=== PATIENT | male | born 1930 | race Caucasian/White ===

== ENCOUNTER 2017-12-20 18:14 | Emergency (ER) | payer OTHER ==
[~2017-12-20] VITALS: Ht 170.2 cm; Wt 57.9 kg
[2017-12-20 18:48] VITALS: TEMP 36.7; Ht 170.2 cm; Wt 57.9 kg
--- NOTE | 2017-12-20 19:27 | EMERGENCY ROOM VISIT NOTE ---
History Report prepared by Anuradha: Ken Olea Under the Supervision of: Dr. Everette Pozo M.D. First contact with patient: 19:12 Chief Complaint: THROAT PAIN/INJURY Stated Complaint: CANT SWALLOW History of Present Illness The patient is an 87 year old white male with no past medical history who presents to the ED with a cc of a worsening inability to swallow beginning the past few days. Pt is not able to drink milk or coffee without vomiting it back up. He notes he used to drink a lot of water with his meals to make everything go down, but now he cannot do that either. Negative pain with swallowing, recent weight loss, history of cancer, alcohol use, tobacco use, HTN, HLD, and DM. Source of History: patient Onset: past few days Position: throat Quality: other (inability to swallow) Timing: worsening Modifying Factors (Worsening): drinking Associated Symptoms: + vomiting Note: Denies: pain with swallowing, recent weight loss Review of Systems See HPI for pertinent positives and negatives. A total of ten systems were reviewed and were otherwise negative. Past Medical & Surgical Medical Problems: (1) No Known Active Medical Problems Family History Patient reports no known family medical history. Social History Smoking Status: Never Smoker Smokeless Tobacco Use: No Alcohol Use: none Marital Status: Housing Status: lives with significant other Occupation Status: retired Current/Historical Medications Scheduled Coenzyme Q10 (Ubidecarenone) (Co Q10), 1 CAP PO DAILY Allergies Coded Allergies: No Known Allergies (Unverified , 12/20/17) Physical Exam Vital Signs Date Time Temp Pulse Resp B/P (MAP) Pulse Ox O2 Delivery O2 Flow Rate FiO2 12/20/17 23:28 78 18 142/82 96 12/20/17 21:52 84 20 165/85 96 Room Air 12/20/17 20:37 75 12/20/17 20:27 72 20 170/86 95 Room Air 12/20/17 19:45 77 18 168/85 96 Room Air 12/20/17 18:48 36.7 81 20 180/91 94 Room Air Physical Exam GENERAL: Awake, alert, well-appearing, NAD HENT: Normocephalic, atraumatic. Posterior pharynx is clear. No tonsillar or uvular deviation. EYES: Normal conjunctiva. Sclera non-icteric. NECK: Supple. No nuchal rigidity. FROM. No stridor. RESPIRATORY: CTAB, no rhonchi, wheezing, crackles CARDIAC: RRR, no MRG ABDOMEN: Soft, NTND, BS+ MSK: No chest wall TTP, no LE edema NEURO: GCS 15, CN 2-12 intact, moves all 4s on command SKIN: No rash or jaundice noted. Medical Decision & Procedures ER Provider Diagnostic Interpretation: Radiology results as stated below per my review and radiologist interpretation: CT SCAN OF THE NECK WITH IV CONTRAST CLINICAL HISTORY: Dysphagia. COMPARISON STUDY: No priors. TECHNIQUE: Following the IV administration of 94 cc of Optiray 320, CT scan of the soft tissues of the neck was performed from the skull base to the upper chest. Images are reviewed in the axial, sagittal, and coronal planes. IV contrast was administered without complication. A dose lowering technique was utilized adhering to the principles of ALARA. CT DOSE: 328.69 mGy.cm FINDINGS: Pharynx: The nasopharynx, oropharynx, and laryngeal pharynx are normal in appearance. The pharyngeal airway is widely patent. There is no evidence of mass lesion. The vocal cords are symmetric. The parapharyngeal fat is well maintained. The prevertebral/retropharyngeal soft tissues are within normal limits. Lymphadenopathy: No cervical lymphadenopathy is seen Thyroid: Normal in size and attenuation. Bilateral low-attenuation nodules measure up to 12 mm. Salivary glands: The parotid and submandibular glands are within normal limits. Brain parenchyma: The visualized brain parenchyma at the skull base is normal in appearance noting age-related involutional change. Vascular structures: There is atherosclerotic calcification of the thoracic aorta. The carotid arteries and jugular veins are patent noting atherosclerotic calcification of the carotid bulbs. Skeletal structures: The skeletal structures are osteopenic. Imaged portions of the calvarium at the skull base are within normal limits. The cervical spine appears intact noting multilevel spondylosis. Numerous dental caries are identified within the remaining mandibular teeth. Orbits: The bony orbits are intact. Orbital contents are normal as visualized noting a right ocular lens implant. Sinuses and mastoids: Mild mucosal thickening is seen in the maxillary antra. A tiny air-fluid level is noted on the left. Mild mucosal thickening is also seen in the ethmoid sinuses. The mastoid air cells are well pneumatized. Lung apices: Advanced emphysema is noted. Minimal patchy airspace opacities are present in the right upper lobe. Esophagus: The visualized esophagus is significantly distended and filled with fluid to the level of the thoracic inlet. The esophagus measures up to 5 cm in diameter. Mild diffuse esophageal wall thickening is noted. IMPRESSION: 1. The visualized esophagus is significantly dilated and fluid-filled to level of the thoracic inlet. Note that this may place the patient at risk for aspiration. 2. Circumferential esophageal wall thickening is suggested. Correlate clinically for evidence of esophagitis. If further assessment is desired then endoscopy would be appropriate. 3. Advanced emphysema. 4. There are mild patchy airspace opacities present in the right upper lobe. Correlate clinically for evidence of an infectious/inflammatory pneumonitis. 5. No cervical lymphadenopathy is seen. 6. Numerous dental caries are identified in the remaining mandibular teeth. Follow-up with dentistry is recommended. 7. Additional findings as above. Electronically signed by: Brent Jasso M.D. 12/20/2017 9:38 PM Dictated Date/Time: 12/20/2017 9:31 PM SINGLE VIEW CHEST CLINICAL HISTORY: Generalized abdominal pain. FINDINGS: An AP, portable, upright chest radiograph is obtained. No prior studies are available for comparison at the time of dictation. The examination is degraded by portable technique and patient rotation. The heart is top normal for projection. There is atherosclerotic calcification of the thoracic aorta. The pulmonary vasculature is noncongested. Emphysematous changes suspected. Nonspecific interstitial thickening is noted. No airspace consolidation is seen typical for pneumonia and there is no large pleural effusion. No pneumothorax is seen. The skeletal structures are osteopenic. Degenerative changes noted in the thoracic spine. IMPRESSION: There is no acute cardiopulmonary abnormality. Electronically signed by: Brent Jasso M.D. 12/20/2017 8:06 PM Dictated Date/Time: 12/20/2017 8:05 PM Laboratory Results 12/20/17 19:48 Red Blood Count 4.50, Mean Corpuscular Volume 90.0, Mean Corpuscular Hemoglobin 30.7, Mean Corpuscular Hemoglobin Concent 34.1, Mean Platelet Volume 8.9, Neutrophils (%) (Auto) 70.5, Lymphocytes (%) (Auto) 17.2, Monocytes (%) (Auto) 8.7, Eosinophils (%) (Auto) 3.1, Basophils (%) (Auto) 0.2, Neutrophils # (Auto) 7.37, Lymphocytes # (Auto) 1.80, Monocytes # (Auto) 0.91, Eosinophils # (Auto) 0.32, Basophils # (Auto) 0.02 12/20/17 19:48 Test 12/20/17 19:48 White Blood Count 10.45 K/uL (4.8-10.8) Red Blood Count 4.50 M/uL (4.7-6.1) Hemoglobin 13.8 g/dL (14.0-18.0) Hematocrit 40.5 % (42-52) Mean Corpuscular Volume 90.0 fL (80-100) Mean Corpuscular Hemoglobin 30.7 pg (25-34) Mean Corpuscular Hemoglobin Concent 34.1 g/dl (32-36) Platelet Count 267 K/uL (130-400) Mean Platelet Volume 8.9 fL (7.4-10.4) Neutrophils (%) (Auto) 70.5 % Lymphocytes (%) (Auto) 17.2 % Monocytes (%) (Auto) 8.7 % Eosinophils (%) (Auto) 3.1 % Basophils (%) (Auto) 0.2 % Neutrophils # (Auto) 7.37 K/uL (1.4-6.5) Lymphocytes # (Auto) 1.80 K/uL (1.2-3.4) Monocytes # (Auto) 0.91 K/uL (0.11-0.59) Eosinophils # (Auto) 0.32 K/uL (0-0.5) Basophils # (Auto) 0.02 K/uL (0-0.2) RDW Standard Deviation 44.4 fL (36.4-46.3) RDW Coefficient of Variation 13.4 % (11.5-14.5) Immature Granulocyte % (Auto) 0.3 % Immature Granulocyte # (Auto) 0.03 K/uL (0.00-0.02) Anion Gap 6.0 mmol/L (3-11) Est Creatinine Clear Calc Drug Dose 50.1 ml/min Estimated GFR () 90.8 Estimated GFR (Non- 78.3 BUN/Creatinine Ratio 13.4 (10-20) Calcium Level 9.6 mg/dl (8.5-10.1) Laboratory results reviewed by [facility] ED Course 1919: The patient was evaluated in room B08. A complete history and physical exam was performed. 194: I discussed the patient's case with radiology. A barium swallowing test is not an option because we do not have a radiologist in the hospital that can administer it. 2212: I discussed the patient's case with LALITO Kincaid. They are aware of the patient's case and said that he would be able to follow up as an outpatient if needed. 2218: Case management spoke with the patient. He would be evaluated by the [facility] Hospitalist service, but he would not like to receive further care. 2241: I reevaluated the patient. Discussed results and discharge instructions. He would not like to be evaluated for further management or care. He verbalized understanding and agreement. The patient is ready for discharge. Medical Decision The patient is an 87 year old white male with no past medical history who presents to the ED with a cc of a worsening inability to swallow beginning the past few days. Differential diagnoses include: Stricture, esophageal web, esophagitis, obstruction, mass, dysmotility Patient was seen and evaluated the bedside. Patient had been complaining of some worsening dysphagia that has been ongoing for a prolonged time however was acutely worse the last several days. Patient has had some difficulty with even swallowing liquids. Patient denies any trauma. Patient exam is no obvious abnormality in the posterior pharynx and the patient is non-stridulous. Patient did have blood work completed along with a CT soft tissue neck. Of note the patient did have a enlarged esophagus and measured across at approximately 5 cm. I discussed the distention with the patient stated they may benefit from a endoscopy in order to further evaluate the etiology of the patient's distended esophagus. I did discuss the patient with the on-call hand sign writer who stated that he may benefit from being treated in house however not necessarily. The patient did pass his dysphagia screening. Discuss the possibility of staying in the hospital with the patient however the patient refused. I did discuss the patient with the case reviewer will help arrange an outpatient follow-up appointment. Patient was told to continue a soft diet and take small portions of time. Patient was also told to sleep propped up on a pillow. Patient was told return if he had any worsening symptoms. Patient was deemed suitable for outpatient follow-up and treatment at this time. Patient was given strict follow-up, discharge, and return precautions. All questions were answered. Patient was deemed suitable for outpatient follow-up at this time. Patient agreed with the plan of care and was safely discharged home. Medication Reconcilliation Current Medication List: was personally reviewed by me Blood Pressure Screening Patient's blood pressure: Elevated blood pressure Blood pressure disposition: Referred to PCP Consults Time Called: 2210 Consulting Physician: LALITO Kincaid Returned Call: 2211 I discussed the patient's case with LALITO Kincaid. They are aware of the patient's case and said that he would be able to follow up as an outpatient if needed. Impression Primary Impression: Dysphagia Additional Impression: Esophageal abnormality Scribe Attestation The scribe's documentation has been prepared under my direction and personally reviewed by me in its entirety. I confirm that the note above accurately reflects all work, treatment, procedures, and medical decision making performed by me. Departure Information Dispostion Home / Self-Care Referrals No Doctor, Assigned (PCP) Forms HOME CARE DOCUMENTATION FORM, IMPORTANT VISIT INFORMATION, WORK / SCHOOL INSTRUCTIONS Patient Instructions Dysphagia, Dysphagia Diet, My Qranio Additional Instructions Please return to the emergency department if you have worsening or recurrent symptoms not amenable to at-home treatment. Please call for a follow-up appointment with her primary care physician. Please take your medications as prescribed. If you have other concerns and/or complaints please feel free to also call your primary care physician's office or return the ED for further evaluation, management, and treatment. When he sleep please make sure you prop herself up. Please continue a soft diet. Please keep her follow-up appointment with the hand sign writer. The case reviewer here and will call you tomorrow to discuss your appointment. Take your medications as prescribed. You have been examined and treated today on an emergency basis only. This is not a substitute for, or an effort to provide, complete comprehensive medical care. It is impossible to recognize and treat all injuries or illnesses in a single emergency department visit. It is therefore important that you follow up closely with [facility], your PCP, and/or your specialist(s). Call as soon as possible for an appointment. Thank you for your time and consideration. I look forward to speaking with you again soon. Please don't hesitate to call us if you have any questions. Problem Qualifiers Primary Impression: Dysphagia Dysphagia type: esophageal phase Qualified Codes: R13.10 - Dysphagia, unspecified
[2017-12-20] MEDS ORDERED: OPTIRAY 320 IV PRN (19:45)
[2017-12-20 20:05] LABS: BASO % 0.2 %; BASO ABS # 0.02 K/uL (0-0.2); EOS % 3.1 %; EOS ABS # 0.32 K/uL (0-0.5); HEMATOCRIT 40.5 % (42-52); HEMOGLOBIN 13.8 g/dL (14.0-18.0); IG# 0.03 K/uL (0.00-0.02); LYMPH % 17.2 %; MEAN CORPUSCULAR HEMOGLOBIN 30.7 pg (25-34); MEAN CORPUSCULAR HGB CONC 34.1 g/dl (32-36); MEAN PLATELET VOLUME 8.9 fL (7.4-10.4); MONO % 8.7 %; MONO ABS # 0.91 K/uL (0.11-0.59); NEUT % 70.5 %; NEUT ABS # 7.37 K/uL (1.4-6.5); PLATELET COUNT 267 K/uL (130-400); RED CELL DISTRIBUTION WIDTH CV 13.4 % (11.5-14.5); RED CELL DISTRIBUTION WIDTH SD 44.4 fL (36.4-46.3); WHITE BLOOD COUNT 10.45 K/uL (4.8-10.8)
--- NOTE | 2017-12-20 20:08 | DIAGNOSTIC IMAGING REPORT ---
SINGLE VIEW CHEST CLINICAL HISTORY: Generalized abdominal pain. FINDINGS: An AP, portable, upright chest radiograph is obtained. No prior studies are available for comparison at the time of dictation. The examination is degraded by portable technique and patient rotation. The heart is top normal for projection. There is atherosclerotic calcification of the thoracic aorta. The pulmonary vasculature is noncongested. Emphysematous changes suspected. Nonspecific interstitial thickening is noted. No airspace consolidation is seen typical for pneumonia and there is no large pleural effusion. No pneumothorax is seen. The skeletal structures are osteopenic. Degenerative changes noted in the thoracic spine. IMPRESSION: There is no acute cardiopulmonary abnormality. Electronically signed by: Brent Jasso M.D. 12/20/2017 8:06 PM Dictated Date/Time: 12/20/2017 8:05 PM
[2017-12-20 20:25] LABS: CALCIUM 9.6 mg/dl (8.5-10.1); CREATININE 0.85 mg/dl (0.60-1.40); POTASSIUM 4.1 mmol/L (3.5-5.1)
[2017-12-20] MEDS ORDERED: COEN90TA PO (20:31)
--- NOTE | 2017-12-20 21:39 | DIAGNOSTIC IMAGING REPORT ---
CT SCAN OF THE NECK WITH IV CONTRAST CLINICAL HISTORY: Dysphagia. COMPARISON STUDY: No priors. TECHNIQUE: Following the IV administration of 94 cc of Optiray 320, CT scan of the soft tissues of the neck was performed from the skull base to the upper chest. Images are reviewed in the axial, sagittal, and coronal planes. IV contrast was administered without complication. A dose lowering technique was utilized adhering to the principles of ALARA. CT DOSE: 328.69 mGy.cm FINDINGS: Pharynx: The nasopharynx, oropharynx, and laryngeal pharynx are normal in appearance. The pharyngeal airway is widely patent. There is no evidence of mass lesion. The vocal cords are symmetric. The parapharyngeal fat is well maintained. The prevertebral/retropharyngeal soft tissues are within normal limits. Lymphadenopathy: No cervical lymphadenopathy is seen Thyroid: Normal in size and attenuation. Bilateral low-attenuation nodules measure up to 12 mm. Salivary glands: The parotid and submandibular glands are within normal limits. Brain parenchyma: The visualized brain parenchyma at the skull base is normal in appearance noting age-related involutional change. Vascular structures: There is atherosclerotic calcification of the thoracic aorta. The carotid arteries and jugular veins are patent noting atherosclerotic calcification of the carotid bulbs. Skeletal structures: The skeletal structures are osteopenic. Imaged portions of the calvarium at the skull base are within normal limits. The cervical spine appears intact noting multilevel spondylosis. Numerous dental caries are identified within the remaining mandibular teeth. Orbits: The bony orbits are intact. Orbital contents are normal as visualized noting a right ocular lens implant. Sinuses and mastoids: Mild mucosal thickening is seen in the maxillary antra. A tiny air-fluid level is noted on the left. Mild mucosal thickening is also seen in the ethmoid sinuses. The mastoid air cells are well pneumatized. Lung apices: Advanced emphysema is noted. Minimal patchy airspace opacities are present in the right upper lobe. Esophagus: The visualized esophagus is significantly distended and filled with fluid to the level of the thoracic inlet. The esophagus measures up to 5 cm in diameter. Mild diffuse esophageal wall thickening is noted. IMPRESSION: 1. The visualized esophagus is significantly dilated and fluid-filled to level of the thoracic inlet. Note that this may place the patient at risk for aspiration. 2. Circumferential esophageal wall thickening is suggested. Correlate clinically for evidence of esophagitis. If further assessment is desired then endoscopy would be appropriate. 3. Advanced emphysema. 4. There are mild patchy airspace opacities present in the right upper lobe. Correlate clinically for evidence of an infectious/inflammatory pneumonitis. 5. No cervical lymphadenopathy is seen. 6. Numerous dental caries are identified in the remaining mandibular teeth. Follow-up with dentistry is recommended. 7. Additional findings as above. Electronically signed by: Brent Jasso M.D. 12/20/2017 9:38 PM Dictated Date/Time: 12/20/2017 9:31 PM
[2017-12-20 23:28] VITALS: BP 142/82; PULSE 78; O2SAT 96
== END 2017-12-20 23:29 | disposition home or self-care (01) ==
LOC: C.EDB 18:17
DX: R13.10 Dysphagia, unspecified (principal); K22.9 Disease of esophagus, unspecified

== ENCOUNTER → 2017-12-23 | Day surgery (SDC) | payer OTHER ==
[~2017-12-23] VITALS: Ht 170.2 cm; Wt 58.2 kg
[~2017-12-23] MED LIST: COEN90TA PO; LIDOCAINE HCL 2% 2 ML VIAL (20MG/ML) ONE; PROPOFOL IV EMULSION 10 MG/ML 20 ML VIAL IV ONE; SODIUM CHLORIDE 0.9% 500ML 500 ML IV ONE
[2017-12-23 10:34] VITALS: Ht 170.2 cm; Wt 58.2 kg
--- NOTE | 2017-12-23 11:10 | Endo History and Physical ---
History & Physical Date of Service: Dec 23, 2017. Chief Complaint: Dysphagia Referring Physician: None History of Present Illness dysphagia Past Surgical History Hx Post-Op Nausea and Vomiting: No Family History None Social History Smoking Status: Never Smoker Hx Substance Use: No Hx Alcohol Use: No Allergies Coded Allergies: No Known Allergies (Verified , 12/23/17) Current Medications Reported Home Medications Medications Dose Route/Sig Max Daily Dose Days Date Category Co Q10 (Coenzyme Q10) Unknown Strength Tab 1 Cap PO DAILY 12/20/17 Reported Vital Signs Weight (Kilograms): 58.18 Height (Feet): 5 Height (Inches): 7 Date Time Temp Pulse Resp B/P (MAP) Pulse Ox O2 Delivery O2 Flow Rate FiO2 12/23/17 10:49 36.4 76 22 177/86 (116) 96 Room Air Physical Exam General Appearance: WD/WN, no apparent distress Assessment and Plan EGD today
--- NOTE | 2017-12-23 11:55 | GI REPORT ---
Procedure Date: 12/23/2017 10:54 AM Procedure: Upper GI endoscopy Indications: Dysphagia Medicines: Propofol per Anesthesia Complications: No immediate complications. Estimated blood loss: Minimal. Estimated Blood Loss: Estimated blood loss was minimal. Procedure: Pre-Anesthesia Assessment: - Prior to the procedure, a History and Physical was performed, and patient medications, allergies and sensitivities were reviewed. The patient's tolerance of previous anesthesia was reviewed. - The risks and benefits of the procedure and the sedation options and risks were discussed with the patient. All questions were answered and informed consent was obtained. - Patient identification and proposed procedure were verified prior to the procedure by the physician and the nurse. The procedure was verified in the pre-procedure area in the procedure room. - Mental Status Examination: alert and oriented. Airway Examination: normal oropharyngeal airway and neck mobility. Respiratory Examination: clear to auscultation. CV Examination: normal. Abdominal Examination: bowel sounds present, abdomen soft and non-tender, no masses or organomegaly noted. - ASA Grade Assessment: II - A patient with mild systemic disease. After obtaining informed consent, the endoscope was passed under direct vision. Throughout the procedure, the patient's blood pressure, pulse, and oxygen saturations were monitored continuously. The scope was introduced through the mouth, and advanced to the second part of duodenum. The upper GI endoscopy was accomplished without difficulty. The patient tolerated the procedure well. Findings: The lumen of the esophagus was severely dilated. Diffuse mucosal changes characterized by congestion, erythema, friability (with contact bleeding), inflammation and white specks were found in the middle third of the esophagus and in the lower third of the esophagus. Cells for cytology were obtained by brushing. Verification of patient identification for the specimen was done by the physician and nurse using the patient's name and date. Estimated blood loss was minimal. Mucosal changes characterized by smoothness were found at the gastroesophageal junction. Biopsies were taken with a cold forceps for histology. Verification of patient identification for the specimen was done by the physician and nurse using the patient's name and date. Estimated blood loss was minimal. Fluid was found in the entire esophagus. A small hiatal hernia was present. The examined duodenum was normal. Impression: - The esophagus is significantly dilated. There was a moderate amount of fluid which was suctioned/removed. - The entire esophagus is congested, erythematous, friable (with contact bleeding), inflamed, with adherent white plaque vs food debris. Cells for cytology obtained. - Mucosa at the GE junction (which was difficult to locate) shows luminal narrowing. Dilated with passage of the scope. Further dilation with bougie dilator or balloon not done today given the degree of inflammation and friability of the remainder of the esophagus. Biopsied. - Small hiatal hernia. - Normal examined duodenum. Recommendation: - Use a proton pump inhibitor PO BID. - Await pathology results. - Full liquid diet. - Repeat upper endoscopy in 1-2 week to check healing and for retreatment. - Return to referring physician as previously scheduled. - Discharge patient to home. Shagufta Mata D.O. Shagufta Mata, 12/23/2017 11:55:11 AM This report has been signed electronically. Note Initiated On: 12/23/2017 10:54 AM I attest to the content of the Intraoperative Record and orders documented therein, exceptions below
[2017-12-23 12:25] VITALS: BP 138/75; PULSE 70; O2SAT 97
--- NOTE | 2017-12-23 12:28 | Discharge Instructions ---
Endoscopy Patient Instructions Date / Procedure(s) Performed Dec 23, 2017. EGD Allergy Information Coded Allergies: No Known Allergies (Verified , 12/23/17) Discharge Date / Findings Dec 23, 2017. 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 - Do not drink alcohol the day of the procedure. - Do not drive a car or operate machinery until the day after the procedure. - Do not make any important decisions or sign important papers in 24 hours after the procedure. Following Day: - Return to full activity which may include returning to work/school. Diet Full liquid diet Treatment For Common After Affects For mild abdominal pain, bloating, or excessive gas: - Rest - Eat lightly - Lie on right side Follow-Up Information Follow-up with a repeat upper endoscopy in 1 week Anesthesia Information What You Should Know You have had a procedure that required some medicine to reduce anxiety and discomfort. This treatment is called moderate sedation. After receiving the treatment, you may be sleepy, but you will be able to breathe on your own. The effects of the treatment may last for several hours. Follow these instructions along with Activity/Diet recommendations noted above: * Do NOT do anything where dizziness or clumsiness would be dangerous. * Rest quietly at home today, then you can be up and about tomorrow. * Have a responsible person stay with you the rest of today. * You may have had an I.V. today. If so, you may take the dressing off later today. Recommendations Call your doctor if: * Trouble breathing * Continuous vomiting for more than 24 hours * Temperature above 101 degrees * Severe abdominal pain or bloating * Pain not relieved by pain medicine ordered * There is increased drainage or redness from any incision * A large amount of rectal bleeding greater than 2-3 tablespoons. (If you had a polyp/s removed or have hemorrhoids, a small amount of blood - from the rectum is to be expected.) * You have any unanswered questions or concerns. IN THE EVENT OF A SERIOUS EMERGENCY, GO TO THE NEAREST EMERGENCY ROOM Your discharge instructions were prepared by provider Shagufta Mata. Patient Instructions Signature Page Alfonso Wilson Patient (or Guardian) Signature/Date: I have read and understand the instructions given to me by my caregivers. Caregiver/RN/Doctor Signature/Date: The above-named patient and/or guardian has received patient instructions on this date. + Original Patient Signature Page (only) stays with chart. Please make copy for patient.
--- NOTE | 2017-12-23 13:12 | Anesthesiology Progress Note ---
Anesthesia Post Op Note Date & Time Dec 23, 2017 at 13:12 Vital Signs Pain Intensity: 0 Vital Signs Past 12 Hours Date Time Temp Pulse Resp B/P (MAP) Pulse Ox O2 Delivery O2 Flow Rate FiO2 12/23/17 12:25 70 20 138/75 (96) 97 Room Air 12/23/17 12:12 70 20 156/77 (103) 97 Room Air 12/23/17 11:55 77 16 160/83 (108) 98 Room Air 12/23/17 10:49 36.4 76 22 177/86 (116) 96 Room Air Notes Mental Status: alert / awake / arousable, participated in evaluation Pt Amnestic to Procedure: Yes Nausea / Vomiting: adequately controlled Pain: adequately controlled Airway Patency, RR, SpO2: stable & adequate BP & HR: stable & adequate Hydration State: stable & adequate Anesthetic Complications: no major complications apparent
== END | disposition home or self-care (01) ==
LOC: C.GI 10:05
PROVIDERS: ATTEND Internal Medicine
DX: R13.10 Dysphagia, unspecified (principal); K44.9 Diaphragmatic hernia without obstruction or gangrene; K20.9 Esophagitis, unspecified

== ENCOUNTER → 2018-01-03 | Day surgery (SDC) | payer OTHER ==
[~2018-01-03] VITALS: Ht 170.2 cm; Wt 58.6 kg
[~2018-01-03] MED LIST changes: -LIDOCAINE HCL 2% 2 ML VIAL (20MG/ML) ONE; -PROPOFOL IV EMULSION 10 MG/ML 20 ML VIAL IV ONE
[2018-01-03 10:49] VITALS: Ht 170.2 cm; Wt 58.6 kg
[2018-01-03 10:57] VITALS: BP 180/85; PULSE 74; TEMP 36.6; O2SAT 97
--- NOTE | 2018-01-03 12:30 | Progress Note ---
Progress Note Date of Service Jan 03, 2018. Progress Note Mr. Wilson presented today for f/u EGD for dysphagia and recent Eugenia esophagitis. He states he is feeling fine and does not want to undergo any further testing, states he is eating what he wants without difficulty. Refused consent Patient was agreeable to outpt clinic f/u which I will arrange Discussed with son at bedside.
== END | disposition home or self-care (01) ==
LOC: C.GI 10:34
PROVIDERS: ATTEND Internal Medicine
DX: R13.10 Dysphagia, unspecified (principal); Z53.29 Procedure and treatment not carried out because of patient's decision for other reasons

== ENCOUNTER 2019-12-27 09:44 | Inpatient (IN) ==
[2019-12-27] MEDS ORDERED: SODIUM CHLORIDE 0.9% 500 ML IV SCH (10:00)
[2019-12-27] MEDS ORDERED: ONDANSETRON INJ 2 MG/ML 2 ML VIAL IV STA (10:17)
[2019-12-27] MEDS ORDERED: MoRPHine SULFATE 2 MG/ML CARP IV STA (10:17)
[2019-12-27 10:24] LABS: Basophils # (auto) 0.01 K/uL (0-0.2); Basophils % (auto) 0.1 %; Hematocrit (blood only) 45.9 % (42-52); Hemoglobin 15.2 g/dL (14.0-18.0); Immature Granulocytes # (auto) 0.04 K/uL (0.00-0.02); Immature Granulocytes % (auto) 0.3 %; Lymphocytes % (auto) 5.7 %; Mean Corpuscular Hemoglobin 31.4 pg (25-34); Mean Corpuscular Hgb Conc 33.1 g/dL (32-36); Mean Corpuscular Volume 94.8 fL (80-100); Mean Platelet Volume 11.3 fL (7.4-10.4); Monocytes # (auto) 0.77 K/uL (0.11-0.59); Monocytes % (auto) 4.9 %; Neutrophils # (auto) 14.01 K/uL (1.4-6.5); Platelet Count 221 K/uL (130-400); RDW Coefficient of Variation 14.6 % (11.5-14.5); RDW Standard Deviation 49.9 fL (36.4-46.3); Red Blood Count 4.84 M/uL (4.7-6.1); White Blood Count 15.73 K/uL (4.8-10.8)
[2019-12-27 10:27] LABS: Appearance Urine Cloudy (Clear); Bacteria Urine Automated Negative (Negative); Bilirubin Urine Negative (Negative); Blood Urine Trace (Negative); Color Urine Dark Yellow; Glucose Urine UA Negative (Negative); Ketones Urine 2+ (Negative); Leukocyte Esterase Urine 2+ (Negative); Nitrite Urine Negative (Negative); Protein Urine 1+ (Negative); RBC Urine Automated 0-4 /hpf (0-4); Specific Gravity Urine 1.025 (1.000-1.030); Urobilinogen Urine Negative (Negative); WBC Urine Automated >30 /hpf (0-5); pH Urine 5.5 (4.5-7.5)
--- NOTE | 2019-12-27 10:30 | XRay Report ---
XR chest 1V portable CLINICAL HISTORY: weakness COMPARISON STUDY: Chest radiograph December 20, 2017. FINDINGS: Lung volumes are normal. There is no pneumothorax or pleural effusion. There is no evidence for pulmonary edema. Cardiac size is normal. Abnormal upper mediastinal widening is noted. A 1.5 cm density within the right upper lung is present. IMPRESSION: 1. Abnormal upper mediastinal widening. This may be due to esophageal dilatation. 2. Possible 1.5 cm right upper lobe nodular opacity. A nonemergent chest CT is recommended for evalua tion of these findings. ACT 112: Negative or not required by law. Electronically signed by: Jim Villatoro M.D. 12/27/2019 10:28 AM
[2019-12-27 10:32] LABS: Albumin Level 3.4 gm/dl (3.4-5.0); BUN Creatinine Ratio 28.1 (10-20); Calcium 10.2 mg/dl (8.5-10.1); Creatinine Clr Calc Pharmacy 29.3 ml/min; Est GFR (Non-African American) 61.2; Magnesium 2.2 mg/dl (1.8-2.4); Potassium 3.8 mmol/L (3.5-5.1)
--- NOTE | 2019-12-27 10:34 | CT Scan Report ---
HEAD CT NONCONTRAST CT DOSE: 905.75 mGy.cm HISTORY: fall TECHNIQUE: Multiaxial CT images of the head were performed without the use of intravenous contrast. A utomated exposure control was utilized for this study. A dose lowering technique was utilized adheri ng to the principles of ALARA. Comparison: None. Findings: Trace fluid levels within the maxillary sinuses. The mastoid air cells are clear. The christopher rium and skull base are intact. There is no mass, hematoma, midline shift, acute infarct. White matte r hypodensity is nonspecific but suggestive of microvascular ischemic change. The ventricles and sulc i demonstrate mild age-related involutional changes. Impression: No acute intracranial abnormality. Atrophy and microvascular ischemic changes. Trace fluid levels wit hin the maxillary sinuses. ACT 112: Negative or not required by law. Electronically signed by: Jian Wong M.D. 12/27/2019 10:33 AM
--- NOTE | 2019-12-27 10:43 | CT Scan Report ---
CT OF THE ABDOMEN AND PELVIS WITHOUT CONTRAST CLINICAL HISTORY: Left hip pain. Fall. Weight loss. COMPARISON STUDY: No previous studies for comparison. TECHNIQUE: Axial images of the abdomen and pelvis were obtained without IV contrast. Images were revi ewed in the axial, sagittal, and coronal planes. Automated exposure control was utilized for the neha dy. A dose lowering technique was utilized adhering to the principles of ALARA. FINDINGS: Imaged portions of the lower chest demonstrate trace bilateral pleural effusions. There is moderate emphysema. Visualized portions of the esophagus are markedly distended and contain ingested contents. A small hiatal hernia is present. No pneumatosis, free air or portal venous gas is present. Evaluation of the abdomen and pelvis is suboptimal on this unenhanced exam. A water attenuation left renal lesion favors a cyst. Unenhanced images of the liver, spleen, adrenal glands and pancreas are unremarkable. Prostate is markedly enlarged. Bladder wall is thickened and irregular with trabeculati ons. This is chronic. Bladder is moderately distended. Note is made of a comminuted displaced subcapi manuel left femoral neck fracture. Multiple bone fragments are present. This fracture is acute to subacu te. Thoracolumbar spine compression deformities are present. There are no suspicious osseous lesions. IMPRESSION: 1. Impacted displaced subcapital left femoral neck fracture. 2. Markedly distended esophagus, partially imaged on this exam. Probable hiatal hernia. The appearanc e raises the possibility of achalasia. A GE junction tumor with resultant esophageal dilatation could appear similar. Nonemergent GI consultation is suggested. 3. Trace bilateral pleural effusions. 4. Moderate emphysema. ACT 112: Negative or not required by law. Electronically signed by: Jim Villatoro M.D. 12/27/2019 10:42 AM
[2019-12-27 10:45] LABS: Albumin Globulin Ratio 0.7 (0.9-2); Bilirubin,Total 0.7 mg/dl (0.2-1); Creatine Kinase MB 3.2 ng/ml (0.5-3.6); Thyroid Stimulating Hormone 1.02 uIu/ml (0.300-4.500); Total Protein 8.4 gm/dl (6.4-8.2); Troponin I 0.122 ng/ml (0-0.045)
--- NOTE | 2019-12-27 12:11 | Gastrointestinal Consultation ---
Date of Consultation December 27, 2019 Assessment & Plan (1) Achalasia: Mr. Wilson has a tortorous esophagus, currently with a dilated esophagus. Botux injections into the GE junction have been slightly helpful for this in the past, though the length of effectiveness is decreasing. Favor a conservative approach, providing time for esophagus contents to pass through with time (typically clears in 1-2 days). Would keep NPO, provide IV fluids. This will allow time for cardiac testing for elevated troponin as well. Would be very hesitant to sedate for an elective procedure while troponin is elevated. Present on Admission?: Yes Supervising Physician Co-Signing Physician Notes I have personally seen and examined the patient with CLAYTON Montalvo. Her note reflects my exam and findings. I agree with her impression and plan. An EGD would put this very frail patient at risk because of anesthesia needed. He has evidence of severe esophageal dysmotility which endoscopy will not fix. The CT was c/w this dysmotility. The patient has had 4 previous endoscopies (last one not even a year ago) which showed exactly the same pathology. At this point from a GI perspective, hydrate and stabilize and asses for possible cardiac issue. Keep NPO for now. Basilio Newton M.D. History of Present Illness Reason for Consultation: Acalasia Requesting Physician: Emily Guerra NP/Dr. Allan Attending Physician: Emily Guerra NP/Dr. Allan History of Present Illness Mr. Alfonso Wilson is an 89 yr old male pt of Dr. Hoffmann with a hx of HTN and acalasia presented to the ED for a fall with hip fracture. GI is consulted for achalasia. The pt has previously undergone EGD with Botox injections into the GE junction, most recently in May [address] Roman. He was also recently seen in the GI clinic by Dr. Jatin Abreu and elective repeat EGD was arranged for next week. The pt denies any issues but the son accompanying him says that last fall, his dysphagia symptoms returned. They were intermittent at that time and have progressed such that, in the past few weeks, he has been able to swallow only very small amts of liquids and solids. During attempts to swallow, the solids and liquids regurgitating almost immediately, sometimes with coughing/gagging/choking. On arrival, non contrast CT chest CT and abd/pelvis with a dilated esophagus.WBC is elevated at 15. Troponin is also elevated at .122. Allergies Allergy/AdvReac Type Severity Reaction Status Date / Time No Known Allergies Allergy Verified 12/27/19 10:34 Home Medications Home Medications Medication Instructions Recorded Confirmed Type No Known Home Medications 12/27/19 12/27/19 History Patient History Medical History Achalasia BPH (benign prostatic hyperplasia) Surgical History History of esophagogastroduodenoscopy (EGD) History of tonsillectomy History of tooth extraction all upper and most of lower Hx of left cataract extraction Social History Preferred Language: Georgian Communication Ability: Effective Anesthesia Assistant Required: No Beliefs That Will Affect Care: None Current Living Situation: Alone Other Information That Helps Us Care for You: No Feels Safe at Home: Yes Safety Concerns: Feels Safe At This Time Smoking Status: Never smoker Second Hand Exposure: Yes ( smoked) ; Hx Alcohol Use: No Hx Substance Use: No Review of Systems Review of Systems: ROS: Gen: Weakness, 10 lbs weight loss in 2 weeks. No fevers/chills/sweats Eyes: No eye redness, or pain, no recent vision changes Resp: + cough with swallowing sometimes, otherwise no SOB, no cough Cardio: No palpitations/irregular beats, no chest pain GI: Denies any abdominal pain, no nausea/vomiting : Denies pain on urination. Skin: No jaundice, itching or new rashes Ext: left hip pain, no edema Physical Exam Constitutional: WD/WN, vitals as above + cachectic Eyes: PERRL, conjunctivae normal, anicteric sclerae ENMT: external ear and nose normal, oropharynx normal Neck: trachea midline, no thyromegaly Respiratory: normal respiratory effort, lungs clear to auscultation Cardiovascular: RRR, no murmur, no edema Gastrointestinal (Abdomen): normal bowel sounds, soft, nontender, no hepatosplenomegaly Skin: no rashes, warm and dry + turgor decreased Neurologic: PERRL, EOMI, accommodation nl, no face palsy, no dysarthria Psychiatric: A+Ox3, euthymic affect Lymphatic: one 3 cm soft let groin node Results & Data Vital Signs (Past 12 Hours) Vital Signs Temp Pulse Resp BP Pulse Ox 12/27/19 10:05 36.9 C 91 H 22 139/77 97 Laboratory Results WBC 15, Hb 15, Hct 45,platelets 221. NA 142, K 3.8, BUN 30, Cr 1.07 Troponin elevated today at .[address] abd/pelvis (non-contrast) 12/27/19: 1. Impacted displaced subcapital left femoral neck fracture. 2. Markedly distended esophagus, partially imaged on this exam. Probable hiatal hernia. The appearance raises the possibility of achalasia. A GE junction tumor with resultant esophageal dilatation could appear similar. Nonemergent GI consultation is suggested. 3. Trace bilateral pleural effusions. 4. Moderate emphysema. CXR: 1. Abnormal upper mediastinal widening. This may be due to esophageal dilatation. 2. Possible 1.5 cm right upper lobe nodular opacity. A nonemergent chest CT is recommended for evaluation of these findings.
--- NOTE | 2019-12-27 12:35 | History & Physical Report ---
Date of Service December 27, 2019 Assessment & Plan (1) Hip fracture, left: -Admit to [facility] with telemetry -Patient presenting after he suffered a mechanical fall last evening -In the ED, found to have displaced subcapital left femoral neck fracture -Due to elevated troponin, new RBBB, and achalasia, patient will need further preoperative evaluation -Orthopedics consult, case discussed with Dr. Mcdonald (2) Elevated troponin: (3) RBBB: -Mild troponin elevation 0.122, no reports of chest pain, likely secondary to dehydration/stress from fall -Found to have new RBBB on EKG -Continue cycle cardiac enzymes, check resting echo -Cardiology consult for preoperative evaluation, Dr. Del Toro notified (4) Achalasia: -History of achalasia, most recent dilation and Botox injections 01/2019 -GI consult, case discussed with CLAYTON Montalvo (5) Leukocytosis: -WBC 15K, likely stress response due to fall/fracture -No obvious signs of infection at this time -Follow CBC (6) DVT prophylaxis: -SCDs due to likely upcoming invasive procedures History of Present Illness Chief Complaint: left hip pain Primary Care Provider: Basilio Hoffmann 89 year old male who presents to the ED for evaluation of left hip pain. Patient has history of achalasia. Had dilation and Botox injection 01/2019. Over the past few months, patient has had worsening difficulty swallowing with acute worsening of symptoms over the past one week. Patient has had a 20 pound weight loss since last summer. Due to patient's very poor p.o. intake, he has had worsening generalized weakness. Last evening, patient slipped when trying to get up from his bed. His son found him on the floor. Patient was complaining of left hip pain however denied hospital evaluation at that time. This morning, left hip pain was persistent and patient then agreed to come to the ED. Patient reports he did strike his head with the fall however denies any loss of consciousness. No associated chest pain or shortness of breath. Has some lightheadedness with standing however denies syncopal event. No abdominal pain, nausea, vomiting, diarrhea. Denies any other recent illnesses, fevers, chills. No urinary symptoms. In the ED, patient is found to have left hip fracture. Labs show mildly elevated troponin 0.122, EKG shows new RBBB. CT ABD/pelvis is showing signs of esophageal distention, likely secondary to achalasia. Patient was given IVF, IV Zofran, IV morphine. Allergies Allergy/AdvReac Type Severity Reaction Status Date / Time No Known Allergies Allergy Verified 12/27/19 10:34 Home Medications Home Medications Medication Instructions Recorded Confirmed Type No Known Home Medications 12/27/19 12/27/19 History Past Med/Surg History Medical History Achalasia BPH (benign prostatic hyperplasia) Elevated troponin Surgical History History of esophagogastroduodenoscopy (EGD) History of tonsillectomy History of tooth extraction all upper and most of lower Hx of left cataract extraction Social History Preferred Language: Mozambican Communication Ability: Effective Financial Reporting Accountant Required: No Beliefs That Will Affect Care: None Current Living Situation: Alone Other Information That Helps Us Care for You: No Feels Safe at Home: Yes Safety Concerns: Feels Safe At This Time Smoking Status: Never smoker Second Hand Exposure: Yes ( smoked) ; Hx Alcohol Use: No Hx Substance Use: No Review of Systems Review of Systems: ROS per HPI, all other systems reviewed and negative Physical Exam Constitutional: + cachectic; no acute distress Vitals as above Eyes: PERRL, conjunctivae normal, anicteric sclerae ENMT: Ears: no external ear abnormality Nose: no external nose abnormality Mouth: + dry oral mucous membranes Respiratory: normal respiratory effort, lungs clear to auscultation Cardiovascular: Rate/Rhythm: regular rate and regular rhythm Vessels: normal peripheral pulses Extremities: no edema Gastrointestinal (Abdomen): normal bowel sounds, soft, nontender, no hepatosplenomegaly Musculoskeletal: Extremities: + leg length discrepancy (Left, shortened) and + leg externally rotated (Left); no cyanosis and no clubbing Skin: no rashes, warm and dry Neurologic: PERRL, EOMI, accommodation nl, no face palsy, no dysarthria Psychiatric: Orientation: alert and oriented x 3 Results & Data Vital Signs (Past 12 Hours) Vital Signs Temp Pulse Pulse Resp BP BP Pulse Ox 12/27/19 11:40 80 18 113/65 95 12/27/19 10:05 36.9 C 91 H 22 139/77 97 Laboratory Results Short CBC 12/27/19 Range/Units 09:58 WBC 15.73 H (4.8-10.8) K/uL Hgb 15.2 (14.0-18.0) g/dL Hct 45.9 (42-52) % Plt Count 221 (130-400) K/uL BMP 12/27/19 09:58 Sodium 142 Potassium 3.8 Chloride 106 Carbon Dioxide 29 BUN 30 H Creatinine 1.07 Glucose 120 H Calcium 10.2 H Cardiac Enzymes 12/27/19 Range/Units 09:58 Total Creatine Kinase 482 H (39-308) U/L CK-MB (CK-2) 3.2 (0.5-3.6) ng/ml Troponin I 0.122 H* (0-0.045) ng/ml Liver Function 12/27/19 Range/Units 09:58 Total Bilirubin 0.7 (0.2-1) mg/dl AST 32 (15-37) U/L ALT 26 (12-78) U/L Alkaline Phosphatase 91 (45-117) U/L Albumin 3.4 (3.4-5.0) gm/dl Urine 12/27/19 Range/Units 10:16 Urine Color Dark Yellow Urine Appearance Cloudy A (Clear) Urine pH 5.5 (4.5-7.5) Ur Specific Jackson 1.025 (1.000-1.030) Urine Protein 1+ H (Negative) Urine Glucose (UA) Negative (Negative) Diagnostic Findings CT ABD/PELVIS IMPRESSION: 1. Impacted displaced subcapital left femoral neck fracture. 2. Markedly distended esophagus, partially imaged on this exam. Probable hiatal hernia. The appearance raises the possibility of achalasia. A GE junction tumor with resultant esophageal dilatation could appear similar. Nonemergent GI consultation is suggested. 3. Trace bilateral pleural effusions. 4. Moderate emphysema. CXR IMPRESSION: 1. Abnormal upper mediastinal widening. This may be due to esophageal dilatation. 2. Possible 1.5 cm right upper lobe nodular opacity. A nonemergent chest CT is recommended for evaluation of these findings. CT Head Impression: No acute intracranial abnormality. Atrophy and microvascular ischemic changes. Trace fluid levels within the maxillary sinuses. Code Status & VTE Plan Code Status Patient is a DNR as per my discussion with him. VTE Prophylaxis Plan VTE Prophylaxis will be ordered: Yes Supervising Physician Co-Signing Physician Notes Attending addendum The patient was seen and examined in medical telemetry unit He is a status post fall with fracture of the left hip He is cachectic and complains of left hip pain but denies any other significant symptoms Denies any chest pain and/or palpitation on minimal exertion No abdominal pain, nausea and/or vomiting On examination Lying in bed without any acute symptoms Poor nutrition with cachectic appearance Hemodynamically stable Chest-clear Heart-S1-S2, regular Abdomen-benign Extremities-negative for any edema 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 Generally very weak and lethargic Admission labs, EKG, imaging studies reviewed Has achalasia with buildup of fluid in the esophagus, status post fall with frac ture of the left hip Gastroenterology and cardiology service consulted Ortho on board for possible surgery Agree with assessment and plan as outlined above by Emily durán
[2019-12-27] MEDS ORDERED: IOVERSOL 100ml IV PRN (12:42)
[2019-12-27] MEDS ORDERED: ACETAMINOPHEN 325 MG TAB PO PRN (13:18)
[2019-12-27] MEDS ORDERED: MAGNESIUM HYDROXIDE SUSP 30 ML UDC PO PRN (13:18)
[2019-12-27] MEDS ORDERED: NALOXONE HCL 0.4 MG/1 ML VIAL/CARP IV PRN (13:18)
[2019-12-27] MEDS ORDERED: MoRPHine SULFATE 2 MG/ML CARP IV PRN (13:18)
[2019-12-27] MEDS ORDERED: bisacodyL 10 MG SUPP PR PRN (13:18)
[2019-12-27] MEDS: D5W AND NSS 1,000 ML IV SCH (13:30)
--- NOTE | 2019-12-27 13:59 | CT Scan Report ---
CHEST CT WITH CONTRAST CT DOSE: 204.22 mGy.cm HISTORY: achalasia, f/u RUL opacity TECHNIQUE: Multiaxial CT images of the chest were performed following the intravenous administration of contrast. A dose lowering technique was utilized adhering to the principles of ALARA. COMPARISON: Abdomen and pelvis CT and chest x-ray 12/27/2019. FINDINGS: Severely distended esophagus which is filled with fluid/debris. The proximal esophagus cynthia ures up to 8.7 cm in diameter. This results in significant mass effect along the proximal trachea wit h severe narrowing best seen on image 65 of 326. The right side of the trachea measures 6 mm at this level and the left side of the trachea measures 1 mm in diameter. This also results in mass effect al dany the bilateral mainstem bronchi resulting in moderate focal narrowing on the right and mild narrow ing on the left. A few subcentimeter thyroid nodules. No mediastinal or hilar lymphadenopathy. There is tight stenosis at the gastroesophageal junction. Small bilateral pleural effusions. No pericardial effusion. The heart is normal in size. There is mild mass effect along the left atrium from the dist ended esophagus. Normal caliber thoracic aorta with no evidence for dissection. Small nonocclusive fi lling defects seen within the proximal right lower lobe segmental pulmonary arteries consistent with pulmonary emboli. This is technically age indeterminate but likely chronic. No suspicious lytic or bl astic osseous lesions. Moderate emphysema. Multiple compression deformities within the L1 vertebral b odies. These are likely old. Mild biapical pleural-parenchymal scarring. A few bibasilar linear densi ties suggesting subsegmental atelectasis. Faint patchy groundglass airspace opacity within the right upper lobe. This favors a developing pneumonia. IMPRESSION: 1. Severely distended and debris/fluid filled esophagus with tight stenosis at the gastroesophageal j unction as described above. This favors achalasia. A mass at the gastroesophageal junction is is cons idered less likely but not entirely excluded. Consider follow-up endoscopy for further evaluation. 2. The severely distended esophagus results in significant mass effect within the proximal trachea wi th severe tracheal narrowing as described above. The severe tracheal narrowing may prohibit this rafael ent from surgery/general anesthesia. 3. Faint patchy groundglass airspace opacity within the right upper lobe. This favors a developing pn eumonia. 4. Emphysema. 5. Small bilateral pleural effusions. 6. Additional findings as described above. 7. These findings were called/faxed to the referring physician following dictation. ACT 112: Negative or not required by law. Electronically signed by: Jian Wong M.D. 12/27/2019 1:58 PM
[2019-12-27] MEDS ORDERED: PIPERACILL/TAZOBAC CONSULT ACTIVE PRN (14:14)
--- NOTE | 2019-12-27 14:24 | Electrocardiogram Report ---
Test Reason : Blood Pressure : / mmHG Vent. Rate : 084 BPM Atrial Rate : 084 BPM P-R Int : 202 ms QRS Dur : 118 ms QT Int : 380 ms P-R-T Axes : 080 -73 077 degrees QTc Int : 449 ms Normal sinus rhythm Left axis deviation Right bundle branch block Abnormal ECG When compared with ECG of 02-MAY-2018 12:36, Right bundle branch block is now Present Criteria for Septal infarct are no longer Present Confirmed by Blas Brantley ([id number]) on 12/27/2019 2:24:39 PM Referred By: Confirmed By:Blsa Brantley
--- NOTE | 2019-12-27 14:24 | Anesthesiology Consultation ---
Date of Service December 27, 2019 Assessment & Plan (1) Encounter for pre-operative examination: Chart Review Chart Review: Pending: Refer to Additional Notes / Consult section (patient with elevated troponin and new RBBB on ECG - Cardiology to see patient today, echo ordered ) History Height/Weight Height: 5 ft 7 in Weight: 42.3 kg Allergies Allergy/AdvReac Type Severity Reaction Status Date / Time No Known Allergies Allergy Verified 12/27/19 10:34 Medications Home Medications Medication Instructions Recorded Confirmed Last Taken No Known Home Medications 12/27/19 12/27/19 Unknown Active Medications Generic Name Dose Route Start Last Admin Trade Name Freq PRN Reason Stop Dose Admin Dextrose/Sodium Chloride 1,000 mls @ 100 mls/hr 12/27/19 13:18 12/27/19 13:30 D5w And Nss IV 01/26/20 13:17 100 mls/hr .Q10H CANDIDA Administration Past Medical History Medical History (Updated 12/27/19 @ 14:26 by Eugenio Montelongo MD) Achalasia BPH (benign prostatic hyperplasia) Elevated troponin Past Surgical History Surgical History History of esophagogastroduodenoscopy (EGD) History of tonsillectomy History of tooth extraction all upper and most of lower Hx of left cataract extraction Social History Smoking Status: Never smoker Hx Alcohol Use: No Hx Substance Use: No substance use type: does not use Physical Exam Vital Signs Last Vital Signs Temp 36.7 C 12/27/19 13:01 Pulse 87 12/27/19 13:01 Resp 18 12/27/19 13:01 BP 150/74 H 12/27/19 13:01 Pulse Ox 92 12/27/19 13:01 Testing Laboratory Results 12/27/19 09:58 12/27/19 09:58 Urine Color Dark Yellow 12/27/19 10:16 Urine Appearance Cloudy (Clear) A 12/27/19 10:16 Urine pH 5.5 (4.5-7.5) 12/27/19 10:16 Ur Specific [place] 1.025 (1.000-1.030) 12/27/19 10:16 Urine Protein 1+ (Negative) H 12/27/19 10:16 Urine Glucose (UA) Negative (Negative) 12/27/19 10:16 Urine Ketones 2+ (Negative) H 12/27/19 10:16 Urine Nitrite Negative (Negative) 12/27/19 10:16 Ur Leukocyte Esterase 2+ (Negative) H 12/27/19 10:16 Urine WBC (Auto) >30 /hpf (0-5) H 12/27/19 10:16 Urine RBC (Auto) 0-4 /hpf (0-4) 12/27/19 10:16 U Hyaline Cast (Auto) 1-5 /lpf (0-5) 12/27/19 10:16 U Epithel Cells (Auto) 5-10 /lpf (0-5) H 12/27/19 10:16 Urine Bacteria (Auto) Negative (Negative) 12/27/19 10:16 Electrocardiogram Date: 12/27/19 Findings: + NSR @ (84) and + RBBB (new) Chest X-Ray Date: 12/27/19 Findings: + NAD
--- NOTE | 2019-12-27 14:33 | Cardiology Consultation ---
Date of Consultation December 27, 2019 Assessment & Plan (1) Hip fracture, left: (2) Encounter for pre-operative examination: (3) Elevated troponin: (4) RBBB: (5) Achalasia: We do not have an accurate history on this patient. An echocardiogram has been completed which I will review. From the history that I do have the geriatric cardiovascular risk assessment is about 4%. It is likely to be a little bit higher due to his age and dementia. He will require hip surgery for quality of life. He is currently optimally medically managed and he should proceed to surgery. History of Present Illness Attending Physician: Arlene Allan MD History of Present Illness This is an elderly 89-year-old male patient who was admitted after mechanical fall and a left hip fracture. He has a history of achalasia and is followed by the GI service. 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 He is not a good historian due to dementia and the information is taken from the medical record. Allergies Allergy/AdvReac Type Severity Reaction Status Date / Time No Known Allergies Allergy Verified 12/27/19 10:34 Home Medications Home Medications Medication Instructions Recorded Confirmed Type No Known Home Medications 12/27/19 12/27/19 History Patient History Medical History Achalasia BPH (benign prostatic hyperplasia) Elevated troponin Surgical History History of esophagogastroduodenoscopy (EGD) History of tonsillectomy History of tooth extraction all upper and most of lower Hx of left cataract extraction Social History Preferred Language: [place] Communication Ability: Effective Eligibility Counselor Required: No Beliefs That Will Affect Care: None Current Living Situation: Alone Other Information That Helps Us Care for You: No Feels Safe at Home: Yes Safety Concerns: Feels Safe At This Time Smoking Status: Never smoker Second Hand Exposure: Yes ( smoked) ; Hx Alcohol Use: No Hx Substance Use: No Review of Systems Review of Systems: All systems reviewed & are unremarkable except as noted in HPI & below Nothing additional to add. Physical Exam Physical Exam: General: Disoriented to person place or time Head: normocephalic, no masses, lesions, tenderness or abnormalities Eyes: conjunctiva are pink and non-injected, sclera clear Neck: supple, no adenopathy, no bruits, normal jugular venous pulse, no hepatojugular reflux Chest: normal shape and normal respiratory effort Lungs: clear to auscultation and percussion Cardiac Exam: - regular rate & rhythm, no murmurs gallops or rubs - normal S1, normal S2 Pulses: 2(+) throughout Abdomen: abdomen soft, non-tender, no abnormal masses and no hepatosplenomegaly Musculoskeletal: no gait disturbance, no joint inflammation, no deforming arthritis Extremities: no edema and no cyanosis Neuro: grossly normal exam Results & Data Vital Signs (Past 12 Hours) Vital Signs Temp Pulse Pulse Resp BP BP Pulse Ox 12/27/19 13:01 36.7 C 87 18 150/74 H 92 12/27/19 11:40 80 18 113/65 95 12/27/19 10:05 36.9 C 91 H 22 139/77 97 Laboratory Results Laboratory Results - last 24 hr 12/27/19 12/27/19 12/27/19 09:58 09:58 09:58 WBC 15.73 H RBC 4.84 Hgb 15.2 Hct 45.9 MCV 94.8 MCH 31.4 MCHC 33.1 RDW Std Deviation 49.9 H RDW Coeff of Jacob 14.6 H Plt Count 221 MPV 11.3 H Immature Gran % (Auto) 0.3 Neut % (Auto) 89.0 Lymph % (Auto) 5.7 [place] % (Auto) 4.9 Eos % (Auto) 0.0 Baso % (Auto) 0.1 Immature Gran # (Auto) 0.04 H Neut # (Auto) 14.01 H Lymph # (Auto) 0.90 L [place] # (Auto) 0.77 H Eos # (Auto) 0.00 Baso # (Auto) 0.01 Sodium 142 Potassium 3.8 Chloride 106 Carbon Dioxide 29 Anion Gap 7.0 BUN 30 H Creatinine 1.07 Est Cr Clr Drug Dosing 29.3 Est GFR ( Amer) 71.0 Est GFR (Non-Af Amer) 61.2 BUN/Creatinine Ratio 28.1 H Glucose 120 H Lactate 2.0 Calcium 10.2 H Magnesium 2.2 Total Bilirubin 0.7 AST 32 ALT 26 Alkaline Phosphatase 91 Total Creatine Kinase 482 H CK-MB (CK-2) 3.2 CK/CKMB % Calc 0.7 Troponin I 0.122 H* Total Protein 8.4 H Albumin 3.4 Globulin 5.0 H Albumin/Globulin Ratio 0.7 L TSH 1.020 Urine Color Urine Appearance Urine pH Ur Specific [place] Urine Protein Urine Glucose (UA) Urine Ketones Urine Blood Urine Nitrite Urine Bilirubin Urine Urobilinogen Ur Leukocyte Esterase Urine WBC (Auto) Urine RBC (Auto) U Hyaline Cast (Auto) U Epithel Cells (Auto) Urine Bacteria (Auto) Urine Yeast Blood Type Antibody Screen 12/27/19 12/27/19 10:16 13:39 WBC RBC Hgb Hct MCV MCH MCHC RDW Std Deviation RDW Coeff of Jacob Plt Count MPV Immature Gran % (Auto) Neut % (Auto) Lymph % (Auto) [place] % (Auto) Eos % (Auto) Baso % (Auto) Immature Gran # (Auto) Neut # (Auto) Lymph # (Auto) [place] # (Auto) Eos # (Auto) Baso # (Auto) Sodium Potassium Chloride Carbon Dioxide Anion Gap BUN Creatinine Est Cr Clr Drug Dosing Est GFR ( Amer) Est GFR (Non-Af Amer) BUN/Creatinine Ratio Glucose Lactate Calcium Magnesium Total Bilirubin AST ALT Alkaline Phosphatase Total Creatine Kinase CK-MB (CK-2) CK/CKMB % Calc Troponin I Total Protein Albumin Globulin Albumin/Globulin Ratio TSH Urine Color Dark Yellow Urine Appearance Cloudy A Urine pH 5.5 Ur Specific [place] 1.025 Urine Protein 1+ H Urine Glucose (UA) Negative Urine Ketones 2+ H Urine Blood Trace H Urine Nitrite Negative Urine Bilirubin Negative Urine Urobilinogen Negative Ur Leukocyte Esterase 2+ H Urine WBC (Auto) >30 H Urine RBC (Auto) 0-4 U Hyaline Cast (Auto) 1-5 U Epithel Cells (Auto) 5-10 H Urine Bacteria (Auto) Negative Urine Yeast Not Reportable Blood Type Pending Antibody Screen Pending Medications Administered Current Inpatient Medications Acetaminophen (Tylenol) 650 mg PO Q4H PRN PRN Reason: pain/fever Stop: 01/26/20 13:17 Bisacodyl (Dulcolax) 10 mg TX DAILY PRN PRN Reason: Constipation Stop: 01/26/20 13:17 Dextrose/Sodium Chloride (D5w And Nss) 1,000 mls @ 100 mls/hr IV .Q10H CANDIDA Stop: 01/26/20 13:17 Last Admin: 12/27/19 13:30 Dose: 100 mls/hr Documented by: Cefazolin Sodium (Ancef 2000mg) 2,000 mg in 15 mls @ 3.75 mls/min IV PREOP CANDIDA; Protocol Stop: 12/29/19 05:59 Magnesium Hydroxide (Milk Of Magnesia) 30 ml PO DAILY PRN PRN Reason: Constipation Stop: 01/26/20 13:17 Miscellaneous Information (Consult) 1 ea N/A UD PRN PRN Reason: Consult Stop: 01/26/20 14:13 Morphine Sulfate (Morphine Sulfate) 2 mg IV Q4H PRN PRN Reason: MODERATE Pain (Scale 4,5,6) Stop: 01/10/20 13:17 Naloxone HCl (Narcan) 0.1 mg IV UD PRN PRN Reason: Opiate Overdose Stop: 01/26/20 13:17 Senna/Docusate Sodium (Senokot S) 2 tab PO HS ACNDIDA Stop: 01/26/20 20:59
--- NOTE | 2019-12-27 14:46 | XRay Report ---
SINGLE VIEW PELVIS; 2 VIEWS LEFT HIP CLINICAL HISTORY: Left hip fracture. FINDINGS: An AP supine view of the pelvis with AP and crosstable lateral portable views of the left h ip are correlated with pelvic CT performed the same day 12/27/2019. The skeletal structures are osteope demetri. Again seen is an impacted and distracted subcapital fracture of the left femur with numerous sma ll bony fragments. Overlying soft tissue edema is noted. No additional fracture is seen identified in volving the hips or bony pelvis. Moderate degenerative joint space narrowing is seen in both hips. Sima mbosacral spondylosis is partially visualized. Excreted IV contrast is present within the urinary katerina dder. This outlines numerous bladder diverticula and a markedly enlarged prostate gland. Advanced ath erosclerotic calcification is seen the femoral arteries. IMPRESSION: There is an impacted and distracted subcapital fracture of the left femur as above. Electronically signed by: Brent Jasso M.D. 12/27/2019 2:44 PM
--- NOTE | 2019-12-27 14:59 | Orthopedic Consultation ---
Date of Consultation December 27, 2019 Assessment & Plan (1) Hip fracture, left: Patient has a displaced left femoral neck fracture. Discussed with patient that surgical intervention would be necessary to fix his fracture. He would be a candidate for a left hip bipolar hemiarthroplasty. Patient was found to have RBBB as well as elevated troponin levels in the ED. Will require appropriate preoperative evaluations prior to proceeding with anything from a surgical standpoint. Will review case with [facility] physicians for treatment of his left hip fracture. Thank you for this consult, will follow. History of Present Illness Reason for Consultation: Left hip fracture Attending Physician: Arlene Allan MD History of Present Illness Patient is an 89 year old male with recent poor PO intake with 20lb weight loss. He has had some weakness due to this. He subsequently suffered a fall yesterday evening with acute onset of left hip pain. He was brought to [facility] ED for evaluation. X-rays of the hip demonstrate a displaced femoral neck fracture. He has findings of achalasia, RBBB, as well as elevated troponin levels. GI and cardiology consults have been placed. Discussed with patient that this type of fracture will likely require surgical intervention. Patient denies chest pain, sob, fever, chills, n/v/d. C/o left hip pain. 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 Required: No Beliefs That Will Affect Care: None Current Living Situation: Alone Other Information That Helps Us Care for You: No Feels Safe at Home: Yes Safety Concerns: Feels Safe At This Time Smoking Status: Never smoker Second Hand Exposure: Yes ( smoked) ; Hx Alcohol Use: No Hx Substance Use: No Review of Systems Review of Systems: All systems reviewed & are unremarkable except as noted in HPI & below Physical Exam Constitutional: WD/WN, vitals as above + thin; no acute distress Eyes: PERRL, conjunctivae normal, anicteric sclerae ENMT: external ear and nose normal, oropharynx normal Respiratory: normal respiratory effort; no respiratory distress Cardiovascular: Rate/Rhythm: regular rate and regular rhythm Extremities: no edema Musculoskeletal: Patient seen resting in bed comfortably, no acute distress. Left leg is midly shortened and externally rotated. Mild pain with gentle log rolling. Distally n/v status and sensation intact. Mildly tender in region of left hip. No tenderness about the knee or distal thigh. Skin: no rashes, warm and dry Neurologic: normal touch/pain/proprioception Psychiatric: A+Ox3, euthymic affect Results & Data ([facility]) Vital Signs (Past 12 Hours) Vital Signs Temp Pulse Pulse Resp BP BP Pulse Ox 12/27/19 13:01 36.7 C 87 18 150/74 H 92 12/27/19 11:40 80 18 113/65 95 12/27/19 10:05 36.9 C 91 H 22 139/77 97 Laboratory Results Lab Results 12/27/19 12/27/19 12/27/19 Range/Units 09:58 09:58 09:58 WBC 15.73 H (4.8-10.8) K/uL RBC 4.84 (4.7-6.1) M/uL Hgb 15.2 (14.0-18.0) g/dL Hct 45.9 (42-52) % MCV 94.8 (80-100) fL MCH 31.4 (25-34) pg MCHC 33.1 (32-36) g/dL RDW Std Deviation 49.9 H (36.4-46.3) fL RDW Coeff of Jacob 14.6 H (11.5-14.5) % Plt Count 221 (130-400) K/uL MPV 11.3 H (7.4-10.4) fL Immature Gran % (Auto) 0.3 % Neut % (Auto) 89.0 % Lymph % (Auto) 5.7 % [place] % (Auto) 4.9 % Eos % (Auto) 0.0 % Baso % (Auto) 0.1 % Immature Gran # (Auto) 0.04 H (0.00-0.02) K/uL Neut # (Auto) 14.01 H (1.4-6.5) K/uL Lymph # (Auto) 0.90 L (1.2-3.4) K/uL [place] # (Auto) 0.77 H (0.11-0.59) K/uL Eos # (Auto) 0.00 (0-0.5) K/uL Baso # (Auto) 0.01 (0-0.2) K/uL Sodium 142 (136-145) mmol/L Potassium 3.8 (3.5-5.1) mmol/L Chloride 106 (98-107) mmol/L Carbon Dioxide 29 (21-32) mmol/L Anion Gap 7.0 (3-11) BUN 30 H (7-18) mg/dl Creatinine 1.07 (0.6-1.4) mg/dl Est Cr Clr Drug Dosing 29.3 ml/min Est GFR ( Amer) 71.0 Est GFR (Non-Af Amer) 61.2 BUN/Creatinine Ratio 28.1 H (10-20) Glucose 120 H (70-99) mg/dl Lactate 2.0 (0.4-2.0) mmol/L Calcium 10.2 H (8.5-10.1) mg/dl Magnesium 2.2 (1.8-2.4) mg/dl Total Bilirubin 0.7 (0.2-1) mg/dl AST 32 (15-37) U/L ALT 26 (12-78) U/L Alkaline Phosphatase 91 (45-117) U/L Total Creatine Kinase 482 H (39-308) U/L CK-MB (CK-2) 3.2 (0.5-3.6) ng/ml CK/CKMB % Calc 0.7 (0-3.0) Troponin I 0.122 H* (0-0.045) ng/ml Total Protein 8.4 H (6.4-8.2) gm/dl Albumin 3.4 (3.4-5.0) gm/dl Globulin 5.0 H (2.5-4.0) gm/dl Albumin/Globulin Ratio 0.7 L (0.9-2) TSH 1.020 (0.300-4.500) uIu/ml Urine Color Urine Appearance (Clear) Urine pH (4.5-7.5) Ur Specific [place] (1.000-1.030) Urine Protein (Negative) Urine Glucose (UA) (Negative) Urine Ketones (Negative) Urine Blood (Negative) Urine Nitrite (Negative) Urine Bilirubin (Negative) Urine Urobilinogen (Negative) Ur Leukocyte Esterase (Negative) Urine WBC (Auto) (0-5) /hpf Urine RBC (Auto) (0-4) /hpf U Hyaline Cast (Auto) (0-5) /lpf U Epithel Cells (Auto) (0-5) /lpf Urine Bacteria (Auto) (Negative) Urine Yeast Blood Type Antibody Screen 12/27/19 12/27/19 Range/Units 10:16 13:39 WBC (4.8-10.8) K/uL RBC (4.7-6.1) M/uL Hgb (14.0-18.0) g/dL Hct (42-52) % MCV (80-100) fL MCH (25-34) pg MCHC (32-36) g/dL RDW Std Deviation (36.4-46.3) fL RDW Coeff of Jacob (11.5-14.5) % Plt Count (130-400) K/uL MPV (7.4-10.4) fL Immature Gran % (Auto) % Neut % (Auto) % Lymph % (Auto) % [place] % (Auto) % Eos % (Auto) % Baso % (Auto) % Immature Gran # (Auto) (0.00-0.02) K/uL Neut # (Auto) (1.4-6.5) K/uL Lymph # (Auto) (1.2-3.4) K/uL [place] # (Auto) (0.11-0.59) K/uL Eos # (Auto) (0-0.5) K/uL Baso # (Auto) (0-0.2) K/uL Sodium (136-145) mmol/L Potassium (3.5-5.1) mmol/L Chloride (98-107) mmol/L Carbon Dioxide (21-32) mmol/L Anion Gap (3-11) BUN (7-18) mg/dl Creatinine (0.6-1.4) mg/dl Est Cr Clr Drug Dosing ml/min Est GFR ( Amer) Est GFR (Non-Af Amer) BUN/Creatinine Ratio (10-20) Glucose (70-99) mg/dl Lactate (0.4-2.0) mmol/L Calcium (8.5-10.1) mg/dl Magnesium (1.8-2.4) mg/dl Total Bilirubin (0.2-1) mg/dl AST (15-37) U/L ALT (12-78) U/L Alkaline Phosphatase (45-117) U/L Total Creatine Kinase (39-308) U/L CK-MB (CK-2) (0.5-3.6) ng/ml CK/CKMB % Calc (0-3.0) Troponin I (0-0.045) ng/ml Total Protein (6.4-8.2) gm/dl Albumin (3.4-5.0) gm/dl Globulin (2.5-4.0) gm/dl Albumin/Globulin Ratio (0.9-2) TSH (0.300-4.500) uIu/ml Urine Color Dark Yellow Urine Appearance Cloudy A (Clear) Urine pH 5.5 (4.5-7.5) Ur Specific [place] 1.025 (1.000-1.030) Urine Protein 1+ H (Negative) Urine Glucose (UA) Negative (Negative) Urine Ketones 2+ H (Negative) Urine Blood Trace H (Negative) Urine Nitrite Negative (Negative) Urine Bilirubin Negative (Negative) Urine Urobilinogen Negative (Negative) Ur Leukocyte Esterase 2+ H (Negative) Urine WBC (Auto) >30 H (0-5) /hpf Urine RBC (Auto) 0-4 (0-4) /hpf U Hyaline Cast (Auto) 1-5 (0-5) /lpf U Epithel Cells (Auto) 5-10 H (0-5) /lpf Urine Bacteria (Auto) Negative (Negative) Urine Yeast Not Reportable Blood Type O Positive Antibody Screen NEGATIVE Diagnostic Findings SINGLE VIEW PELVIS; 2 VIEWS LEFT HIP CLINICAL HISTORY: Left hip fracture. FINDINGS: An AP supine view of the pelvis with AP and crosstable lateral portable views of the left hip are correlated with pelvic CT performed the same day 12/27/2019. The skeletal structures are osteopenic. Again seen is an impacted and distracted subcapital fracture of the left femur with numerous small bony fragments. Overlying soft tissue edema is noted. No additional fracture is seen identified involving the hips or bony pelvis. Moderate degenerative joint space narrowing is seen in both hips. Lumbosacral spondylosis is partially visualized. Excreted IV contrast is present within the urinary bladder. This outlines numerous bladder diverticula and a markedly enlarged prostate gland. Advanced atherosclerotic calcification is seen the femoral arteries. IMPRESSION: There is an impacted and distracted subcapital fracture of the left femur as above.
[2019-12-27] MEDS ORDERED: PIPERACILLIN/TAZOBACTAM 3.375 GM in DEXTROSE 5% 100 ML IV ONE (15:00)
[2019-12-27 15:27] LABS: INR 1.1 (0.9-1.1)
--- NOTE | 2019-12-27 15:51 | XRay Report ---
XR femur LT 2V routine HISTORY: 89 years-old Male hip fracture acute left-sided hip fracture COMPARISON: Pelvis and left hip radiographs of same day TECHNIQUE: 2 views of the left femur FINDINGS: There is an acute impacted and slightly distracted subcapital fracture of the left femur redemonstrat ed with approximately 1.5 cm superior displacement with slight apex superior lateral angulation. Soft tissue swelling is noted about the hip. Arterial calcifications are noted. 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 No dislocation. The mid and distal femur appear intact. IMPRESSION: Acute impacted, mildly distracted and angulated subcapital fracture of the left femur red emonstrated. ACT 112: Negative or not required by law. The above report was generated using voice recognition software. It may contain grammatical, syntax o r spelling errors. Electronically signed by: Christophe Hicks M.D. 12/27/2019 3:50 PM
[2019-12-27] MEDS: DOCUSATE SODIUM/SENNA 50/8.6MG TAB PO SCH (21:17)
[2019-12-27] MEDS: PIPERACILLIN/TAZOBACTAM 3.375 GM in DEXTROSE 5% 100 ML IV SCH (22:12)
[2019-12-28] MEDS: D5W AND NSS 1,000 ML IV SCH ×2 (00:58→10:45)
[2019-12-28] MEDS ORDERED: CEFAZOLIN 2000MG 2,000 MG/15 ML SYR IV SCH (06:00)
[2019-12-28] MEDS: PIPERACILLIN/TAZOBACTAM 3.375 GM in DEXTROSE 5% 100 ML IV SCH ×3 (06:03→21:30)
[2019-12-28 06:46] LABS: Hemoglobin 12.4 g/dL (14.0-18.0); Mean Corpuscular Hemoglobin 30.6 pg (25-34); Mean Corpuscular Hgb Conc 31.8 g/dL (32-36); Mean Corpuscular Volume 96.3 fL (80-100); Mean Platelet Volume 10.8 fL (7.4-10.4); Platelet Count 191 K/uL (130-400); RDW Standard Deviation 52.8 fL (36.4-46.3); Red Blood Count 4.05 M/uL (4.7-6.1); White Blood Count 11.36 K/uL (4.8-10.8)
[2019-12-28 07:22] LABS: BUN Creatinine Ratio 23.1 (10-20); Creatinine Clr Calc Pharmacy 32.4 ml/min; Est GFR (African American) 78.9; Est GFR (Non-African American) 68.1; Potassium 3.9 mmol/L (3.5-5.1)
--- NOTE | 2019-12-28 10:27 | Gastroenterology Progress Note ---
Date of Service December 28, 2019 Assessment & Plan (1) Achalasia: Mr. Wilson has a torturous, dilated, food debris/liquid filled esophagus. Dr. Newton and I viewed the chest CT films with a radiologist. It appears chronically dilated, and in yesterday's imaging is debris/fluid filled but no specific food bolus. So, would not be able to do EGD to remove pieces of food through the mouth. Would need to do a very slow procedure trying to drain the debris through the GE junction. Favor a conservative approach, providing time for esophagus contents to pass through with time (typically clears in 1-2 days). Would re-image with CT on Tuesday afternoon/evening again consider EGD Tuesday if no progress. Would also sips/chips po but not a clear liquid diet (low volume liquid may be helpful in moving the debris into the stomach). Supervising Physician Co-Signing Physician Notes I have personally seen and examined the patient with CLAYTON Montalvo. Her note reflects my exam and findings. I agree with her impression and plan. I reviewed the patient's imaging with radiology. 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 This should clear on its own if given some time. There is no single piece of food that could be cleared easily. The patient would require prolonged intubation to try to "flush" the debris into the stomach putting the patient at risk for aspiration and cardiopulmonary morbidity. I suggest keeping npo except for sips of water and ice chips to facilitate clearance. Repeat imaging Tuesday to check esophagus. Basilio Newton M.D. Subjective Mr. Alfonso Wilson is an 89 yr old male who was admitted yesterday for a fall. He has had very little po intake over the past few weeks due to regurgitation of foods/liquids soon after swallowing. CT on arrival with dilated, fluid filled esophagus. Left hip fx. Surgical repair being planned. Review of Systems Review of Systems: ROS: Gen: Weakness, 10 lbs weight loss in 2 weeks. No fevers/chills/sweats Eyes: No eye redness, or pain, no recent vision changes Resp: + cough with swallowing sometimes, otherwise no SOB, no cough Cardio: No palpitations/irregular beats, no chest pain GI: Denies any abdominal pain, no nausea/vomiting : Denies pain on urination. Skin: No jaundice, itching or new rashes Ext: left hip pain, no edema Physical Exam Constitutional: WD/WN, vitals as above + cachectic Eyes: PERRL, conjunctivae normal, anicteric sclerae ENMT: external ear and nose normal, oropharynx normal Neck: trachea midline, no thyromegaly Respiratory: normal respiratory effort, lungs clear to auscultation Cardiovascular: RRR, no murmur, no edema Gastrointestinal (Abdomen): normal bowel sounds, soft, nontender, no hepatosplenomegaly Skin: no rashes, warm and dry + turgor decreased Neurologic: PERRL, EOMI, accommodation nl, no face palsy, no dysarthria Psychiatric: A+Ox3, euthymic affect Results & Data Vital Signs (Past 12 Hours) Vital Signs Temp Pulse Pulse Resp BP Pulse Ox 12/28/19 07:49 87 12/28/19 07:00 36.2 C L 83 18 123/66 92 12/28/19 04:14 36.6 C 75 20 117/70 92 12/28/19 00:14 79 12/27/19 23:15 36.6 C 82 20 108/66 91
[2019-12-28] MEDS ORDERED: TPN/PPN CONSULT PHARMACY PRN (11:04)
[2019-12-28] MEDS ORDERED: TPN/PPN CONSULT PHARMACY STA (11:10)
[2019-12-28] MEDS ORDERED: DEXTROSE 10% 1,000 ML IV PRN (11:10)
--- NOTE | 2019-12-28 14:42 | Emergency Department Note ---
Entered by Karli Gomez acting as a scribe for History of Present Illness General Chief complaint: Weakness Stated complaint: weakness/L hip pain Time Seen by Provider: 12/27/19 09:49 Source: patient and EMS Mode of arrival: EMS History of Present Illness Onset (ago): week(s) 1 Location: head (weakness) Pain Consistency: + constant and + other Quality: + other (weakness) Exacerbated By: + movement Associated symptoms: + loss of appetite, + weakness and + other (hip pain, fall); no chest pain, no fever/chills, no headaches, no nausea/vomiting and no shortness of breath The patient is an 89 year old male presenting to the Emergency Department via EMS complaining of persistent weakness starting 1 week ago. EMS reports that the patient has been complaining of weakness. They state that the patient fell while getting out of bed sometime this past week but that the exact time is not known. They explain that the patient has been complaining of hip pain and moving his leg worsens his hip pain. They note that the patient hasnt been eating or drinking but that it is unknown how much weight he has lost. They add that the patient lives by himself and that his son periodically checks in on him. The patient reports that he fell while getting out of bed but doesnt know when. He states that his hip hurts. He notes that he lost his appetite and doesnt each much anymore. He adds that he has not family doctor. The patient denies chest pain, shortness of breath, abdominal pain, headache, numbness, fevers, chills, nausea and vomiting. Home Medications Home Medications Medication Instructions Recorded Confirmed Type No Known Home Medications 12/27/19 12/27/19 History Allergies Allergy/AdvReac Type Severity Reaction Status Date / Time No Known Allergies Allergy Verified 12/27/19 10:34 Past Med/Surg History Medical History Achalasia BPH (benign prostatic hyperplasia) Elevated troponin Surgical History History of esophagogastroduodenoscopy (EGD) History of tonsillectomy History of tooth extraction all upper and most of lower Hx of left cataract extraction Social History Preferred Language: Grenadian Communication Ability: Unable Claim Clinician Required: No Beliefs That Will Affect Care: None Current Living Situation: Alone Feels Safe at Home: Yes Smoking Status: Never smoker Second Hand Exposure: Yes ( smoked) ; Hx Alcohol Use: No Hx Substance Use: No Review of Systems See HPI for pertinent positives & negatives. and A total of 10 systems reviewed and were otherwise negative Physical Exam Vital Signs Vital Signs - 24 hr 12/27/19 10:05 12/27/19 11:40 Temperature 98.4 F Temperature Source Oral Pulse Rate 91 H Pulse Rate [Apical] 80 Pulse Rhythm Regular Pulse Rhythm [Apical] Regular Pulse Strength Normal Pulse Strength [Apical] Normal Respiratory Rate 22 18 Respiratory Effort / Characteristics Non-Labored Spontaneous Non-Labored Spontaneous Respiratory Depth Normal Normal Respiratory Pattern Regular Regular Blood Pressure 139/77 Blood Pressure [Right Arm] 113/65 Blood Pressure Mean 97 Blood Pressure Mean [Right Arm] 81 Blood Pressure Position [Right Arm] Lying Pulse Oximetry 97 95 Oxygen Delivery Method Room Air Room Air Sepsis Recent Fever Within 48 Hours No Sepsis Action Taken by Nursing No Action Required General: Cachectic appearing older male in no acute distress. HEENT: Normal cephalic atraumatic. Pupils are equal round and reactive to light. Extraocular movements are intact. Oropharynx is mildly dry. Thrush. No swelling of the mouth lips or tongue. Neck: Supple with a midline trachea. No meningeal signs or stiffness, no JVD or bruits. No Stridor. Chest: Clear to auscultation bilaterally. No wheezes or rhonchi. No increased work of breathing. Heart: regular rate and rhythm. Abdomen: Soft nontender, nondistended without rebound guarding or rigidity. Extremities: Tender to palpation of left hip. Pain reproducible with movement. Left leg appears slightly shorter than right. No cyanosis clubbing or edema. No calf tenderness or asymmetry Spine/Back. Non tender to palpation. No CVA tenderness Skin: Good turgor without rashes. Neurologic exam: Cranial nerves two through 12 are intact. Motor and sensation are intact and symmetrical throughout. Course Course 0950: The patient was evaluated in room B2, and a complete history and physical examination were performed. 1043: The patients son who is at bedside reports that the patient has Achalasia and gets his esophagus stretched every year or so. He thinks that the patients symptoms may be related to this. 1113: I discussed the patients case with Emily Guerra PA-C. Dr. Sanjana Duncan hospitalist will evaluate the patient for further management. Administered Medications Dextrose/Sodium Chloride (D5w And Nss) 1,000 mls @ 100 mls/hr IV .Q10H CANDIDA Stop: 12/28/19 15:59 Last Admin: 12/28/19 10:45 Dose: 100 mls/hr Documented by: [id number] Infusion: 12/28/19 10:45 Dose: 100 mls/hr Documented by: [id number] Admin: 12/28/19 00:58 Dose: 100 mls/hr Documented by: [id number] Infusion: 12/27/19 23:30 Dose: 100 mls/hr Documented by: [id number] Admin: 12/27/19 13:30 Dose: 100 mls/hr Documented by: [id number] Piperacillin Sod/Tazobactam (Sod 3.375 gm/ Dextrose) 115 mls @ 28.75 mls/hr IV Q8H CANDIDA; Protocol Stop: 01/03/20 21:59 Last Admin: 12/28/19 14:38 Dose: 28.8 mls/hr Documented by: [id number] Infusion: 12/28/19 10:03 Dose: 0 mls/hr Documented by: [id number] Admin: 12/28/19 06:03 Dose: 28.8 mls/hr Documented by: [id number] Infusion: 12/28/19 02:15 Dose: 0 mls/hr Documented by: [id number] Admin: 12/27/19 22:12 Dose: 28.8 mls/hr Documented by: [id number] Senna/Docusate Sodium (Senokot S) 2 tab PO HS CANDIDA Stop: 01/26/20 20:59 Last Admin: 12/27/19 21:17 Dose: Not Given Documented by: [id number] Discontinued Medications Sodium Chloride (Nss) 500 mls @ 999 mls/hr IV .Q31M CANDIDA Stop: 12/27/19 10:30 Last Infusion: 12/27/19 10:49 Dose: 0 mls/hr Documented by: [id number] Admin: 12/27/19 10:10 Dose: 999 mls/hr Documented by: [id number] Piperacillin Sod/Tazobactam (Sod 3.375 gm/ Dextrose) 115 mls @ 230 mls/hr IV 1500 ONE Stop: 12/27/19 15:29 Last Infusion: 12/27/19 17:15 Dose: 0 mls/hr Documented by: [id number] Admin: 12/27/19 16:27 Dose: 230 mls/hr Documented by: [id number] Ioversol (Optiray 320 100ml) 94 ml IV ONCE PRN PRN Reason: Interaction Checking Stop: 12/31/19 12:41 Last Admin: 12/27/19 12:43 Dose: 94 ml Documented by: [id number] Morphine Sulfate (Morphine Sulfate) 2 mg IV NOW STA Stop: 12/27/19 10:18 Last Admin: 12/27/19 10:27 Dose: 2 mg Documented by: [id number] Ondansetron HCl (Zofran) 4 mg IV NOW STA Stop: 12/27/19 10:18 Last Admin: 12/27/19 10:27 Dose: 4 mg Documented by: [id number] Medical Decision Making Differential Diagnosis Differential diagnoses include dehydration, trauma, rhabdomyolysis, infection, cardiac disease, neurologic reprocess and electrolyte or metabolic abnormalities amongst others. Medical Records Attestation: I reviewed the patient's medical records. Home Medications Current Medication List: was personally reviewed by me Laboratory Data Attestation: I reviewed the patient's lab results. Result diagrams: 12/28/19 06:24 12/28/19 06:24 Lab Results 12/27/19 12/27/19 12/27/19 Range/Units 09:58 09:58 09:58 WBC 15.73 H (4.8-10.8) K/uL RBC 4.84 (4.7-6.1) M/uL Hgb 15.2 (14.0-18.0) g/dL Hct 45.9 (42-52) % MCV 94.8 (80-100) fL MCH 31.4 (25-34) pg MCHC 33.1 (32-36) g/dL RDW Std Deviation 49.9 H (36.4-46.3) fL RDW Coeff of Jacob 14.6 H (11.5-14.5) % Plt Count 221 (130-400) K/uL MPV 11.3 H (7.4-10.4) fL Immature Gran % (Auto) 0.3 % Neut % (Auto) 89.0 % Lymph % (Auto) 5.7 % Perkins % (Auto) 4.9 % Eos % (Auto) 0.0 % Baso % (Auto) 0.1 % Immature Gran # (Auto) 0.04 H (0.00-0.02) K/uL Neut # (Auto) 14.01 H (1.4-6.5) K/uL Lymph # (Auto) 0.90 L (1.2-3.4) K/uL Perkins # (Auto) 0.77 H (0.11-0.59) K/uL Eos # (Auto) 0.00 (0-0.5) K/uL Baso # (Auto) 0.01 (0-0.2) K/uL PT (9.0-12.0) Seconds INR (0.9-1.1) Sodium 142 (136-145) mmol/L Potassium 3.8 (3.5-5.1) mmol/L Chloride 106 (98-107) mmol/L Carbon Dioxide 29 (21-32) mmol/L Anion Gap 7.0 (3-11) BUN 30 H (7-18) mg/dl Creatinine 1.07 (0.6-1.4) mg/dl Est Cr Clr Drug Dosing 29.3 ml/min Est GFR ( Amer) 71.0 Est GFR (Non-Af Amer) 61.2 BUN/Creatinine Ratio 28.1 H (10-20) Glucose 120 H (70-99) mg/dl Lactate 2.0 (0.4-2.0) mmol/L Calcium 10.2 H (8.5-10.1) mg/dl Magnesium 2.2 (1.8-2.4) mg/dl Total Bilirubin 0.7 (0.2-1) mg/dl AST 32 (15-37) U/L ALT 26 (12-78) U/L Alkaline Phosphatase 91 (45-117) U/L Total Creatine Kinase 482 H (39-308) U/L CK-MB (CK-2) 3.2 (0.5-3.6) ng/ml CK/CKMB % Calc 0.7 (0-3.0) Troponin I 0.122 H* (0-0.045) ng/ml Total Protein 8.4 H (6.4-8.2) gm/dl Albumin 3.4 (3.4-5.0) gm/dl Globulin 5.0 H (2.5-4.0) gm/dl Albumin/Globulin Ratio 0.7 L (0.9-2) TSH 1.020 (0.300-4.500) uIu/ml Urine Color Urine Appearance (Clear) Urine pH (4.5-7.5) Ur Specific [place] (1.000-1.030) Urine Protein (Negative) Urine Glucose (UA) (Negative) Urine Ketones (Negative) Urine Blood (Negative) Urine Nitrite (Negative) Urine Bilirubin (Negative) Urine Urobilinogen (Negative) Ur Leukocyte Esterase (Negative) Urine WBC (Auto) (0-5) /hpf Urine RBC (Auto) (0-4) /hpf U Hyaline Cast (Auto) (0-5) /lpf U Epithel Cells (Auto) (0-5) /lpf Urine Bacteria (Auto) (Negative) Urine Yeast 12/27/19 12/27/19 Range/Units 09:58 10:16 WBC (4.8-10.8) K/uL RBC (4.7-6.1) M/uL Hgb (14.0-18.0) g/dL Hct (42-52) % MCV (80-100) fL MCH (25-34) pg MCHC (32-36) g/dL RDW Std Deviation (36.4-46.3) fL RDW Coeff of Jacob (11.5-14.5) % Plt Count (130-400) K/uL MPV (7.4-10.4) fL Immature Gran % (Auto) % Neut % (Auto) % Lymph % (Auto) % Perkins % (Auto) % Eos % (Auto) % Baso % (Auto) % Immature Gran # (Auto) (0.00-0.02) K/uL Neut # (Auto) (1.4-6.5) K/uL Lymph # (Auto) (1.2-3.4) K/uL Perkins # (Auto) (0.11-0.59) K/uL Eos # (Auto) (0-0.5) K/uL Baso # (Auto) (0-0.2) K/uL PT 11.0 (9.0-12.0) Seconds INR 1.1 (0.9-1.1) Sodium (136-145) mmol/L Potassium (3.5-5.1) mmol/L Chloride (98-107) mmol/L Carbon Dioxide (21-32) mmol/L Anion Gap (3-11) BUN (7-18) mg/dl Creatinine (0.6-1.4) mg/dl Est Cr Clr Drug Dosing ml/min Est GFR ( Amer) Est GFR (Non-Af Amer) BUN/Creatinine Ratio (10-20) Glucose (70-99) mg/dl Lactate (0.4-2.0) mmol/L Calcium (8.5-10.1) mg/dl Magnesium (1.8-2.4) mg/dl Total Bilirubin (0.2-1) mg/dl AST (15-37) U/L ALT (12-78) U/L Alkaline Phosphatase (45-117) U/L Total Creatine Kinase (39-308) U/L CK-MB (CK-2) (0.5-3.6) ng/ml CK/CKMB % Calc (0-3.0) Troponin I (0-0.045) ng/ml Total Protein (6.4-8.2) gm/dl Albumin (3.4-5.0) gm/dl Globulin (2.5-4.0) gm/dl Albumin/Globulin Ratio (0.9-2) TSH (0.300-4.500) uIu/ml Urine Color Dark Yellow Urine Appearance Cloudy A (Clear) Urine pH 5.5 (4.5-7.5) Ur Specific [place] 1.025 (1.000-1.030) Urine Protein 1+ H (Negative) Urine Glucose (UA) Negative (Negative) Urine Ketones 2+ H (Negative) Urine Blood Trace H (Negative) Urine Nitrite Negative (Negative) Urine Bilirubin Negative (Negative) Urine Urobilinogen Negative (Negative) Ur Leukocyte Esterase 2+ H (Negative) Urine WBC (Auto) >30 H (0-5) /hpf Urine RBC (Auto) 0-4 (0-4) /hpf U Hyaline Cast (Auto) 1-5 (0-5) /lpf U Epithel Cells (Auto) 5-10 H (0-5) /lpf Urine Bacteria (Auto) Negative (Negative) Urine Yeast Not Reportable Imaging Data Radiologist's Impression: Radiology results as stated below per my review and the radiologist's interpretation: HEAD CT NONCONTRAST CT DOSE: 905.75 mGy.cm HISTORY: fall TECHNIQUE: Multiaxial CT images of the head were performed without the use of intravenous contrast. Automated exposure control was utilized for this study. A dose lowering technique was utilized adhering to the principles of ALARA. Comparison: None. Findings: Trace fluid levels within the maxillary sinuses. The mastoid air cells are clear. The calvarium and skull base are intact. There is no mass, hematoma, midline shift, acute infarct. White matter hypodensity is nonspecific but suggestive of microvascular ischemic change. The ventricles and sulci d emonstrate mild age-related involutional changes. Impression: No acute intracranial abnormality. Atrophy and microvascular ischemic changes. Trace fluid levels within the maxillary sinuses. ACT 112: Negative or not required by law. Electronically signed by: Jian Wong M.D. 12/27/2019 10:[address] OF THE ABDOMEN AND PELVIS WITHOUT CONTRAST CLINICAL HISTORY: Left hip pain. Fall. Weight loss. COMPARISON STUDY: No previous studies for comparison. TECHNIQUE: Axial images of the abdomen and pelvis were obtained without IV contrast. Images were reviewed in the axial, sagittal, and coronal planes. Automated exposure control was utilized for the study. A dose lowering technique was utilized adhering to the principles of ALARA. FINDINGS: Imaged portions of the lower chest demonstrate trace bilateral pleural effusions. There is moderate emphysema. Visualized portions of the esophagus are markedly distended and contain ingested contents. A small hiatal hernia is present. No pneumatosis, free air or portal venous gas is present. Evaluation of the abdomen and pelvis is suboptimal on this unenhanced exam. A water attenuation left renal lesion favors a cyst. Unenhanced images of the liver, spleen, adrenal glands and pancreas are unremarkable. Prostate is markedly enlarged. Bladder wall is thickened and irregular with trabeculations. This is chronic. Bladder is moderately distended. Note is made of a comminuted displaced subcapital left femoral neck fracture. Multiple bone fragments are present. This fracture is acute to subacute. Thoracolumbar spine compression deformities are present. There are no suspicious osseous lesions. IMPRESSION: 1. Impacted displaced subcapital left femoral neck fracture. 2. Markedly distended esophagus, partially imaged on this exam. Probable hiatal hernia. The appearance raises the possibility of achalasia. A GE junction tumor with resultant esophageal dilatation could appear similar. Nonemergent GI consultation is suggested. 3. Trace bilateral pleural effusions. 4. Moderate emphysema. ACT 112: Negative or not required by law. Electronically signed by: Jim Villatoro M.D. 12/27/2019 10:42 AM XR chest 1V portable CLINICAL HISTORY: weakness COMPARISON STUDY: Chest radiograph December 20, 2017. FINDINGS: Lung volumes are normal. There is no pneumothorax or pleural effusion. There is no evidence for pulmonary edema. Cardiac size is normal. Abnormal upper mediastinal widening is noted. A 1.5 cm density within the right upper lung is present. IMPRESSION: 1. Abnormal upper mediastinal widening. This may be due to esophageal dilatation. 2. Possible 1.5 cm right upper lobe nodular opacity. A nonemergent chest CT is recommended for evaluation of these findings. ACT 112: Negative or not required by law. Electronically signed by: Jim Villatoro M.D. 12/27/2019 10:28 AM ECG Data Attestation: I personally reviewed and interpreted this ECG as follows: Indication: + weakness Rate (beats per minute): 84 Rhythm: + normal sinus ECG Intervals/blocks: + Right Bundle branch block ECG [place]: + Left axis deviation ECG ST segments: no ST depression and no ST elevation Comparison ECG Date: from (05/02/18) Change: the following changes noted (RBBB is now present.) Blood Pressure Blood Pressure Findings: Elevated blood pressure Blood Pressure Disposition: further management by hospitalist [facility] Narrative This patient comes in as described above he was brought in after being found weak and falling. He does have history of achalasia and typically gets his esophagus stretched about once every year he has not had it done recently and he has been unable to eat recently according to the son. He fell is unclear when his son thinks it was last night he has left hip pain. He does live alone independently. The patient does answer most questions appropriately but does have some confusion with details. He denies any chest pain or shortness of breath. IV access was established and he was hydrated with IV normal saline. I did do a CAT scan of his head and pelvis. He has no acute intracranial process. He does have a fracture of the left hip. On his chest x-ray did suggest dilation of the esophagus. Clinically I think that is likely as well. He is not actively vomiting. His troponin is mildly elevated which I think was likely more from falling rather than a cardiac event his EKG does not show any ischemic changes. I do think he needs to be admitted for treatment of hip fracture, his achalasia. Rehydration and monitoring of his cardiac status as well. [facility] Impression & Plan Hip fracture, left, Dehydration, Weakness, Elevated troponin, Hip pain, Achalasia Discharge Plan Visit Data *Final* Discharge Date/Time: 12/27/19 12:11 Chief Complaint: Weakness Stated Complaint: weakness/L hip pain ED Provider: Herrera Marino Discharge Problem: Hip fracture, left, Dehydration, Weakness, Elevated troponin, Hip pain, Achalasia Patient Disposition: Admitted As Inpatient Discharge Instructions Interventions: ED Discharge Assessment Last Done: 12/27/19 12:11 The scribe's documentation has been prepared under my direction and personally reviewed by me in its entirety. I confirm that the note above accurately reflects all work, treatment, procedures, and medical decision making performed by me.
[2019-12-28] MEDS ORDERED: POTASSIUM PHOS 3 MMOL/1 ML INFUSION IV STA (14:50)
--- NOTE | 2019-12-28 14:50 | Hospitalist Progress Note ---
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 Has been put on intravenous Zosyn White cell count was initially high and decreasing We will continue current antibiotic (3) Achalasia: -History of achalasia, most recent dilation and Botox injections 01/2019 -GI consult, case discussed with CLAYTON Montalvo -Discussed with the GI in detail -Esophageal fullness is likely to be relieved with time -We will get CT of the chest without contrast on Tuesday -May need to have GI and the Ortho team together working during hip surgery (4) Leukocytosis: -Likely secondary to aspiration pneumonia -WBC 15K, likely stress response due to fall/fracture -No obvious signs of infection at this time -White cell count went up and is completed by recent fracture -We will monitor (5) Elevated troponin: (6) RBBB: -Mild troponin elevation 0.122, no reports of chest pain, likely secondary to dehydration/stress from fall -Found to have new RBBB on EKG -Continue cycle cardiac enzymes, check resting echo -Cardiology consult for preoperative evaluation, Dr. Del Toro notified (7) Severe protein-calorie malnutrition: Has not been eating or drinking much due to severe achalasia Nutrition consult Will start on PPN for now (8) DVT prophylaxis: -SCDs due to likely upcoming invasive procedures Subjective 12/28/2019 The patient was seen and examined in medical telemetry unit He remains stable without any significant complaints Left hip pain with movement Denies any chest pain, shortness of breath, any abdominal pain, nausea or vomiting Review of Systems Review of Systems: All systems reviewed & are unremarkable except as noted in HPI & below Physical Exam Physical Exam: Lying in bed comfortably Constitutional: + cachectic; no acute distress Eyes: PERRL, conjunctivae normal, anicteric sclerae ENMT: external ear and nose normal, oropharynx normal Ears: no external ear abnormality Nose: no external nose abnormality Mouth: + dry oral mucous membranes Respiratory: normal respiratory effort, lungs clear to auscultation Cardiovascular: Rate/Rhythm: regular rate and regular rhythm Vessels: normal peripheral pulses Extremities: no edema Gastrointestinal (Abdomen): normal bowel sounds, soft, nontender, no hepatosplenomegaly Musculoskeletal: Extremities: + leg length discrepancy (Left, shortened) and + leg externally rotated (Left); no cyanosis and no clubbing Skin: no rashes, warm and dry Neurologic: PERRL, EOMI, accommodation nl, no face palsy, no dysarthria Psychiatric: Orientation: alert and oriented x 3 Lymphatic: no cervical or axillary lymphadenopathy Results & Data ([facility]) Vital Signs (Past 12 Hours) Vital Signs Temp Pulse Pulse Resp BP BP Pulse Ox 12/28/19 12:00 36.8 C 75 18 137/77 91 12/28/19 07:49 87 12/28/19 07:00 36.2 C L 83 18 123/66 92 12/28/19 04:14 36.6 C 75 20 117/70 92 Laboratory Results Short CBC 12/28/19 Range/Units 06:24 WBC 11.36 H (4.8-10.8) K/uL Hgb 12.4 L (14.0-18.0) g/dL Hct 39.0 L (42-52) % Plt Count 191 (130-400) K/uL BMP 12/28/19 06:24 Sodium 147 H Potassium 3.9 Chloride 115 H Carbon Dioxide 28 BUN 23 H Creatinine 0.98 Glucose 290 H Calcium 9.0 Cardiac Enzymes 12/27/19 12/27/19 12/28/19 Range/Units 15:54 21:47 06:24 Total Creatine Kinase 229 (39-308) U/L Troponin I 0.090 H* 0.079 H* (0-0.045) ng/ml Medications Administered Current Inpatient Medications Acetaminophen (Tylenol) 650 mg PO Q4H PRN PRN Reason: pain/fever Stop: 01/26/20 13:17 Bisacodyl (Dulcolax) 10 mg OK DAILY PRN PRN Reason: Constipation Stop: 01/26/20 13:17 Heparin Sodium (Porcine) (Heparin Sodium (Porcine)) 5,000 units SQ Q12 CANDIDA Stop: 01/27/20 20:59 Dextrose/Sodium Chloride (D5w And Nss) 1,000 mls @ 100 mls/hr IV .Q10H CANDIDA Stop: 12/28/19 15:59 Last Admin: 12/28/19 10:45 Dose: 100 mls/hr Documented by: Cefazolin Sodium (Ancef 2000mg) 2,000 mg in 15 mls @ 3.75 mls/min IV PREOP [facility]; Protocol Stop: 12/29/19 05:59 Piperacillin Sod/Tazobactam (Sod 3.375 gm/ Dextrose) 115 mls @ 28.75 mls/hr IV Q8H CANDIDA; Protocol Stop: 01/03/20 21:59 Last Admin: 12/28/19 14:38 Dose: 28.8 mls/hr Documented by: Dextrose (D10w) 1,000 mls @ 0 mls/hr IV .Q0M PRN PRN Reason: protocol (see label comments) Stop: 01/27/20 16:00 Nutrition (Parenteral) 1,350 (ml/ TPN BAG) 1,350 mls @ 56.3 mls/hr IV .[id number] CANDIDA; Protocol Stop: 12/29/19 15:59 Magnesium Hydroxide (Milk Of Magnesia) 30 ml PO DAILY PRN PRN Reason: Constipation Stop: 01/26/20 13:17 Miscellaneous Information (Consult) 1 ea N/A UD PRN PRN Reason: Consult Stop: 01/26/20 14:13 Miscellaneous Information (Pharmacy Tpn/Ppn Consult Active) 1 ea N/A UD PRN PRN Reason: Consult Stop: 01/27/20 11:03 Morphine Sulfate (Morphine Sulfate) 2 mg IV Q4H PRN PRN Reason: MODERATE Pain (Scale 4,5,6) Stop: 01/10/20 13:17 Naloxone HCl (Narcan) 0.1 mg IV UD PRN PRN Reason: Opiate Overdose Stop: 01/26/20 13:17 Senna/Docusate Sodium (Senokot S) 2 tab PO HS [facility] Stop: 01/26/20 20:59 Last Admin: 12/27/19 21:17 Dose: Not Given Documented by:
--- NOTE | 2019-12-28 14:50 | Pharmacy Report ---
Pharmacy PN Initial Consult - Date of Service December 28, 2019 - Scope Pharmacy has been consulted to manage parenteral nutrition orders and order appropriate labs. As part of the Nutrition Support Team guidelines, pharmacy will work in conjunction with dietary when determining the patients caloric needs. - Subjective The patient is a 89 year old M admitted on 12/27/19 11:56 for LEFT HIP FRACTURE. Patient is to receive parenteral nutrition for severe malnutrition and anticipated prolonged NPO status Pertinent PMH: Achalasia, left hip fracture - Objective Height: 5 ft 7 in Weight: 44.8 kg Intake & Output (Last 24Hrs): Intake & Output 12/26/19 12/27/19 12/28/19 12/29/19 06:59 06:59 06:59 06:59 Intake Total 1730 / 1730 1093.333 / 1093.333 Output Total 200 / 200 Balance 1730 / 1730 893.333 / 893.333 Weight 44.8 kg 44.8 kg Laboratory Data (Last 24 Hrs):: 12/28/19 12/28/19 06:24 06:24 Sodium 147 H Potassium 3.9 Chloride 115 H Carbon Dioxide 28 BUN 23 H Creatinine 0.98 Glucose 290 H Calcium 9.0 Phosphorus 2.0 L Nutrition Assessment:: Please refer to the Notes section of the EMR for the most recent web marketing coordinator note. 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 Will give in PPN as well. * Will start dextrose at half the goal rate based on patient risk for refeeding - Plan For day 1 of PN administration, the following will be ordered: Macronutrients Amino acids 50 grams/day Dextrose 60 grams/day Lipids 30 grams/day Micronutrients Sodium acetate 20 mEq Potassium phosphate 30 mMol Magnesium sulfate 8.12 mEq Multivitamins 10 mL Trace Elements 10 mL Additional additives: thiamine 100 mg Total volume 1350 mL (30 mL/kg) to be infused over 24 hrs will provide 704 kcal/day Final osmolarity 666 mOsm/L (maximum for PPN is 900 mOsm/L) Labs to be ordered per PN order protocol Pharmacy will follow and adjust parenteral nutrition orders on a daily basis. Thank you.
[2019-12-28] MEDS ORDERED: POTASSIUM PHOSPHATE 21 MMOL in SODIUM CHLORIDE 0.9% 500 ML IV ONE (15:30)
[2019-12-28] MEDS: TPN IV SCH (15:59)
[2019-12-28] MEDS: PERIPHERAL PN IV SCH (15:59)
--- NOTE | 2019-12-28 16:09 | Communication Note ---
Date of Service: December 28, 2019 Date of Service: December 28, 2019 Was asked to evaluate the patient with increasing shortness of breath and decreasing saturation Happened to be all of a sudden Did not try to eat anything Noted to have very anxious with severe shortness of breath Widespread wheezing Has been getting oxygen 2 L/min Will have nebulized bronchodilator Chest x-ray to rule out any significant aspiration and/or CHF We will give a small dose of Ativan for anxiety
[2019-12-28] MEDS: INSULIN ASPART 100 UNITS/ML 3 ML PEN SC SCH ×2 (17:31→20:45)
[2019-12-28] MEDS: HEPARIN SOD 5,000 UNIT/0.5 ML VIAL SQ SCH (20:45)
[2019-12-28] MEDS: DOCUSATE SODIUM/SENNA 50/8.6MG TAB PO SCH (20:49)
[2019-12-29] MEDS: PIPERACILLIN/TAZOBACTAM 3.375 GM in DEXTROSE 5% 100 ML IV SCH ×3 (05:50→21:14)
[2019-12-29 07:31] LABS: Basophils # (auto) 0.01 K/uL (0-0.2); Basophils % (auto) 0.1 %; Hematocrit (blood only) 39.2 % (42-52); Hemoglobin 12.7 g/dL (14.0-18.0); Immature Granulocytes # (auto) 0.03 K/uL (0.00-0.02); Immature Granulocytes % (auto) 0.2 %; Lymphocytes # (auto) 0.79 K/uL (1.2-3.4); Lymphocytes % (auto) 6.5 %; Mean Corpuscular Hemoglobin 31.5 pg (25-34); Mean Corpuscular Hgb Conc 32.4 g/dL (32-36); Mean Corpuscular Volume 97.3 fL (80-100); Mean Platelet Volume 11.1 fL (7.4-10.4); Monocytes # (auto) 0.86 K/uL (0.11-0.59); Monocytes % (auto) 7.1 %; Neutrophils # (auto) 10.48 K/uL (1.4-6.5); Neutrophils % (auto) 86.1 %; Platelet Count 182 K/uL (130-400); RDW Coefficient of Variation 14.9 % (11.5-14.5); RDW Standard Deviation 53.1 fL (36.4-46.3); Red Blood Count 4.03 M/uL (4.7-6.1); White Blood Count 12.17 K/uL (4.8-10.8)
[2019-12-29 07:58] LABS: BUN Creatinine Ratio 27.2 (10-20); Calcium 9.4 mg/dl (8.5-10.1); Creatinine Clr Calc Pharmacy 36.6 ml/min; Est GFR (African American) 87.9; Est GFR (Non-African American) 75.8
[2019-12-29] MEDS: HEPARIN SOD 5,000 UNIT/0.5 ML VIAL SQ SCH ×2 (08:35→21:14)
[2019-12-29] MEDS: INSULIN ASPART 100 UNITS/ML 3 ML PEN SC SCH ×4 (08:36→21:13)
--- NOTE | 2019-12-29 10:26 | Pharmacy Report ---
PHA: Parenteral Nutrition Con - Date of Service December 29, 2019 - Scope Pharmacy was consulted on 12/28/19 to manage parenteral nutrition orders for this patient. - Subjective The patient is currently on day #2 of peripheral parenteral nutrition for severe malnutrition and anticipated prolonged NPO status. - Objective Height: 5 ft 7 in Weight: 46 kg Diet: NPO Vascular Access:: PERIPHERAL LINE Intake & Output (24hrs):: Intake & Output 12/27/19 12/28/19 12/29/19 12/30/19 06:59 06:59 06:59 06:59 Intake Total 1730 / 1730 2018.559 / 2018.559 115 / 115 Output Total 400 / 400 Balance 1730 / 1730 1618.559 / 1618.559 115 / 115 Weight 44.8 kg 46 kg Laboratory Data (Last 24 Hr):: 12/28/19 12/29/19 06:24 07:01 Sodium 145 Potassium 4.0 Chloride 112 H Carbon Dioxide 28 BUN 24 H Creatinine 0.89 Glucose 145 H Calcium 9.4 Phosphorus 2.0 L 3.0 D Magnesium 2.0 Triglycerides 141 Nutrition Assessment:: Please refer to the Notes section of the EMR for the most recent lunch wagon operator note. - Assessment Mr. Wilson is a 89 year old M admitted on 12/27/19 for left hip fracture * PPN for severe achalasia and malnutrition with anticipated prolonged NPO status * Patient likely to undergo left hemiarthroplasty early next week * Dextrose will be advanced to 90 grams today with plans to advance to goal of 125 grams on 12/30 - Plan For day # 2 of PN administration, the following will be ordered: Macronutrients Amino acids 50 grams/day Dextrose 90 grams/day Lipids 30 grams/day Micronutrients Sodium acetate 20 mEq Potassium phosphate 30 mMol Potassium acetate 20 mEq Magnesium sulfate 8.12 mEq Multivitamins 10 mL Trace Elements 1 mL Thiamine 100 mg Total volume 1350 mL to be infused over 24 hrs will provide 806 kcal/day Final osmolarity 808.47 mOsm/L (maximum for PPN is 900 mOsm/L) Labs, as indicated, will be ordered per protocol Pharmacy will continue to follow and adjust parenteral nutrition orders on a daily basis. Thank you for allowing us to participate in the care of this patient.
--- NOTE | 2019-12-29 11:15 | Hospitalist Progress Note ---
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 Mcdonald -Likely surgery on Tuesday -Remains stable (2) Aspiration pneumonia: Likely secondary to achalasia of the esophagus Has been put on intravenous Zosyn White cell count was initially high and decreasing We will continue current antibiotic No acute symptoms from aspiration and/or pneumonia (3) Achalasia: -History of achalasia, most recent dilation and Botox injections 01/2019 -GI consult, case discussed with CLAYTON Montalvo -Discussed with the GI in detail -Esophageal fullness is likely to be relieved with time -We will get CT of the chest without contrast on Tuesday -May need to have GI and the Ortho team together working during hip surgery -CT will be ordered for chest tomorrow afternoon (4) Leukocytosis: -Likely secondary to aspiration pneumonia -WBC 15K, likely stress response due to fall/fracture -No obvious signs of infection at this time -White cell count went up and is completed by recent fracture -We will monitor-improving (5) Elevated troponin: (6) RBBB: -Mild troponin elevation 0.122, no reports of chest pain, likely secondary to dehydration/stress from fall -Found to have new RBBB on EKG -Continue cycle cardiac enzymes, check resting echo -Cardiology consult for preoperative evaluation, Dr. Del Toro notified -Appreciate cardiology input and recommendation (7) Severe protein-calorie malnutrition: Has not been eating or drinking much due to severe achalasia Nutrition consult Will start on PPN for now (8) DVT prophylaxis: -SCDs due to likely upcoming invasive procedures -Subcu heparin has been started Subjective 12/28/2019 The patient was seen and examined in medical telemetry unit He remains stable without any significant complaints Left hip pain with movement Denies any chest pain, shortness of breath, any abdominal pain, nausea or vomiting 12/29/2019 The patient was seen and examined in medical telemetry unit He has been feeling a lot better today though remains generally weak and lethargic He has been getting PPN without any problem Planes of pain at the fracture site Review of Systems Review of Systems: ROS per HPI, all other systems reviewed and negative Physical Exam Physical Exam: Lying in bed comfortably Constitutional: + cachectic; no acute distress Eyes: PERRL, conjunctivae normal, anicteric sclerae ENMT: external ear and nose normal, oropharynx normal Ears: no external ear abnormality Nose: no external nose abnormality Mouth: + dry oral mucous membranes Respiratory: no respiratory distress Auscultation: lungs clear to auscultation bilaterally Cardiovascular: Rate/Rhythm: regular rate and regular rhythm Vessels: normal peripheral pulses Extremities: no edema Gastrointestinal (Abdomen): normal bowel sounds, soft, nontender, no hepatosp lenomegaly Musculoskeletal: Extremities: + leg length discrepancy (Left, shortened) and + leg externally rotated (Left); no cyanosis and no clubbing Skin: no rashes, warm and dry Neurologic: PERRL, EOMI, accommodation nl, no face palsy, no dysarthria Psychiatric: Orientation: alert and oriented x 3 Lymphatic: no cervical or axillary lymphadenopathy Results & Data ([facility]) Vital Signs (Past 12 Hours) Vital Signs Temp Pulse Resp BP Pulse Ox Pulse Ox 12/29/19 08:00 36.5 C 77 18 117/72 92 12/29/19 04:00 90 12/29/19 03:21 37.3 C 93 H 20 100/62 100 12/29/19 00:00 90 Laboratory Results Short CBC 12/29/19 Range/Units 07:01 WBC 12.17 H (4.8-10.8) K/uL Hgb 12.7 L (14.0-18.0) g/dL Hct 39.2 L (42-52) % Plt Count 182 (130-400) K/uL BMP 12/29/19 07:01 Sodium 145 Potassium 4.0 Chloride 112 H Carbon Dioxide 28 BUN 24 H Creatinine 0.89 Glucose 145 H Calcium 9.4 Medications Administered Current Inpatient Medications Acetaminophen (Tylenol) 650 mg PO Q4H PRN PRN Reason: pain/fever Stop: 01/26/20 13:17 Bisacodyl (Dulcolax) 10 mg NE DAILY PRN PRN Reason: Constipation Stop: 01/26/20 13:17 Heparin Sodium (Porcine) (Heparin Sodium (Porcine)) 5,000 units SQ Q12 CANDIDA Stop: 01/27/20 20:59 Last Admin: 12/29/19 08:35 Dose: 5,000 units Documented by: Piperacillin Sod/Tazobactam (Sod 3.375 gm/ Dextrose) 115 mls @ 28.75 mls/hr IV Q8H CANDIDA; Protocol Stop: 01/03/20 21:59 Last Infusion: 12/29/19 09:50 Dose: Infused Documented by: Dextrose (D10w) 1,000 mls @ 0 mls/hr IV .Q0M PRN PRN Reason: protocol (see label comments) Stop: 01/27/20 16:00 Nutrition (Parenteral) 1,350 (ml/ TPN BAG) 1,350 mls @ 56.3 mls/hr IV .[id number] CANDIDA; Protocol Stop: 12/29/19 15:59 Last Admin: 12/28/19 15:59 Dose: 56.3 mls/hr Documented by: Nutrition (Parenteral) 1,350 (ml/ TPN BAG) 1,350 mls @ 56.25 mls/hr IV .Q24H CANDIDA; Protocol Stop: 12/30/19 15:59 Insulin Aspart (Novolog Flexpen) 0 units SC ACHS [facility] Stop: 01/27/20 16:29 Last Admin: 12/29/19 08:36 Dose: Not Given Documented by: Magnesium Hydroxide (Milk Of Magnesia) 30 ml PO DAILY PRN PRN Reason: Constipation Stop: 01/26/20 13:17 Miscellaneous Information (Consult) 1 ea N/A UD PRN PRN Reason: Consult Stop: 01/26/20 14:13 Miscellaneous Information (Pharmacy Tpn/Ppn Consult Active) 1 ea N/A UD PRN PRN Reason: Consult Stop: 01/27/20 11:03 Morphine Sulfate (Morphine Sulfate) 2 mg IV Q4H PRN PRN Reason: MODERATE Pain (Scale 4,5,6) Stop: 01/10/20 13:17 Last Admin: 12/28/19 21:58 Dose: 2 mg Documented by: Naloxone HCl (Narcan) 0.1 mg IV UD PRN PRN Reason: Opiate Overdose Stop: 01/26/20 13:17 Senna/Docusate Sodium (Senokot S) 2 tab PO HS CANDIDA Stop: 01/26/20 20:59 Last Admin: 12/28/19 20:49 Dose: Not Given Documented by:
--- NOTE | 2019-12-29 12:15 | Orthopedic Progress Note ---
Date of Service December 29, 2019 Assessment & Plan (1) Hip fracture, left: Patient currently not cleared due to multiple medical issues. We will proceed with left hip hemiarthroplasty for displaced femoral neck fracture once medically stabilized/optimized. Continue nonweightbearing left lower extremity, bedrest, [place], defer anticoagulation to medical team, will need to hold prior to surgery, pain control. Subjective Patient seen resting in bed, comfortable, denies pain, no acute issues overnight. Review of Systems Review of Systems: All systems reviewed & are unremarkable except as noted in HPI & below Constitutional: as per Subjective / HPI Physical Exam Physical Exam: LLE NVSI +EHL/FHL/TA/GS SILT grossly, +2 DP pulse, compartments soft NT, short and externally rotated Constitutional: WD/WN, vitals as above Results & Data ([facility]) Vital Signs (Past 12 Hours) Vital Signs Temp Pulse Resp BP Pulse Ox Pulse Ox 12/29/19 08:00 36.5 C 77 18 117/72 92 12/29/19 04:00 90 12/29/19 03:21 37.3 C 93 H 20 100/62 100 Laboratory Results 12/29/19 12/29/19 12/29/19 Range/Units 07:14 07:01 07:01 WBC 12.17 H (4.8-10.8) K/uL RBC 4.03 L (4.7-6.1) M/uL Hgb 12.7 L (14.0-18.0) g/dL Hct 39.2 L (42-52) % MCV 97.3 (80-100) fL MCH 31.5 (25-34) pg MCHC 32.4 (32-36) g/dL RDW Std Deviation 53.1 H (36.4-46.3) fL RDW Coeff of Jacob 14.9 H (11.5-14.5) % Plt Count 182 (130-400) K/uL MPV 11.1 H (7.4-10.4) fL Immature Gran % (Auto) 0.2 % Neut % (Auto) 86.1 % Lymph % (Auto) 6.5 % [place] % (Auto) 7.1 % Eos % (Auto) 0.0 % Baso % (Auto) 0.1 % Immature Gran # (Auto) 0.03 H (0.00-0.02) K/uL Neut # (Auto) 10.48 H (1.4-6.5) K/uL Lymph # (Auto) 0.79 L (1.2-3.4) K/uL [place] # (Auto) 0.86 H (0.11-0.59) K/uL Eos # (Auto) 0.00 (0-0.5) K/uL Baso # (Auto) 0.01 (0-0.2) K/uL Sodium 145 (136-145) mmol/L Potassium 4.0 (3.5-5.1) mmol/L Chloride 112 H (98-107) mmol/L Carbon Dioxide 28 (21-32) mmol/L Anion Gap 5.0 (3-11) BUN 24 H (7-18) mg/dl Creatinine 0.89 (0.6-1.4) mg/dl Est Cr Clr Drug Dosing 36.6 ml/min Est GFR ( Amer) 87.9 Est GFR (Non-Af Amer) 75.8 BUN/Creatinine Ratio 27.2 H (10-20) Glucose 145 H (70-99) mg/dl POC Glucose 138 H (70-99) mg/dl Calcium 9.4 (8.5-10.1) mg/dl Phosphorus 3.0 D (2.5-4.9) mg/dl Magnesium 2.0 (1.8-2.4) mg/dl Triglycerides 141 (0-150) mg/dl 12/29/19 12/28/19 12/28/19 Range/Units 00:50 20:47 17:34 WBC (4.8-10.8) K/uL RBC (4.7-6.1) M/uL Hgb (14.0-18.0) g/dL Hct (42-52) % MCV (80-100) fL MCH (25-34) pg MCHC (32-36) g/dL RDW Std Deviation (36.4-46.3) fL RDW Coeff of Jacob (11.5-14.5) % Plt Count (130-400) K/uL MPV (7.4-10.4) fL Immature Gran % (Auto) % Neut % (Auto) % Lymph % (Auto) % [place] % (Auto) % Eos % (Auto) % Baso % (Auto) % Immature Gran # (Auto) (0.00-0.02) K/uL Neut # (Auto) (1.4-6.5) K/uL Lymph # (Auto) (1.2-3.4) K/uL [place] # (Auto) (0.11-0.59) K/uL Eos # (Auto) (0-0.5) K/uL Baso # (Auto) (0-0.2) K/uL Sodium (136-145) mmol/L Potassium (3.5-5.1) mmol/L Chloride (98-107) mmol/L Carbon Dioxide (21-32) mmol/L Anion Gap (3-11) BUN (7-18) mg/dl Creatinine (0.6-1.4) mg/dl Est Cr Clr Drug Dosing ml/min Est GFR ( Amer) Est GFR (Non-Af Amer) BUN/Creatinine Ratio (10-20) Glucose (70-99) mg/dl POC Glucose 137 H 99 230 H (70-99) mg/dl Calcium (8.5-10.1) mg/dl Phosphorus (2.5-4.9) mg/dl Magnesium (1.8-2.4) mg/dl Triglycerides (0-150) mg/dl
[2019-12-29] MEDS ORDERED: PERIPHERAL PN IV SCH (16:00)
[2019-12-29] MEDS ORDERED: TPN IV SCH (16:00)
[2019-12-29] MEDS: PERIPHERAL PN IV SCH (17:04)
[2019-12-29] MEDS: TPN IV SCH (17:04)
[2019-12-29] MEDS: DOCUSATE SODIUM/SENNA 50/8.6MG TAB PO SCH (21:05)
[2019-12-29] MEDS ORDERED: XOPENEX/ATROVENT 1.25mg/0.5MG NEB COMBO NEB PRN (21:26)
[2019-12-29] MEDS ORDERED: LEVALBUTEROL 1.25MG/0.5ML NEB INH PRN (21:30)
[2019-12-29] MEDS ORDERED: IPRATROPIUM BROMIDE NEB SOLN 0.02% 2.5 ML VIAL INH PRN (21:30)
[2019-12-30] MEDS: PIPERACILLIN/TAZOBACTAM 3.375 GM in DEXTROSE 5% 100 ML IV SCH ×3 (05:15→21:03)
[2019-12-30 07:02] LABS: BUN Creatinine Ratio 34.7 (10-20); Calcium 8.8 mg/dl (8.5-10.1); Creatinine Clr Calc Pharmacy 46.9 ml/min; Est GFR (African American) 97.6; Est GFR (Non-African American) 84.2; Magnesium 2.1 mg/dl (1.8-2.4); Potassium 4.1 mmol/L (3.5-5.1)
[2019-12-30 07:17] LABS: Phosphorus 2.3 mg/dl (2.5-4.9)
[2019-12-30] MEDS: INSULIN ASPART 100 UNITS/ML 3 ML PEN SC SCH ×4 (08:00→20:53)
[2019-12-30] MEDS: HEPARIN SOD 5,000 UNIT/0.5 ML VIAL SQ SCH ×2 (08:01→20:51)
--- NOTE | 2019-12-30 08:38 | Orthopedic Progress Note ---
Date of Service December 30, 2019 Assessment & Plan (1) Hip fracture, left: Patient currently not cleared due to multiple ongoing medical issues. We will proceed with left hip hemiarthroplasty for displaced femoral neck fracture once medically stabilized/optimized. Continue nonweightbearing left lower extremity, bedrest, More[place], defer anticoagulation to medical team, will need to hold prior to surgery, pain control. Subjective Patient seen resting in bed, comfortable, denies pain, no acute issues overnight. Patient in good spirits this morning. Review of Systems Review of Systems: All systems reviewed & are unremarkable except as noted in HPI & below Constitutional: as per Subjective / HPI Physical Exam Physical Exam: LLE NVSI +EHL/FHL/TA/GS SILT grossly, +2 DP pulse, compartments soft NT, short externally rotated Constitutional: WD/WN, vitals as above Results & Data ([facility]) Vital Signs (Past 12 Hours) Vital Signs Temp Pulse Pulse Pulse Resp BP BP 12/30/19 08:24 36.9 C 87 20 151/78 H 12/30/19 03:50 36.7 C 85 18 142/81 H 12/30/19 01:37 82 12/29/19 23:31 37.1 C 86 18 157/88 H Pulse Ox 12/30/19 08:24 99 12/30/19 03:50 100 12/30/19 01:37 12/29/19 23:31 100 Laboratory Results 12/30/19 12/30/19 12/30/19 Range/Units 07:55 06:10 06:00 Sodium 141 (136-145) mmol/L Potassium 4.1 (3.5-5.1) mmol/L Chloride 108 H (98-107) mmol/L Carbon Dioxide 32 (21-32) mmol/L Anion Gap 1.0 L (3-11) BUN 24 H (7-18) mg/dl Creatinine 0.69 (0.6-1.4) mg/dl Est Cr Clr Drug Dosing 46.9 ml/min Est GFR ( Amer) 97.6 Est GFR (Non-Af Amer) 84.2 BUN/Creatinine Ratio 34.7 H (10-20) Glucose 133 H (70-99) mg/dl POC Glucose 157 H 128 H (70-99) mg/dl Calcium 8.8 (8.5-10.1) mg/dl Phosphorus 2.3 L (2.5-4.9) mg/dl Magnesium 2.1 (1.8-2.4) mg/dl Triglycerides 139 (0-150) mg/dl 12/30/19 12/29/19 12/29/19 Range/Units 02:54 20:36 16:42 Sodium (136-145) mmol/L Potassium (3.5-5.1) mmol/L Chloride (98-107) mmol/L Carbon Dioxide (21-32) mmol/L Anion Gap (3-11) BUN (7-18) mg/dl Creatinine (0.6-1.4) mg/dl Est Cr Clr Drug Dosing ml/min Est GFR ( Amer) Est GFR (Non-Af Amer) BUN/Creatinine Ratio (09-09) Glucose (70-99) mg/dl POC Glucose 134 H 148 H 172 H (70-99) mg/dl Calcium (8.5-10.1) mg/dl Phosphorus (2.5-4.9) mg/dl Magnesium (1.8-2.4) mg/dl Triglycerides (0-150) mg/dl 12/29/19 Range/Units 12:23 Sodium (136-145) mmol/L Potassium (3.5-5.1) mmol/L Chloride (98-107) mmol/L Carbon Dioxide (21-32) mmol/L Anion Gap (3-11) BUN (7-18) mg/dl Creatinine (0.6-1.4) mg/dl Est Cr Clr Drug Dosing ml/min Est GFR ( Amer) Est GFR (Non-Af Amer) BUN/Creatinine Ratio (09-09) Glucose (70-99) mg/dl POC Glucose 138 H (70-99) mg/dl Calcium (8.5-10.1) mg/dl Phosphorus (2.5-4.9) mg/dl Magnesium (1.8-2.4) mg/dl Triglycerides (0-150) mg/dl
--- NOTE | 2019-12-30 10:55 | Hospitalist Progress Note ---
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 Mcdonald -Remains stable medically for probable surgery tomorrow - 12/31/2019 (2) Aspiration pneumonia: Likely secondary to achalasia of the esophagus Has been put on intravenous Zosyn White cell count was initially high and decreasing We will continue current antibiotic No acute symptoms from aspiration and/or pneumonia (3) Achalasia: -History of achalasia, most recent dilation and Botox injections 01/2019 -GI consult, case discussed with CLAYTON Montalvo -Discussed with the GI in detail -Esophageal fullness is likely to be relieved with time -We will get CT of the chest without contrast on Tuesday -May need to have GI and the Ortho team together working during hip surgery -CT will be ordered for chest tomorrow afternoon -GI evaluation tomorrow before surgery (4) Leukocytosis: -Likely secondary to aspiration pneumonia -WBC 15K, likely stress response due to fall/fracture -No obvious signs of infection at this time -White cell count went up and is completed by recent fracture -We will monitor-improving (5) Elevated troponin: (6) RBBB: -Mild troponin elevation 0.122, no reports of chest pain, likely secondary to dehydration/stress from fall -Found to have new RBBB on EKG -Continue cycle cardiac enzymes, check resting echo -Cardiology consult for preoperative evaluation, Dr. Del Toro notified -Appreciate cardiology input and recommendation (7) Severe protein-calorie malnutrition: Has not been eating or drinking much due to severe achalasia Nutrition consult Will start on PPN for now Tolerating PPN well Monitor electrolytes (8) DVT prophylaxis: -SCDs due to likely upcoming invasive procedures -Subcu heparin has been started Subjective 12/28/2019 The patient was seen and examined in medical telemetry unit He remains stable without any significant complaints Left hip pain with movement Denies any chest pain, shortness of breath, any abdominal pain, nausea or vomiting 12/29/2019 The patient was seen and examined in medical telemetry unit He has been feeling a lot better today though remains generally weak and lethargic He has been getting PPN without any problem Planes of pain at the fracture site 12/30/2019 Patient was seen and examined in medical telemetry unit He remains stable but has had a short run of VT this morning without any symptoms He remains weak and lethargic but denies any significant symptoms Review of Systems Review of Systems: ROS per HPI, all other systems reviewed and negative Neurologic: + generalized weakness Physical Exam Physical Exam: Lying in bed comfortably Constitutional: + ill appearing and + cachectic; no acute distress Eyes: PERRL, conjunctivae normal, anicteric sclerae ENMT: external ear and nose normal, oropharynx normal Ears: no external ear abnormality Nose: no external nose abnormality Mouth: + dry oral mucous membranes Respiratory: normal respiratory effort; no respiratory distress Auscultation: lungs clear to auscultation bilaterally and + diminished lung sounds; no crackles and no rales Cardiovascular: Rate/Rhythm: regular rate and regular rhythm Vessels: normal peripheral pulses Extremities: no edema Gastrointestinal (Abdomen): Inspection/Auscultation: normal bowel sounds Percussion/Palpation: abdomen soft; abdomen nontender Musculoskeletal: Extremities: + leg length discrepancy (Left, shortened) and + leg externally rotated (Left); no cyanosis and no clubbing Skin: no rashes, warm and dry Neurologic: PERRL, EOMI, accommodation nl, no face palsy, no dysarthria moves all extremities; no focal motor deficits Remains generally weak and lethargic Psychiatric: Orientation: alert and oriented x 3 Lymphatic: no cervical or axillary lymphadenopathy Results & Data ([facility]) Vital Signs (Past 12 Hours) Vital Signs Temp Pulse Pulse Pulse Resp BP BP 12/30/19 09:00 94 H 12/30/19 08:24 36.9 C 87 20 151/78 H 12/30/19 03:50 36.7 C 85 18 142/81 H 12/30/19 01:37 82 12/29/19 23:31 37.1 C 86 18 157/88 H Pulse Ox 12/30/19 09:00 12/30/19 08:24 99 12/30/19 03:50 100 12/30/19 01:37 12/29/19 23:31 100 Laboratory Results BMP 12/30/19 06:10 Sodium 141 Potassium 4.1 Chloride 108 H Carbon Dioxide 32 BUN 24 H Creatinine 0.69 Glucose 133 H Calcium 8.8 Medications Administered Current Inpatient Medications Acetaminophen (Tylenol) 650 mg PO Q4H PRN PRN Reason: pain/fever Stop: 01/26/20 13:17 Bisacodyl (Dulcolax) 10 mg AR DAILY PRN PRN Reason: Constipation Stop: 01/26/20 13:17 Heparin Sodium (Porcine) (Heparin Sodium (Porcine)) 5,000 units SQ Q12 CANDIDA Stop: 01/27/20 20:59 Last Admin: 12/30/19 08:01 Dose: 5,000 units Documented by: Piperacillin Sod/Tazobactam (Sod 3.375 gm/ Dextrose) 115 mls @ 28.75 mls/hr IV Q8H CANDIDA; Protocol Stop: 01/03/20 21:59 Last Infusion: 12/30/19 08:35 Dose: Infused Documented by: Dextrose (D10w) 1,000 mls @ 0 mls/hr IV .Q0M PRN PRN Reason: protocol (see label comments) Stop: 01/27/20 16:00 Nutrition (Parenteral) 1,350 (ml/ TPN BAG) 1,350 mls @ 56.25 mls/hr IV .Q24H CANDIDA; Protocol Stop: 12/30/19 15:59 Last Admin: 12/29/19 15:36 Dose: 56.3 mls/hr Documented by: Nutrition (Parenteral) 1,350 (ml/ TPN BAG) 1,350 mls @ 56.25 mls/hr IV .Q24H CANDIDA; Protocol Stop: 12/31/19 15:59 Insulin Aspart (Novolog Flexpen) 0 units SC ACHS CANDIDA Stop: 01/27/20 16:29 Last Admin: 12/30/19 08:00 Dose: Not Given Documented by: Ipratropium [place] (Atrovent 0.02% 0.5mg/2.5ml) 0.5 mg INH Q4H PRN PRN Reason: Shortness Of Breath Or Wheezing Stop: 01/28/20 21:29 Levalbuterol HCl (Xopenex 1.25mg/0.5ml Neb) 1.25 mg INH Q4H PRN PRN Reason: Shortness Of Breath Or Wheezing Stop: 01/28/20 21:29 Magnesium Hydroxide (Milk Of Magnesia) 30 ml PO DAILY PRN PRN Reason: Constipation Stop: 01/26/20 13:17 Miscellaneous Information (Consult) 1 ea N/A UD PRN PRN Reason: Consult Stop: 01/26/20 14:13 Miscellaneous Information (Pharmacy Tpn/Ppn Consult Active) 1 ea N/A UD PRN PRN Reason: Consult Stop: 01/27/20 11:03 Morphine Sulfate (Morphine Sulfate) 2 mg IV Q4H PRN PRN Reason: MODERATE Pain (Scale 4,5,6) Stop: 01/10/20 13:17 Last Admin: 12/28/19 21:58 Dose: 2 mg Documented by: Naloxone HCl (Narcan) 0.1 mg IV UD PRN PRN Reason: Opiate Overdose Stop: 01/26/20 13:17 Senna/Docusate Sodium (Senokot S) 2 tab PO HS CANDIDA Stop: 01/26/20 20:59 Last Admin: 12/29/19 21:05 Dose: Not Given Documented by:
[2019-12-30] MEDS ORDERED: TPN IV SCH (16:00)
[2019-12-30] MEDS ORDERED: PERIPHERAL PN IV SCH (16:00)
--- NOTE | 2019-12-30 19:09 | CT Scan Report ---
CT OF THE CHEST WITHOUT IV CONTRAST CLINICAL HISTORY: evaluate Esophageal Achalasia/Tracheal abnormality COMPARISON STUDY: Chest CT December 27, 2019. CT DOSE: 224.18 mGy.cm TECHNIQUE: Axial images of the chest were obtained without IV contrast. Images were reviewed in the axial, sagittal, and coronal planes. IV contrast was not administered for this examination. Automat ed exposure control was utilized for the study. A dose lowering technique was utilized adhering to t he principles of ALARA. FINDINGS: The size of the heart is normal. There is extensive coronary artery calcification. There i s no pericardial effusion. Marked dilatation of the esophagus is similar to exam of December 27, 2019. The esophagus is fluid-filled. The amount of ingested contents has mildly diminished. Apparent marke d mass effect upon the trachea is again noted. Severe tracheal narrowing at the level the thoracic in let has mildly increased when compared to prior CT. Moderate bilateral pleural effusions have increas ed. Extensive left lower lobe airspace opacity with volume loss suggests segmental atelectasis. There is moderate emphysema. There is no pneumothorax. Several old compression fractures are noted. Visual ized portions of the upper abdomen are unremarkable on this unenhanced examination. There is no thora cic lymphadenopathy. IMPRESSION: 1. No significant change in marked dilatation of the esophagus since CT of December 27, 2019. Amount o f ingested contents within the esophagus mildly diminished but esophagus remains fluid-filled. The ap pearance favors achalasia. 2. Distended esophagus again results in significant mass effect upon the trachea at the level of the thoracic inlet with marked tracheal narrowing which appears increased when compared to prior exam. Th is could be correlated with respiratory symptoms. 3. Increase in small bilateral pleural effusions. Significant left lower lobe volume loss suggestive of subsegmental atelectasis. 4. Moderate emphysema. ACT 112: Negative or not required by law. Electronically signed by: Jim Villatoro M.D. 12/30/2019 7:08 PM
[2019-12-30] MEDS: DOCUSATE SODIUM/SENNA 50/8.6MG TAB PO SCH (20:53)
[2019-12-31 05:38] LABS: Basophils # (auto) 0.01 K/uL (0-0.2); Basophils % (auto) 0.1 %; Hematocrit (blood only) 38.7 % (42-52); Hemoglobin 12.1 g/dL (14.0-18.0); Immature Granulocytes # (auto) 0.03 K/uL (0.00-0.02); Immature Granulocytes % (auto) 0.2 %; Lymphocytes # (auto) 0.66 K/uL (1.2-3.4); Lymphocytes % (auto) 5.3 %; Mean Corpuscular Hemoglobin 30.7 pg (25-34); Mean Corpuscular Hgb Conc 31.3 g/dL (32-36); Mean Corpuscular Volume 98.2 fL (80-100); Mean Platelet Volume 10.8 fL (7.4-10.4); Monocytes # (auto) 0.42 K/uL (0.11-0.59); Monocytes % (auto) 3.4 %; Neutrophils # (auto) 11.38 K/uL (1.4-6.5); Platelet Count 197 K/uL (130-400); RDW Coefficient of Variation 14.2 % (11.5-14.5); RDW Standard Deviation 51.2 fL (36.4-46.3); Red Blood Count 3.94 M/uL (4.7-6.1)
[2019-12-31] MEDS: PIPERACILLIN/TAZOBACTAM 3.375 GM in DEXTROSE 5% 100 ML IV SCH ×2 (05:44→18:39)
[2019-12-31] MEDS ORDERED: ROPIVACAINE 0.5% HCL/PF 150 MG, BUPIVACAINE 0.5% MPF 30 ML, EPINEPHrine 0.15 MG, Ketoro... INFIL SCH (06:00)
[2019-12-31 06:15] LABS: BUN Creatinine Ratio 25.8 (10-20); Calcium 9.1 mg/dl (8.5-10.1); Creatinine Clr Calc Pharmacy 26.3 ml/min; Est GFR (Non-African American) 51.7; Magnesium 2.4 mg/dl (1.8-2.4); Potassium 4.3 mmol/L (3.5-5.1)
[2019-12-31 06:23] LABS: Phosphorus 5.4 mg/dl (2.5-4.9)
--- NOTE | 2019-12-31 08:37 | Gastroenterology Progress Note ---
Date of Service December 31, 2019 Assessment & Plan (1) Achalasia: 89 year old male admitted w/ hip fracture, aspiration pneumonia, malnutrition w/ history of achalasia CT w/ persistnet fluid/debris filled dilated esophagus w/ mass effect on trachea. He was given ice chips/sips over the weekend w/ persistent abnormal imaging findings. GI asked to perform pre- operative EGD in the event any material/liquid is able to be passed - Strict NPO - Will discuss with attending - Tentative plan for pre-operative EGD prior to ortho case - I will attempt to contact his POA Thank you for allowing us to participate in the care of this patient. Please call with any acute changes, questions or concerns. Please see addendum below with additional recommendation from my supervising physician. Admission and Anticipated Discharge Date Admission Date: December 27, 2019 Supervising Physician Co-Signing Physician Notes I have seen and examined the patient and discussed the management with CLAYTON Castro. 89 yo male with known achalasia, admitted 12/27/19 with a hip fracture, requiring surgical repair. he has been npo, imaging showing known dilated esophagus. he is in no acute distress, thin male in nad, heent - perrla, abd - soft nt nd +bs labs imaging reviewed egd for potential suction of fluid, if longstanding food has been present - likely complete removal will not be accomplished but will attempt to remove what can be removed. Subjective Pt was seen and evaluated, chart reviewed Resting in bed, awake and oriented to self cannot provide accurate history denies any pain or difficult swallowing at this moment no nausea/vomiting has had intermittent SOB. Review of Systems Constitutional: + fatigue, + weakness and + weight loss; no fever and no chills Respiratory: + cough and + dyspnea; no pain with cough Cardiovascular: no chest pain, no radiating jaw, neck or arm pain and no dyspnea on exertion Gastrointestinal: no abdominal pain, no belching, no nausea, no vomiting, no coffee ground emesis, no diarrhea/loose stools and no blood in stools Physical Exam Constitutional: + ill appearing (acute on chronic) and + thin; no acute distress Eyes: PERRL Neck: trachea midline Respiratory: normal respiratory effort Cardiovascular: Rate/Rhythm: regular rate and regular rhythm Gastrointestinal (Abdomen): Percussion/Palpation: abdomen soft; abdomen nontender, no guarding and abdomen not rigid Skin: + turgor decreased Results & Data ([facility]) Vital Signs (Past 12 Hours) Vital Signs Temp Pulse Pulse Resp BP Pulse Ox Pulse Ox 12/31/19 07:55 82/55 L 12/31/19 07:22 36.9 C 67 18 77/51 L 95 12/31/19 04:24 36.3 C L 104 H 22 120/76 93 12/31/19 04:00 98 12/31/19 01:29 111 H 12/31/19 00:12 90 12/31/19 00:00 36.6 C 102 H 18 122/82 79 L 90 Laboratory Results 12/31/19 12/31/19 12/31/19 Range/Units 06:55 05:22 05:22 WBC 12.50 H (4.8-10.8) K/uL RBC 3.94 L (4.7-6.1) M/uL Hgb 12.1 L (14.0-18.0) g/dL Hct 38.7 L (42-52) % MCV 98.2 (80-100) fL MCH 30.7 (25-34) pg MCHC 31.3 L (32-36) g/dL RDW Std Deviation 51.2 H (36.4-46.3) fL RDW Coeff of Jacob 14.2 (11.5-14.5) % Plt Count 197 (130-400) K/uL MPV 10.8 H (7.4-10.4) fL Immature Gran % (Auto) 0.2 % Neut % (Auto) 91.0 % Lymph % (Auto) 5.3 % Waller % (Auto) 3.4 % Eos % (Auto) 0.0 % Baso % (Auto) 0.1 % Immature Gran # (Auto) 0.03 H (0.00-0.02) K/uL Neut # (Auto) 11.38 H (1.4-6.5) K/uL Lymph # (Auto) 0.66 L (1.2-3.4) K/uL Waller # (Auto) 0.42 (0.11-0.59) K/uL Eos # (Auto) 0.00 (0-0.5) K/uL Baso # (Auto) 0.01 (0-0.2) K/uL Sodium 141 (136-145) mmol/L Potassium 4.3 (3.5-5.1) mmol/L Chloride 104 (98-107) mmol/L Carbon Dioxide 30 (21-32) mmol/L Anion Gap 7.0 (3-11) BUN 32 H (7-18) mg/dl Creatinine 1.23 D (0.6-1.4) mg/dl Est Cr Clr Drug Dosing 26.3 ml/min Est GFR ( Amer) 60.0 Est GFR (Non-Af Amer) 51.7 BUN/Creatinine Ratio 25.8 H (10-20) Glucose 159 H (70-99) mg/dl POC Glucose 156 H (70-99) mg/dl Calcium 9.1 (8.5-10.1) mg/dl Phosphorus 5.4 H D (2.5-4.9) mg/dl Magnesium 2.4 (1.8-2.4) mg/dl 12/31/19 12/30/19 12/30/19 Range/Units 01:26 20:34 16:37 WBC (4.8-10.8) K/uL RBC (4.7-6.1) M/uL Hgb (14.0-18.0) g/dL Hct (42-52) % MCV (80-100) fL MCH (25-34) pg MCHC (32-36) g/dL RDW Std Deviation (36.4-46.3) fL RDW Coeff of Jacob (11.5-14.5) % Plt Count (130-400) K/uL MPV (7.4-10.4) fL Immature Gran % (Auto) % Neut % (Auto) % Lymph % (Auto) % Waller % (Auto) % Eos % (Auto) % Baso % (Auto) % Immature Gran # (Auto) (0.00-0.02) K/uL Neut # (Auto) (1.4-6.5) K/uL Lymph # (Auto) (1.2-3.4) K/uL Waller # (Auto) (0.11-0.59) K/uL Eos # (Auto) (0-0.5) K/uL Baso # (Auto) (0-0.2) K/uL Sodium (136-145) mmol/L Potassium (3.5-5.1) mmol/L Chloride (98-107) mmol/L Carbon Dioxide (21-32) mmol/L Anion Gap (3-11) BUN (7-18) mg/dl Creatinine (0.6-1.4) mg/dl Est Cr Clr Drug Dosing ml/min Est GFR ( Amer) Est GFR (Non-Af Amer) BUN/Creatinine Ratio (10-20) Glucose (70-99) mg/dl POC Glucose 194 H 120 H 145 H (70-99) mg/dl Calcium (8.5-10.1) mg/dl Phosphorus (2.5-4.9) mg/dl Magnesium (1.8-2.4) mg/dl 12/30/19 Range/Units 12:03 WBC (4.8-10.8) K/uL RBC (4.7-6.1) M/uL Hgb (14.0-18.0) g/dL Hct (42-52) % MCV (80-100) fL MCH (25-34) pg MCHC (32-36) g/dL RDW Std Deviation (36.4-46.3) fL RDW Coeff of Jacob (11.5-14.5) % Plt Count (130-400) K/uL MPV (7.4-10.4) fL Immature Gran % (Auto) % Neut % (Auto) % Lymph % (Auto) % Waller % (Auto) % Eos % (Auto) % Baso % (Auto) % Immature Gran # (Auto) (0.00-0.02) K/uL Neut # (Auto) (1.4-6.5) K/uL Lymph # (Auto) (1.2-3.4) K/uL Waller # (Auto) (0.11-0.59) K/uL Eos # (Auto) (0-0.5) K/uL Baso # (Auto) (0-0.2) K/uL Sodium (136-145) mmol/L Potassium (3.5-5.1) mmol/L Chloride (98-107) mmol/L Carbon Dioxide (21-32) mmol/L Anion Gap (3-11) BUN (7-18) mg/dl Creatinine (0.6-1.4) mg/dl Est Cr Clr Drug Dosing ml/min Est GFR ( Amer) Est GFR (Non-Af Amer) BUN/Creatinine Ratio (10-20) Glucose (70-99) mg/dl POC Glucose 125 H (70-99) mg/dl Calcium (8.5-10.1) mg/dl Phosphorus (2.5-4.9) mg/dl Magnesium (1.8-2.4) mg/dl
[2019-12-31] MEDS ORDERED: ATROPINE SULFATE 0.1 MG/ML 10ML SYR IV PRN ×2 (09:49→09:56)
[2019-12-31] MEDS ORDERED: ONDANSETRON INJ 2 MG/ML 2 ML VIAL IV PRN ×2 (09:49→09:56)
[2019-12-31] MEDS ORDERED: fentaNYL citrate 100 MCG/2 ML VIAL IV PRN ×2 (09:49→09:56)
[2019-12-31] MEDS ORDERED: ePHEDrine sulfate 50 MG/ML AMP IV PRN (09:49)
[2019-12-31] MEDS: INSULIN ASPART 100 UNITS/ML 3 ML PEN SC SCH ×4 (10:13→21:50)
--- NOTE | 2019-12-31 11:23 | History & Physical Bridge Note ---
Date of Service December 31, 2019 History & Physical Bridge Note I have examined the patient, reviewed the History & Physical and in the interval since the performance of the History & Physical I have noted the following changes of clinical significance: no changes noted Supervising Physician Co-Signing Physician Notes EGD for abnormal ct findings.
[2019-12-31] MEDS ORDERED: SUCCINYLCHOLINE CHLORIDE 20 MG/ML 10 ML VIAL ONE (11:27)
[2019-12-31] MEDS ORDERED: ONDANSETRON INJ 2 MG/ML 2 ML VIAL ONE (11:27)
[2019-12-31] MEDS ORDERED: PROPOFOL IV EMULSION 10 MG/ML 20 ML VIAL IV ONE (11:27)
[2019-12-31] MEDS ORDERED: ROCURONIUM BROMIDE 10 MG/ML 5 ML VIAL ONE (11:27)
[2019-12-31] MEDS ORDERED: fentaNYL citrate 100 MCG/2 ML VIAL ONE (11:27)
[2019-12-31] MEDS ORDERED: LIDOCAINE HCL 2% 2 ML VIAL/AMP(20MG/ML) INFIL ONE (11:27)
[2019-12-31] MEDS ORDERED: ROPIVACAINE 0.5% 5 MG/ML 30 ML VIAL ONE (11:54)
[2019-12-31] MEDS ORDERED: SODIUM CHLORIDE 0.9% INJ 10 ML VIAL ONE (11:54)
[2019-12-31] MEDS ORDERED: BACITRACIN INJ 50,000 UNIT VIAL ONE (12:01)
--- NOTE | 2019-12-31 12:04 | History & Physical Bridge Note ---
Date of Service December 31, 2019 History & Physical Bridge Note I have examined the patient, reviewed the History & Physical and in the interval since the performance of the History & Physical I have noted the following changes of clinical significance: no changes noted
[2019-12-31] MEDS ORDERED: ALBUMIN HUMAN 5% 12.5 GM/250 ML VIAL IV ONE (12:06)
--- NOTE | 2019-12-31 12:08 | Orthopedic Progress Note ---
Date of Service December 31, 2019 Assessment & Plan (1) Hip fracture, left: The patient is a 89-year-old male with displaced left femoral neck fracture sustained after a fall from standing height. The patient was medically stabilized on 12/31/2011. Surgery had to be delayed secondary to medical optimization and further evaluation and treatment of the patient's dilated esophagus. CT scan does demonstrate mass-effect on trachea with tracheal narrowing. It was felt that the patient would benefit from EGD prior to proceeding with left hip hemiarthroplasty. The plan is for GI to take the patient to the operating room perform EGD, if patient is stable we will proceed with left hip hemiarthroplasty. I indicated the patient for left hip hemiarthroplasty. The patient and son was informed of the risks and benefits of surgery, which include but not limited to infection, bleeding, blood clots, damage to nerves, vessels, bone and soft tissue, dislocation, leg length discrepancy, need for additional surgery and . The patient and son collectively chose to move forward with surgical intervention and informed consent was obtained. Admission and Anticipated Discharge Date Admission Date: December 27, 2019 Subjective The patient was seen in preoperative holding accompanied by his son. Comfortable, pain well controlled, no acute issues. Review of Systems Review of Systems: All systems reviewed & are unremarkable except as noted in HPI & below Constitutional: as per Subjective / HPI Physical Exam Physical Exam: LLE NVSI +EHL/FHL/TA/GS SILT grossly, +2 DP pulse, compartments soft NT, left lower extremity shortened and externally rotated. Constitutional: WD/WN, vitals as above Results & Data ([facility]) Vital Signs (Past 12 Hours) Vital Signs Temp Pulse Pulse Resp BP Pulse Ox Pulse Ox 12/31/19 11:31 37 C 83 18 96/61 L 91 12/31/19 11:23 36.9 C 87 20 86/57 L 96 12/31/19 08:00 96 H 98 12/31/19 07:55 82/55 L 12/31/19 07:22 36.9 C 67 18 77/51 L 95 12/31/19 04:24 36.3 C L 104 H 22 120/76 93 12/31/19 04:00 12/31/19 01:29 111 H 12/31/19 00:12 Pulse Ox 12/31/19 11:31 12/31/19 11:23 12/31/19 08:00 12/31/19 07:55 12/31/19 07:22 12/31/19 04:24 12/31/19 04:00 98 12/31/19 01:29 12/31/19 00:12 90
--- NOTE | 2019-12-31 12:38 | Hospitalist Progress Note ---
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 with telemetry -Patient presenting after he suffered a mechanical fall last evening -In the ED, found to have displaced subcapital left femoral neck fracture -Due to elevated troponin, new RBBB, and achalasia, patient will need further preoperative evaluation -Orthopedics consult, case discussed with Dr. Mcdonald -Remains stable medically for probable surgery tomorrow - 12/31/2019 -Patient will be going for surgery this afternoon (2) Aspiration pneumonia: Likely secondary to achalasia of the esophagus Has been put on intravenous Zosyn White cell count was initially high and decreasing We will continue current antibiotic No acute symptoms from aspiration and/or pneumonia Repeat CT of the chest did show slightly increasing accumulation of fluid/food in the esophagus (3) Achalasia: -History of achalasia, most recent dilation and Botox injections 01/2019 -GI consult, case discussed with CLAYTON Montalvo -Discussed with the GI in detail -Esophageal fullness is likely to be relieved with time -We will get CT of the chest without contrast on Tuesday -May need to have GI and the Ortho team together working during hip surgery -CT will be ordered for chest tomorrow afternoon -GI evaluation tomorrow before surgery -Appreciate GI input (4) Leukocytosis: -Likely secondary to aspiration pneumonia -WBC 15K, likely stress response due to fall/fracture -No obvious signs of infection at this time -White cell count went up and is completed by recent fracture -We will monitor-improving (5) Elevated troponin: (6) RBBB: -Mild troponin elevation 0.122, no reports of chest pain, likely secondary to dehydration/stress from fall -Found to have new RBBB on EKG -Continue cycle cardiac enzymes, check resting echo -Cardiology consult for preoperative evaluation, Dr. Del Toro notified -Appreciate cardiology input and recommendation (7) Severe protein-calorie malnutrition: Has not been eating or drinking much due to severe achalasia Nutrition consult Will start on PPN for now Tolerating PPN well Monitor electrolytes (8) DVT prophylaxis: -SCDs due to likely upcoming invasive procedures -Subcu heparin has been started Admission and Anticipated Discharge Date Admission Date: December 27, 2019 Anticipated date of discharge: 01/04/20 Subjective 12/28/2019 The patient was seen and examined in medical telemetry unit He remains stable without any significant complaints Left hip pain with movement Denies any chest pain, shortness of breath, any abdominal pain, nausea or vomiting 12/29/2019 The patient was seen and examined in medical telemetry unit He has been feeling a lot better today though remains generally weak and lethargic He has been getting PPN without any problem Planes of pain at the fracture site 12/30/2019 Patient was seen and examined in medical telemetry unit He remains stable but has had a short run of VT this morning without any symptoms He remains weak and lethargic but denies any significant symptoms 12/31/2019 The patient was seen and examined in presence of the son He remains weak and lethargic but does not have any acute distress He will be going for possible surgery of the right hip this morning Review of Systems Review of Systems: ROS per HPI, all other systems reviewed and negative Neurologic: + generalized weakness Physical Exam Physical Exam: Lying in bed comfortably Constitutional: + ill appearing and + cachectic; no acute distress Eyes: PERRL, conjunctivae normal, anicteric sclerae ENMT: external ear and nose normal, oropharynx normal Ears: no external ear abnormality Nose: no external nose abnormality Mouth: + dry oral mucous membranes Respiratory: normal respiratory effort; no respiratory distress Auscultation: lungs clear to auscultation bilaterally and + diminished lung sounds; no crackles and no rales Cardiovascular: Rate/Rhythm: regular rate and regular rhythm Vessels: normal peripheral pulses Extremities: no edema Gastrointestinal (Abdomen): Inspection/Auscultation: abdomen normal to inspection and normal bowel sounds Percussion/Palpation: abdomen soft; abdomen nontender Musculoskeletal: Extremities: + leg length discrepancy (Left, shortened) and + leg externally rotated (Left); no cyanosis and no clubbing No acute arthritis in any joints Skin: no rashes, warm and dry Neurologic: PERRL, EOMI, accommodation nl, no face palsy, no dysarthria moves all extremities; no focal motor deficits Alert, awake and oriented x3 Psychiatric: Orientation: alert and oriented x 3 Lymphatic: no cervical or axillary lymphadenopathy Results & Data ([facility]) Vital Signs (Past 12 Hours) Vital Signs Temp Pulse Pulse Resp BP Pulse Ox Pulse Ox 12/31/19 11:31 37 C 83 18 96/61 L 91 12/31/19 11:23 36.9 C 87 20 86/57 L 96 12/31/19 08:00 96 H 98 12/31/19 07:55 82/55 L 12/31/19 07:22 36.9 C 67 18 77/51 L 95 12/31/19 04:24 36.3 C L 104 H 22 120/76 93 12/31/19 04:00 12/31/19 01:29 111 H Pulse Ox 12/31/19 11:31 12/31/19 11:23 12/31/19 08:00 12/31/19 07:55 12/31/19 07:22 12/31/19 04:24 12/31/19 04:00 98 12/31/19 01:29 Laboratory Results Short CBC 12/31/19 Range/Units 05:22 WBC 12.50 H (4.8-10.8) K/uL Hgb 12.1 L (14.0-18.0) g/dL Hct 38.7 L (42-52) % Plt Count 197 (130-400) K/uL BMP 12/31/19 05:22 Sodium 141 Potassium 4.3 Chloride 104 Carbon Dioxide 30 BUN 32 H Creatinine 1.23 D Glucose 159 H Calcium 9.[address] of the chest: IMPRESSION: 1. No significant change in marked dilatation of the esophagus since CT of December 27, 2019. Amount of ingested contents within the esophagus mildly diminished but esophagus remains fluid-filled. The appearance favors achalasia. 2. Distended esophagus again results in significant mass effect upon the trachea at the level of the thoracic inlet with marked tracheal narrowing which appears increased when compared to prior exam. This could be correlated with respiratory symptoms. 3. Increase in small bilateral pleural effusions. Significant left lower lobe volume loss suggestive of subsegmental atelectasis. 4. Moderate emphysema. Medications Administered Current Inpatient Medications Acetaminophen (Tylenol) 650 mg PO Q4H PRN PRN Reason: pain/fever Stop: 01/26/20 13:17 Atropine Sulfate (Atropine Sulfate) 0.5 mg IV Q1M PRN PRN Reason: PACU Use-HR<40 &/or Bradycardi Stop: 12/31/19 14:56 Bisacodyl (Dulcolax) 10 mg MI DAILY PRN PRN Reason: Constipation Stop: 01/26/20 13:17 Ephedrine Sulfate (Ephedrine Sulfate) 5 mg IV Q5M PRN PRN Reason: PACU Use Only-SBP<90 mmHg Stop: 12/31/19 14:56 Fentanyl Citrate (Fentanyl Citrate) 25 mcg IV Q5M PRN PRN Reason: PACU Use Only-Pain Stop: 12/31/19 14:56 Piperacillin Sod/Tazobactam (Sod 3.375 gm/ Dextrose) 115 mls @ 28.75 mls/hr IV Q8H CANDIDA; Protocol Stop: 01/03/20 21:59 Last Infusion: 12/31/19 10:11 Dose: Infused Documented by: Dextrose (D10w) 1,000 mls @ 0 mls/hr IV .Q0M PRN PRN Reason: protocol (see label comments) Stop: 01/27/20 16:00 Nutrition (Parenteral) 1,350 (ml/ TPN BAG) 1,350 mls @ 56.25 mls/hr IV .Q24H CANDIDA; Protocol Stop: 12/31/19 15:59 Last Admin: 12/30/19 15:50 Dose: 56.3 mls/hr Documented by: Nutrition (Parenteral) 1,350 (ml/ TPN BAG) 1,350 mls @ 56.25 mls/hr IV .Q24H CANDIDA; Protocol Stop: 01/01/20 15:59 Ropivacaine 150 mg/Bupivacaine HCl 30 ml/Epinephrine HCl 0.15 mg/Ketorolac Tromethamine 30 mg/Dexamethasone 4 mg/ Ketamine HCl 10 mg/ Clonidine HCl 100 mcg/ Sodium Chloride 93.35 mls @ 0 mls/hr INFIL PREOP CANDIDA; Protocol Stop: 12/31/19 14:00 Insulin Aspart (Novolog Flexpen) 0 units SC ACHS CANDIDA Stop: 01/27/20 16:29 Last Admin: 12/31/19 10:13 Dose: Not Given Documented by: Ipratropium Carmine (Atrovent 0.02% 0.5mg/2.5ml) 0.5 mg INH Q4H PRN PRN Reason: Shortness Of Breath Or Wheezing Stop: 01/28/20 21:29 Levalbuterol HCl (Xopenex 1.25mg/0.5ml Neb) 1.25 mg INH Q4H PRN PRN Reason: Shortness Of Breath Or Wheezing Stop: 01/28/20 21:29 Magnesium Hydroxide (Milk Of Magnesia) 30 ml PO DAILY PRN PRN Reason: Constipation Stop: 01/26/20 13:17 Miscellaneous Information (Consult) 1 ea N/A UD PRN PRN Reason: Consult Stop: 01/26/20 14:13 Miscellaneous Information (Pharmacy Tpn/Ppn Consult Active) 1 ea N/A UD PRN PRN Reason: Consult Stop: 01/27/20 11:03 Morphine Sulfate (Morphine Sulfate) 2 mg IV Q4H PRN PRN Reason: MODERATE Pain (Scale 4,5,6) Stop: 01/10/20 13:17 Last Admin: 12/28/19 21:58 Dose: 2 mg Documented by: Naloxone HCl (Narcan) 0.1 mg IV UD PRN PRN Reason: Opiate Overdose Stop: 01/26/20 13:17 Ondansetron HCl (Zofran) 4 mg IV ONCE PRN PRN Reason: PACU Use Only-Nausea/Vomiting Stop: 12/31/19 14:57 Senna/Docusate Sodium (Senokot S) 2 tab PO HS CANDIDA Stop: 01/26/20 20:59 Last Admin: 12/30/19 20:53 Dose: Not Given Documented by:
--- NOTE | 2019-12-31 13:01 | GI REPORT ---
Patient Name: Alfonso Wilson Procedure Date: 12/31/2019 12:13 PM Date of : 1930 Admit Type: Inpatient Age: 89 Gender: Male Attending MD: Kendra Garcia M.d. Procedure: Upper GI endoscopy Providers: Kendra Garcia M.d. Referring MD: Arlene Allan Indications: Abnormal CT of the GI tract Medicines: Propofol per Anesthesia, Lidocaine, Fentanyl, Reglan, Zofran Complications: No immediate complications. Estimated Blood Loss: Estimated blood loss was minimal. Procedure: Pre-Anesthesia Assessment: - Patient identification and proposed procedure were verified prior to the procedure by the physician, the nurse and the anesthesiologist. The procedure was verified in the pre-procedure area. After obtaining informed consent, the endoscope was passed under direct vision. Throughout the procedure, the patient's blood pressure, pulse, and oxygen saturations were monitored continuously. The Endoscope was introduced through the mouth, and advanced to the second part of duodenum. The upper GI endoscopy was technically difficult and complex due to presence of food. Successful completion of the procedure was aided by straightening and shortening the scope to obtain bowel loop reduction. The patient tolerated the procedure well. Findings: The examined esophagus appeared normal with liquid and food debris throughout - suctioning of 850 cc eventually lead to passage of the endoscopy into the stomach. The GE junction did not feel tight or resistant to passage of the scope and empiric dilation was done twice with passage of the scope. The examined stomach appeared normal. The duodenal bulb and second portion of the duodenum appeared normal. Impression: - Normal esophagus though dilated and filled with liquid and food debris throughout- successfully suctioned out. - Normal stomach. - Normal duodenal bulb and second portion of the duodenum. Recommendation: - Continue on to orthopedic surgery. - Would strongly encourage a liquid diet indefinitely, subsequent PPN as needed for now. Marissa Roe M.d. 12/31/2019 1:01:17 PM This report has been signed electronically. Note Initiated On: 12/31/2019 12:13 PM Number of Addenda: 0 I attest to the content of the Intraoperative Record and orders documented therein, exceptions below {[id number]}
--- NOTE | 2019-12-31 13:05 | Operative Report ---
PG Post Operative Report Pre & Post Diagnosis Operation Date: 12/28/19 07:00 <No data on this case meets the specified criteria> Operation Date: 12/31/19 10:10 Pre-Op Diagnosis: Achalasia; Left Hip Fracture Post-Op Diagnosis: Achalasia, Fluid and Semi-Solid Filled Esophagus with Successful Suction, Medium Hiatal Hernia; Left Hip Fracture I identified the patient and participated in the time-out.: Yes Procedure Operation Date: 12/28/19 07:00 <No data on this case meets the specified criteria> Operation Date: 12/31/19 10:10 Actual Procedures s Left Bipolar Hemiarthroplasty,(Left) - DO tequila Cadena Esophagogastroduodenoscopy(Not Applicable) - Kendra Garcia M.D. Surgeon Kendra Garcia [employer]st Sarah Beth Amaro Estimated Blood Loss 10 (10 ml for EGD) Findings Consistent with Post-Op Diagnosis Specimens None Description of Procedure EGD with suctioning out of 850 cc of liquid/semi solid debris I attest to the content of the Intraoperative Record and any orders documented therein. Any exceptions are noted below. Supervising Physician Co-Signing Physician Notes Kendra Garcia MD
--- NOTE | 2019-12-31 13:06 | Operative Report ---
Post Operative Report Pre & Post Diagnosis Operation Date: 12/28/19 07:00 <No data on this case meets the specified criteria> Operation Date: 12/31/19 10:10 Pre-Op Diagnosis: Achalasia; Left Hip Fracture Post-Op Diagnosis: Achalasia, Fluid and Semi-Solid Filled Esophagus with Successful Suction, Medium Hiatal Hernia; Left Hip Fracture I identified the patient and participated in the time-out.: Yes Procedure Operation Date: 12/28/19 07:00 <No data on this case meets the specified criteria> Operation Date: 12/31/19 10:10 Actual Procedures s Left Bipolar Hemiarthroplasty,(Left) - DO tequila Cadena Esophagogastroduodenoscopy(Not Applicable) - Kendra Garcia M.D. Surgeon Kendra Garcia Residential Subcontractor Sarah Beth Amaro Estimated Blood Loss 10 (10 ml for EGD) Findings Consistent with Post-Op Diagnosis Specimens None Description of Procedure Suctioning of fluid and semi solid debris from the esophagus I attest to the content of the Intraoperative Record and any orders documented therein. Any exceptions are noted below.
[2019-12-31] MEDS ORDERED: METOCLOPRAMIDE HCL INJ 5 MG/ML 2 ML VIAL ONE (14:03)
[2019-12-31] MEDS ORDERED: PHENYLEPHRINE HCL 10 MG/ML VIAL ONE (14:03)
[2019-12-31] MEDS ORDERED: CEFAZOLIN 250 MG/ML 1 GM VIAL ONE (14:03)
--- NOTE | 2019-12-31 14:05 | Pharmacy Report ---
PHA: Parenteral Nutrition Con - Date of Service December 31, 2019 - Scope Pharmacy was consulted on 12/28/19 to manage parenteral nutrition orders for this patient. 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 - Objective Height: 5 ft 7 in Weight: 46.6 kg Diet: NPO Intake & Output (24hrs):: Intake & Output 12/29/19 12/30/19 12/31/19 01/01/20 06:59 06:59 06:59 06:59 Intake Total 2018.559 / 2018.559 1688.48 / 1688.48 1695 / 1695 115 / 115 Output Total 400 / 400 945 / 945 550 / 550 Balance 1618.559 / 1618.559 743.48 / 743.48 1145 / 1145 115 / 115 Weight 46 kg 45.7 kg 46.6 kg 46.6 kg Laboratory Data (Last 24 Hr):: 12/31/19 12/31/19 05:22 09:42 Sodium 141 Potassium 4.3 Chloride 104 Carbon Dioxide 30 BUN 32 H Creatinine 1.23 D Glucose 159 H Calcium 9.1 Phosphorus 5.4 H D 4.7 Magnesium 2.4 Nutrition Assessment:: Please refer to the Notes section of the EMR for the most recent senior trainer note. - Assessment * Patient underwent EGD and left bipolar hemiarthroplasty today * Increase in SCr noted today (0.69 -> 1.23 mg/dL) - no significant increase in potassium, but will decrease amount in PPN as a precaution * Phosphorus also increased significantly from yesterday (5.4 mg/dL, 4.7 mg/dL on recheck) * Will decrease phosphorus content in PPN * Patient continues on Zosyn for possible aspiration pneumonia - Plan For day 4 of PN administration, the following will be ordered: Macronutrients Amino acids 50 grams/day Dextrose 115 grams/day Lipids 30 grams/day Micronutrients Sodium phosphate 9 MMol Sodium chloride 30 mEq Potassium phosphate 12 mMol Potassium chloride 10 mEq Potassium acetate 10 mEq Multivitamins 10 mL Trace Elements 1 mL Additional additives: thiamine 100 mg Total volume 1350 mL to be infused over 24 hrs will provide 891 kcal/day Final osmolarity 893 mOsm/L (maximum for PPN is 900 mOsm/L) Labs, as indicated, will be ordered per protocol Pharmacy will continue to follow and adjust parenteral nutrition orders on a daily basis. Thank you for allowing us to participate in the care of this patient.
--- NOTE | 2019-12-31 14:27 | Post Operative Brief Note ---
Immediate Post Op Note v1 Date of Surgery December 31, 2019 Pre & Post Diagnosis Operation Date: 12/28/19 07:00 <No data on this case meets the specified criteria> Operation Date: 12/31/19 10:10 Pre-Op Diagnosis: Achalasia; Left Hip Fracture Post-Op Diagnosis: Achalasia, Fluid and Semi-Solid Filled Esophagus with Successful Suction, Medium Hiatal Hernia; Left Hip Fracture I identified the patient and participated in the time-out.: Yes Procedure Operation Date: 12/28/19 07:00 <No data on this case meets the specified criteria> Operation Date: 12/31/19 10:10 Actual Procedures s Left Bipolar Hemiarthroplasty, Cemented(Left) - Talon Ramírez DO p Esophagogastroduodenoscopy(Not Applicable) - Kendra Garcia M.D. Surgeon Talon Ramírez DO Bundle Person Sarah Beth Amaro Estimated Blood Loss 10 (10 ml for EGD) Findings Consistent with Post-Op Diagnosis Fluids 1100 cc LR Specimens Femoral head Anesthesia Type General Regional Complications none Disposition Disposition: Recovery Room Overlapping Procedure I was present for: the critical portions of procedure. I was immediately available: during the entire case. Back up surgeon: was not required during procedure.
--- NOTE | 2019-12-31 14:31 | Operative Report ---
Post Operative Report Pre & Post Diagnosis Operation Date: 12/28/19 07:00 <No data on this case meets the specified criteria> Operation Date: 12/31/19 10:10 Pre-Op Diagnosis: Achalasia; Left Hip Fracture Post-Op Diagnosis: Achalasia, Fluid and Semi-Solid Filled Esophagus with Successful Suction, Medium Hiatal Hernia; Left Hip Fracture I identified the patient and participated in the time-out.: Yes Procedure Operation Date: 12/28/19 07:00 <No data on this case meets the specified criteria> Operation Date: 12/31/19 10:10 Actual Procedures s Left Bipolar Hemiarthroplasty, Cemented(Left) - Talon Ramírez DO p Esophagogastroduodenoscopy(Not Applicable) - Kendra Garcia M.D. Surgeon Talon Ramírez DO Magnetizer Hai walton Estimated Blood Loss 10 (10 ml for EGD) Findings Consistent with Post-Op Diagnosis Fluids 1100 cc LR Specimens Femoral head Anesthesia Type General Regional Complications none Disposition Disposition: Recovery Room Indications The patient is a 89-year-old male with displaced left femoral neck fracture sustained after a fall from standing height. The patient was medically stabilized on 12/31/2019. Due to severely dilated esophagus and achalasia the patient's surgery was delayed. CT scan of the chest demonstrated a severely dilated esophagus with mass-effect on the trachea and narrowing of the trachea therefore it was felt safest to proceed with hip replacement after EGD was performed which was performed today on 12/31/2019 we immediately followed with left hip hemiarthroplasty. I indicated the patient for left hip hemiarthroplasty. The patient and family was informed of the risks and benefits of surgery, which include but not limited to infection, bleeding, blood clots, damage to nerves, vessels, bone and soft tissue, dislocation, leg length discrepancy, need for additional surgery and . The patient and family collectively chose to move forward with surgical intervention and informed consent was obtained. Description of Procedure Following induction of adequate general with regional block anesthesia, the patient was transferred to the OR table and placed in the lateral decubitus position with right hip down. The left hip was prepped and draped in usual sterile manner. A posterolateral incision was made. Subcutaneous tissue was sharply dissected. Electro cautery was used for hemostasis. Fascia was incised throughout the length of the wound and the piriformis was identified. A #1 Vicryl suture was used to tagged the piriformis. The short external rotators were divided from the posterior aspect of the femur and a capsulotomy was performed. A second #1 Vicryl suture was used to tag the capsule. Next, I turned my attention to the femoral neck fracture. The fracture was relatively high on the calcar and decision was made to proceed with the oscillating saw and create the calcar osteotomy. This bone fragment was removed. Following this, tenaculum and cob elevater was utilized to remove the femoral head. The head was measured on the back table and the 48 mm femoral head was chosen as the size to be used. Next, attention was turned to the acetabulum which was found to have no significant arthritis. All bony debris was removed. A sponge was placed in the acetabulum. Attention was then turned to the proximal femur where box osteotome was used to gain access to the femoral canal. A canal finder and power lateralizing reamer were utilized to further open. Sequential raspings were taken up to a size 11, which was sunk completely and trial reduction was carried out and a +7 mm femoral head was chosen the size to be used with the 48 bipolar cup. Following a trial reduction, the hip was found to be stable to 45 degrees of internal rotation and 90 degrees of flexion with equal leg lengths. The calcar reamer was utilized to smooth the calcar and the instruments and trial components were removed. The hip was thoroughly irrigated with pulsatile irrigation. The canal was irrigated and dried, cement restrictor was placed and [place] cement was mixed. The size 11 low demand fracture stem was placed with a 9 mm centralizer and this was held in position well. All excess cement was removed and cement hardened. Following insertion of final stem component another trial reduction was carried out and again a +7 neck size was chosen as the size to be used. The final head and neck was impacted into position and the hip was reduced and stablity assess and was found to be stable to 45 degrees of internal rotation and 90 degrees of flexion. The wound was again irrigated. Aicha-incisional soft tissue was injected with the [place] Orthomix which includes a combination of Ropivicaine 0.5% 150mg, Bupivicaine 0.5%/Epinephrine 1:200,000 30ml, Toradol 30mg, Dexamethasone 4mg, Ketamine 10mg, Clonidine 100mcg and NSS 30ml solution. The capsulebwas repaired using #5 fiberwire sutures through drill holes. Following this, the short external rotators were reapproximated to the posterior aspect of the femur also through drill holes and these were tied. Once again the wound was copiously irrigated with sterile saline solution with bacitracin. Fascia was closed using #1 Vicryl [id number] sutures, subcutaneous tissue was closed using 2-0 vicryl, and skin was closed with paco. Sterile dressings which included Silverlon were applied and abduction pillow placed between the legs. The patient tolerated the procedure well and was taken to recovery room in stab le condition. Due to the complex nature of the procedure, the entire surgery was performed with the operational assistance of Hai walton PA-C. The financial administrative assistant, under direct supervision, was involved in the actual performance of all aspects of the surgical procedure including patient positioning, hemostasis, tissue retraction, instrument management and wound closure. I attest to the content of the Intraoperative Record and any orders documented therein. Any exceptions are noted below.
[2019-12-31] MEDS ORDERED: ePHEDrine sulfate 50 MG/ML AMP ONE (15:13)
[2019-12-31] MEDS: ePHEDrine sulfate 50 MG/ML AMP IV PRN ×4 (15:16→16:38)
--- NOTE | 2019-12-31 15:28 | Orthopedic Progress Note ---
Date of Service December 31, 2019 Assessment & Plan (1) Hip fracture, left: s/p Left hip hemiarthropalsty -Ancef x24 -DVT prophylaxis: SCDs, teds, Lovenox daily -Weight-bear as tolerates left lower extremity -PT/OT when medically stable -Diet: Defer to GI for any dietary restrictions status post EGD -Postoperative x-ray demonstrates a well aligned well fixed orthopedic prosthesis without evidence of fracture or dislocation. -A.m. labs Admission and Anticipated Discharge Date Admission Date: December 27, 2019 Anticipated date of discharge: 01/04/20 Subjective Post Operative Progress Note Patient seen in PACU, comfortable, denies complaints, pain well controlled, no acute issues. Review of Systems Review of Systems: All systems reviewed & are unremarkable except as noted in HPI & below Constitutional: as per Subjective / HPI Physical Exam Physical Exam: LLE NVSI +EHL/FHL/TA/GS SILT grossly, +2 DP pulse, compartments soft NT, dressing cdi. Constitutional: WD/WN, vitals as above Results & Data ([place]) Vital Signs (Past 12 Hours) Vital Signs Temp Pulse Pulse Resp BP Pulse Ox Pulse Ox 12/31/19 11:31 37 C 83 18 96/61 L 91 12/31/19 11:23 36.9 C 87 20 86/57 L 96 12/31/19 08:00 96 H 98 12/31/19 07:55 82/55 L 12/31/19 07:22 36.9 C 67 18 77/51 L 95 12/31/19 04:24 36.3 C L 104 H 22 120/76 93 12/31/19 04:00 Pulse Ox 12/31/19 11:31 12/31/19 11:23 12/31/19 08:00 12/31/19 07:55 12/31/19 07:22 12/31/19 04:24 12/31/19 04:00 98
--- NOTE | 2019-12-31 15:50 | Anesthesiology Progress Note ---
Date of Service December 31, 2019 Anesthesia Post Procedure Vital Signs Vital Signs: Temp Pulse Pulse Pulse Resp BP BP 12/31/19 14:55 36.2 C L 73 14 12/31/19 11:31 37 C 83 18 96/61 L 12/31/19 11:23 36.9 C 87 20 86/57 L 12/31/19 08:00 96 H 12/31/19 07:55 82/55 L 12/31/19 07:22 36.9 C 67 18 77/51 L 12/31/19 04:24 36.3 C L 104 H 22 120/76 12/31/19 04:00 12/31/19 01:29 111 H 12/31/19 00:12 12/31/19 00:00 36.6 C 102 H 18 122/82 12/30/19 20:00 12/30/19 19:33 37.1 C 22 L 88 136/82 104/64 12/30/19 16:18 90 Pulse Ox Pulse Ox Pulse Ox 12/31/19 14:55 12/31/19 11:31 91 12/31/19 11:23 96 12/31/19 08:00 98 12/31/19 07:55 12/31/19 07:22 95 12/31/19 04:24 93 12/31/19 04:00 98 12/31/19 01:29 12/31/19 00:12 90 12/31/19 00:00 79 L 90 12/30/19 20:00 100 12/30/19 19:33 97 12/30/19 16:18 Pain Intensity Left Hip: Pain Intensity: 3 Transfer of Care Handoff Completed per policy Notes Mental Status: alert / awake / arousable and participated in evaluation Patient Amnestic to Procedure: Yes Nausea / Vomiting: adequately controlled Pain: adequately controlled Airway Patency, RR, SpO2: stable & adequate BP & HR: stable & adequate Hydration State: stable & adequate Anesthetic Complications: no major complications apparent and Pt Satisfied with anesthetic care
[2019-12-31] MEDS ORDERED: PERIPHERAL PN IV SCH (16:00)
[2019-12-31] MEDS ORDERED: TPN IV SCH (16:00)
--- NOTE | 2019-12-31 16:01 | XRay Report ---
XR hip LT min 2V CLINICAL HISTORY: Post-Operative implant position COMPARISON: Left femur radiographs December 27, 2019. FINDINGS: Alignment of the total left hip arthroplasty is anatomic. There is no periprosthetic fract ure or unexpected radiopaque foreign body. There are skin paco. IMPRESSION: Expected findings following total left hip arthroplasty. ACT 112: Negative or not required by law. Electronically signed by: Jim Villatoro M.D. 12/31/2019 3:59 PM
[2019-12-31] MEDS ORDERED: SODIUM CHLORIDE 0.9% 1000ML 1,000 ML IV SCH (18:15)
[2019-12-31] MEDS ORDERED: NALOXONE HCL 0.4 MG/1 ML VIAL/CARP IV PRN (18:27)
[2019-12-31] MEDS: SODIUM CHLORIDE 0.9% 1000ML 1,000 ML IV SCH (18:42)
[2019-12-31] MEDS: HEPARIN SOD 5,000 UNIT/0.5 ML VIAL SQ SCH (19:05)
[2019-12-31] MEDS: DOCUSATE SODIUM/SENNA 50/8.6MG TAB PO SCH (20:18)
[2019-12-31] MEDS ORDERED: Nursing to Pharmacy Communication ONE (20:55)
[2019-12-31] MEDS: CEFAZOLIN 1000MG 1,000 MG/7.5 ML SYR IV SCH (22:31)
[2020-01-01] MEDS: PIPERACILLIN/TAZOBACTAM 3.375 GM in DEXTROSE 5% 100 ML IV SCH ×3 (01:57→17:33)
[2020-01-01] MEDS: CEFAZOLIN 1000MG 1,000 MG/7.5 ML SYR IV SCH (05:56)
[2020-01-01] MEDS: SODIUM CHLORIDE 0.9% 1000ML 1,000 ML IV SCH (06:03)
[2020-01-01 06:22] LABS: Albumin Level 1.7 gm/dl (3.4-5.0); BUN Creatinine Ratio 27.8 (10-20); Creatinine Clr Calc Pharmacy 23.2 ml/min; Est GFR (Non-African American) 34.5; Magnesium 1.9 mg/dl (1.8-2.4); Potassium 4.5 mmol/L (3.5-5.1)
[2020-01-01 06:24] LABS: Albumin Globulin Ratio 0.5 (0.9-2); Bilirubin,Total 0.3 mg/dl (0.2-1); Globulin 3.3 gm/dl (2.5-4.0); Phosphorus 4.3 mg/dl (2.5-4.9)
[2020-01-01 06:33] LABS: Hematocrit (blood only) 31.3 % (42-52); Hemoglobin 10.1 g/dL (14.0-18.0); Immature Granulocytes # (auto) 0.02 K/uL (0.00-0.02); Immature Granulocytes % (auto) 0.2 %; Lymphocytes % (auto) 6.5 %; Mean Corpuscular Hemoglobin 30.5 pg (25-34); Mean Corpuscular Hgb Conc 32.3 g/dL (32-36); Mean Corpuscular Volume 94.6 fL (80-100); Mean Platelet Volume 11.4 fL (7.4-10.4); Monocytes # (auto) 0.27 K/uL (0.11-0.59); Monocytes % (auto) 2.9 %; Neutrophils # (auto) 8.32 K/uL (1.4-6.5); Neutrophils % (auto) 90.4 %; Platelet Count 175 K/uL (130-400); RDW Coefficient of Variation 14.3 % (11.5-14.5); RDW Standard Deviation 49.6 fL (36.4-46.3); Red Blood Count 3.31 M/uL (4.7-6.1); White Blood Count 9.21 K/uL (4.8-10.8)
--- NOTE | 2020-01-01 07:34 | Anesthesiology Progress Note ---
Date of Service January 01, 2020 Anesthesia Post Procedure Vital Signs Vital Signs: Temp Pulse Pulse Pulse Pulse Resp BP 01/01/20 06:52 36.3 C L 77 18 94/57 L 01/01/20 03:17 36.5 C 81 18 101/62 01/01/20 00:00 12/31/19 23:51 76 12/31/19 23:02 36.3 C L 75 16 85/43 L 12/31/19 22:34 36.7 C 77 16 88/44 L 12/31/19 21:15 36.3 C L 75 16 94/50 L 12/31/19 20:15 36.3 C L 74 16 99/59 L 12/31/19 19:40 36.4 C L 72 16 87/41 L 12/31/19 19:15 36.3 C L 72 18 93/47 L 12/31/19 18:53 72 12/31/19 17:55 76 16 12/31/19 17:45 73 16 12/31/19 17:35 36.3 C L 74 20 12/31/19 17:25 71 17 12/31/19 17:15 71 14 12/31/19 17:05 70 16 12/31/19 16:55 70 16 12/31/19 16:45 70 14 12/31/19 16:35 71 12 12/31/19 16:25 70 16 12/31/19 16:15 71 13 12/31/19 16:05 72 18 12/31/19 15:55 71 18 12/31/19 15:45 73 12 12/31/19 15:35 70 14 12/31/19 15:25 75 18 12/31/19 15:15 71 17 12/31/19 15:05 70 15 83/46 L 12/31/19 14:55 36.2 C L 73 14 86/51 L 12/31/19 11:31 37 C 83 18 96/61 L 12/31/19 11:23 36.9 C 87 20 86/57 L 12/31/19 08:00 96 H 12/31/19 07:55 82/55 L BP Pulse Ox Pulse Ox 01/01/20 06:52 97 01/01/20 03:17 95 01/01/20 00:00 96 12/31/19 23:51 12/31/19 23:02 94 12/31/19 22:34 96 12/31/19 21:15 96 12/31/19 20:15 97 12/31/19 19:40 100 12/31/19 19:15 100 12/31/19 18:53 12/31/19 17:55 90/47 L 98 12/31/19 17:45 92/54 L 99 12/31/19 17:35 92/54 L 99 12/31/19 17:25 94/53 L 99 12/31/19 17:15 97/55 L 96 12/31/19 17:05 95/56 L 98 12/31/19 16:55 91/54 L 99 12/31/19 16:45 98/56 L 99 12/31/19 16:35 83/49 L 97 12/31/19 16:25 81/46 L 98 12/31/19 16:15 88/53 L 98 12/31/19 16:05 85/47 L 98 12/31/19 15:55 88/49 L 98 12/31/19 15:45 96/54 L 95 12/31/19 15:35 77/48 L 95 12/31/19 15:25 93/55 L 95 12/31/19 15:15 74/48 L 96 12/31/19 15:05 100 12/31/19 14:55 97 12/31/19 11:31 91 12/31/19 11:23 96 12/31/19 08:00 98 12/31/19 07:55 Pain Intensity Left Hip: Pain Intensity: 3 Notes Mental Status: alert / awake / arousable and participated in evaluation Nausea / Vomiting: adequately controlled Pain: adequately controlled Airway Patency, RR, SpO2: stable & adequate BP & HR: stable & adequate Hydration State: stable & adequate Anesthetic Complications: Pt Satisfied with anesthetic care
--- NOTE | 2020-01-01 09:44 | Orthopedic Progress Note ---
Date of Service January 01, 2020 Assessment & Plan (1) Hip fracture, left: s/p Left hip hemiarthropalsty POD#1 -Ancef x24 -DVT prophylaxis: SCDs, teds, Lovenox daily -Weight-bear as tolerates left lower extremity -PT/OT when medically stable -Diet: Defer to GI for any dietary restrictions status post EGD -Postoperative x-ray demonstrates a well aligned well fixed orthopedic prosthesis without evidence of fracture or dislocation. -A.m. labs: hgb 10.1 Admission and Anticipated Discharge Date Admission Date: December 27, 2019 Anticipated date of discharge: 01/04/20 Subjective Post Operative Progress Note Patient seen sitting up in bed eating breakfast, comfortable, denies complaints, pain well controlled, no acute issues. Denies F/C/N/V/SOB/CP Review of Systems Review of Systems: All systems reviewed & are unremarkable except as noted in HPI & below Constitutional: as per Subjective / HPI Physical Exam Physical Exam: LLE NVSI +EHL/FHL/TA/GS SILT grossly, +2 DP pulse, compartments soft NT, dressing cdi. Constitutional: WD/WN, vitals as above Results & Data ([facility]) Vital Signs (Past 12 Hours) Vital Signs Temp Pulse Pulse Resp BP Pulse Ox Pulse Ox 01/01/20 06:52 36.3 C L 77 18 94/57 L 97 01/01/20 03:17 36.5 C 81 18 101/62 95 01/01/20 00:00 96 12/31/19 23:51 76 12/31/19 23:02 36.3 C L 75 16 85/43 L 94 12/31/19 22:34 36.7 C 77 16 88/44 L 96 Laboratory Results 01/01/20 01/01/20 01/01/20 Range/Units 05:54 05:10 05:10 WBC 9.21 (4.8-10.8) K/uL RBC 3.31 L (4.7-6.1) M/uL Hgb 10.1 L (14.0-18.0) g/dL Hct 31.3 L (42-52) % MCV 94.6 (80-100) fL MCH 30.5 (25-34) pg MCHC 32.3 (32-36) g/dL RDW Std Deviation 49.6 H (36.4-46.3) fL RDW Coeff of Jacob 14.3 (11.5-14.5) % Plt Count 175 (130-400) K/uL MPV 11.4 H (7.4-10.4) fL Immature Gran % (Auto) 0.2 % Neut % (Auto) 90.4 % Lymph % (Auto) 6.5 % Kidder % (Auto) 2.9 % Eos % (Auto) 0.0 % Baso % (Auto) 0.0 % Immature Gran # (Auto) 0.02 (0.00-0.02) K/uL Neut # (Auto) 8.32 H (1.4-6.5) K/uL Lymph # (Auto) 0.60 L (1.2-3.4) K/uL Kidder # (Auto) 0.27 (0.11-0.59) K/uL Eos # (Auto) 0.00 (0-0.5) K/uL Baso # (Auto) 0.00 (0-0.2) K/uL Sodium 139 (136-145) mmol/L Potassium 4.5 (3.5-5.1) mmol/L Chloride 105 (98-107) mmol/L Carbon Dioxide 28 (21-32) mmol/L Anion Gap 6.0 (3-11) BUN 48 H (7-18) mg/dl Creatinine 1.72 H D (0.6-1.4) mg/dl Est Cr Clr Drug Dosing 23.2 ml/min Est GFR ( Amer) 40.0 Est GFR (Non-Af Amer) 34.5 BUN/Creatinine Ratio 27.8 H (10-20) Glucose 182 H (70-99) mg/dl POC Glucose 191 H (70-99) mg/dl Calcium 8.0 L (8.5-10.1) mg/dl Phosphorus 4.3 (2.5-4.9) mg/dl Magnesium 1.9 (1.8-2.4) mg/dl Total Bilirubin 0.3 (0.2-1) mg/dl AST 128 H (15-37) U/L ALT 134 H (12-78) U/L Alkaline Phosphatase 103 (45-117) U/L Total Protein 5.0 L (6.4-8.2) gm/dl Albumin 1.7 L (3.4-5.0) gm/dl Globulin 3.3 (2.5-4.0) gm/dl Albumin/Globulin Ratio 0.5 L (0.9-2) 12/31/19 12/31/19 12/31/19 Range/Units 23:57 21:37 18:25 WBC (4.8-10.8) K/uL RBC (4.7-6.1) M/uL Hgb (14.0-18.0) g/dL Hct (42-52) % MCV (80-100) fL MCH (25-34) pg MCHC (32-36) g/dL RDW Std Deviation (36.4-46.3) fL RDW Coeff of Jacob (11.5-14.5) % Plt Count (130-400) K/uL MPV (7.4-10.4) fL Immature Gran % (Auto) % Neut % (Auto) % Lymph % (Auto) % Kidder % (Auto) % Eos % (Auto) % Baso % (Auto) % Immature Gran # (Auto) (0.00-0.02) K/uL Neut # (Auto) (1.4-6.5) K/uL Lymph # (Auto) (1.2-3.4) K/uL Kidder # (Auto) (0.11-0.59) K/uL Eos # (Auto) (0-0.5) K/uL Baso # (Auto) (0-0.2) K/uL Sodium (136-145) mmol/L Potassium (3.5-5.1) mmol/L Chloride (98-107) mmol/L Carbon Dioxide (21-32) mmol/L Anion Gap (3-11) BUN (7-18) mg/dl Creatinine (0.6-1.4) mg/dl Est Cr Clr Drug Dosing ml/min Est GFR ( Amer) Est GFR (Non-Af Amer) BUN/Creatinine Ratio (10-20) Glucose (70-99) mg/dl POC Glucose 172 H 143 H 102 H (70-99) mg/dl Calcium (8.5-10.1) mg/dl Phosphorus (2.5-4.9) mg/dl Magnesium (1.8-2.4) mg/dl Total Bilirubin (0.2-1) mg/dl AST (15-37) U/L ALT (12-78) U/L Alkaline Phosphatase (45-117) U/L Total Protein (6.4-8.2) gm/dl Albumin (3.4-5.0) gm/dl Globulin (2.5-4.0) gm/dl Albumin/Globulin Ratio (0.9-2) 12/31/19 Range/Units 09:42 WBC (4.8-10.8) K/uL RBC (4.7-6.1) M/uL Hgb (14.0-18.0) g/dL Hct (42-52) % MCV (80-100) fL MCH (25-34) pg MCHC (32-36) g/dL RDW Std Deviation (36.4-46.3) fL RDW Coeff of Jacob (11.5-14.5) % Plt Count (130-400) K/uL MPV (7.4-10.4) fL Immature Gran % (Auto) % Neut % (Auto) % Lymph % (Auto) % Kidder % (Auto) % Eos % (Auto) % Baso % (Auto) % Immature Gran # (Auto) (0.00-0.02) K/uL Neut # (Auto) (1.4-6.5) K/uL Lymph # (Auto) (1.2-3.4) K/uL Kidder # (Auto) (0.11-0.59) K/uL Eos # (Auto) (0-0.5) K/uL Baso # (Auto) (0-0.2) K/uL Sodium (136-145) mmol/L Potassium (3.5-5.1) mmol/L Chloride (98-107) mmol/L Carbon Dioxide (21-32) mmol/L Anion Gap (3-11) BUN (7-18) mg/dl Creatinine (0.6-1.4) mg/dl Est Cr Clr Drug Dosing ml/min Est GFR ( Amer) Est GFR (Non-Af Amer) BUN/Creatinine Ratio (10-20) Glucose (70-99) mg/dl POC Glucose (70-99) mg/dl Calcium (8.5-10.1) mg/dl Phosphorus 4.7 (2.5-4.9) mg/dl Magnesium (1.8-2.4) mg/dl Total Bilirubin (0.2-1) mg/dl AST (15-37) U/L ALT (12-78) U/L Alkaline Phosphatase (45-117) U/L Total Protein (6.4-8.2) gm/dl Albumin (3.4-5.0) gm/dl Globulin (2.5-4.0) gm/dl Albumin/Globulin Ratio (0.9-2)
[2020-01-01] MEDS: INSULIN ASPART 100 UNITS/ML 3 ML PEN SC SCH ×4 (09:50→20:41)
[2020-01-01] MEDS: ENOXAPARIN INJ 30 MG/0.3 ML SYR SQ SCH (09:51)
--- NOTE | 2020-01-01 12:05 | Hospitalist Progress Note ---
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 Has been put on intravenous Zosyn White cell count was initially high and decreasing We will continue current antibiotic No acute symptoms from aspiration and/or pneumonia Repeat CT of the chest did show slightly increasing accumulation of fluid/food in the esophagus Clears started orally with aspiration precaution (3) Achalasia: -History of achalasia, most recent dilation and Botox injections 01/2019 -GI consult, case discussed with CLAYTON Montalvo -Discussed with the GI in detail -Esophageal fullness is likely to be relieved with time -We will get CT of the chest without contrast on Tuesday -May need to have GI and the Ortho team together working during hip surgery -CT will be ordered for chest tomorrow afternoon -GI evaluation tomorrow before surgery -Appreciate GI input -Status post EGD with drainage of fluid and food particles and dilatation of the lower end of the esophagus -We will need to have liquid diet throughout his whole life -Advised to keep appointment with outpatient spent grain dryer to continue procedures as needed for achalasia (4) Leukocytosis: -Likely secondary to aspiration pneumonia -WBC 15K, likely stress response due to fall/fracture -No obvious signs of infection at this time -White cell count went up and is completed by recent fracture -We will monitor-improving (5) Elevated troponin: (6) RBBB: -Mild troponin elevation 0.122, no reports of chest pain, likely secondary to dehydration/stress from fall -Found to have new RBBB on EKG -Continue cycle cardiac enzymes, check resting echo -Cardiology consult for preoperative evaluation, Dr. Del Toro notified -Appreciate cardiology input and recommendation (7) Severe protein-calorie malnutrition: Has not been eating or drinking much due to severe achalasia Nutrition consult Will start on PPN for now Tolerating PPN well Monitor electrolytes (8) DVT prophylaxis: -SCDs due to likely upcoming invasive procedures -Has been started on Lovenox MARTINE Noted to have high in creatinine and BUN Likely secondary to intravascular dehydration Received intravenous fluid Was advised to drink fluid cautiously Monitor PRP Admission and Anticipated Discharge Date Admission Date: December 27, 2019 Anticipated date of discharge: 01/04/20 Subjective 12/28/2019 The patient was seen and examined in medical telemetry unit He remains stable without any significant complaints Left hip pain with movement Denies any chest pain, shortness of breath, any abdominal pain, nausea or vomiting 12/29/2019 The patient was seen and examined in medical telemetry unit He has been feeling a lot better today though remains generally weak and lethargic He has been getting PPN without any problem Planes of pain at the fracture site 12/30/2019 Patient was seen and examined in medical telemetry unit He remains stable but has had a short run of VT this morning without any s ymptoms He remains weak and lethargic but denies any significant symptoms 12/31/2019 The patient was seen and examined in presence of the son He remains weak and lethargic but does not have any acute distress He will be going for possible surgery of the right hip this morning 12/31/2019 The patient was seen and examined in medical telemetry unit He is status post left hip hemiarthroplasty on 12/31/19, POD #1 Complains of pain in the left hip but otherwise remains asymptomatic Review of Systems Review of Systems: ROS per HPI, all other systems reviewed and negative Neurologic: + generalized weakness Physical Exam Physical Exam: Lying in bed comfortably Constitutional: + cachectic; no acute distress Eyes: PERRL, conjunctivae normal, anicteric sclerae ENMT: external ear and nose normal, oropharynx normal Ears: no external ear abnormality Nose: no external nose abnormality Mouth: + dry oral mucous membranes Respiratory: normal respiratory effort; no respiratory distress Auscultation: lungs clear to auscultation bilaterally and + diminished lung sounds Cardiovascular: Rate/Rhythm: regular rate and regular rhythm Vessels: normal peripheral pulses Extremities: no edema Gastrointestinal (Abdomen): Inspection/Auscultation: abdomen normal to inspection and normal bowel sounds Percussion/Palpation: abdomen soft; abdomen nontender Musculoskeletal: Extremities: + leg length discrepancy (Left, shortened) and + leg externally rotated (Left); no cyanosis and no clubbing Skin: no rashes, warm and dry Neurologic: PERRL, EOMI, accommodation nl, no face palsy, no dysarthria moves all extremities; no focal motor deficits Psychiatric: Orientation: alert and oriented x 3 Lymphatic: no cervical or axillary lymphadenopathy Results & Data ([facility]) Vital Signs (Past 12 Hours) Vital Signs Temp Pulse Pulse Resp BP Pulse Ox Pulse Ox 01/01/20 08:00 72 01/01/20 06:52 36.3 C L 77 18 94/57 L 97 01/01/20 03:17 36.5 C 81 18 101/62 95 01/01/20 00:00 96 Laboratory Results Short CBC 01/01/20 Range/Units 05:10 WBC 9.21 (4.8-10.8) K/uL Hgb 10.1 L (14.0-18.0) g/dL Hct 31.3 L (42-52) % Plt Count 175 (130-400) K/uL BMP 01/01/20 05:10 Sodium 139 Potassium 4.5 Chloride 105 Carbon Dioxide 28 BUN 48 H Creatinine 1.72 H D Glucose 182 H Calcium 8.0 L Liver Function 01/01/20 Range/Units 05:10 Total Bilirubin 0.3 (0.2-1) mg/dl AST 128 H (15-37) U/L ALT 134 H (12-78) U/L Alkaline Phosphatase 103 (45-117) U/L Albumin 1.7 L (3.4-5.0) gm/dl Medications Administered Current Inpatient Medications Acetaminophen (Tylenol) 650 mg PO Q4H PRN PRN Reason: pain/fever Stop: 01/26/20 13:17 Bisacodyl (Dulcolax) [address] DAILY PRN PRN Reason: Constipation Stop: 01/26/20 13:17 Enoxaparin Sodium (Lovenox) 30 mg SQ Q24H [facility] Stop: 01/31/20 08:59 Last Admin: 01/01/20 09:51 Dose: 30 mg Documented by: Piperacillin Sod/Tazobactam (Sod 3.375 gm/ Dextrose) 115 mls @ 28.75 mls/hr IV Q8H C[facility]IDA; Protocol Stop: 01/03/20 21:59 Last Admin: 01/01/20 09:51 Dose: 28.8 mls/hr Documented by: Dextrose (D10w) 1,000 mls @ 0 mls/hr IV .Q0M PRN PRN Reason: protocol (see label comments) Stop: 01/27/20 16:00 Nutrition (Parenteral) 1,350 (ml/ TPN BAG) 1,350 mls @ 56.25 mls/hr IV .Q24H [facility]; Protocol Stop: 01/01/20 15:59 Last Admin: 12/31/19 18:38 Dose: 56.3 mls/hr Documented by: Nutrition (Parenteral) 1,350 (ml/ TPN BAG) 1,350 mls @ 56.25 mls/hr IV .Q24H [facility]; Protocol Stop: 01/02/20 15:59 Insulin Aspart (Novolog Flexpen) 0 units SC ACHS ON LICENSE OF [facility] Stop: 01/27/20 16:29 Last Admin: 01/01/20 09:50 Dose: 1 units Documented by: Ipratropium [place] (Atrovent 0.02% 0.5mg/2.5ml) 0.5 mg INH Q4H PRN PRN Reason: Shortness Of Breath Or Wheezing Stop: 01/28/20 21:29 Levalbuterol HCl (Xopenex 1.25mg/0.5ml Neb) 1.25 mg INH Q4H PRN PRN Reason: Shortness Of Breath Or Wheezing Stop: 01/28/20 21:29 Magnesium Hydroxide (Milk Of Magnesia) 30 ml PO DAILY PRN PRN Reason: Constipation Stop: 01/26/20 13:17 Miscellaneous Information (Consult) 1 ea N/A UD PRN PRN Reason: Consult Stop: 01/26/20 14:13 Miscellaneous Information (Pharmacy Tpn/Ppn Consult Active) 1 ea N/A UD PRN PRN Reason: Consult Stop: 01/27/20 11:03 Morphine Sulfate (Morphine Sulfate) 2 mg IV Q4H PRN PRN Reason: MODERATE Pain (Scale 4,5,6) Stop: 01/10/20 13:17 Last Admin: 12/28/19 21:58 Dose: 2 mg Documented by: Naloxone HCl (Narcan) 0.1 mg IV UD PRN PRN Reason: Opioid Overdose Stop: 01/30/20 18:26 Senna/Docusate Sodium (Senokot S) 2 tab PO HS ON LICENSE OF [facility] Stop: 01/26/20 20:59 Last Admin: 12/31/19 20:18 Dose: Not Given Documented by:
[2020-01-01] MEDS ORDERED: TPN IV SCH (16:00)
[2020-01-01] MEDS ORDERED: PERIPHERAL PN IV SCH (16:00)
[2020-01-01] MEDS: DOCUSATE SODIUM/SENNA 50/8.6MG TAB PO SCH (20:44)
[2020-01-02] MEDS: PIPERACILLIN/TAZOBACTAM 3.375 GM in DEXTROSE 5% 100 ML IV SCH (01:41)
[2020-01-02 08:25] LABS: BUN Creatinine Ratio 24.8 (10-20); Calcium 8.3 mg/dl (8.5-10.1); Creatinine Clr Calc Pharmacy 19.8 ml/min; Est GFR (African American) 32.7; Est GFR (Non-African American) 28.2; Potassium 4.2 mmol/L (3.5-5.1)
[2020-01-02 08:26] LABS: Phosphorus 2.8 mg/dl (2.5-4.9)
[2020-01-02] MEDS: INSULIN ASPART 100 UNITS/ML 3 ML PEN SC SCH ×4 (09:13→20:30)
[2020-01-02] MEDS: ENOXAPARIN INJ 30 MG/0.3 ML SYR SQ SCH (09:15)
--- NOTE | 2020-01-02 11:49 | Orthopedic Progress Note ---
Date of Service January 02, 2020 Assessment & Plan (1) Hip fracture, left: POD 2 s/p Left Bipolar Hemiarthroplasty Continue PT/OT protocols. WBAT. Hip precautions. DVT prophylaxis with Lovenox, SCD's Pain management as written. DC planning - May need rehab vs SNF prior to returning home. Admission and Anticipated Discharge Date Admission Date: December 27, 2019 Anticipated date of discharge: 01/04/20 Subjective POD 2 s/p Left Bipolar Hemiarthroplasty. Pt sitting up in chair sleeping. Easily awoken. Answering questions appropriately. Denies hip pain. No other complaints at this time. Physical Exam Physical Exam: Silverlon dressing with drainage in the dressing window. Thigh soft, NT. Calves soft,NT. NV intact. Leg lengths appear equal. Results & Data ([facility]) Vital Signs (Past 12 Hours) Vital Signs Temp Pulse Pulse Resp BP Pulse Ox 01/02/20 11:09 36.5 C 85 18 107/70 92 01/02/20 08:00 82 01/02/20 07:24 36.5 C 78 18 119/63 100 01/02/20 04:25 36.6 C 81 19 102/55 L 99 01/02/20 01:33 82
[2020-01-02] MEDS: cefTRIAXone SODIUM 1,000 MG in DEXTROSE 5% 50 ML IV SCH (12:51)
[2020-01-02] MEDS ORDERED: PIPERACILLIN/TAZOBACTAM 3.375 GM in DEXTROSE 5% 100 ML IV SCH (13:00)
--- NOTE | 2020-01-02 17:04 | Hospitalist Progress Note ---
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 for serratia) White cell count was initially high and decreasing We will continue antibiotic No acute symptoms from aspiration and/or pneumonia Repeat CT of the chest did show slightly increasing accumulation of fluid/food in the esophagus Clears started orally with aspiration precaution (3) Achalasia: -History of achalasia, most recent dilation and Botox injections 01/2019 -GI consult, case discussed with CLAYTON Montalvo -Discussed with the GI in detail -Esophageal fullness is likely to be relieved with time -obtained CT of the chest without contrast - GI and the Ortho team together working during hip surgery -Status post EGD with drainage of fluid and food particles and dilatation of the lower end of the esophagus -We will need to have liquid diet throughout his whole life -Advised to keep appointment with outpatient director of user experience to continue procedures as needed for achalasia (4) Leukocytosis: -Likely secondary to aspiration pneumonia -WBC 15K, likely stress response due to fall/fracture -No obvious signs of infection at this time -White cell count went up and is completed by recent fracture -We will monitor-improving (5) Elevated troponin: (6) RBBB: -Mild troponin elevation 0.122, no reports of chest pain, likely secondary to dehydration/stress from fall -Found to have new RBBB on EKG -Continue cycle cardiac enzymes, check resting echo -Cardiology consult for preoperative evaluation, Dr. Del Toro notified -Appreciate cardiology input and recommendation (7) Severe protein-calorie malnutrition: Has not been eating or drinking much due to severe achalasia Nutrition consult Will start on PPN for now Tolerating PPN well Monitor electrolytes MARTINE Cr 2.0 - likely pre-renal, secondary to above - will start gentle hydration - will monitor renal function, avoid nephrotoxic agenst (8) DVT prophylaxis: -SCDs, Lovenox Admission and Anticipated Discharge Date Admission Date: December 27, 2019 Anticipated date of discharge: 01/04/20 Subjective Pt is sitting up in bed, in NAD. Denies any fever, chills, chest pain, shortness of breath, abd.pain, nausea, vomiting. He is status post left hip hemiarthroplasty on 12/31/19, POD #2 Review of Systems Review of Systems: All systems reviewed & are unremarkable except as noted in HPI & below ROS per HPI, all other systems reviewed and negative Constitutional: no fever and no chills Respiratory: no cough and no dyspnea Cardiovascular: no chest pain and no palpitations Gastrointestinal: no abdominal pain, no nausea and no vomiting Neurologic: + generalized weakness Physical Exam Physical Exam: Constitutional: elderly male,+ cachectic, sitting up in bed in no acute distress Eyes: PERRL, EOMI, conjunctivae normal, anicteric sclerae ENMT: external ear and nose normal, oropharynx normal Ears: no external ear abnormality Nose: no external nose abnormality Mouth: + dry oral mucous membranes Respiratory: normal respiratory effort; no respiratory distress Auscultation: lungs clear to auscultation bilaterally and + diminished lung sounds Cardiovascular: Rate/Rhythm: regular rate and regular rhythm Vessels: normal peripheral pulses Extremities: no edema Gastrointestinal (Abdomen): abdomen normal to inspection and normal bowel sounds Percussion/Palpation: abdomen soft; abdomen nontender Musculoskeletal: Extremities:warm, well perfused, no sensory loss noted, diff. to move LLE d/t recent hip fx repair, no cyanosis and no clubbing Skin: no rashes, warm and dry Neurologic: PERRL, EOMI, accommodation nl, no face palsy, no dysarthria moves all extremities; no focal motor deficits Psychiatric: Orientation: alert and oriented x 3 Results & Data ([facility]) Vital Signs (Past 12 Hours) Vital Signs Temp Pulse Pulse Resp BP Pulse Ox 01/02/20 16:06 74 01/02/20 14:59 36.3 C L 74 16 137/75 96 01/02/20 11:09 36.5 C 85 18 107/70 92 01/02/20 08:00 82 01/02/20 07:24 36.5 C 78 18 119/63 100 Laboratory Results 01/02/20 01/02/20 01/02/20 Range/Units 16:58 11:31 07:44 Sodium (136-145) mmol/L Potassium (3.5-5.1) mmol/L Chloride (98-107) mmol/L Carbon Dioxide (21-32) mmol/L Anion Gap (3-11) BUN (7-18) mg/dl Creatinine (0.6-1.4) mg/dl Est Cr Clr Drug Dosing ml/min Est GFR ( Amer) Est GFR (Non-Af Amer) BUN/Creatinine Ratio (10-20) Glucose (70-99) mg/dl POC Glucose 94 126 H 94 (70-99) mg/dl Calcium (8.5-10.1) mg/dl Phosphorus (2.5-4.9) mg/dl Magnesium (1.8-2.4) mg/dl Triglycerides (0-150) mg/dl 01/02/20 01/02/20 01/02/20 Range/Units 07:34 06:23 00:08 Sodium 141 (136-145) mmol/L Potassium 4.2 (3.5-5.1) mmol/L Chloride 106 (98-107) mmol/L Carbon Dioxide 28 (21-32) mmol/L Anion Gap 7.0 (3-11) BUN 50 H (7-18) mg/dl Creatinine 2.03 H D (0.6-1.4) mg/dl Est Cr Clr Drug Dosing 19.8 ml/min Est GFR ( Amer) 32.7 Est GFR (Non-Af Amer) 28.2 BUN/Creatinine Ratio 24.8 H (10-20) Glucose 92 (70-99) mg/dl POC Glucose 100 H 94 (70-99) mg/dl Calcium 8.3 L (8.5-10.1) mg/dl Phosphorus 2.8 D (2.5-4.9) mg/dl Magnesium 2.0 (1.8-2.4) mg/dl Triglycerides 224 H (0-150) mg/dl 01/01/20 01/01/20 Range/Units 20:23 17:14 Sodium (136-145) mmol/L Potassium (3.5-5.1) mmol/L Chloride (98-107) mmol/L Carbon Dioxide (21-32) mmol/L Anion Gap (3-11) BUN (7-18) mg/dl Creatinine (0.6-1.4) mg/dl Est Cr Clr Drug Dosing ml/min Est GFR ( Amer) Est GFR (Non-Af Amer) BUN/Creatinine Ratio (10-20) Glucose (70-99) mg/dl POC Glucose 173 H 129 H (70-99) mg/dl Calcium (8.5-10.1) mg/dl Phosphorus (2.5-4.9) mg/dl Magnesium (1.8-2.4) mg/dl Triglycerides (0-150) mg/dl Medications Administered Current Inpatient Medications Acetaminophen (Tylenol) 650 mg PO Q4H PRN PRN Reason: pain/fever Stop: 01/26/20 13:17 Bisacodyl (Dulcolax) 10 mg [place] DAILY PRN PRN Reason: Constipation Stop: 01/26/20 13:17 Enoxaparin Sodium (Lovenox) 30 mg SQ Q24H [facility] Stop: 01/31/20 08:59 Last Admin: 01/02/20 09:15 Dose: Not Given Documented by: Dextrose (D10w) 1,000 mls @ 0 mls/hr IV .Q0M PRN PRN Reason: protocol (see label comments) Stop: 01/27/20 16:00 Ceftriaxone Sodium 1,000 mg/ (Dextrose) 50 mls @ 100 mls/hr IV Q24H [facility]; Protocol Stop: 01/05/20 12:59 Last Infusion: 01/02/20 13:30 Dose: Infused Documented by: Insulin Aspart (Novolog Flexpen) 0 units SC [facility] Stop: 01/27/20 16:29 Last Admin: 01/02/20 12:54 Dose: Not Given Documented by: Ipratropium [place] (Atrovent 0.02% 0.5mg/2.5ml) 0.5 mg INH Q4H PRN PRN Reason: Shortness Of Breath Or Wheezing Stop: 01/28/20 21:29 Levalbuterol HCl (Xopenex 1.25mg/0.5ml Neb) 1.25 mg INH Q4H PRN PRN Reason: Shortness Of Breath Or Wheezing Stop: 01/28/20 21:29 Magnesium Hydroxide (Milk Of Magnesia) 30 ml PO DAILY PRN PRN Reason: Constipation Stop: 01/26/20 13:17 Last Admin: 01/01/20 16:02 Dose: 30 ml Documented by: Morphine Sulfate (Morphine Sulfate) 2 mg IV Q4H PRN PRN Reason: MODERATE Pain (Scale 4,5,6) Stop: 01/10/20 13:17 Last Admin: 12/28/19 21:58 Dose: 2 mg Documented by: Naloxone HCl (Narcan) 0.1 mg IV UD PRN PRN Reason: Opioid Overdose Stop: 01/30/20 18:26 Senna/Docusate Sodium (Senokot S) 2 tab PO HS [facility] Stop: 01/26/20 20:59 Last Admin: 01/01/20 20:44 Dose: 2 tab Documented by:
[2020-01-02] MEDS: SODIUM CHLORIDE 0.9% 1000ML 1,000 ML IV SCH (17:58)
--- NOTE | 2020-01-02 18:39 | Orthopedic Progress Note ---
Date of Service January 02, 2020 Assessment & Plan (1) Hip fracture, left: POD 2 s/p Left Bipolar Hemiarthroplasty Continue PT/OT protocols. WBAT. Hip precautions. DVT prophylaxis with Lovenox, SCD's Pain management as written. Hgb pending DC planning - May need rehab vs SNF prior to returning home. Admission and Anticipated Discharge Date Admission Date: December 27, 2019 Anticipated date of discharge: 01/04/20 Subjective Post Operative Progress Note Patient seen sitting up in bed, comfortable, denies complaints, pain well controlled, no acute issues. Denies F/C/N/V/SOB/CP Review of Systems Review of Systems: All systems reviewed & are unremarkable except as noted in HPI & below Constitutional: as per Subjective / HPI Physical Exam Physical Exam: LLE NVSI +EHL/FHL/TA/GS SILT grossly, +2 DP pulse, compartments soft NT, dressing cdi. Constitutional: WD/WN, vitals as above Results & Data ([facility]) Vital Signs (Past 12 Hours) Vital Signs Temp Pulse Pulse Resp BP Pulse Ox 01/02/20 16:06 74 01/02/20 14:59 36.3 C L 74 16 137/75 96 01/02/20 11:09 36.5 C 85 18 107/70 92 01/02/20 08:00 82 01/02/20 07:24 36.5 C 78 18 119/63 100 Laboratory Results 01/02/20 01/02/20 01/02/20 Range/Units 16:58 11:31 07:44 Sodium (136-145) mmol/L Potassium (3.5-5.1) mmol/L Chloride (98-107) mmol/L Carbon Dioxide (21-32) mmol/L Anion Gap (3-11) BUN (7-18) mg/dl Creatinine (0.6-1.4) mg/dl Est Cr Clr Drug Dosing ml/min Est GFR ( Amer) Est GFR (Non-Af Amer) BUN/Creatinine Ratio (10-20) Glucose (70-99) mg/dl POC Glucose 94 126 H 94 (70-99) mg/dl Calcium (8.5-10.1) mg/dl Phosphorus (2.5-4.9) mg/dl Magnesium (1.8-2.4) mg/dl Triglycerides (0-150) mg/dl 01/02/20 01/02/20 01/02/20 Range/Units 07:34 06:23 00:08 Sodium 141 (136-145) mmol/L Potassium 4.2 (3.5-5.1) mmol/L Chloride 106 (98-107) mmol/L Carbon Dioxide 28 (21-32) mmol/L Anion Gap 7.0 (3-11) BUN 50 H (7-18) mg/dl Creatinine 2.03 H D (0.6-1.4) mg/dl Est Cr Clr Drug Dosing 19.8 ml/min Est GFR ( Amer) 32.7 Est GFR (Non-Af Amer) 28.2 BUN/Creatinine Ratio 24.8 H (10-20) Glucose 92 (70-99) mg/dl POC Glucose 100 H 94 (70-99) mg/dl Calcium 8.3 L (8.5-10.1) mg/dl Phosphorus 2.8 D (2.5-4.9) mg/dl Magnesium 2.0 (1.8-2.4) mg/dl Triglycerides 224 H (0-150) mg/dl 01/01/20 Range/Units 20:23 Sodium (136-145) mmol/L Potassium (3.5-5.1) mmol/L Chloride (98-107) mmol/L Carbon Dioxide (21-32) mmol/L Anion Gap (3-11) BUN (7-18) mg/dl Creatinine (0.6-1.4) mg/dl Est Cr Clr Drug Dosing ml/min Est GFR ( Amer) Est GFR (Non-Af Amer) BUN/Creatinine Ratio (-20) Glucose (70-99) mg/dl POC Glucose 173 H (70-99) mg/dl Calcium (8.5-10.1) mg/dl Phosphorus (2.5-4.9) mg/dl Magnesium (1.8-2.4) mg/dl Triglycerides (0-150) mg/dl
[2020-01-02 19:33] LABS: Basophils # (auto) 0.01 K/uL (0-0.2); Basophils % (auto) 0.1 %; Eosinophils # (auto) 0.03 K/uL (0-0.5); Eosinophils % (auto) 0.3 %; Hematocrit (blood only) 37.7 % (42-52); Hemoglobin 12.4 g/dL (14.0-18.0); Immature Granulocytes # (auto) 0.05 K/uL (0.00-0.02); Immature Granulocytes % (auto) 0.5 %; Lymphocytes # (auto) 0.78 K/uL (1.2-3.4); Lymphocytes % (auto) 7.1 %; Mean Corpuscular Hemoglobin 31.2 pg (25-34); Mean Corpuscular Hgb Conc 32.9 g/dL (32-36); Mean Corpuscular Volume 94.7 fL (80-100); Mean Platelet Volume 11.3 fL (7.4-10.4); Monocytes # (auto) 0.78 K/uL (0.11-0.59); Monocytes % (auto) 7.1 %; Neutrophils # (auto) 9.32 K/uL (1.4-6.5); Neutrophils % (auto) 84.9 %; Platelet Count 236 K/uL (130-400); RDW Coefficient of Variation 14.3 % (11.5-14.5); RDW Standard Deviation 49.5 fL (36.4-46.3); Red Blood Count 3.98 M/uL (4.7-6.1); White Blood Count 10.97 K/uL (4.8-10.8)
[2020-01-02] MEDS: DOCUSATE SODIUM/SENNA 50/8.6MG TAB PO SCH (20:11)
[2020-01-03 03:50] LABS: Basophils # (auto) 0.01 K/uL (0-0.2); Basophils % (auto) 0.1 %; Eosinophils # (auto) 0.09 K/uL (0-0.5); Eosinophils % (auto) 1.3 %; Hematocrit (blood only) 32.4 % (42-52); Hemoglobin 10.5 g/dL (14.0-18.0); Immature Granulocytes # (auto) 0.01 K/uL (0.00-0.02); Immature Granulocytes % (auto) 0.1 %; Lymphocytes # (auto) 0.71 K/uL (1.2-3.4); Lymphocytes % (auto) 10.3 %; Mean Corpuscular Hemoglobin 30.6 pg (25-34); Mean Corpuscular Hgb Conc 32.4 g/dL (32-36); Mean Corpuscular Volume 94.5 fL (80-100); Mean Platelet Volume 10.6 fL (7.4-10.4); Monocytes # (auto) 0.63 K/uL (0.11-0.59); Monocytes % (auto) 9.1 %; Neutrophils # (auto) 5.44 K/uL (1.4-6.5); Neutrophils % (auto) 79.1 %; Platelet Count 210 K/uL (130-400); RDW Coefficient of Variation 14.3 % (11.5-14.5); RDW Standard Deviation 49.6 fL (36.4-46.3); Red Blood Count 3.43 M/uL (4.7-6.1); White Blood Count 6.89 K/uL (4.8-10.8)
[2020-01-03 04:17] LABS: BUN Creatinine Ratio 21.8 (10-20); Calcium 8.3 mg/dl (8.5-10.1); Est GFR (African American) 31.2; Est GFR (Non-African American) 26.9; Magnesium 1.8 mg/dl (1.8-2.4); Phosphorus 2.5 mg/dl (2.5-4.9); Potassium 4.1 mmol/L (3.5-5.1)
--- NOTE | 2020-01-03 04:45 | Communication Note ---
Date of Service: January 03, 2020 Made aware by RN of 3 beat run NSVT. Will relay to AM provider.Patient asymptomatic as per RN. AP NSVT Check electrolytes Initiate low-dose beta-alex to suppress ectopy if electrolytes within normal limits.
[2020-01-03] MEDS ORDERED: MAGNESIUM SULFATE / D5W 1 GM/100 ML BAG IV ONE (05:00)
[2020-01-03] MEDS: METOPROLOL TARTRATE 25 MG TAB PO SCH ×2 (05:40→20:23)
[2020-01-03] MEDS: SODIUM CHLORIDE 0.9% 1000ML 1,000 ML IV SCH ×2 (05:41→15:46)
[2020-01-03] MEDS: ENOXAPARIN INJ 30 MG/0.3 ML SYR SQ SCH (07:55)
[2020-01-03] MEDS: INSULIN ASPART 100 UNITS/ML 3 ML PEN SC SCH ×4 (08:02→20:48)
--- NOTE | 2020-01-03 08:23 | Orthopedic Progress Note ---
Date of Service January 03, 2020 Assessment & Plan (1) Hip fracture, left: s/p Left hip Hemiarthroplasty POD#3 Continue PT/OT protocols. WBAT. Hip precautions. DVT prophylaxis with Lovenox, SCD's Pain management as written. Hgb 10.5 DC planning - May need rehab vs SNF prior to returning home. Orthopedics will sign off, instructions placed in discharge summary. Please call with questions. Admission and Anticipated Discharge Date Admission Date: December 27, 2019 Anticipated date of discharge: 01/04/20 Subjective Post Operative Progress Note Patient seen sitting up in bed, comfortable, denies complaints, pain well controlled, no acute issues. Denies F/C/N/V/SOB/CP Review of Systems Review of Systems: All systems reviewed & are unremarkable except as noted in HPI & below Constitutional: as per Subjective / HPI Physical Exam Physical Exam: LLE NVSI +EHL/FHL/TA/GS SILT grossly, +2 DP pulse, compartments soft NT, dressing cdi Constitutional: WD/WN, vitals as above Results & Data ([facility]) Vital Signs (Past 12 Hours) Vital Signs Temp Pulse Pulse Resp BP BP Pulse Ox 01/03/20 07:28 36.8 C 71 18 159/73 H 100 01/03/20 05:36 74 142/75 H 01/03/20 03:04 36.4 C L 96 H 19 134/62 96 01/03/20 01:41 81 01/02/20 23:28 36.5 C 79 18 118/54 L 100 Laboratory Results 01/03/20 01/03/20 01/03/20 Range/Units 08:02 03:40 03:40 WBC 6.89 (4.8-10.8) K/uL RBC 3.43 L (4.7-6.1) M/uL Hgb 10.5 L (14.0-18.0) g/dL Hct 32.4 L (42-52) % MCV 94.5 (80-100) fL MCH 30.6 (25-34) pg MCHC 32.4 (32-36) g/dL RDW Std Deviation 49.6 H (36.4-46.3) fL RDW Coeff of Jacob 14.3 (11.5-14.5) % Plt Count 210 (130-400) K/uL MPV 10.6 H (7.4-10.4) fL Immature Gran % (Auto) 0.1 % Neut % (Auto) 79.1 % Lymph % (Auto) 10.3 % [place] % (Auto) 9.1 % Eos % (Auto) 1.3 % Baso % (Auto) 0.1 % Immature Gran # (Auto) 0.01 (0.00-0.02) K/uL Neut # (Auto) 5.44 (1.4-6.5) K/uL Lymph # (Auto) 0.71 L (1.2-3.4) K/uL [place] # (Auto) 0.63 H (0.11-0.59) K/uL Eos # (Auto) 0.09 (0-0.5) K/uL Baso # (Auto) 0.01 (0-0.2) K/uL Sodium 142 (136-145) mmol/L Potassium 4.1 (3.5-5.1) mmol/L Chloride 108 H (98-107) mmol/L Carbon Dioxide 30 (21-32) mmol/L Anion Gap 4.0 (3-11) BUN 46 H (7-18) mg/dl Creatinine 2.11 H (0.6-1.4) mg/dl Est Cr Clr Drug Dosing 19.0 ml/min Est GFR ( Amer) 31.2 Est GFR (Non-Af Amer) 26.9 BUN/Creatinine Ratio 21.8 H (10-20) Glucose 88 (70-99) mg/dl POC Glucose 103 H (70-99) mg/dl Calcium 8.3 L (8.5-10.1) mg/dl Phosphorus 2.5 (2.5-4.9) mg/dl Magnesium 1.8 (1.8-2.4) mg/dl Triglycerides (0-150) mg/dl 01/02/20 01/02/20 01/02/20 Range/Units 20:28 19:18 16:58 WBC 10.97 H (4.8-10.8) K/uL RBC 3.98 L (4.7-6.1) M/uL Hgb 12.4 L (14.0-18.0) g/dL Hct 37.7 L (42-52) % MCV 94.7 (80-100) fL MCH 31.2 (25-34) pg MCHC 32.9 (32-36) g/dL RDW Std Deviation 49.5 H (36.4-46.3) fL RDW Coeff of Jacob 14.3 (11.5-14.5) % Plt Count 236 (130-400) K/uL MPV 11.3 H (7.4-10.4) fL Immature Gran % (Auto) 0.5 % Neut % (Auto) 84.9 % Lymph % (Auto) 7.1 % [place] % (Auto) 7.1 % Eos % (Auto) 0.3 % Baso % (Auto) 0.1 % Immature Gran # (Auto) 0.05 H (0.00-0.02) K/uL Neut # (Auto) 9.32 H (1.4-6.5) K/uL Lymph # (Auto) 0.78 L (1.2-3.4) K/uL [place] # (Auto) 0.78 H (0.11-0.59) K/uL Eos # (Auto) 0.03 (0-0.5) K/uL Baso # (Auto) 0.01 (0-0.2) K/uL Sodium (136-145) mmol/L Potassium (3.5-5.1) mmol/L Chloride (98-107) mmol/L Carbon Dioxide (21-32) mmol/L Anion Gap (3-11) BUN (7-18) mg/dl Creatinine (0.6-1.4) mg/dl Est Cr Clr Drug Dosing ml/min Est GFR ( Amer) Est GFR (Non-Af Amer) BUN/Creatinine Ratio (10-20) Glucose (70-99) mg/dl POC Glucose 201 H 94 (70-99) mg/dl Calcium (8.5-10.1) mg/dl Phosphorus (2.5-4.9) mg/dl Magnesium (1.8-2.4) mg/dl Triglycerides (0-150) mg/dl 01/02/20 01/02/20 Range/Units 11:31 07:34 WBC (4.8-10.8) K/uL RBC (4.7-6.1) M/uL Hgb (14.0-18.0) g/dL Hct (42-52) % MCV (80-100) fL MCH (25-34) pg MCHC (32-36) g/dL RDW Std Deviation (36.4-46.3) fL RDW Coeff of Jacob (11.5-14.5) % Plt Count (130-400) K/uL MPV (7.4-10.4) fL Immature Gran % (Auto) % Neut % (Auto) % Lymph % (Auto) % [place] % (Auto) % Eos % (Auto) % Baso % (Auto) % Immature Gran # (Auto) (0.00-0.02) K/uL Neut # (Auto) (1.4-6.5) K/uL Lymph # (Auto) (1.2-3.4) K/uL [place] # (Auto) (0.11-0.59) K/uL Eos # (Auto) (0-0.5) K/uL Baso # (Auto) (0-0.2) K/uL Sodium 141 (136-145) mmol/L Potassium 4.2 (3.5-5.1) mmol/L Chloride 106 (98-107) mmol/L Carbon Dioxide 28 (21-32) mmol/L Anion Gap 7.0 (3-11) BUN 50 H (7-18) mg/dl Creatinine 2.03 H D (0.6-1.4) mg/dl Est Cr Clr Drug Dosing 19.8 ml/min Est GFR ( Amer) 32.7 Est GFR (Non-Af Amer) 28.2 BUN/Creatinine Ratio 24.8 H (10-20) Glucose 92 (70-99) mg/dl POC Glucose 126 H (70-99) mg/dl Calcium 8.3 L (8.5-10.1) mg/dl Phosphorus 2.8 D (2.5-4.9) mg/dl Magnesium 2.0 (1.8-2.4) mg/dl Triglycerides 224 H (0-150) mg/dl
[2020-01-03 09:36] LABS: Appearance Urine Clear (Clear); Bacteria Urine Automated Negative (Negative); Bilirubin Urine Negative (Negative); Blood Urine 2+ (Negative); Cast Urine Automated 0 /lpf (0-5); Color Urine Yellow; Glucose Urine UA Negative (Negative); Ketones Urine Negative (Negative); Leukocyte Esterase Urine Trace (Negative); Nitrite Urine Negative (Negative); Specific Gravity Urine 1.009 (1.000-1.030); Urobilinogen Urine Negative (Negative); pH Urine 7.5 (4.5-7.5)
[2020-01-03 09:48] LABS: Protein Urine Negative (Negative); Sulfosalicylic Acid Urine Negative (Negative)
--- NOTE | 2020-01-03 10:21 | Nephrology Consultation ---
Date of Consultation January 03, 2020 Assessment & Plan (1) MARTINE (acute kidney injury): Patient with acute kidney injury likely due to ischemic ATN in setting of postoperative hypotension. Patient had systolic blood pressures in the 80s yesterday before the sharp rise in creatinine. He also has aspiration pneumonia or risk factors for ATN. Creatinine appears to have leveled off at 2.1 today. Patient is nonoliguric making 1.7 L in 24 hours. Electrolytes are stable and no indication for dialysis. Creatinine will likely start to downtrend tomorrow -Agree with continuing IV fluids. -Monitor renal function with daily BMP -Avoid hypotension and nephrotoxins (2) Hip fracture, left: Patient is status post left hip hemiarthroplasty. Continue management per orthopedic surgery. (3) Aspiration pneumonia: Patient is on ceftriaxone per primary team. He was on Zosyn previously. Renally dose antibiotics for current GFR. History of Present Illness Reason for Consultation: Acute kidney injury Requesting Physician: Dimitrios Latif MD Attending Physician: Dimitrios Latif MD History of Present Illness This is a 9-year-old male who is being seen for acute kidney injury. Past med ical history of Achalazia, chronic poor p.o. intake and weight loss was admitted on 12/27/2019 with mechanical fall and left hip fracture. He was planned for hemiarthroplasty but this could not be done initially due to esophageal dilatation and food stuck in the esophagus. He subsequently underwent EGD to drain the liquids and food particles. He later had left hip hemiarthroplasty and today's postoperative day 3. His admission creatinine was 1. Creatinine increased to 1.7 on 01/01/2020 and today up to 2.1. Patient was hypotensive on 12/31/2019 with systolic blood pressure in the 80s a day before the sharp rise in creatinine. He is now getting IV fluids. He made 1.7 L of urine in the past 24 hours. He feels better today denies any shortness of breath or urinary symptoms. He complains of pain in the left knee. No vomiting or diarrhea. No NSAID use. Recent echo showed EF of 55%. His blood pressure is now in the 150s over 70. Allergies Allergy/AdvReac Type Severity Reaction Status Date / Time No Known Allergies Allergy Verified 12/27/19 10:34 Home Medications Home Medications Medication Instructions Recorded Confirmed Type No Known Home Medications 12/27/19 12/27/19 History Patient History Medical History Achalasia BPH (benign prostatic hyperplasia) Elevated troponin Surgical History History of esophagogastroduodenoscopy (EGD) History of tonsillectomy History of tooth extraction all upper and most of lower Hx of left cataract extraction Social History Preferred Language: Jamaican Communication Ability: Unable Market Basket Maker Required: No Beliefs That Will Affect Care: None Current Living Situation: Alone Feels Safe at Home: Yes Smoking Status: Never smoker Second Hand Exposure: Yes ( smoked) ; Hx Alcohol Use: No Hx Substance Use: No Review of Systems Review of Systems: All systems reviewed & are unremarkable except as noted in HPI & below Physical Exam Physical Exam: General exam: Appears comfortable, no acute distress HEENT: Pupils are equal and reactive to light Neck: No JVD, neck is supple trachea is midline Respiratory system: Clear breath sounds bilaterally. Gastrointestinal: Abdomen is soft, non distended, non tender, bowel sounds are present CVS: Regular rate and rhythm. No murmurs, rubs or gallops Musculoskeletal: No joint or muscle tenderness Extremities: Surgical scar on the left lateral hip Neuro: Oriented, no tremors, no focal neurological deficits Skin: No rashes Results & Data Vital Signs (Past 12 Hours) Vital Signs Temp Pulse Pulse Resp BP BP Pulse Ox 01/03/20 10:00 68 01/03/20 07:28 36.8 C 71 18 159/73 H 100 01/03/20 05:36 74 142/75 H 01/03/20 03:04 36.4 C L 96 H 19 134/62 96 01/03/20 01:41 81 01/02/20 23:28 36.5 C 79 18 118/54 L 100 Laboratory Results 01/03/20 03:40 01/02/20 01/03/20 01/03/20 19:18 03:40 03:40 WBC 10.97 H 6.89 RBC 3.98 L 3.43 L MCV 94.7 94.5 MCH 31.2 30.6 MCHC 32.9 32.4 RDW Std Deviation 49.5 H 49.6 H RDW Coeff of Jacob 14.3 14.3 Plt Count 236 210 MPV 11.3 H 10.6 H Phosphorus 2.5
[2020-01-03] MEDS: cefTRIAXone SODIUM 1,000 MG in DEXTROSE 5% 50 ML IV SCH (12:43)
[2020-01-03] MEDS: DOCUSATE SODIUM/SENNA 50/8.6MG TAB PO SCH (20:49)
--- NOTE | 2020-01-03 23:29 | Hospitalist Progress Note ---
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 for serratia) White cell count was initially high and decreasing We will continue antibiotic No acute symptoms from aspiration and/or pneumonia Repeat CT of the chest did show slightly increasing accumulation of fluid/food in the esophagus Clears started orally with aspiration precaution (3) Achalasia: -History of achalasia, most recent dilation and Botox injections 01/2019 -GI consulted, case discussed with CLAYTON Montalvo -Esophageal fullness is likely to be relieved with time -obtained CT of the chest without contrast - GI and the Ortho team together working during hip surgery -Now Status post EGD with drainage of fluid and food particles and dilatation of the lower end of the esophagus (12/31) -We will need to be on liquid diet indefinitely -Advised to keep appointment with outpatient undercover agent to continue procedures as needed for achalasia (poss. Botox) (4) Leukocytosis: -Likely secondary to aspiration pneumonia -WBC 15K, likely stress response due to fall/fracture -No obvious signs of infection at this time -White cell count went up in the setting of recent fracture -We will monitor-improving (5) Elevated troponin: (6) RBBB: -Mild troponin elevation 0.122, no reports of chest pain, likely secondary to dehydration/stress from fall -Found to have new RBBB on EKG -Continue cycle cardiac enzymes, check resting echo -Cardiology consult for preoperative evaluation, Dr. Del Toro notified -Appreciate cardiology input and recommendation (7) Severe protein-calorie malnutrition: Has not been eating or drinking much due to severe achalasia Nutrition consult Was on PPN, tolerated well MARTINE Cr 2.1 - been worsening for past 3 days - nephrology consulted, likely isch. ATN d/t postoperative hypotension - also poss. partially pre-renal, secondary to above - cont. gentle hydration - will monitor renal function, avoid nephrotoxic agents (8) DVT prophylaxis: -SCDMichael robertsonx Admission and Anticipated Discharge Date Admission Date: December 27, 2019 Anticipated date of discharge: 01/04/20 Subjective Pt is lying in bed, in NAD, resting. Has no complaints right now. Says he feels well just tired. Review of Systems Review of Systems: All systems reviewed & are unremarkable except as noted in HPI & below ROS per HPI, all other systems reviewed and negative Constitutional: no fever and no chills Respiratory: no cough and no dyspnea Cardiovascular: no chest pain and no palpitations Gastrointestinal: no abdominal pain, no nausea and no vomiting Neurologic: + generalized weakness Physical Exam Physical Exam: Constitutional: elderly male,+ cachectic, lying in bed in no acute distress Eyes: PERRL, EOMI, conjunctivae normal, anicteric sclerae ENMT: external ear and nose normal, oropharynx normal Ears: no external ear abnormality Nose: no external nose abnormality Mouth: + dry oral mucous membranes Respiratory: normal respiratory effort; no respiratory distress Auscultation: lungs clear to auscultation bilaterally and + diminished lung sounds Cardiovascular: Rate/Rhythm: regular rate and regular rhythm Vessels: normal peripheral pulses Extremities: no edema Gastrointestinal (Abdomen): abdomen normal to inspection and normal bowel sounds Percussion/Palpation: abdomen soft; abdomen nontender Musculoskeletal: Extremities:warm, well perfused, no sensory loss noted, diff. to move LLE d/t recent hip fx repair Skin: no rashes, warm and dry Neurologic: PERRL, EOMI, accommodation nl, no face palsy, no dysarthria moves all extremities; no focal motor deficits Psychiatric: Orientation: alert and oriented x 3 Results & Data ([facility]) Vital Signs (Past 12 Hours) Vital Signs Temp Pulse Pulse Pulse Resp BP BP 01/03/20 22:32 37.0 C 78 20 138/68 01/03/20 20:00 67 01/03/20 19:38 36.5 C 67 20 139/78 01/03/20 16:00 36.4 C L 72 75 18 140/77 01/03/20 11:44 36.7 C 71 18 105/63 Pulse Ox Pulse Ox 01/03/20 22:32 93 01/03/20 20:00 01/03/20 19:38 93 01/03/20 16:00 100 100 01/03/20 11:44 90 Laboratory Results reviewed Medications Administered reviewed
[2020-01-04] MEDS: SODIUM CHLORIDE 0.9% 1000ML 1,000 ML IV SCH ×2 (04:40→10:19)
[2020-01-04 07:41] LABS: Hemoglobin 10.2 g/dL (14.0-18.0); Mean Corpuscular Hemoglobin 30.5 pg (25-34); Mean Corpuscular Hgb Conc 32.9 g/dL (32-36); Mean Corpuscular Volume 92.8 fL (80-100); Mean Platelet Volume 10.3 fL (7.4-10.4); Platelet Count 264 K/uL (130-400); RDW Coefficient of Variation 14.3 % (11.5-14.5); Red Blood Count 3.34 M/uL (4.7-6.1); White Blood Count 7.57 K/uL (4.8-10.8)
[2020-01-04 08:12] LABS: Calcium 8.4 mg/dl (8.5-10.1); Est GFR (African American) 40.3; Est GFR (Non-African American) 34.7; Potassium 3.6 mmol/L (3.5-5.1)
[2020-01-04] MEDS: POTASSIUM CHLORIDE / WTR 10 MEQ/100 ML PLCT IV SCH ×3 (09:54→12:03)
[2020-01-04] MEDS: ENOXAPARIN INJ 30 MG/0.3 ML SYR SQ SCH (09:55)
[2020-01-04] MEDS: METOPROLOL TARTRATE 25 MG TAB PO SCH (09:57)
--- NOTE | 2020-01-04 09:57 | Nephrology Progress Note ---
Date of Service January 04, 2020 Assessment & Plan (1) MARTINE (acute kidney injury): Patient with acute kidney injury likely due to ischemic ATN in setting of postoperative hypotension. Patient had systolic blood pressures in the 80s yesterday before the sharp rise in creatinine. He also has aspiration pneumonia or risk factors for ATN. Creatinine peaked at 2.1 but downtrending to 1.7 tod ay. Patient is nonoliguric making 1.5 L in 24 hours. Electrolytes are stable and no indication for dialysis. -Agree with continuing IV fluids. -Monitor renal function with daily BMP -Avoid hypotension and nephrotoxins (2) Hip fracture, left: Patient is status post left hip hemiarthroplasty. Continue management per orthopedic surgery. (3) Aspiration pneumonia: Patient is on ceftriaxone per primary team. He was on Zosyn previously. Renally dose antibiotics for current GFR. Admission and Anticipated Discharge Date Admission Date: December 27, 2019 Anticipated date of discharge: 01/04/20 Subjective Patient feels better today. He is making more urine, 1.5 L in the past 24 hours. Creatinine is downtrending to 1.7 today. No shortness of breath. No vomiting or diarrhea. Review of Systems Review of Systems: All systems reviewed & are unremarkable except as noted in HPI & below Physical Exam Physical Exam: General exam: Appears comfortable, no acute distress HEENT: Pupils are equal and reactive to light Neck: No JVD, neck is supple trachea is midline Respiratory system: Clear breath sounds bilaterally. Gastrointestinal: Abdomen is soft, non distended, non tender, bowel sounds are present CVS: Regular rate and rhythm. No murmurs, rubs or gallops Musculoskeletal: No joint or muscle tenderness Extremities: Non tender, no edema, peripheral pulses are present. Surgical scar on the left hip Neuro: Oriented, no tremors, no focal neurological deficits Skin: No rashes Results & Data ([facility]) Vital Signs (Past 12 Hours) Vital Signs Temp Pulse Pulse Resp BP BP Pulse Ox 01/04/20 07:18 36.9 C 69 20 146/64 H 96 01/04/20 07:15 36.4 C L 69 20 146/64 H 96 01/04/20 03:43 36.5 C 71 20 138/68 92 01/03/20 23:59 66 01/03/20 22:32 37.0 C 78 20 138/68 93 Laboratory Results 01/04/20 07:17 01/04/20 07:17 WBC 7.57 RBC 3.34 L MCV 92.8 MCH 30.5 MCHC 32.9 RDW Std Deviation 48.0 H RDW Coeff of Jacob 14.3 Plt Count 264 MPV 10.3
[2020-01-04] MEDS: INSULIN ASPART 100 UNITS/ML 3 ML PEN SC SCH ×2 (10:29→12:23)
--- NOTE | 2020-01-04 11:09 | Discharge Summary ---
Date of Service January 04, 2020 Admission HPI Per Admitting Provider 89 year old male who presents to the ED for evaluation of left hip pain. Patient has history of achalasia. Had dilation and Botox injection 01/2019. Over the past few months, patient has had worsening difficulty swallowing with acute worsening of symptoms over the past one week. Patient has had a 20 pound weight loss since last summer. Due to patient's very poor p.o. intake, he has had worsening generalized weakness. Last evening, patient slipped when trying to get up from his bed. His son found him on the floor. Patient was complaining of left hip pain however denied hospital evaluation at that time. This morning, left hip pain was persistent and patient then agreed to come to the ED. Patient reports he did strike his head with the fall however denies any loss of consciousness. No associated chest pain or shortness of breath. Has some lightheadedness with standing however denies syncopal event. No abdominal pain, nausea, vomiting, diarrhea. Denies any other recent illnesses, fevers, chills. No urinary symptoms. In the ED, patient is found to have left hip fracture. Labs show mildly elevated troponin 0.122, EKG shows new RBBB. CT ABD/pelvis is showing signs of esophageal distention, likely secondary to achalasia. Patient was given IVF, IV Zofran, IV morphine. Admission Exam Per Admitting Provider Constitutional: + cachectic; no acute distress Vitals as above Eyes: PERRL, conjunctivae normal, anicteric sclerae ENMT: Ears: no external ear abnormality Nose: no external nose abnormality Mouth: + dry oral mucous membranes Respiratory: normal respiratory effort, lungs clear to auscultation Cardiovascular: Rate/Rhythm: regular rate and regular rhythm Vessels: normal peripheral pulses Extremities: no edema Gastrointestinal (Abdomen): normal bowel sounds, soft, nontender, no hepatosplenomegaly Musculoskeletal: Extremities: + leg length discrepancy (Left, shortened) and + leg externally rotated (Left); no cyanosis and no clubbing Skin: no rashes, warm and dry Neurologic: PERRL, EOMI, accommodation nl, no face palsy, no dysarthria Psychiatric: Orientation: alert and oriented x 3 Principal Diagnosis Left hip fracture s/p L hip hemiarthroplasty on 12/31/2019 Achalasia Malnutrition MARTINE Aspiration pneumonia Discharge Exam Constitutional: elderly male,+ cachectic, lying in bed in no acute distress Eyes: PERRL, EOMI, conjunctivae normal, anicteric sclerae ENMT: external ear and nose normal, oropharynx normal Ears: no external ear abnormality Nose: no external nose abnormality Respiratory: normal respiratory effort; no respiratory distress Auscultation: lungs clear to auscultation bilaterally and + diminished lung sounds Cardiovascular: Rate/Rhythm: regular rate and regular rhythm Vessels: normal peripheral pulses Extremities: no edema Gastrointestinal (Abdomen): abdomen normal to inspection and normal bowel sounds Percussion/Palpation: abdomen soft; abdomen nontender Musculoskeletal: Extremities:warm, well perfused, no sensory loss noted, diff. to move LLE d/t recent hip fx repair, moves toes w/o difficulty Skin: no rashes, warm and dry Neurologic: PERRL, EOMI, accommodation nl, no face palsy, no dysarthria moves all extremities; no focal motor deficits Psychiatric: Orientation: alert and oriented x 3 Discharge Data Allergies Allergy/AdvReac Type Severity Reaction Status Date / Time No Known Allergies Allergy Verified 12/27/19 10:34 Consultations 12/27/19 11:15 ED Decision to Admit Stat 12/27/19 13:18 Consult Anesthesiology Routine Consult Cardiology Routine Consult Case Management - Discharge Planning Routine Consult Case Management - Discharge Planning Routine Consult Orthopedic Surgery Routine 12/31/19 18:27 Consult Case Management - Discharge Planning Routine 01/03/20 07:22 Consult Nephrology Routine Procedures Performed Operation Date: 12/28/19 07:00 <No data on this case meets the specified criteria> Operation Date: 12/31/19 10:10 Actual Procedures p Left Bipolar Hemiarthroplasty, Cemented(Left) - DO ailyn Cadena Esophagogastroduodenoscopy(Not Applicable) - Kendra Garcia M.D. Ordered Studies 12/27/19 09:57 CT abd pelvis wo con Stat IMPRESSION: 1. Impacted displaced subcapital left femoral neck fracture. 2. Markedly distended esophagus, partially imaged on this exam. Probable hiatal hernia. The appearance raises the possibility of achalasia. A GE junction tumor with resultant esophageal dilatation could appear similar. Nonemergent GI consultation is suggested. 3. Trace bilateral pleural effusions. 4. Moderate emphysema. CT head/brain wo con Stat 12/27/19 12:18 CT chest w con Routine Impression: No acute intracranial abnormality. Atrophy and microvascular ischemic changes. Trace fluid levels within the maxillary sinuses. 12/30/19 18:00 CT chest wo con Routine IMPRESSION: 1. No significant change in marked dilatation of the esophagus since CT of December 27, 2019. Amount of ingested contents within the esophagus mildly diminished but esophagus remains fluid-filled. The appearance favors achalasia. 2. Distended esophagus again results in significant mass effect upon the trachea at the level of the thoracic inlet with marked tracheal narrowing which appears increased when compared to prior exam. This could be correlated with respiratory symptoms. 3. Increase in small bilateral pleural effusions. Significant left lower lobe volume loss suggestive of subsegmental atelectasis. 4. Moderate emphysema. 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 Mcdonald -Now status post left hip hemiarthroplasty on 12/31/2019 -Clinically much better and getting physical therapy -Anticipated slow improvement, plan to discharge to [facility] today (2) Aspiration pneumonia: Likely secondary to achalasia of the esophagus Has been put on intravenous Zosyn, then switched to ceftriaxone (sputum cltx posit. for serratia), finished Abx course White cell count was initially high and now normalized, 15.7k-->7k No acute symptoms from aspiration and/or pneumonia Repeat CT of the chest did show slightly increasing accumulation of fluid/food in the esophagus Clears started orally with aspiration precaution (3) Achalasia: -History of achalasia, most recent dilation and Botox injections 01/2019 -GI consulted, case discussed with CLAYTON Montalvo -Esophageal fullness is likely to be relieved with time -obtained CT of the chest without contrast -GI and the Ortho team together working during hip surgery -Now Status post EGD with drainage of fluid and food particles and dilatation of the lower end of the esophagus (2/10) -We will need to be on liquid diet indefinitely -Advised to keep appointment with outpatient cane feeder to continue procedures as needed for achalasia (poss. Botox) (4) Leukocytosis: -WBC 15K, likely stress response due to fall/fracture -in setting of likely aspiration pneumonia - currently no s/s of infection - pt finished Abx course - WBC normalized to 7K (5) Elevated troponin: (6) RBBB: -Mild troponin elevation 0.122, no reports of chest pain, likely secondary to dehydration/stress from fall -Found to have new RBBB on EKG -Continue cycle cardiac enzymes, check resting echo -Cardiology consult for preoperative evaluation, Dr. Del Toro notified -Appreciate cardiology input and recommendation 3 beats of VT 2 nights ago, nonsustained, noted on telemetry, pt asymptomatic otherwise remains in sinus rhythm w/ occasional PVCs -electrolytes wnl - goal K>4 and goal Mg >2 - started pt on low dose beta alex (metoprolol 12.5 mg BID) (7) Severe protein-calorie malnutrition: Has not been eating or drinking much due to severe achalasia Nutrition consult Was on PPN, tolerated well - now on clear liquid diet, tolerates well MARTINE Cr 2.1 - been worsening for ~3 days - nephrology consulted, likely isch. ATN d/t postoperative hypotension - also poss. partially pre-renal, secondary to above - cont. gentle hydration - will monitor renal function, avoid nephrotoxic agents - now downtrending to 1.7 - recommend to monitor renal function, have BMP repeated on Tuesday on 01/07 (8) DVT prophylaxis: -SCDs, Lovenox Total Time Total Time Spent Total Time Spent (In Minutes): 45 Total Time Includes: Examination of the Patient, Discharge Planning, Medication Reconciliation and Communication With Other Providers Discharge Plan Discharge Items Patient Disposition: Transfer Inpatient Rehab Fac Reason For Visit: LEFT HIP FRACTURE Discharge Diagnosis: Left hip fracture s/p L hip hemiarthroplasty on 12/31/2019 Achalasia Malnutrition MARTINE Aspiration pneumonia Activity: As commented below Non-emergency contact: Primary Care Provider, Surgeon and Gear Cutting Machine Set Up Operator Call non-emergency contact if: you have any medication questions Follow-up/Referrals: Basilio Hoffmann [Primary Care Provider] - Diet: Full liquid and Clear liquid Diet Comment: ONLY LIQUID DIET (pt was on clear liquid diet while inpt) Addtl Attending Provider Instructions: You were treated for aspiration pneumonia, while in the hospital. You finished antibiotic course while here. For your left hip fracture, you will need to follow-up with orthopedic surgeon, see detailed instructions below. Per gastroenterology recommendations, you can only be on a liquid diet. (Patient was on clear liquids while in the hospital, and tolerates well. Can possibly try full liquid diet and closely monitor, would not advance further without speaking to gastroenterology). Please follow-up with gastroenterology as outpatient for further management. You were also treated here for acute kidney injury (MARTINE), make sure to have good oral intake, and have blood work repeated, BMP, on January 07. Results need to be faxed to your current healthcare provider, to monitor your kidney function. You will also need CBC, to monitor your anemia. Addtl Lion Hunter Provider Instructions: ACTIVITY RECOMMENDATIONS: SELF CARE INSTRUCTIONS AFTER HIP HEMIARTHROPLASTY Until the incision and soft tissues around your hip have healed, there is a possibility that the hip prosthesis could dislocate. A. Observe the following precautions to prevent dislocation: 1. Don't bend your hip greater than 90 degrees. 2. Avoid crossing your legs or ankles while standing or lying. 3. Sit with your feet placed 6 inches apart. 4. When sitting, keep your knees below your hips. Sit on a firm surface, avoid deep, soft chairs and couches. Use an elevated toilet seat in the bathroom. 5. Don't bend over at the waist. Use a long handled shoehorn and a sock aid to help you put on your shoes and socks. A repair specialist can help you cigar packer and picker objects that are too high or too low to reach. 6. Keep car riding to a minimum for at least one month after surgery. B. Your balance may be shaky for a while. Use crutches or a walker until directed by your doctor. C. Use hand rails when walking on stairs. D. Wear low heeled shoes with non-slip soles. E. Be sure that your floors are free of things that could trip you - throw rugs, electrical cords, small objects. Avoid wet and waxed floors, especially with crutches and canes. F. Try to walk several times a day with rest periods between. G. Continue with all the exercises taught to you in the hospital. Again, make walking a part of your daily routine. SPECIAL CARE INSTRUCTIONS: VERY IMPORTANT TO READ AND REVIEW A. You may still be at risk for phlebitis and blood clots. 1. Wear surgical stockings (ELLA hose) for 2 weeks after surgery to improve circulation and reduce swelling. 2. Take ENOXAPARIN daily for 4 weeks or as directed by your doctor. This is your blood thinner. B. You must take antibiotics before having dental work, bladder, bowel and other surgery. Your doctor will provide you with a permanent card to carry describing precautions. C. Call [facility] if you have a fever, redness or swelling around the incision, cloudy drainage from incision, or sudden increase in pain in your hip, not relieved by your regular pain medication. D. Please call the office at if you have any concerns or questions about your operation or recovery. * YOU MAY SHOWER, NO TUB BATHS UNTIL CLEARED BY YOUR DOCTOR. * WEAR ELLA HOSE 20 HOURS PER DAY FOR 2 WEEKS. * YOU SHOULD USE A WALKER OR CRUTCHES FOR 2-4 WEEKS. THIS WILL HELP PREVENT STRAIN ON YOUR HIP MUSCLE AND ALLOW IT TO HEAL PROPERLY. YOU MAY WEAN TO A CANE TOLERATED. * MOST PATIENTS WILL HAVE HOME NURSING FOR THERAPY. IF YOU DECIDE TO DO OUTPATIENT PHYSICAL THERAPY, PLEASE SCHEDULE THIS 3 TIMES PER WEEK. * Silverlon- This is a large adhesive bandage that contains silver ions. This helps your incision heal by fighting off bacteria and protecting it from the outside environment. You are permitted to shower with this dressing. This will remain on your incision for 7 days and then should be removed. Some visible blood or drainage through the dressing window is normal. If there is significant drainage or leaking noted before the 7 days notify your doctor's office immediately. Once removed, keep incision clean and dry. If there is any drainage or redness noted, please call your surgeon. . FOLLOW UP VISIT: If appointment is not already scheduled: Please call [facility] to make a follow-up appointment for 2 weeks after your surgery at . Dr. Ramírez Pending Studies at Discharge: No Stand-Alone Forms: My [facility] Skilled Items Patient informed of condition?: Yes DNR: Yes Discharge Level of Care: Acute rehab Communicable Disease: No Discharge Prognosis: Stable Lines: None Urinary Catheter: Yes Medications and DC Order Prescriptions: New enoxaparin [Lovenox] 30 mg/0.3 mL Syringe 30 mg subcut Q24H 5 Days Qty: 1.5 RF: 0 metoprolol tartrate 25 mg Tablet 12.5 mg PO BID 5 Days Qty: 5 RF: 0 acetaminophen [Mapap (acetaminophen)] 325 mg Tablet 650 mg PO Q4H PRN (Reason: pain) 5 Days Qty: 14 RF: 0 sennosides-docusate sodium [Senokot-S] 8.6-50 mg Tablet 2 tab PO HS 5 Days Qty: 10 RF: 0 No Action No Known Home Medications RF: 0 Admission Data Admit Date/Time: 12/27/19 11:56 Attending Provider: Dimitrios Latif Admit Provider: Arlene Allan Primary Care Provider: Basilio Hoffmann Other Providers: Arlene Allan ; Justin Bender ; Masood Del Toro ; Bright Mcdonald ; Pooja Flores ; Jian Beckman Elissa R. ; Tatiaan Moreno ; Estefanía Martinez ; [facility]
[2020-01-04] MEDS: cefTRIAXone SODIUM 1,000 MG in DEXTROSE 5% 50 ML IV SCH (13:28)
== END 2020-01-04 15:10 | DRG 469 ==
LOC: ED 09:44 → SUATTDRO 11:56 → 2N 11:56

== ENCOUNTER 2020-01-16 11:39 | Inpatient (IN) ==
[2020-01-16] MEDS ORDERED: MoRPHine SULFATE 2 MG/ML CARP IV PRN (12:10)
[2020-01-16] MEDS ORDERED: MoRPHine SULFATE 2 MG/ML CARP IV STA (12:10)
[2020-01-16] MEDS ORDERED: ONDANSETRON INJ 2 MG/ML 2 ML VIAL IV STA (12:10)
[2020-01-16] MEDS ORDERED: SODIUM CHLORIDE 0.9% 1000ML 500 ML IV ONE (12:10)
--- NOTE | 2020-01-16 13:04 | XRay Report ---
XR hip LT 2V w pelvis CLINICAL HISTORY: Possible dislocation. COMPARISON: Left hip radiographs January 15, 2020. FINDINGS: There is superior posterior dislocation of the left hip arthroplasty is noted. Hardware is intact. No acute fracture is identified. There are skin paco. IMPRESSION: Superior dislocation of the left hip arthroplasty. ACT 112: Negative or not required by law. Electronically signed by: Jim Villatoro M.D. 01/16/2020 1:02 PM
--- NOTE | 2020-01-16 13:04 | XRay Report ---
XR chest 1V portable CLINICAL HISTORY: hip dislocation COMPARISON STUDY: December 27, 2019 FINDINGS: The heart is normal in size.[There is a right paratracheal soft tissue density which was pr evious CT felt to represent a dilated esophagus. There are bilateral pleural effusions with associate d basilar airspace opacities possibly representing compressive atelectasis. There is no failure. IMPRESSION: 1. Right paratracheal opacity, consistent with the patient's known dilated esophagus 2. Bilateral pleural effusions with associated basilar opacities. ACT 112: Negative or not required by law. Electronically signed by: Johnny Hernandez M.D. 01/16/2020 1:02 PM
[2020-01-16 13:41] LABS: Basophils # (auto) 0.01 K/uL (0-0.2); Basophils % (auto) 0.1 %; Hematocrit (blood only) 35.1 % (42-52); Hemoglobin 11.5 g/dL (14.0-18.0); Immature Granulocytes # (auto) 0.03 K/uL (0.00-0.02); Immature Granulocytes % (auto) 0.2 %; Lymphocytes # (auto) 0.77 K/uL (1.2-3.4); Lymphocytes % (auto) 5.1 %; Mean Corpuscular Hgb Conc 32.8 g/dL (32-36); Mean Corpuscular Volume 94.6 fL (80-100); Mean Platelet Volume 10.6 fL (7.4-10.4); Monocytes # (auto) 0.95 K/uL (0.11-0.59); Monocytes % (auto) 6.3 %; Neutrophils # (auto) 13.36 K/uL (1.4-6.5); Neutrophils % (auto) 88.3 %; Platelet Count 378 K/uL (130-400); RDW Coefficient of Variation 16.3 % (11.5-14.5); RDW Standard Deviation 56.3 fL (36.4-46.3); Red Blood Count 3.71 M/uL (4.7-6.1); White Blood Count 15.12 K/uL (4.8-10.8)
[2020-01-16 13:57] LABS: BUN Creatinine Ratio 29.1 (10-20); Calcium 9.1 mg/dl (8.5-10.1); Creatinine Clr Calc Pharmacy 31.2 ml/min; Est GFR (African American) 72.6; Est GFR (Non-African American) 62.6; Magnesium 1.6 mg/dl (1.8-2.4); Potassium 3.5 mmol/L (3.5-5.1)
[2020-01-16 13:58] LABS: INR 1.1 (0.9-1.1); Partial Thromboplastin Time 26.2 Seconds (21.0-31.0); Prothrombin Time 11.4 Seconds (9.0-12.0)
[2020-01-16 14:06] LABS: Troponin I 0.046 ng/ml (0-0.045)
[2020-01-16] MEDS ORDERED: MAGNESIUM SULFATE / D5W 1 GM/100 ML BAG IV ONE (14:09)
--- NOTE | 2020-01-16 14:48 | Orthopedic Consultation ---
Date of Consultation January 16, 2020 Assessment & Plan (1) Dislocation of left hip: I have discussed the case with Dr. Allan who will be admitting the patient today. There have been some EKG changes noted from his previous admission and they are going to have an echocardiogram done shortly. If patient is cleared per medicine service, we will plan for close reduction of the left hip this evening in the operating room. Dr. Ramírez is aware and planning for close reduction at 5 PM. Barring any complications and once the hip has been reduced, plans will be to consult orthotics for a hip abduction brace. Once the brace has been applied we will start him on physical therapy. Supervising Physician Co-Signing Physician Notes I have personally seen and examined the patient and agree with above assessment plan. Patient had recurrent left hip hemiarthroplasty dislocation today while being transferred in bed, unclear whether knee immobilizer to consider was still on however the patient arrived without any immobilizer in the emergency department I was told. Patient unable to follow hip precautions secondary to confused state. Due to EKG changes closed reduction cannot be performed in the emergency department and the patient was admitted for cardiac work-up. The patient was medically optimized on 01/16/2020. Left lower extremity physical exam is limited secondary to patient's confused state, actively wiggles toes and ankle, left lower extremity shortened and internally rotated, +2 dorsalis pedis pulse, compartment soft nontender. a/p -I have indicated patient for closed reduction of left hip hemiarthroplasty. I discussed the risks, benefits, complications and alternatives with the patient's POA son who is present at bedside for the entirety of the encounter which include however not limited to injury to surrounding nerves, bone, vessels, soft tissue, arthrofibrosis, chronic pain, recurrent instability and need for surgery, loss of limb and loss of life. Alternatives to the procedure include no reduction which would result in worsening symptoms and clinical picture and the patient would remain nonambulatory. The patient son agreed to close reduction of left hip hemiarthroplasty and informed consent was obtained at this time. History of Present Illness Reason for Consultation: Left hip hemiarthroplasty dislocation History of Present Illness Patient is an 89-year-old white male known to our practice who is status post left bipolar hemiarthroplasty done by Dr Ramírez on 12/31/2019. Patient's postoperative period with his hemiarthroplasty was essentially benign and he was transferred to [facility]. He had been brought into [facility] emergency room here yesterday on 01/15/2020 with a dislocated left bipolar hemiarthroplasty. I discussed the case with Dr. Lundberg who at that time reduced the hip successfully and transferred the patient back to [facility]. Patient returns with his second dislocation. Currently he is lying in bed and is pleasantly confused. He is unsure what has happened and what is going on with his hip. I discussed with him that he had dislocated his hip again and that we were going to put it in place this evening if he has been cleared by the medicine service. Patient answered "ok". He does not remember how he dislocated the hip. Allergies Allergy/AdvReac Type Severity Reaction Status Date / Time No Known Allergies Allergy Verified 01/16/20 13:21 Home Medications Home Medications Medication Instructions Recorded Confirmed Type acetaminophen [Tylenol Extra 500 mg PO QID 01/15/20 01/16/20 History Strength] acetaminophen [Tylenol] 650 mg PO Q6 PRN 01/15/20 01/16/20 History enoxaparin [Lovenox] 30 mg SUBCUT DAILY 01/15/20 01/16/20 History metoprolol tartrate 12.5 mg PO BID 01/15/20 01/16/20 History potassium chloride 20 meq PO BID 01/15/20 01/16/20 History menthol-zinc oxide [Calmoseptine] 1 applic TOPICAL TID 01/16/20 01/16/20 History sennosides-docusate sodium [Senna 1 tabcap PO HS 01/16/20 01/16/20 History Plus] Patient History Medical History Achalasia BPH (benign prostatic hyperplasia) Dislocation, hip (Acute) Elevated troponin Severe protein-calorie malnutrition Surgical History History of esophagogastroduodenoscopy (EGD) History of tonsillectomy History of tooth extraction all upper and most of lower Hx of left cataract extraction S/P hip replacement Family History Denies family history of Diabetes Heart disease Social History Preferred Language: Nigerian Communication Ability: Effective Program Developer Required: No Beliefs That Will Affect Care: None Current Living Situation: Longterm Feels Safe at Home: Yes Safety Concerns: Feels Safe At This Time Smoking Status: Never smoker Second Hand Exposure: Yes ( smoked) ; Hx Alcohol Use: No Hx Substance Use: No Review of Systems Review of Systems: Unobtainable due to cognitive status Pt not answering all questions appropriately for me at this time. Physical Exam Physical Exam: Patient is currently lying on his bed in the emergency room. He appears to be resting comfortably and does answer to his name. He is pleasantly confused and answers a few questions appropriately however some questions he does not and mumbles the answers. He does follow commands to an extent. Focusing exam on the left lower extremity, the extremity is internally rotated and shortened compared to the right. He has some mild pain on palpation of the left lateral hip. Healing hip incision noted. No attempts were made to take the hip through range of motion due to dislocation. His left knee is nontender on palpation. He does move his toes and ankle when asked to. Range of motion of his upper extremities appears to be unaffected as he is just his blankets around his shoulders and upper extremities. Distal pulses are equal bilaterally. He does not appear to have any gross motor or sensory loss seen at this time but he does not answer questions concerning his sensation during examination of the left lower extremity. Constitutional: WD/WN, vitals as above Results & Data ([facility]) Vital Signs (Past 12 Hours) Vital Signs Temp Pulse Resp BP Pulse Ox 01/16/20 14:32 86 18 124/59 L 95 01/16/20 14:30 87 23 93 01/16/20 14:00 81 27 H 91 01/16/20 13:30 89 21 100 01/16/20 12:30 87 22 100 01/16/20 11:48 36.9 C 90 15 124/64 100 01/16/20 11:45 77 20 124/64 100 Diagnostic Findings Patient: ALVARADO KING JRAdmit Date: 01/16/20 MR#: [id number]: [address] Acct ID:[id number]: [facility] Date: [address] Zip: [place] [address] Age: 89Location: ED Sex: M Room/Bed: Att Phy:Diagnosis: HIP PAIN Marci Phy: Kaci Blackwell MDService Date: 01/16/20 Fam Phy:Interpreting Phy: Jim Villatoro MD Admit Phy: Ordering Phy: Brent Kevin M.D. cc: ~ XR hip LT 2V w pelvis CLINICAL HISTORY: Possible dislocation. COMPARISON: Left hip radiographs January 15, 2020. FINDINGS: There is superior posterior dislocation of the left hip arthroplasty is noted. Hardware is intact. No acute fracture is identified. There are skin paco. IMPRESSION: Superior dislocation of the left hip arthroplasty. (1) Dislocation of left hip Encounter type: initial encounter Qualified Code(s): S73.005A - Unspecified dislocation of left hip, initial encounter
--- NOTE | 2020-01-16 15:06 | Electrocardiogram Report ---
Test Reason : Blood Pressure : / mmHG Vent. Rate : 068 BPM Atrial Rate : 068 BPM P-R Int : 166 ms QRS Dur : 120 ms QT Int : 432 ms P-R-T Axes : 083 -25 174 degrees QTc Int : 459 ms Sinus rhythm with Premature supraventricular complexes and with occasional Premature ventricular comp lexes Right bundle branch block T wave abnormality, consider lateral ischemia Abnormal ECG Confirmed by Bill Tinajero ([id number]) on 01/16/2020 3:05:39 PM Referred By: Anna Saunders Confirmed By:Venkat Tinajero
[2020-01-16] MEDS ORDERED: PIPERACILL/TAZOBAC CONSULT ACTIVE PRN (15:23)
--- NOTE | 2020-01-16 15:42 | Anesthesiology Consultation ---
Date of Service January 16, 2020 Assessment & Plan (1) Encounter for pre-operative examination: Chart Review Chart Review: Acceptable Risk for Surgery Consults Requested none ASA ASA4 Proposed Anesthesia Anesthesia Type: MAC Risk / Benefits Reviewed With: PT / POA / Parent / Guardian, Accepts Plan and Informed Consent Obtained History Surgery Operation Date: 01/16/20 12:15 Proposed Procedures p Left Hip Closed Reduction - Talon Ramírez, Height/Weight Height: 5 ft 9 in Weight: 46.3 kg Allergies Allergy/AdvReac Type Severity Reaction Status Date / Time No Known Allergies Allergy Verified 01/16/20 13:21 Medications Home Medications Medication Instructions Recorded Confirmed Last Taken acetaminophen [Tylenol Extra 500 mg PO QID 01/15/20 01/16/20 01/16/20 09:01 Strength] acetaminophen [Tylenol] 650 mg PO Q6 PRN 01/15/20 01/16/20 01/14/20 09:43 enoxaparin [Lovenox] 30 mg SUBCUT DAILY 01/15/20 01/16/20 01/16/20 metoprolol tartrate 12.5 mg PO BID 01/15/20 01/16/20 01/16/20 potassium chloride 20 meq PO BID 01/15/20 01/16/20 01/16/20 menthol-zinc oxide [Calmoseptine] 1 applic TOPICAL TID 01/16/20 01/16/2012/23 sennosides-docusate sodium [Senna 1 tabcap PO HS 01/16/20 01/16/20 01/15/20 Plus] Active Medications Generic Name Dose Route Start Last Admin Trade Name Freq PRN Reason Stop Dose Admin Potassium Chloride 20 meq 01/16/20 17:00 01/16/20 16:17 Patt Ciel Elix PO 02/15/20 16:59 Not Given BID17 CANDIDA Past Medical History Medical History Achalasia BPH (benign prostatic hyperplasia) Dislocation, hip (Acute) Elevated troponin Severe protein-calorie malnutrition Exercise / Class Metabolic Activity III < 4 Walking/Shop/Light housework Past Family History Family History Denies family history of Diabetes Heart disease Past Surgical History Surgical History History of esophagogastroduodenoscopy (EGD) History of tonsillectomy History of tooth extraction all upper and most of lower Hx of left cataract extraction S/P hip replacement Past Anesthesia History No Hx of Anesthesia Complications and No Family Hx of Anesthesia Complications History of PONV No Hx of PONV and No Hx of Motion Sickness Social History Smoking Status: Never smoker Hx Alcohol Use: No Hx Substance Use: No substance use type: does not use Physical Exam Vital Signs Last Vital Signs Temp 98.8 F 01/16/20 15:29 Pulse 96 H 01/16/20 16:08 Resp 16 01/16/20 15:29 BP 125/62 01/16/20 15:29 Pulse Ox 96 01/16/20 15:29 ENMT Mouth: + poor dentition Thyromental Distance: > or= 3.5 Finger Breadths Mallampati Class: II Neck normal visual inspection Respiratory normal respiratory effort Auscultation: + diminished lung sounds Cardiovascular Rate/Rhythm: regular rate and regular rhythm Testing Laboratory Results 01/16/20 13:30 01/16/20 13:30 PT 11.4 Seconds (9.0-12.0) 01/16/20 13:30 INR 1.1 (0.9-1.1) 01/16/20 13:30 APTT 26.2 Seconds (21.0-31.0) 01/16/20 13:30 Electrocardiogram Date: 01/16/20 Sinus rhythm with Premature supraventricular complexes and with occasional Premature ventricular complexes, rate 68 bpm Right bundle branch block T wave abnormality, consider lateral ischemia Abnormal ECG Confirmed by Bill Tinajero ([id number]) on 01/16/2020 3:05:39 PM Chest X-Ray Date: 01/16/20 IMPRESSION: 1. Right paratracheal opacity, consistent with the patient's known dilated esophagus 2. Bilateral pleural effusions with associated basilar opacities. Echocardiogram Date: 01/16/20 This was a limited study performed to assess LV function and wall motion The LV cavity is small Mild concentric LVH Septal motion is consistent with conduction abnormality EF 65-70% In comparison to prior study of 12/27/2019, no significant change :
--- NOTE | 2020-01-16 15:46 | History & Physical Report ---
Date of Service January 16, 2020 Assessment & Plan (1) Dislocation of left hip: -Admit to [facility] with telemetry -Patient presenting from [facility] for evaluation of left hip dislocation -Recent admission to [facility] 12/27 through 01/04 for left hip fracture, s/p left hip hemiarthroplasty on 12/31 -Seen in ED on 01/15 for left hip dislocation which was able to be reduced in the ED -Per orthopedics, patient will need to go to the OR for closed reduction -Likely will be considered high risk due to his very malnourished state and other problems as described below (2) Abnormal EKG: (3) Elevated troponin: -EKG shows new deep T wave inversions laterally -No cardiopulmonary complaints per patient, however is poor historian -Mildly elevated troponin 0.046 -May have some component of heart failure with bilateral pleural effusions on CXR, check proBNP -Check limited echo to evaluate for new wall motion abnormality and EF (4) Bilateral pleural effusion: -Bilateral pleural effusions with bibasilar opacities noted on CXR -WBC 15 K; does not appear septic -Patient is high risk for aspiration given underlying achalasia -will cover empirically with IV Zosyn for now; check procalcitonin -work-up for CHF as above, may need diuresis (5) Achalasia: -Maintain liquid diet -S/p EGD on 12/31 with drainage of food and fluid and dilation (6) DVT prophylaxis: -SQ heparin History of Present Illness Chief Complaint: Left hip dislocation Primary Care Provider: Kaci Blackwell MD 89-year-old male who presents the ED for evaluation of left hip dislocation. Patient recently admitted to [facility] 12/27 through 01/04 for management of left hip fracture. Patient is status post left hip hemiarthroplasty on 12/31. Patient also with history of achalasia and underwent EGD with drainage of fluid and food particles and dilation on 12/31. It was recommended that a patient remain on a liquid diet indefinitely. Patient was discharged to [facility]. He was seen in the ED yesterday for a left hip dislocation. It was able to be reduced in the ED and patient was sent back to [facility]. This morning, after patient was rolled in bed, it was noted that his left leg was internally rotated and had obvious deformity to the left hip. He was sent back to the ED for further evaluation. History is limited from the patient. There have been no reports of chest pain or shortness of breath. No documented fevers. In the ED, patient is found to have a left hip dislocation once again. Labs show WBC 15 K, troponin mildly elevated 0.046, MG +1.6. EKG shows new deep T wave inversions inf eriorly. CXR shows bilateral pleural effusions. Patient was given IV morphine, IV Zofran, IVF, IV magnesium replacement. Allergies Allergy/AdvReac Type Severity Reaction Status Date / Time No Known Allergies Allergy Verified 01/16/20 13:21 Home Medications Home Medications Medication Instructions Recorded Confirmed Type acetaminophen [Tylenol Extra 500 mg PO QID 01/15/20 01/16/20 History Strength] acetaminophen [Tylenol] 650 mg PO Q6 PRN 01/15/20 01/16/20 History enoxaparin [Lovenox] 30 mg SUBCUT DAILY 01/15/20 01/16/20 History metoprolol tartrate 12.5 mg PO BID 01/15/20 01/16/20 History potassium chloride 20 meq PO BID 01/15/20 01/16/20 History menthol-zinc oxide [Calmoseptine] 1 applic TOPICAL TID 01/16/20 01/16/20 History sennosides-docusate sodium [Senna 1 tabcap PO HS 01/16/20 01/16/20 History Plus] Past Med/Surg History Medical History Achalasia BPH (benign prostatic hyperplasia) Dislocation, hip (Acute) Elevated troponin Severe protein-calorie malnutrition Surgical History History of esophagogastroduodenoscopy (EGD) History of tonsillectomy History of tooth extraction all upper and most of lower Hx of left cataract extraction S/P hip replacement Family History Denies family history of Diabetes Heart disease Social History Preferred Language: Turkmen Communication Ability: Effective 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 Beliefs That Will Affect Care: None Current Living Situation: Correction Feels Safe at Home: Yes Safety Concerns: Feels Safe At This Time Smoking Status: Never smoker Second Hand Exposure: Yes ( smoked) ; Hx Alcohol Use: No Hx Substance Use: No Review of Systems Review of Systems: Unobtainable due to cognitive status Physical Exam Constitutional: + cachectic and + frail appearing Vitals as above Eyes: PERRL, conjunctivae normal, anicteric sclerae ENMT: external ear and nose normal, oropharynx normal Respiratory: normal respiratory effort; no respiratory distress Auscultation: + diminished lung sounds Cardiovascular: Rate/Rhythm: regular rate and regular rhythm Vessels: normal peripheral pulses Extremities: no edema Gastrointestinal (Abdomen): normal bowel sounds, soft, nontender, no hepatosplenomegaly Musculoskeletal: Extremities: + leg internally rotated (Left); no cyanosis and no clubbing [place] intact to left hip, no significant surrounding erythema o r drainage noted Skin: no rashes, warm and dry Neurologic: PERRL, EOMI, accommodation nl, no face palsy, no dysarthria Psychiatric: Orientation: alert and oriented to person; + not oriented to place and + not oriented to time Insight: + limited insight Results & Data Vital Signs (Past 12 Hours) Vital Signs Temp Pulse Pulse Resp BP BP Pulse Ox 01/16/20 15:29 37.1 C 95 H 16 125/62 96 01/16/20 14:32 86 18 124/59 L 95 01/16/20 14:30 87 23 93 01/16/20 14:00 81 27 H 91 01/16/20 13:30 89 21 100 01/16/20 12:30 87 22 100 01/16/20 11:48 36.9 C 90 15 124/64 100 01/16/20 11:45 77 20 124/64 100 Laboratory Results Short CBC 01/16/20 Range/Units 13:30 WBC 15.12 H (4.8-10.8) K/uL Hgb 11.5 L (14.0-18.0) g/dL Hct 35.1 L (42-52) % Plt Count 378 (130-400) K/uL BMP 01/16/20 13:30 Sodium 146 H Potassium 3.5 Chloride 107 Carbon Dioxide 32 BUN 31 H Creatinine 1.05 Glucose 128 H Calcium 9.1 Cardiac Enzymes 01/16/20 Range/Units 13:30 Troponin I 0.046 H* (0-0.045) ng/ml Diagnostic Findings CXR IMPRESSION: 1. Right paratracheal opacity, consistent with the patient's known dilated esophagus 2. Bilateral pleural effusions with associated basilar opacities. LEFT HIP/PELVIS X-RAY IMPRESSION: Superior dislocation of the left hip arthroplasty. Code Status & VTE Plan Code Status Patient is a DNR as per patient's paperwork from [facility]. VTE Prophylaxis Plan VTE Prophylaxis will be ordered: Yes Supervising Physician Co-Signing Physician Notes Attending addendum The patient was seen and examined in the emergency room He is status post dislocation of hip prosthesis x2 and will need closed reduction in the OR He denies any significant symptoms Remains generally weak and lethargic and cachectic as before secondary to severe esophageal achalasia and inability to maintain nutrition On examination Lying in bed comfortably Cachectic looking and without any acute distress Hemodynamically stable Chest-decreased breath sounds at the bases with minimal crackles at the bases Heart-S1-S2, regular Abdomen-soft, benign, mildly tender in epigastric, bowel sounds present Extremities-negative for any edema INSPECTOR SUBASSEMBLIES-alert,awake and oriented x3- Initial labs and imaging studies noted Notable findings left hip dislocation, new EKG changes involving due to motion and chest x-ray evidence of CHF/effusion Limited echo did not show any significant LV dysfunction Carries a high risk for proposed surgery Agree with assessment plan as outlined above by Emily Allan (1) Dislocation of left hip Encounter type: initial encounter Qualified Code(s): S73.005A - Unspecified dislocation of left hip, initial encounter
[2020-01-16] MEDS ORDERED: PIPERACILLIN/TAZOBACTAM 3.375 GM in DEXTROSE 5% 100 ML IV ONE (16:00)
[2020-01-16] MEDS: POTASSIUM CHLORIDE 20 MEQ/15 ML UDC PO SCH (16:17)
[2020-01-16] MEDS ORDERED: FUROSEMIDE 20 MG in SYRINGE 0 ML IV ONE (17:00)
[2020-01-16] MEDS ORDERED: LIDOCAINE HCL 2% 2 ML VIAL/AMP(20MG/ML) INFIL ONE (18:03)
[2020-01-16] MEDS ORDERED: PROPOFOL IV EMULSION 10 MG/ML 20 ML VIAL IV ONE (18:03)
--- NOTE | 2020-01-16 18:03 | Emergency Department Note ---
Entered by Yaya Garcia acting as a scribe for Brent Kevin MD History of Present Illness General Chief complaint: Hip Pain Time Seen by Provider: 01/16/20 12:05 Source: patient Limitations: other (Mental state) History of Present Illness Onset (ago): hour(s) (earlier today) Location: left (hip) Severity: similar to prior episodes Pain Consistency: + constant Maximum Pain Intensity: 7 Quality: + constant Exacerbated By: + movement The patient is a 89 year old male who presents to the Emergency Room with complaints of constant left hip pain starting yesterday. The patient states he was in the ED yesterday for similar pain, and notes he had his hip reduced in the ED. HPI is limited secondary to mental state. Home Medications Home Medications Medication Instructions Recorded Confirmed Type acetaminophen [Tylenol Extra 500 mg PO QID 01/15/20 01/16/20 History Strength] acetaminophen [Tylenol] 650 mg PO Q6 PRN 01/15/20 01/16/20 History enoxaparin [Lovenox] 30 mg SUBCUT DAILY 01/15/20 01/16/20 History metoprolol tartrate 12.5 mg PO BID 01/15/20 01/16/20 History potassium chloride 20 meq PO BID 01/15/20 01/16/20 History menthol-zinc oxide [Calmoseptine] 1 applic TOPICAL TID 01/16/20 01/16/20 History sennosides-docusate sodium [Senna 1 tabcap PO HS 01/16/20 01/16/20 History Plus] Allergies Allergy/AdvReac Type Severity Reaction Status Date / Time No Known Allergies Allergy Verified 01/16/20 13:21 Past Med/Surg History Medical History Achalasia BPH (benign prostatic hyperplasia) Dislocation, hip (Acute) Elevated troponin Severe protein-calorie malnutrition Surgical History History of esophagogastroduodenoscopy (EGD) History of tonsillectomy History of tooth extraction all upper and most of lower Hx of left cataract extraction S/P hip replacement Family History Denies family history of Diabetes Heart disease Social History Preferred Language: Maori Communication Ability: Effective Nanotechnologist Required: No Beliefs That Will Affect Care: None Current [facility] Situation: [facility] Feels Safe at Home: Yes Safety Concerns: Feels Safe At This Time Smoking Status: Never smoker Second Hand Exposure: Yes ( smoked) ; Hx Alcohol Use: No Hx Substance Use: No Review of Systems Other (Unobtainable due to mental state) Physical Exam Vital Signs Vital Signs - 24 hr 01/16/20 11:45 01/16/20 11:48 01/16/20 12:30 Temperature 36.9 C Temperature Source Oral Pulse Rate 77 90 87 Pulse Rate from SpO2 Sensor 85 84 Pulse Strength Normal Respiratory Rate 20 15 22 Respiratory Effort / Characteristics Non-Labored Spontaneous Respiratory Depth Normal Respiratory Pattern Regular Blood Pressure 124/64 124/64 Blood Pressure Mean 80 84 Blood Pressure Position Lying Pulse Oximetry 100 100 100 Oxygen Delivery Method Room Air Sepsis Recent Fever Within 48 Hours No Sepsis New/Unexplained Change in Mental Status No Sepsis Action Taken by Nursing No Action Required 01/16/20 13:30 Temperature Temperature Source Pulse Rate 89 Pulse Rate from SpO2 Sensor 81 Pulse Strength Respiratory Rate 21 Respiratory Effort / Characteristics Respiratory Depth Respiratory Pattern Blood Pressure Blood Pressure Mean Blood Pressure Position Pulse Oximetry 100 Oxygen Delivery Method Sepsis Recent Fever Within 48 Hours Sepsis New/Unexplained Change in Mental Status Sepsis Action Taken by Nursing GENERAL: Patient is in no acute distress. HEENT: No acute trauma, normocephalic atraumatic, dry mucous membranes, no nasal congestion, no scleral icterus. NECK: No stridor, no adenopathy, no meningismus, trachea is midline. LUNGS: Clear to auscultation bilaterally, no wheeze, no rhonchi, breath sounds equal. HEART: Without murmurs gallops or rubs, regular rate and rhythm. ABDOMEN: Soft, nontender, bowel sounds positive, no hernias, no peritonitis. EXTREMITIES: Internally rotated, shortened, left leg consistent with hip dislocation. Pain to palpate the lateral left hip and to move the left hip. NEUROLOGIC: Awake and alert, no acute motor or sensory deficits, no focal weakness. SKIN: No rash, no jaundice, no diaphoresis. Course Course 1209: The patient was evaluated in room A3, and a complete history and physical examination were performed. 1233: Nursing reports the patient has been on a clear liquid diet since he was discharged yesterday. Nursing states the patient had a clear liquid drink and a potassium supplement at 0700 today. 1326: I spoke with Dr. aRmírez - Orthopedic Surgery. He states the patient will be taken to the OR. He states the patient should be bought into the medicine service because of his current state. 1327: I updated the patient on his condition. He agrees with the plan. 1333: I discussed the patient's case with Emily Guerra. [facility] the [facility] for further management Administered Medications Potassium Chloride (Patt Ciel Elix) 20 meq PO [id number] CANDIDA Stop: 02/15/20 16:59 Last Admin: 01/16/20 16:17 Dose: Not Given Documented by: [id number] Discontinued Medications Sodium Chloride (Nss 1000ml) 500 mls @ 999 mls/hr IV .Q31M ONE Stop: 01/16/20 12:40 Last Infusion: 01/16/20 14:10 Dose: 0 mls/hr Documented by: [id number] Admin: 01/16/20 13:33 Dose: 999 mls/hr Documented by: [id number] Magnesium Sulfate/Dextrose (Magnesium Sulfate / D5w) 1 gm in 100 mls @ 100 mls/hr IV ONE ONE Stop: 01/16/20 15:08 Last Infusion: 01/16/20 15:46 Dose: 0 mls/hr Documented by: [id number] Admin: 01/16/20 14:24 Dose: 100 mls/hr Documented by: [id number] Piperacillin Sod/Tazobactam (Sod 3.375 gm/ Dextrose) 115 mls @ 230 mls/hr IV NOW ONE; Protocol Stop: 01/16/20 16:29 Last Infusion: 01/16/20 16:53 Dose: 0 mls/hr Documented by: [id number] Admin: 01/16/20 16:14 Dose: 230 mls/hr Documented by: [id number] Furosemide 20 mg/ Syringe 2 mls @ 4 mls/min IV ONE ONE Stop: 01/16/20 17:01 Last Admin: 01/16/20 17:14 Dose: 4 mls/min Documented by: [id number] Morphine Sulfate (Morphine Sulfate) 2 mg IV NOW STA Stop: 01/16/20 12:11 Last Admin: 01/16/20 13:35 Dose: 2 mg Documented by: [id number] Ondansetron HCl (Zofran) 4 mg IV NOW STA Stop: 01/16/20 12:11 Last Admin: 01/16/20 13:35 Dose: 4 mg Documented by: [id number] Medical Decision Making Differential Diagnosis Differential Diagnosis includes but is not limited to hip dislocation, hip fracture, dehydration, anemia, hematoma, and electrolyte imbalance. Medical Records Attestation: I reviewed the patient's medical records. Patient had his left hip replaced on December 31, 16 days ago, by Dr. Ramírez. The patient was seen in the ED yesterday for hip pain and dislocation of left hip prosthesis. Hip was reduced in the ED and the patient was discharged. Home Medications Current Medication List: was personally reviewed by me Laboratory Data Attestation: I reviewed the patient's lab results. Result diagrams: 01/16/20 13:30 01/16/20 13:30 Lab Results 01/16/20 01/16/20 01/16/20 Range/Units 13:30 13:30 13:30 WBC 15.12 H (4.8-10.8) K/uL RBC 3.71 L (4.7-6.1) M/uL Hgb 11.5 L (14.0-18.0) g/dL Hct 35.1 L (42-52) % MCV 94.6 (80-100) fL MCH 31.0 (25-34) pg MCHC 32.8 (32-36) g/dL RDW Std Deviation 56.3 H (36.4-46.3) fL RDW Coeff of Jacob 16.3 H (11.5-14.5) % Plt Count 378 (130-400) K/uL MPV 10.6 H (7.4-10.4) fL Immature Gran % (Auto) 0.2 % Neut % (Auto) 88.3 % Lymph % (Auto) 5.1 % Moca % (Auto) 6.3 % Eos % (Auto) 0.0 % Baso % (Auto) 0.1 % Immature Gran # (Auto) 0.03 H (0.00-0.02) K/uL Neut # (Auto) 13.36 H (1.4-6.5) K/uL Lymph # (Auto) 0.77 L (1.2-3.4) K/uL Moca # (Auto) 0.95 H (0.11-0.59) K/uL Eos # (Auto) 0.00 (0-0.5) K/uL Baso # (Auto) 0.01 (0-0.2) K/uL PT 11.4 (9.0-12.0) Seconds INR 1.1 (0.9-1.1) APTT 26.2 (21.0-31.0) Seconds PTT Ratio 1.0 Sodium 146 H (136-145) mmol/L Potassium 3.5 (3.5-5.1) mmol/L Chloride 107 (98-107) mmol/L Carbon Dioxide 32 (21-32) mmol/L Anion Gap 7.0 (3-11) BUN 31 H (7-18) mg/dl Creatinine 1.05 (0.6-1.4) mg/dl Est Cr Clr Drug Dosing 31.2 ml/min Est GFR ( Amer) 72.6 Est GFR (Non-Af Amer) 62.6 BUN/Creatinine Ratio 29.1 H (10-20) Glucose 128 H (70-99) mg/dl Calcium 9.1 (8.5-10.1) mg/dl Magnesium 1.6 L (1.8-2.4) mg/dl Troponin I 0.046 H* (0-0.045) ng/ml NT-Pro-B Natriuret Pep (0-1800) pg/ml 01/16/20 Range/Units 13:30 WBC (4.8-10.8) K/uL RBC (4.7-6.1) M/uL Hgb (14.0-18.0) g/dL Hct (42-52) % MCV (80-100) fL MCH (25-34) pg MCHC (32-36) g/dL RDW Std Deviation (36.4-46.3) fL RDW Coeff of Jacob (11.5-14.5) % Plt Count (130-400) K/uL MPV (7.4-10.4) fL Immature Gran % (Auto) % Neut % (Auto) % Lymph % (Auto) % Moca % (Auto) % Eos % (Auto) % Baso % (Auto) % Immature Gran # (Auto) (0.00-0.02) K/uL Neut # (Auto) (1.4-6.5) K/uL Lymph # (Auto) (1.2-3.4) K/uL Moca # (Auto) (0.11-0.59) K/uL Eos # (Auto) (0-0.5) K/uL Baso # (Auto) (0-0.2) K/uL PT (9.0-12.0) Seconds INR (0.9-1.1) APTT (21.0-31.0) Seconds PTT Ratio Sodium (136-145) mmol/L Potassium (3.5-5.1) mmol/L Chloride (98-107) mmol/L Carbon Dioxide (21-32) mmol/L Anion Gap (3-11) BUN (7-18) mg/dl Creatinine (0.6-1.4) mg/dl Est Cr Clr Drug Dosing ml/min Est GFR ( Amer) Est GFR (Non-Af Amer) BUN/Creatinine Ratio (10-20) Glucose (70-99) mg/dl Calcium (8.5-10.1) mg/dl Magnesium (1.8-2.4) mg/dl Troponin I (0-0.045) ng/ml NT-Pro-B Natriuret Pep 3182 H (0-1800) pg/ml Imaging Data Radiologist's Impression: Radiology results as stated below per my review and the radiologist's interpretation: XR hip LT 2V w pelvis CLINICAL HISTORY: Possible dislocation. COMPARISON: Left hip radiographs January 15, 2020. FINDINGS: There is superior posterior dislocation of the left hip arthroplasty is noted. Hardware is intact. No acute fracture is identified. There are skin paco. IMPRESSION: Superior dislocation of the left hip arthroplasty. ACT 112: Negative or not required by law. Electronically signed by: Jim Villatoro M.D. 01/16/2020 1:02 PM XR chest 1V portable CLINICAL HISTORY: hip dislocation COMPARISON STUDY: December 27, 2019 FINDINGS: The heart is normal in size.[There is a right paratracheal soft tissue density which was previous CT felt to represent a dilated esophagus. There are bilateral pleural effusions with associated basilar airspace opacities possibly representing compressive atelectasis. There is no failure. IMPRESSION: 1. Right paratracheal opacity, consistent with the patient's known dilated esophagus 2. Bilateral pleural effusions with associated basilar opacities. ACT 112: Negative or not required by law. Electronically signed by: Johnny Hernandez M.D. 01/16/2020 1:02 PM ECG Data Attestation: I personally reviewed and interpreted this ECG as follows: Indication: + other (hip pain) Rate (beats per minute): 68 Rhythm: + sinus rhythm ECG Intervals/blocks: + Right Bundle branch block and + Normal QT-c (at 459) ECG ST segments: + T-wave inversions (anterior and lateral leads); no ST eleva tion ECG Findings: + PACs and + PVCs Comparison ECG Date: from (12/27/19) Change: the following changes noted (TWI are new) Blood Pressure Blood Pressure Findings: Elevated blood pressure Blood Pressure Disposition: further management by hospitalist [facility] Narrative There is a moderate leukocytosis, this could be consistent with infection or just the stress of his presentation. A mild anemia was noted. There was a normal platelet count. No coagulopathy. No kidney failure, magnesium was slightly low magnesium of 1.6. EKG shows a sinus rhythm, there were some new in verted T waves in the anterior and lateral leads. Cardiac enzyme testing x1 is slightly elevated, the patient has had a slight troponin elevation in the recent past. Chest film shows some potential atelectasis versus CHF/fluid overload. Pneumonia was thought possible but seemed less likely. Left pelvic and hip films show a superior left hip dislocation. No fracture seen. On exam, there was no left lower extremity neurovascular compromise. The patient has a dislocated left prosthetic hip. He has an abnormal chest x- ray, an abnormal EKG. This is his second presentation in 24 hours. I did speak with orthopedics. The patient will need to go to the operating room for this relocation. A medical hospitalization was felt warranted given the findings on chest x-ray and EKG. I spoke to the patient, I talked to case management. The on-call hospitalist was consulted. Of note, the patient was given IV magnesium, IV saline, IV Zofran and IV morphine during his ED stay, he is resting comfortably. Continuous Cardiac Monitoring: An order was placed for continuous cardiac monitoring. The monitor shows a rate of 68 with a sinus rhythm with PACs and PVCs. Impression & Plan Dislocation of left hip, Abnormal EKG, Abnormal chest x-ray, Elevated troponin, Hypomagnesemia Discharge Plan Visit Data *Final* Discharge Date/Time: 01/16/20 14:41 Chief Complaint: Hip Pain ED Provider: Brent Kevin Discharge Problem: Dislocation of left hip, Abnormal EKG, Abnormal chest x-ray, Elevated troponin, Hypomagnesemia Patient Disposition: Admitted As Inpatient Discharge Instructions Interventions: ED Discharge Assessment Last Done: 01/16/20 14:41 Discharge Problem: Dislocation of left hip Qualifiers: Encounter type: initial encounter Qualified Code(s): S73.005A - Unspecified dislocation of left hip, initial encounter The etelvinaibmatthias's documentation has been prepared under my direction and personally reviewed by me in its entirety. I confirm that the note above accurately reflects all work, treatment, procedures, and medical decision making performed by me.
[2020-01-16] MEDS ORDERED: ePHEDrine sulfate 50 MG/ML AMP IV PRN (18:29)
[2020-01-16] MEDS ORDERED: ATROPINE SULFATE 0.1 MG/ML 10ML SYR IV PRN (18:29)
[2020-01-16] MEDS ORDERED: fentaNYL citrate 100 MCG/2 ML VIAL IV PRN (18:29)
--- NOTE | 2020-01-16 18:37 | History & Physical Bridge Note ---
Date of Service January 16, 2020 History & Physical Bridge Note I have examined the patient, reviewed the History & Physical and in the interval since the performance of the History & Physical I have noted the following changes of clinical significance: no changes noted
--- NOTE | 2020-01-16 18:55 | Post Operative Brief Note ---
Immediate Post Op Note v1 Date of Surgery January 16, 2020 Pre & Post Diagnosis Operation Date: 01/16/20 12:15 Pre-Op Diagnosis: Left Hip Dislocation Post-Op Diagnosis: Left Hip Dislocation I identified the patient and participated in the time-out.: Yes Procedure Operation Date: 01/16/20 12:15 Actual Procedures p Left Hip Closed Reduction(Left) - Talon Ramírez DO Surgeon Talon Ramírez DO Legal Editor none Estimated Blood Loss 0 (.) Findings Consistent with Post-Op Diagnosis Fluids 600 cc LR total Specimens none Drains Flower Catheter (patient arrived to OR with patent, draining flower) Anesthesia Type MAC Complications none Disposition Disposition: Recovery Room Overlapping Procedure I was present for: the critical portions of procedure. I was immediately available: during the entire case. Back up surgeon: was not required during procedure.
--- NOTE | 2020-01-16 19:07 | Fluoroscopy Report ---
FL hip LT 1V CLINICAL HISTORY: CLOSED REDUCTION LT HIPdislocation COMPARISON STUDY: None FLUOROSCOPY TIME: 1 second NUMBER OF FLUOROSCOPIC IMAGES: 1 FINDINGS: Anatomic alignment of a left hip prosthetic. IMPRESSION: Anatomic alignment of a left hip prosthetic ACT 112: Negative or not required by law. The above report was generated using voice recognition software. It may contain grammatical, syntax or spelling errors. Electronically signed by: Ezra Perez M.D. 01/16/2020 7:05 PM
--- NOTE | 2020-01-16 19:27 | Operative Report ---
Post Operative Report Pre & Post Diagnosis Operation Date: 01/16/20 12:15 Pre-Op Diagnosis: Left Hip Dislocation Post-Op Diagnosis: Left Hip Dislocation I identified the patient and participated in the time-out.: Yes Procedure Operation Date: 01/16/20 12:15 Actual Procedures p Left Hip Closed Reduction(Left) - Talon Ramírez DO Surgeon Talon Ramírez DO Clothing Pattern Preparer none Estimated Blood Loss 0 (.) Findings Consistent with Post-Op Diagnosis Fluids 600 cc LR total Specimens None Anesthesia Type MAC Complications none Disposition Disposition: Recovery Room Indications Patient is an 89-year-old white male known to our practice who is status post left bipolar hemiarthroplasty done by Dr Ramírez on 12/31/2019. Patient's postoperative period with his hemiarthroplasty was essentially benign and he was transferred to [facility]. He had been brought into the emergency room here yesterday on 01/15/2020 with a dislocated left bipolar hemiarthroplasty. Closed reduction was performed in the emergency department successfully and the patient was transferred back to [facility]. Patient returns with his second dislocation. Patient had recurrent left hip hemiarthroplasty dislocation today while being transferred in bed, unclear whether knee immobilizer to consider was still on however the patient arrived without any immobilizer in the emergency department I was told. Patient unable to follow hip precautions secondary to confused state. Due to EKG changes closed reduction cannot be performed in the emergency department and the patient was admitted for cardiac work-up. The patient was medically optimized on 01/16/2020. I have indicated patient for closed reduction of left hip hemiarthroplasty. I discussed the risks, benefits, complications and alternatives with the patient's POA son who is present at bedside for the entirety of the encounter which include however not limited to injury to surrounding nerves, bone, vessels, soft tissue, arthrofibrosis, chronic pain, recurrent instability and need for surgery, loss of limb and loss of life. Alternatives to the procedure include no reduction which would result in worsening symptoms and clinical picture and the patient would remain nonambulatory. The patient son agreed to close reduction of left hip hemiarthroplasty and informed consent was obtained at this time. Description of Procedure The patient was brought to the operating room and transferred to the OR table. After the patient received adequate anesthesia leg lengths were assessed and the left lower extremity was found to be short and internally rotated. A timeout was performed, site charmaine identified and x-rays verified. The C arm fluoroscopy was positioned and initial x-rays of the left hip and femur demonstrated a posterior superior dislocation of the hip hemiarthroplasty prosthesis without fracture of the femur. A gentle reduction maneuver was performed with traction, flexion, adduction of the hip and a combination of internal and external rotation was applied to the right leg. A appreciable clunk was felt and leg lengths were assessed once more and found to be equal. C-arm fluoroscopy was brought in once more and images were taken confirming reduction of the total hip prosthesis. X-rays of the femur demonstrated no new fracture of the femur post-reduction. The patient tolerated the procedure well and was transferred to the PACU in stable condition. I attest to the content of the Intraoperative Record and any orders documented therein. Any exceptions are noted below.
--- NOTE | 2020-01-16 19:28 | Orthopedic Progress Note ---
Date of Service January 16, 2020 Assessment & Plan (1) Dislocation of left hip: Status post closed reduction left hip hemiarthroplasty -Weight-bear as tolerates left lower extremity -Strict posterior hip precautions, maintain knee immobilizer at all times, abduction pillow when in bed -Pain control -Postoperative x-ray well aligned well fixed prothesis without fracture, dislocation. -A.m. labs -We will place consultation to orthotics for abduction brace to be fitted prior to DC. Admission and Anticipated Discharge Date Admission Date: January 16, 2020 Subjective Post Operative Progress Note Patient seen in PACU, comfortable, denies complaints, pain well controlled, no acute issues. Review of Systems Review of Systems: All systems reviewed & are unremarkable except as noted in HPI & below Constitutional: as per Subjective / HPI Physical Exam Physical Exam: Limited physical exam secondary to somnolence, actively wiggles toes and ankle left lower extremity, +2 dorsalis pedis pulse, compartment soft nontender, abduction pillow in place, knee immobilizer in place. Constitutional: WD/WN, vitals as above Results & Data ([facility]) Vital Signs (Past 12 Hours) Vital Signs Temp Pulse Pulse Pulse Resp BP BP 01/16/20 19:15 100 H 15 131/81 01/16/20 19:05 96 H 20 148/81 H 01/16/20 18:58 36.5 C 98 H 20 144/79 H 01/16/20 17:28 37.1 C 91 H 18 121/61 01/16/20 16:08 96 H 01/16/20 15:29 37.1 C 95 H 16 125/62 01/16/20 14:32 86 18 124/59 L 01/16/20 14:30 87 23 01/16/20 14:00 81 27 H 01/16/20 13:30 89 21 01/16/20 12:30 87 22 01/16/20 11:48 36.9 C 90 15 124/64 01/16/20 11:45 77 20 124/64 Pulse Ox 01/16/20 19:15 96 01/16/20 19:05 100 01/16/20 18:58 96 01/16/20 17:28 96 01/16/20 16:08 01/16/20 15:29 96 01/16/20 14:32 95 01/16/20 14:30 93 01/16/20 14:00 91 01/16/20 13:30 100 01/16/20 12:30 100 01/16/20 11:48 100 01/16/20 11:45 100 (1) Dislocation of left hip Encounter type: initial encounter Qualified Code(s): S73.005A - Unspecified dislocation of left hip, initial encounter
--- NOTE | 2020-01-16 19:40 | XRay Report ---
XR hip 1V LT w pelvis CLINICAL HISTORY: post of COMPARISON: 01/16/2020 DISCUSSION: Anatomic alignment post closed reduction of the patient's total left hip arthroplasty. No evidence for fracture. No evidence for acetabular protrusion. Expected postoperative soft tissue chavez nge IMPRESSION: Anatomic alignment left hip post total left hip replacement. ACT 112: Negative or not required by law. The above report was generated using voice recognition software. It may contain grammatical, syntax or spelling errors. Electronically signed by: Ezra Perez M.D. 01/16/2020 7:39 PM
--- NOTE | 2020-01-16 19:43 | Anesthesiology Progress Note ---
Date of Service January 16, 2020 Anesthesia Post Procedure Vital Signs Vital Signs: Temp Pulse Pulse Pulse Resp BP BP 01/16/20 19:25 98.1 F 98 H 14 152/81 H 01/16/20 19:15 100 H 15 131/81 01/16/20 19:05 96 H 20 148/81 H 01/16/20 18:58 97.7 F 98 H 20 144/79 H 01/16/20 17:28 98.8 F 91 H 18 121/61 01/16/20 16:08 96 H 01/16/20 15:29 98.8 F 95 H 16 125/62 01/16/20 14:32 86 18 124/59 L 01/16/20 14:30 87 23 01/16/20 14:00 81 27 H 01/16/20 13:30 89 21 01/16/20 12:30 87 22 01/16/20 11:48 98.4 F 90 15 124/64 01/16/20 11:45 77 20 124/64 Pulse Ox 01/16/20 19:25 99 01/16/20 19:15 96 01/16/20 19:05 100 01/16/20 18:58 96 01/16/20 17:28 96 01/16/20 16:08 01/16/20 15:29 96 01/16/20 14:32 95 01/16/20 14:30 93 01/16/20 14:00 91 01/16/20 13:30 100 01/16/20 12:30 100 01/16/20 11:48 100 01/16/20 11:45 100 Pain Intensity Left Hip: Pain Intensity: 7 Transfer of Care Handoff Completed per policy Notes Mental Status: alert / awake / arousable and participated in evaluation Patient Amnestic to Procedure: Yes Nausea / Vomiting: adequately controlled Pain: adequately controlled Airway Patency, RR, SpO2: stable & adequate BP & HR: stable & adequate Hydration State: stable & adequate Anesthetic Complications: no major complications apparent and Pt Satisfied with anesthetic care
[2020-01-16] MEDS ORDERED: SODIUM CHLORIDE 0.9% 1000ML 1,000 ML IV SCH (19:53)
[2020-01-16] MEDS ORDERED: NALOXONE HCL 0.4 MG/1 ML VIAL/CARP IV PRN (19:53)
[2020-01-16] MEDS: PIPERACILLIN/TAZOBACTAM 3.375 GM in DEXTROSE 5% 100 ML IV SCH (20:08)
[2020-01-16] MEDS ORDERED: METOPROLOL TARTRATE 1 MG/ML VIAL IV STA (21:27)
[2020-01-16] MEDS ORDERED: SODIUM CHLOR 0.45% + 20MEQ KCL 20 MEQ/1,000 ML BAG IV ONE (21:28)
[2020-01-16] MEDS: DOCUSATE SODIUM/SENNA 50/8.6MG TAB PO SCH (21:29)
[2020-01-16] MEDS: METOPROLOL TARTRATE 25 MG TAB PO SCH (21:29)
[2020-01-16] MEDS: HEPARIN SOD 5,000 UNIT/0.5 ML VIAL SQ SCH (21:29)
[2020-01-17] MEDS: PIPERACILLIN/TAZOBACTAM 3.375 GM in DEXTROSE 5% 100 ML IV SCH ×3 (03:47→20:20)
[2020-01-17 07:04] LABS: Hematocrit (blood only) 35.1 % (42-52); Hemoglobin 11.1 g/dL (14.0-18.0); Mean Corpuscular Hemoglobin 30.9 pg (25-34); Mean Corpuscular Hgb Conc 31.6 g/dL (32-36); Mean Corpuscular Volume 97.8 fL (80-100); Mean Platelet Volume 10.5 fL (7.4-10.4); Nucleated RBC # (auto) 0.02 K/uL (0-0); Nucleated RBC % (auto) 0.1 %; Platelet Count 353 K/uL (130-400); RDW Coefficient of Variation 16.5 % (11.5-14.5); RDW Standard Deviation 58.6 fL (36.4-46.3); Red Blood Count 3.59 M/uL (4.7-6.1); White Blood Count 14.28 K/uL (4.8-10.8)
[2020-01-17 07:34] LABS: Basophils # (auto) 0.01 K/uL (0-0.2); Basophils % (auto) 0.1 %; Echinocytes 1+; Eosinophils # (auto) 0.04 K/uL (0-0.5); Eosinophils % (auto) 0.3 %; Immature Granulocytes # (auto) 0.03 K/uL (0.00-0.02); Immature Granulocytes % (auto) 0.2 %; Lymphocytes # (auto) 0.69 K/uL (1.2-3.4); Lymphocytes % (auto) 4.8 %; Monocytes # (auto) 0.76 K/uL (0.11-0.59); Monocytes % (auto) 5.3 %; Neutrophils # (auto) 12.75 K/uL (1.4-6.5); Neutrophils % (auto) 89.3 %; Toxic Granulation 1+
[2020-01-17 07:39] LABS: BUN Creatinine Ratio 26.1 (10-20); Calcium 8.6 mg/dl (8.5-10.1); Creatinine Clr Calc Pharmacy 31.6 ml/min; Est GFR (African American) 72.6; Est GFR (Non-African American) 62.6; Magnesium 1.6 mg/dl (1.8-2.4); Potassium 3.2 mmol/L (3.5-5.1)
--- NOTE | 2020-01-17 07:52 | Anesthesiology Progress Note ---
Date of Service January 17, 2020 Anesthesia Post Procedure Vital Signs Vital Signs: Temp Pulse Pulse Pulse Pulse Resp BP 01/17/20 07:34 100 H 01/17/20 07:08 36.5 C 97 H 20 01/17/20 03:08 36.5 C 97 H 18 01/17/20 01:16 36.8 C 92 H 18 01/17/20 00:36 88 01/16/20 23:00 36.6 C 90 18 01/16/20 22:00 36.5 C 85 18 01/16/20 21:43 96 H 150/84 H 01/16/20 21:00 36.5 C 94 H 18 01/16/20 20:30 36.4 C L 99 H 18 01/16/20 20:00 36.9 C 84 16 01/16/20 19:45 36.9 C 93 H 84 16 01/16/20 19:25 36.7 C 98 H 14 01/16/20 19:15 100 H 15 01/16/20 19:05 96 H 20 01/16/20 18:58 36.5 C 98 H 20 01/16/20 17:28 37.1 C 91 H 18 01/16/20 16:08 96 H 01/16/20 15:29 37.1 C 95 H 16 01/16/20 14:32 86 18 124/59 L 01/16/20 14:30 87 23 01/16/20 14:00 81 27 H 01/16/20 13:30 89 21 01/16/20 12:30 87 22 01/16/20 11:48 36.9 C 90 15 124/64 01/16/20 11:45 77 20 124/64 BP Pulse Ox 01/17/20 07:34 01/17/20 07:08 128/57 L 96 01/17/20 03:08 115/58 L 96 01/17/20 01:16 146/72 H 100 01/17/20 00:36 01/16/20 23:00 146/78 H 100 01/16/20 22:00 142/70 H 100 01/16/20 21:43 01/16/20 21:00 150/84 H 100 01/16/20 20:30 159/81 H 100 01/16/20 20:00 155/73 H 94 01/16/20 19:45 150/71 H 94 01/16/20 19:25 152/81 H 99 01/16/20 19:15 131/81 96 01/16/20 19:05 148/81 H 100 01/16/20 18:58 144/79 H 96 01/16/20 17:28 121/61 96 01/16/20 16:08 01/16/20 15:29 125/62 96 01/16/20 14:32 95 01/16/20 14:30 93 01/16/20 14:00 91 01/16/20 13:30 100 01/16/20 12:30 100 01/16/20 11:48 100 01/16/20 11:45 100 Pain Intensity Left Hip: Pain Intensity: 7 Notes Mental Status: alert / awake / arousable and participated in evaluation Patient Amnestic to Procedure: Yes Nausea / Vomiting: adequately controlled Pain: adequately controlled Airway Patency, RR, SpO2: stable & adequate BP & HR: stable & adequate Hydration State: stable & adequate Anesthetic Complications: no major complications apparent and Pt Satisfied with anesthetic care
[2020-01-17] MEDS: METOPROLOL TARTRATE 25 MG TAB PO SCH ×2 (08:15→20:21)
[2020-01-17] MEDS: POTASSIUM CHLORIDE 20 MEQ/15 ML UDC PO SCH ×2 (08:15→17:00)
--- NOTE | 2020-01-17 08:30 | Orthopedic Progress Note ---
Date of Service January 17, 2020 Assessment & Plan (1) Dislocation of left hip: Status post closed reduction left hip hemiarthroplasty POD#1 -Weight-bear as tolerates left lower extremity -Strict posterior hip precautions, maintain knee immobilizer at all times, abduction pillow when in bed -Pain control -Postoperative x-ray well aligned well fixed prothesis without fracture, dislocation. -A.m. labs hgb 11.1 -We have placed consultation to orthotics for abduction brace to be fitted prior to DC. -DC paco -Patient will need to follow up in office with Dr. Ramírez 2 weeks after discharge, Admission and Anticipated Discharge Date Admission Date: January 16, 2020 Subjective Post Operative Progress Note Patient seen sitting up in bed, comfortable, denies complaints, pain well controlled, no acute issues. Denies F/C/N/V/SOB/CP Review of Systems Review of Systems: All systems reviewed & are unremarkable except as noted in HPI & below Constitutional: as per Subjective / HPI Physical Exam Physical Exam: LLE NVSI +EHL/FHL/TA/GS SILT grossly, +2 DP pulse, compartments soft NT, dressing cdi. Constitutional: WD/WN, vitals as above Results & Data ([facility]) Vital Signs (Past 12 Hours) Vital Signs Temp Pulse Pulse Pulse Resp BP BP 01/17/20 07:34 100 H 01/17/20 07:08 36.5 C 97 H 20 128/57 L 01/17/20 03:08 36.5 C 97 H 18 115/58 L 01/17/20 01:16 36.8 C 92 H 18 146/72 H 01/17/20 00:36 88 01/16/20 23:00 36.6 C 90 18 146/78 H 01/16/20 22:00 36.5 C 85 18 142/70 H 01/16/20 21:43 96 H 150/84 H 01/16/20 21:00 36.5 C 94 H 18 150/84 H 01/16/20 20:30 36.4 C L 99 H 18 159/81 H Pulse Ox 01/17/20 07:34 01/17/20 07:08 96 01/17/20 03:08 96 01/17/20 01:16 100 01/17/20 00:36 01/16/20 23:00 100 02/26/20 22:00 100 01/16/20 21:43 01/16/20 21:00 100 01/16/20 20:30 100 Laboratory Results 01/17/20 01/17/20 01/17/20 Range/Units 06:11 06:11 00:28 WBC 14.28 H (4.8-10.8) K/uL RBC 3.59 L (4.7-6.1) M/uL Hgb 11.1 L (14.0-18.0) g/dL Hct 35.1 L (42-52) % MCV 97.8 (80-100) fL MCH 30.9 (25-34) pg MCHC 31.6 L (32-36) g/dL RDW Std Deviation 58.6 H (36.4-46.3) fL RDW Coeff of Jacob 16.5 H (11.5-14.5) % Plt Count 353 (130-400) K/uL MPV 10.5 H (7.4-10.4) fL Immature Gran % (Auto) 0.2 % Neut % (Auto) 89.3 % Lymph % (Auto) 4.8 % [place] % (Auto) 5.3 % Eos % (Auto) 0.3 % Baso % (Auto) 0.1 % Immature Gran # (Auto) 0.03 H (0.00-0.02) K/uL Neut # (Auto) 12.75 H (1.4-6.5) K/uL Lymph # (Auto) 0.69 L (1.2-3.4) K/uL [place] # (Auto) 0.76 H (0.11-0.59) K/uL Eos # (Auto) 0.04 (0-0.5) K/uL Baso # (Auto) 0.01 (0-0.2) K/uL Absolute Nucleated RBC 0.02 H (0-0) K/uL Nucleated RBC % (auto) 0.1 % Toxic Granulation 1+ Echinocytes 1+ PT (9.0-12.0) Seconds INR (0.9-1.1) APTT (21.0-31.0) Seconds PTT Ratio Sodium 148 H (136-145) mmol/L Potassium 3.2 L (3.5-5.1) mmol/L Chloride 109 H (98-107) mmol/L Carbon Dioxide 33 H (21-32) mmol/L Anion Gap 6.0 (3-11) BUN 27 H (7-18) mg/dl Creatinine 1.05 (0.6-1.4) mg/dl Est Cr Clr Drug Dosing 31.6 ml/min Est GFR ( Amer) 72.6 Est GFR (Non-Af Amer) 62.6 BUN/Creatinine Ratio 26.1 H (10-20) Glucose 117 H (70-99) mg/dl Calcium 8.6 (8.5-10.1) mg/dl Magnesium 1.6 L (1.8-2.4) mg/dl Troponin I 0.078 H* (0-0.045) ng/ml NT-Pro-B Natriuret Pep (0-1800) pg/ml Procalcitonin (0-0.5) ng/ml 01/16/20 01/16/20 01/16/20 Range/Units 21:13 15:42 13:30 WBC (4.8-10.8) K/uL RBC (4.7-6.1) M/uL Hgb (14.0-18.0) g/dL Hct (42-52) % MCV (80-100) fL MCH (25-34) pg MCHC (32-36) g/dL RDW Std Deviation (36.4-46.3) fL RDW Coeff of Jacob (11.5-14.5) % Plt Count (130-400) K/uL MPV (7.4-10.4) fL Immature Gran % (Auto) % Neut % (Auto) % Lymph % (Auto) % [place] % (Auto) % Eos % (Auto) % Baso % (Auto) % Immature Gran # (Auto) (0.00-0.02) K/uL Neut # (Auto) (1.4-6.5) K/uL Lymph # (Auto) (1.2-3.4) K/uL [place] # (Auto) (0.11-0.59) K/uL Eos # (Auto) (0-0.5) K/uL Baso # (Auto) (0-0.2) K/uL Absolute Nucleated RBC (0-0) K/uL Nucleated RBC % (auto) % Toxic Granulation Echinocytes PT (9.0-12.0) Seconds INR (0.9-1.1) APTT (21.0-31.0) Seconds PTT Ratio Sodium (136-145) mmol/L Potassium (3.5-5.1) mmol/L Chloride (98-107) mmol/L Carbon Dioxide (21-32) mmol/L Anion Gap (3-11) BUN (7-18) mg/dl Creatinine (0.6-1.4) mg/dl Est Cr Clr Drug Dosing ml/min Est GFR ( Amer) Est GFR (Non-Af Amer) BUN/Creatinine Ratio (10-20) Glucose (70-99) mg/dl Calcium (8.5-10.1) mg/dl Magnesium (1.8-2.4) mg/dl Troponin I 0.069 H* (0-0.045) ng/ml NT-Pro-B Natriuret Pep 3182 H (0-1800) pg/ml Procalcitonin 0.49 (0-0.5) ng/ml 01/16/20 01/16/20 01/16/20 Range/Units 13:30 13:30 13:30 WBC 15.12 H (4.8-10.8) K/uL RBC 3.71 L (4.7-6.1) M/uL Hgb 11.5 L (14.0-18.0) g/dL Hct 35.1 L (42-52) % MCV 94.6 (80-100) fL MCH 31.0 (25-34) pg MCHC 32.8 (32-36) g/dL RDW Std Deviation 56.3 H (36.4-46.3) fL RDW Coeff of Jacob 16.3 H (11.5-14.5) % Plt Count 378 (130-400) K/uL MPV 10.6 H (7.4-10.4) fL Immature Gran % (Auto) 0.2 % Neut % (Auto) 88.3 % Lymph % (Auto) 5.1 % [place] % (Auto) 6.3 % Eos % (Auto) 0.0 % Baso % (Auto) 0.1 % Immature Gran # (Auto) 0.03 H (0.00-0.02) K/uL Neut # (Auto) 13.36 H (1.4-6.5) K/uL Lymph # (Auto) 0.77 L (1.2-3.4) K/uL [place] # (Auto) 0.95 H (0.11-0.59) K/uL Eos # (Auto) 0.00 (0-0.5) K/uL Baso # (Auto) 0.01 (0-0.2) K/uL Absolute Nucleated RBC (0-0) K/uL Nucleated RBC % (auto) % Toxic Granulation Echinocytes PT 11.4 (9.0-12.0) Seconds INR 1.1 (0.9-1.1) APTT 26.2 (21.0-31.0) Seconds PTT Ratio 1.0 Sodium 146 H (136-145) mmol/L Potassium 3.5 (3.5-5.1) mmol/L Chloride 107 (98-107) mmol/L Carbon Dioxide 32 (21-32) mmol/L Anion Gap 7.0 (3-11) BUN 31 H (7-18) mg/dl Creatinine 1.05 (0.6-1.4) mg/dl Est Cr Clr Drug Dosing 31.2 ml/min Est GFR ( Amer) 72.6 Est GFR (Non-Af Amer) 62.6 BUN/Creatinine Ratio 29.1 H (10-20) Glucose 128 H (70-99) mg/dl Calcium 9.1 (8.5-10.1) mg/dl Magnesium 1.6 L (1.8-2.4) mg/dl Troponin I 0.046 H* (0-0.045) ng/ml NT-Pro-B Natriuret Pep (0-1800) pg/ml Procalcitonin (0-0.5) ng/ml (1) Dislocation of left hip Encounter type: initial encounter Qualified Code(s): S73.005A - Unspecified dislocation of left hip, initial encounter
[2020-01-17] MEDS: ENOXAPARIN INJ 30 MG/0.3 ML SYR SQ SCH (11:32)
[2020-01-17] MEDS: HEPARIN SOD 5,000 UNIT/0.5 ML VIAL SQ SCH (11:32)
[2020-01-17] MEDS ORDERED: POTASSIUM CHLORIDE 20 MEQ/15 ML UDC PO ONE (14:30)
[2020-01-17] MEDS: POTASSIUM CHLORIDE / WTR 10 MEQ/100 ML PLCT IV SCH ×2 (15:26→16:52)
--- NOTE | 2020-01-17 15:49 | Hospitalist Progress Note ---
Date of Service January 17, 2020 Assessment & Plan (1) Dislocation of left hip: -Admit to [facility] with telemetry -Patient presenting from [facility] for evaluation of left hip dislocation -Recent admission to [facility] 12/27 through 01/04 for left hip fracture, s/p left hip hemiarthroplasty on 12/31 -Seen in ED on 01/15 for left hip dislocation which was able to be reduced in the ED -Orthopedics consulted, patient will need to go to the OR for closed reduction -Likely will be considered high risk due to his very malnourished state and other problems as described below -pt now s/p closed reduction of left hip hemiarthroplasty on 01/16 w/ Dr. Ramírez -pt tolerated procedure well -postoperative x-ray well aligned well fixed prothesis without fracture, dislocation. -Hip abduction brace ordered Recommendations by ortho: - -Weight-bear as tolerates left lower extremity -Strict posterior hip precautions, maintain knee immobilizer at all times, abduction pillow when in bed -Pain control -DC paco -Patient will need to follow up in office with Dr. Ramírez 2 weeks after discharge, (2) Abnormal EKG: (3) Elevated troponin: -EKG shows new deep T wave inversions laterally -No cardiopulmonary complaints per patient, however is poor historian -Mildly elevated troponin 0.046 -May have some component of heart failure with bilateral pleural effusions on CXR, check proBNP -Check limited echo to evaluate for new wall motion abnormality and EF Echo - LV cavity small, mild concentric LVH, septal motion is consistent with conduction abnormality, no regional wall motion abnormalities noted, EF 65 to 70%, in comparison to prior study earlier in December 2019, no significant change (4) Bilateral pleural effusion: -Bilateral pleural effusions with bibasilar opacities noted on CXR -WBC 15 K; does not appear septic -Patient is high risk for aspiration given underlying achalasia -will cover empirically with IV Zosyn for now; check procalcitonin -work-up for CHF as above, may need diuresis (5) Achalasia: -Maintain liquid diet -S/p EGD on 12/31 with drainage of food and fluid and dilation (6) DVT prophylaxis: -SQ heparin Admission and Anticipated Discharge Date Admission Date: January 16, 2020 Subjective Lying in bed, resting, in NAD. Answers questions appropriately. Denies any pain at this time. Also denies any shortness of breath, asking for some food, ok to get boost (also asking for bread), but he understands he can only have liquid diet. Review of Systems Review of Systems: All systems reviewed & are unremarkable except as noted in HPI & below Constitutional: no fever and no chills Respiratory: no cough and no dyspnea Cardiovascular: no chest pain and no dyspnea on exertion Gastrointestinal: no abdominal pain, no nausea and no vomiting Physical Exam Physical Exam: Constitutional: elderly, + cachectic and + frail appearing male lying in bed, in NAD Eyes: PERRL, EOMI, conjunctivae normal, anicteric sclerae ENMT: external ear and nose normal, oropharynx normal Respiratory: normal respiratory effort; no respiratory distress Auscultation: + diminished lung sounds Cardiovascular: Rate/Rhythm: regular rate and regular rhythm Vessels: normal peripheral pulses Extremities: no edema Gastrointestinal (Abdomen): normal bowel sounds, soft, nontender, nondistended Musculoskeletal: Extremities: + leg internally rotated (Left); no cyanosis and no clubbing [place] intact to left hip, no significant surrounding erythema or drainage noted Skin: no rashes, warm and dry Neurologic: PERRL, EOMI, accommodation nl, no face palsy, no dysarthria Psychiatric: Orientation: alert and oriented; answers most questions appropriately, Insight: + limited insight Results & Data ([facility]) Vital Signs (Past 12 Hours) Vital Signs Temp Pulse Pulse Resp BP Pulse Ox 01/17/20 15:01 36.6 C 82 18 107/62 100 01/17/20 11:22 36.8 C 97 H 18 122/69 100 01/17/20 07:34 100 H 01/17/20 07:08 36.5 C 97 H 20 128/57 L 96 Laboratory Results 01/17/20 01/17/20 01/17/20 Range/Units 06:11 06:11 00:28 WBC 14.28 H (4.8-10.8) K/uL RBC 3.59 L (4.7-6.1) M/uL Hgb 11.1 L (14.0-18.0) g/dL Hct 35.1 L (42-52) % MCV 97.8 (80-100) fL MCH 30.9 (25-34) pg MCHC 31.6 L (32-36) g/dL RDW Std Deviation 58.6 H (36.4-46.3) fL RDW Coeff of Jacob 16.5 H (11.5-14.5) % Plt Count 353 (130-400) K/uL MPV 10.5 H (7.4-10.4) fL Immature Gran % (Auto) 0.2 % Neut % (Auto) 89.3 % Lymph % (Auto) 4.8 % [place] % (Auto) 5.3 % Eos % (Auto) 0.3 % Baso % (Auto) 0.1 % Immature Gran # (Auto) 0.03 H (0.00-0.02) K/uL Neut # (Auto) 12.75 H (1.4-6.5) K/uL Lymph # (Auto) 0.69 L (1.2-3.4) K/uL [place] # (Auto) 0.76 H (0.11-0.59) K/uL Eos # (Auto) 0.04 (0-0.5) K/uL Baso # (Auto) 0.01 (0-0.2) K/uL Absolute Nucleated RBC 0.02 H (0-0) K/uL Nucleated RBC % (auto) 0.1 % Toxic Granulation 1+ Echinocytes 1+ Sodium 148 H (136-145) mmol/L Potassium 3.2 L (3.5-5.1) mmol/L Chloride 109 H (98-107) mmol/L Carbon Dioxide 33 H (21-32) mmol/L Anion Gap 6.0 (3-11) BUN 27 H (7-18) mg/dl Creatinine 1.05 (0.6-1.4) mg/dl Est Cr Clr Drug Dosing 31.6 ml/min Est GFR ( Amer) 72.6 Est GFR (Non-Af Amer) 62.6 BUN/Creatinine Ratio 26.1 H (10-20) Glucose 117 H (70-99) mg/dl Calcium 8.6 (8.5-10.1) mg/dl Magnesium 1.6 L (1.8-2.4) mg/dl Troponin I 0.078 H* (0-0.045) ng/ml Procalcitonin (0-0.5) ng/ml 01/16/20 01/16/20 Range/Units 21:13 15:42 WBC (4.8-10.8) K/uL RBC (4.7-6.1) M/uL Hgb (14.0-18.0) g/dL Hct (42-52) % MCV (80-100) fL MCH (25-34) pg MCHC (32-36) g/dL RDW Std Deviation (36.4-46.3) fL RDW Coeff of Jacob (11.5-14.5) % Plt Count (130-400) K/uL MPV (7.4-10.4) fL Immature Gran % (Auto) % Neut % (Auto) % Lymph % (Auto) % [place] % (Auto) % Eos % (Auto) % Baso % (Auto) % Immature Gran # (Auto) (0.00-0.02) K/uL Neut # (Auto) (1.4-6.5) K/uL Lymph # (Auto) (1.2-3.4) K/uL [place] # (Auto) (0.11-0.59) K/uL Eos # (Auto) (0-0.5) K/uL Baso # (Auto) (0-0.2) K/uL Absolute Nucleated RBC (0-0) K/uL Nucleated RBC % (auto) % Toxic Granulation Echinocytes Sodium (136-145) mmol/L Potassium (3.5-5.1) mmol/L Chloride (98-107) mmol/L Carbon Dioxide (21-32) mmol/L Anion Gap (3-11) BUN (7-18) mg/dl Creatinine (0.6-1.4) mg/dl Est Cr Clr Drug Dosing ml/min Est GFR ( Amer) Est GFR (Non-Af Amer) BUN/Creatinine Ratio (10-20) Glucose (70-99) mg/dl Calcium (8.5-10.1) mg/dl Magnesium (1.8-2.4) mg/dl Troponin I 0.069 H* (0-0.045) ng/ml Procalcitonin 0.49 (0-0.5) ng/ml Medications Administered Current Inpatient Medications Acetaminophen (Tylenol) 650 mg PO Q4H PRN PRN Reason: Pain or Fever Stop: 02/15/20 15:22 Enoxaparin Sodium (Lovenox) 30 mg SQ Q24H [facility] Stop: 02/16/20 08:59 Last Admin: 01/17/20 11:32 Dose: Not Given Documented by: Piperacillin Sod/Tazobactam (Sod 3.375 gm/ Dextrose) 115 mls @ 28.75 mls/hr IV Q8H [facility]; Protocol Stop: 01/23/20 19:59 Last Admin: 01/17/20 12:05 Dose: 29 mls/hr Documented by: Magnesium Sulfate/Dextrose (Magnesium Sulfate / D5w) 1 gm in 100 mls @ 100 mls/hr IV Q1H [facility] Stop: 01/17/20 16:29 Metoprolol Tartrate (Lopressor) 12.5 mg PO BID [facility] Stop: 02/15/20 20:59 Last Admin: 01/17/20 08:15 Dose: 12.5 mg Documented by: Miscellaneous Information (Consult) 1 ea N/A UD PRN PRN Reason: Consult Stop: 02/15/20 15:22 Naloxone HCl (Narcan) 0.1 mg IV UD PRN PRN Reason: Opioid Overdose Stop: 02/15/20 19:52 Potassium Chloride (Patt Ciel Elix) 20 meq PO BID17 [facility] Stop: 02/15/20 16:59 Last Admin: 01/17/20 08:15 Dose: 20 meq Documented by: Senna/Docusate Sodium (Senokot S) 1 tab PO HS [facility] Stop: 02/15/20 20:59 Last Admin: 01/16/20 21:29 Dose: Not Given Documented by: (1) Dislocation of left hip Encounter type: initial encounter Qualified Code(s): S73.005A - Unspecified dislocation of left hip, initial encounter
[2020-01-17] MEDS: MAGNESIUM SULFATE / D5W 1 GM/100 ML BAG IV SCH ×2 (16:52→18:14)
--- NOTE | 2020-01-17 19:01 | Electrocardiogram Report ---
Test Reason : Blood Pressure : / mmHG Vent. Rate : 097 BPM Atrial Rate : 097 BPM P-R Int : 164 ms QRS Dur : 122 ms QT Int : 390 ms P-R-T Axes : 075 028 055 degrees QTc Int : 495 ms Normal sinus rhythm Right bundle branch block T wave abnormality, consider lateral ischemia Abnormal ECG When compared with ECG of 16-JAN-2020 13:15, Premature ventricular complexes are no longer Present Premature supraventricular complexes are no longer Present Nonspecific T wave abnormality, improved in Inferior leads Confirmed by Bill Tinajero ([id number] on 01/17/2020 7:01:30 PM Referred By: Anna Saunders Confirmed By:Venkat Tinajero
[2020-01-17] MEDS: DOCUSATE SODIUM/SENNA 50/8.6MG TAB PO SCH (20:20)
[2020-01-18] MEDS: ACETAMINOPHEN 325 MG TAB PO PRN ×2 (02:49→20:56)
[2020-01-18] MEDS: PIPERACILLIN/TAZOBACTAM 3.375 GM in DEXTROSE 5% 100 ML IV SCH ×3 (03:47→20:02)
[2020-01-18 06:56] LABS: Basophils # (auto) 0.01 K/uL (0-0.2); Basophils % (auto) 0.1 %; Eosinophils # (auto) 0.12 K/uL (0-0.5); Eosinophils % (auto) 0.9 %; Hematocrit (blood only) 32.3 % (42-52); Hemoglobin 10.1 g/dL (14.0-18.0); Immature Granulocytes # (auto) 0.04 K/uL (0.00-0.02); Immature Granulocytes % (auto) 0.3 %; Lymphocytes # (auto) 0.82 K/uL (1.2-3.4); Lymphocytes % (auto) 5.9 %; Mean Corpuscular Hemoglobin 30.5 pg (25-34); Mean Corpuscular Hgb Conc 31.3 g/dL (32-36); Mean Corpuscular Volume 97.6 fL (80-100); Mean Platelet Volume 10.5 fL (7.4-10.4); Monocytes # (auto) 0.72 K/uL (0.11-0.59); Monocytes % (auto) 5.2 %; Neutrophils % (auto) 87.6 %; Nucleated RBC # (auto) 0.02 K/uL (0-0); Nucleated RBC % (auto) 0.1 %; Platelet Count 304 K/uL (130-400); RDW Coefficient of Variation 16.3 % (11.5-14.5); Red Blood Count 3.31 M/uL (4.7-6.1); White Blood Count 13.81 K/uL (4.8-10.8)
--- NOTE | 2020-01-18 07:34 | Hospitalist Progress Note ---
Date of Service January 18, 2020 Assessment & Plan (1) Dislocation of left hip: -Admit to [facility] with telemetry -Patient presenting from [facility] for evaluation of left hip dislocation -Recent admission to [facility] 12/27 through 01/04 for left hip fracture, s/p left hip hemiarthroplasty on 12/31 -Seen in ED on 01/15 for left hip dislocation which was able to be reduced in the ED -Orthopedics consulted, patient will need to go to the OR for closed reduction -Likely will be considered high risk due to his very malnourished state and other problems as described below -pt now s/p closed reduction of left hip hemiarthroplasty on 01/16 w/ Dr. Ramírez -pt tolerated procedure well -postoperative x-ray well aligned well fixed prothesis without fracture, dislocation. -Hip abduction brace ordered Recommendations by ortho: - -Weight-bear as tolerates left lower extremity -Strict posterior hip precautions, maintain knee immobilizer at all times, abduction pillow when in bed -Pain control -DC paco -Patient will need to follow up in office with Dr. Ramírez 2 weeks after discharge, (2) Abnormal EKG: (3) Elevated troponin: -EKG shows new deep T wave inversions laterally - likely d/t mild acute diastolic HF -No cardiopulmonary complaints per patient, however is poor historian -Mildly elevated troponin 0.046 -May have some component of heart failure with bilateral pleural effusions on CXR, check proBNP -pro BNP mildly elevated -Check limited echo to evaluate for new wall motion abnormality and EF Echo - LV cavity small, mild concentric LVH, septal motion is consistent with conduction abnormality, no regional wall motion abnormalities noted, EF 65 to 70%, in comparison to prior study earlier in December 2019, no significant change - diuresis very complicated, have to be very gentle, as pt's oral intake is already limited - needs improved nutritious status/ protein, his low albumin exacerbates his fluid status (4) Bilateral pleural effusion: -Bilateral pleural effusions with bibasilar opacities noted on CXR -WBC 15 K; does not appear septic -Patient is high risk for aspiration given underlying achalasia -will cover empirically with IV Zosyn for now; check procalcitonin - procalcitonin 0.49 - will cont. Abx -work-up for CHF as above, may need gentle diuresis - also need to be careful w/ diuretics given his electrolyte abnormalities Electrolyte abnormalities - secondary to poor nutrition ( 12/23 achalasia/liquid diet) - cont. to monitor K, Mg, and Phos and replace as needed (5) Achalasia: -Maintain liquid diet -S/p EGD on 12/31 with drainage of food and fluid and dilation (6) DVT prophylaxis: -SQ heparin (7) Severe protein-calorie malnutrition: Nutrition consulted, boost ordered - encourage oral intake of more nutritious fluids Admission and Anticipated Discharge Date Admission Date: January 16, 2020 Subjective Patient is sitting up in bed, in no acute distress, denies any fevers, chills, chest pain, shortness of breath, abdominal pain, nausea or vomiting. 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 I discussed with the patient that he needs to have better nutritious intake such as boost, patient currently drinks terra jessy and tea. Review of Systems Review of Systems: All systems reviewed & are unremarkable except as noted in HPI & below Constitutional: no fever and no chills Respiratory: no cough and no dyspnea Cardiovascular: no chest pain, no palpitations and no edema Gastrointestinal: no abdominal pain, no nausea and no vomiting Physical Exam Physical Exam: Constitutional: elderly, + cachectic and + frail appearing male lying in bed, in NAD Eyes: PERRL, EOMI, conjunctivae normal, anicteric sclerae ENMT: external ear and nose normal, oropharynx normal Respiratory: normal respiratory effort; no respiratory distress Auscultation: + diminished lung sounds Cardiovascular: Rate/Rhythm: regular rate and regular rhythm Vessels: normal p eripheral pulses Extremities: no edema Gastrointestinal (Abdomen): normal bowel sounds, soft, nontender, nondistended Musculoskeletal: Extremities: + leg internally rotated (Left), in abduction brace; no cyanosis and no clubbing, left hip - no significant surrounding erythema or drainage noted Skin: no rashes, warm and dry Neurologic: PERRL, EOMI, accommodation nl, no face palsy, no dysarthria Psychiatric: Orientation: alert and oriented; answers most questions appropriately, Insight: + limited insight Results & Data ([place]) Vital Signs (Past 12 Hours) Vital Signs Temp Pulse Pulse Pulse Resp BP BP 01/18/20 07:29 36.4 C L 76 18 117/67 01/18/20 07:16 79 01/18/20 03:34 36.4 C L 74 18 116/72 01/18/20 00:19 121/64 01/18/20 00:00 69 01/17/20 23:05 36.4 C L 76 18 100/52 L 01/17/20 20:06 36.9 C 92 H 18 112/62 Pulse Ox 01/18/20 07:29 91 01/18/20 07:16 01/18/20 03:34 100 01/18/20 00:19 01/18/20 00:00 01/17/20 23:05 95 01/17/20 20:06 91 Laboratory Results 01/18/20 01/18/20 01/18/20 Range/Units 06:41 06:41 06:41 WBC 13.81 H (4.8-10.8) K/uL RBC 3.31 L (4.7-6.1) M/uL Hgb 10.1 L (14.0-18.0) g/dL Hct 32.3 L (42-52) % MCV 97.6 (80-100) fL MCH 30.5 (25-34) pg MCHC 31.3 L (32-36) g/dL RDW Std Deviation 58.0 H (36.4-46.3) fL RDW Coeff of Jacob 16.3 H (11.5-14.5) % Plt Count 304 (130-400) K/uL MPV 10.5 H (7.4-10.4) fL Immature Gran % (Auto) 0.3 % Neut % (Auto) 87.6 % Lymph % (Auto) 5.9 % [place] % (Auto) 5.2 % Eos % (Auto) 0.9 % Baso % (Auto) 0.1 % Immature Gran # (Auto) 0.04 H (0.00-0.02) K/uL Neut # (Auto) 12.10 H (1.4-6.5) K/uL Lymph # (Auto) 0.82 L (1.2-3.4) K/uL [place] # (Auto) 0.72 H (0.11-0.59) K/uL Eos # (Auto) 0.12 (0-0.5) K/uL Baso # (Auto) 0.01 (0-0.2) K/uL Absolute Nucleated RBC 0.02 H (0-0) K/uL Nucleated RBC % (auto) 0.1 % Sodium 144 (136-145) mmol/L Potassium 3.7 D (3.5-5.1) mmol/L Chloride 108 H (98-107) mmol/L Carbon Dioxide 33 H (21-32) mmol/L Anion Gap 3.0 (3-11) BUN 24 H (7-18) mg/dl Creatinine 0.93 (0.6-1.4) mg/dl Est Cr Clr Drug Dosing 36.1 ml/min Est GFR ( Amer) 84.1 Est GFR (Non-Af Amer) 72.5 BUN/Creatinine Ratio 26.4 H (10-20) Glucose 127 H (70-99) mg/dl Calcium 8.7 (8.5-10.1) mg/dl Phosphorus 1.5 L* (2.5-4.9) mg/dl Magnesium 2.0 (1.8-2.4) mg/dl Medications Administered Current Inpatient Medications Acetaminophen (Tylenol) 650 mg PO Q4H PRN PRN Reason: Pain or Fever Stop: 02/15/20 15:22 Last Admin: 01/18/20 02:49 Dose: 650 mg Documented by: Enoxaparin Sodium (Lovenox) 30 mg SQ Q24H [facility] Stop: 02/16/20 08:59 Last Admin: 01/17/20 11:32 Dose: Not Given Documented by: Piperacillin Sod/Tazobactam (Sod 3.375 gm/ Dextrose) 115 mls @ 28.75 mls/hr IV Q8H [facility]; Protocol Stop: 01/23/20 19:59 Last Admin: 01/18/20 03:47 Dose: 28.8 mls/hr Documented by: Metoprolol Tartrate (Lopressor) 12.5 mg PO BID [facility] Stop: 02/15/20 20:59 Last Admin: 01/17/20 20:21 Dose: 12.5 mg Documented by: Miscellaneous Information (Consult) 1 ea N/A UD PRN PRN Reason: Consult Stop: 03/27/20 15:22 Naloxone HCl (Narcan) 0.1 mg IV UD PRN PRN Reason: Opioid Overdose Stop: 02/15/20 19:52 Potassium Chloride (Patt Ciel Elix) 20 meq PO BID17 [facility] Stop: 02/15/20 16:59 Last Admin: 01/17/20 17:00 Dose: 20 meq Documented by: Senna/Docusate Sodium (Senokot S) 1 tab PO HS [facility] Stop: 02/15/20 20:59 Last Admin: 01/17/20 20:20 Dose: 1 tab Documented by: (1) Dislocation of left hip Encounter type: initial encounter Qualified Code(s): S73.005A - Unspecified dislocation of left hip, initial encounter
[2020-01-18 07:37] LABS: BUN Creatinine Ratio 26.4 (10-20); Calcium 8.7 mg/dl (8.5-10.1); Creatinine Clr Calc Pharmacy 36.1 ml/min; Est GFR (African American) 84.1; Est GFR (Non-African American) 72.5; Potassium 3.7 mmol/L (3.5-5.1)
[2020-01-18] MEDS ORDERED: POTASSIUM CHLORIDE 20 MEQ/15 ML UDC PO STA (07:49)
[2020-01-18] MEDS: ENOXAPARIN INJ 30 MG/0.3 ML SYR SQ SCH (07:53)
[2020-01-18] MEDS: METOPROLOL TARTRATE 25 MG TAB PO SCH ×2 (07:53→20:01)
[2020-01-18] MEDS: POTASSIUM CHLORIDE 20 MEQ/15 ML UDC PO SCH ×2 (07:53→17:39)
[2020-01-18] MEDS ORDERED: POTASSIUM PHOS 3 MMOL/1 ML INFUSION IV STA (08:40)
[2020-01-18] MEDS ORDERED: POTASSIUM PHOSPHATE 15 MMOL in SODIUM CHLORIDE 0.9% 250 ML IV STA (08:50)
--- NOTE | 2020-01-18 10:43 | Orthopedic Progress Note ---
Date of Service January 18, 2020 Assessment & Plan (1) Dislocation of left hip: Status post closed reduction left hip hemiarthroplasty POD#2 -Weight-bear as tolerates left lower extremity -Strict posterior hip precautions, maintain knee immobilizer at all times, abduction pillow when in bed -Pain control -Orthotics has measured the patient for a brace. Due to measurements, it will need to be a custom brace and not off the shelf. Brace may not be available until Tuesday for fitting. Discussed with Dr Ramírez. Brace needs to be on be on before discharging back to SNF. -Patient will need to follow up in office with Dr. Ramírez 2 weeks after discharge, Admission and Anticipated Discharge Date Admission Date: January 16, 2020 Subjective POD 2 s/p CR left Bipolar Hemiarthroplasty disclocation Pt lying in bed sleeping. Easily awoken. Pleasantly confused. No complaints. States his left hip feels fine today. Confused about where he is currently staying but pleasant. Review of Systems Review of Systems: All systems reviewed & are unremarkable except as noted in HPI & below Constitutional: as per Subjective / HPI Physical Exam Physical Exam: Leg lengths appear equal. LLE with internal rotation. Pt able to move ankle/toes well. Mild external rotation does not bother him. KI in place as well as abductor pillow. Results & Data ([facility]) Vital Signs (Past 12 Hours) Vital Signs Temp Pulse Pulse Resp BP BP Pulse Ox 01/18/20 07:29 36.4 C L 76 18 117/67 91 01/18/20 07:16 79 01/18/20 03:34 36.4 C L 74 18 116/72 100 01/18/20 00:19 121/64 01/18/20 00:00 69 01/17/20 23:05 36.4 C L 76 18 100/52 L 95 (1) Dislocation of left hip Encounter type: initial encounter Qualified Code(s): S73.005A - Unspecified dislocation of left hip, initial encounter
[2020-01-18] MEDS: MULTI VIT W/MINERALS LIQUID 15 ML UDP PO SCH (13:24)
[2020-01-18] MEDS ORDERED: MAGNESIUM HYDROXIDE SUSP 30 ML UDC PO PRN (16:22)
[2020-01-18 17:33] LABS: BUN Creatinine Ratio 27.7 (10-20); Calcium 9.4 mg/dl (8.5-10.1); Creatinine Clr Calc Pharmacy 38.6 ml/min; Est GFR (African American) 88.7; Est GFR (Non-African American) 76.5; Phosphorus 1.8 mg/dl (2.5-4.9); Potassium 4.4 mmol/L (3.5-5.1)
[2020-01-18] MEDS: POLYETHYLENE (MIRALAX) 17 GM PACK PO SCH (17:38)
--- NOTE | 2020-01-18 18:36 | Electrocardiogram Report ---
Test Reason : Blood Pressure : / mmHG Vent. Rate : 076 BPM Atrial Rate : 076 BPM P-R Int : 170 ms QRS Dur : 128 ms QT Int : 444 ms P-R-T Axes : 080 006 080 degrees QTc Int : 499 ms Sinus rhythm with occasional Premature ventricular complexes Right bundle branch block T wave abnormality, consider lateral ischemia Abnormal ECG When compared with ECG of 17-JAN-2020 06:48, Premature ventricular complexes are now Present Confirmed by Bill Tinajero ([id number]) on 01/18/2020 6:35:45 PM Referred By: Anna Saunders Confirmed By:Venkat Tinajero
[2020-01-18] MEDS ORDERED: POT PHOSPHATE MONOBASIC W/ SOD TAB PO ONE (19:19)
[2020-01-18] MEDS: DOCUSATE SODIUM/SENNA 50/8.6MG TAB PO SCH (20:01)
[2020-01-19] MEDS: PIPERACILLIN/TAZOBACTAM 3.375 GM in DEXTROSE 5% 100 ML IV SCH ×3 (04:03→21:00)
--- NOTE | 2020-01-19 07:55 | Orthopedic Progress Note ---
Date of Service January 19, 2020 Assessment & Plan (1) Dislocation of left hip: Status post closed reduction left hip hemiarthroplasty POD#3 -Weight-bear as tolerates left lower extremity -Strict posterior hip precautions, maintain knee immobilizer at all times, abduction pillow when in bed -Pain control -Orthotics has measured the patient for a brace. Due to measurements, it will need to be a custom brace and not off the shelf. Brace may not be available until Tuesday for fitting. Discussed with Dr Ramírez. Brace needs to be on be on before discharging back to SNF. -Appears that brace was fitted and placed yesterday afternoon by orthotics. Patient states this feel comfortable. -Patient will need to follow up in office with Dr. Ramírez 2 weeks after discharge, . Ortho will sign off at this time Admission and Anticipated Discharge Date Admission Date: January 16, 2020 Subjective 3 POD 3 s/p CR left Bipolar Hemiarthroplasty dislocation Pt lying in bed resting. Easily awoken. No complaints. States his left hip feels fine today. Pleasantly confused. No complaints. It appears that the abduction brace was fitted and placed yesterday. States this feels comfortable at this time. Review of Systems Review of Systems: All systems reviewed & are unremarkable except as noted in HPI & below Physical Exam Physical Exam: Left hip abduction brace in place. Leg lengths appear equal. Dressing over incision is c/d/i. No calf tenderness. Distally n/v status and sensation intact. Results & Data ([facility]) Vital Signs (Past 12 Hours) Vital Signs Temp Pulse Pulse Resp BP Pulse Ox 01/19/20 03:29 36.8 C 78 20 145/72 H 94 01/19/20 00:15 70 01/18/20 23:00 36.8 C 72 20 120/66 90 (1) Dislocation of left hip Encounter type: initial encounter Qualified Code(s): S73.005A - Unspecified dislocation of left hip, initial encounter
[2020-01-19 08:03] LABS: Basophils # (auto) 0.01 K/uL (0-0.2); Basophils % (auto) 0.1 %; Eosinophils # (auto) 0.15 K/uL (0-0.5); Eosinophils % (auto) 1.3 %; Hematocrit (blood only) 32.7 % (42-52); Hemoglobin 10.1 g/dL (14.0-18.0); Immature Granulocytes # (auto) 0.06 K/uL (0.00-0.02); Immature Granulocytes % (auto) 0.5 %; Lymphocytes # (auto) 0.79 K/uL (1.2-3.4); Lymphocytes % (auto) 6.7 %; Mean Corpuscular Hemoglobin 30.3 pg (25-34); Mean Corpuscular Hgb Conc 30.9 g/dL (32-36); Mean Corpuscular Volume 98.2 fL (80-100); Mean Platelet Volume 10.3 fL (7.4-10.4); Monocytes # (auto) 0.73 K/uL (0.11-0.59); Monocytes % (auto) 6.2 %; Neutrophils # (auto) 10.01 K/uL (1.4-6.5); Neutrophils % (auto) 85.2 %; Platelet Count 323 K/uL (130-400); RDW Coefficient of Variation 16.2 % (11.5-14.5); RDW Standard Deviation 57.9 fL (36.4-46.3); Red Blood Count 3.33 M/uL (4.7-6.1); White Blood Count 11.75 K/uL (4.8-10.8)
--- NOTE | 2020-01-19 08:25 | Hospitalist Progress Note ---
Date of Service January 19, 2020 Assessment & Plan (1) Dislocation of left hip: -Admit to [facility] with telemetry -Patient presenting from [facility] for evaluation of left hip dislocation -Recent admission to [facility] 12/27 through 01/04 for left hip fracture, s/p left hip hemiarthroplasty on 12/31 -Seen in ED on 01/15 for left hip dislocation which was able to be reduced in the ED -Orthopedics consulted, patient will need to go to the OR for closed reduction -Likely will be considered high risk due to his very malnourished state and other problems as described below -pt now s/p closed reduction of left hip hemiarthroplasty on 01/16 w/ Dr. Ramírez -pt tolerated procedure well -postoperative x-ray well aligned well fixed prothesis without fracture, dislocation. -Hip abduction brace ordered Recommendations by ortho: - -Weight-bear as tolerates left lower extremity -Strict posterior hip precautions, maintain knee immobilizer at all times, abduction pillow when in bed -Pain control -DC paco -Patient will need to follow up in office with Dr. Ramírez 2 weeks after discharge, (2) Abnormal EKG: (3) Elevated troponin: -EKG shows new deep T wave inversions laterally - likely d/t mild acute diastolic HF -No cardiopulmonary complaints per patient, however is poor historian -Mildly elevated troponin 0.046 -May have some component of heart failure with bilateral pleural effusions on CXR, check proBNP -pro BNP mildly elevated -Check limited echo to evaluate for new wall motion abnormality and EF Echo - LV cavity small, mild concentric LVH, septal motion is consistent with conduction abnormality, no regional wall motion abnormalities noted, EF 65 to 70%, in comparison to prior study earlier in December 2019, no significant change - diuresis very complicated, have to be very gentle, as pt's oral intake is already limited - needs improved nutritious status/ protein, his low albumin exacerbates his fluid status (4) Bilateral pleural effusion: -Bilateral pleural effusions with bibasilar opacities noted on CXR -WBC 15 K; does not appear septic -Patient is high risk for aspiration given underlying achalasia -will cover empirically with IV Zosyn for now; check procalcitonin - procalcitonin 0.49 - will cont. Abx -work-up for CHF as above, may need gentle diuresis - also need to be careful w/ diuretics given his electrolyte abnormalities Electrolyte abnormalities - secondary to poor nutrition ( 12/23 achalasia/liquid diet) - cont. to monitor K, Mg, and Phos and replace as needed (5) Achalasia: -Maintain liquid diet -S/p EGD on 12/31 with drainage of food and fluid and dilation (6) DVT prophylaxis: -SQ heparin (7) Severe protein-calorie malnutrition: Nutrition consulted, boost ordered - encourage oral intake of more nutritious fluids Admission and Anticipated Discharge Date Admission Date: January 16, 2020 Subjective Patient is sitting up in bed, in no acute distress, denies any fevers, chills, chest pain, shortness of breath, abdominal pain, nausea or vomiting. Patient is on liquid diet due to achalasia, discussed that he has a severe electrolyte abnormalities, and poor nutrition, and acute dialysis nurse is consulted. I discussed with the patient that he needs to have better nutritious intake such as boost. Review of Systems Review of Systems: All systems reviewed & are unremarkable except as noted in HPI & below Constitutional: no fever and no chills Respiratory: no cough and no dyspnea Cardiovascular: no chest pain, no palpitations and no edema Gastrointestinal: no abdominal pain, no nausea and no vomiting Physical Exam Physical Exam: Constitutional: elderly, + cachectic and + frail appearing male lying in bed, in NAD Eyes: PERRL, EOMI, conjunctivae normal, anicteric sclerae ENMT: external ear and nose normal, oropharynx normal Respiratory: normal respiratory effort; no respiratory distress Auscultation: + diminished lung sounds,+ mild bibasilar crackles Cardiovascular: Rate/Rhythm: regular rate and regular rhythm Vessels: normal peripheral pulses Extremities: no edema Gastrointestinal (Abdomen): normal bowel sounds, soft, nontender, nondistended Musculoskeletal: Extremities: + leg internally rotated (Left), in abduction brace; no cyanosis and no clubbing, left hip - no significant surrounding erythema or drainage noted Skin: no rashes, warm and dry Neurologic: PERRL, EOMI, accommodation nl, no face palsy, no dysarthria Psychiatric: Orientation: alert and oriented; answers most questions appropriately, Insight: + limited insight Results & Data ([facility]) Vital Signs (Past 12 Hours) Vital Signs Temp Pulse Pulse Resp BP Pulse Ox 01/19/20 07:00 36.3 C L 74 16 149/65 H 01/19/20 03:29 36.8 C 78 20 145/72 H 94 01/19/20 00:15 70 01/18/20 23:00 36.8 C 72 20 120/66 90 Laboratory Results 01/19/20 01/19/20 01/18/20 Range/Units 07:43 07:43 16:46 WBC 11.75 H (4.8-10.8) K/uL RBC 3.33 L (4.7-6.1) M/uL Hgb 10.1 L (14.0-18.0) g/dL Hct 32.7 L (42-52) % MCV 98.2 (80-100) fL MCH 30.3 (25-34) pg MCHC 30.9 L (32-36) g/dL RDW Std Deviation 57.9 H (36.4-46.3) fL RDW Coeff of Jacob 16.2 H (11.5-14.5) % Plt Count 323 (130-400) K/uL MPV 10.3 (7.4-10.4) fL Immature Gran % (Auto) 0.5 % Neut % (Auto) 85.2 % Lymph % (Auto) 6.7 % [place] % (Auto) 6.2 % Eos % (Auto) 1.3 % Baso % (Auto) 0.1 % Immature Gran # (Auto) 0.06 H (0.00-0.02) K/uL Neut # (Auto) 10.01 H (1.4-6.5) K/uL Lymph # (Auto) 0.79 L (1.2-3.4) K/uL [place] # (Auto) 0.73 H (0.11-0.59) K/uL Eos # (Auto) 0.15 (0-0.5) K/uL Baso # (Auto) 0.01 (0-0.2) K/uL Sodium Pending 142 (136-145) mmol/L Potassium Pending 4.4 D (3.5-5.1) mmol/L Chloride Pending 105 (98-107) mmol/L Carbon Dioxide Pending 31 (21-32) mmol/L Anion Gap Pending 6.0 (3-11) BUN Pending 24 H (7-18) mg/dl Creatinine Pending 0.87 (0.6-1.4) mg/dl Est Cr Clr Drug Dosing Pending 38.6 ml/min Est GFR ( Amer) Pending 88.7 Est GFR (Non-Af Amer) Pending 76.5 BUN/Creatinine Ratio Pending 27.7 H (10-20) Glucose Pending 114 H (70-99) mg/dl Calcium Pending 9.4 (8.5-10.1) mg/dl Phosphorus Pending 1.8 L (2.5-4.9) mg/dl Magnesium Pending 01/18/20 Range/Units 06:41 WBC (4.8-10.8) K/uL RBC (4.7-6.1) M/uL Hgb (14.0-18.0) g/dL Hct (42-52) % MCV (80-100) fL MCH (25-34) pg MCHC (32-36) g/dL RDW Std Deviation (36.4-46.3) fL RDW Coeff of Jacob (11.5-14.5) % Plt Count (130-400) K/uL MPV (7.4-10.4) fL Immature Gran % (Auto) % Neut % (Auto) % Lymph % (Auto) % [place] % (Auto) % Eos % (Auto) % Baso % (Auto) % Immature Gran # (Auto) (0.00-0.02) K/uL Neut # (Auto) (1.4-6.5) K/uL Lymph # (Auto) (1.2-3.4) K/uL [place] # (Auto) (0.11-0.59) K/uL Eos # (Auto) (0-0.5) K/uL Baso # (Auto) (0-0.2) K/uL Sodium (136-145) mmol/L Potassium (3.5-5.1) mmol/L Chloride (98-107) mmol/L Carbon Dioxide (21-32) mmol/L Anion Gap (3-11) BUN (7-18) mg/dl Creatinine (0.6-1.4) mg/dl Est Cr Clr Drug Dosing ml/min Est GFR ( Amer) Est GFR (Non-Af Amer) BUN/Creatinine Ratio (10-20) Glucose (70-99) mg/dl Calcium (8.5-10.1) mg/dl Phosphorus 1.5 L* (2.5-4.9) mg/dl Magnesium Medications Administered Current Inpatient Medications Acetaminophen (Tylenol) 650 mg PO Q4H PRN PRN Reason: Pain or Fever Stop: 02/15/20 15:22 Last Admin: 01/18/20 20:56 Dose: 650 mg Documented by: Enoxaparin Sodium (Lovenox) 30 mg SQ Q24H [facility] Stop: 02/16/20 08:59 Last Admin: 01/18/20 07:53 Dose: 30 mg Documented by: Furosemide (Lasix) 20 mg PO QAM [facility] Stop: 02/18/20 08:59 Piperacillin Sod/Tazobactam (Sod 3.375 gm/ Dextrose) 115 mls @ 28.75 mls/hr IV Q8H [facility]; Protocol Stop: 01/23/20 19:59 Last Infusion: 01/19/20 08:11 Dose: Infused Documented by: Magnesium Hydroxide (Milk Of Magnesia) 30 ml PO DAILY PRN PRN Reason: Constipation Stop: 02/17/20 16:21 Last Admin: 01/18/20 20:07 Dose: 30 ml Documented by: Metoprolol Tartrate (Lopressor) 12.5 mg PO BID [facility] Stop: 02/15/20 20:59 Last Admin: 01/18/20 20:01 Dose: 12.5 mg Documented by: Miscellaneous Information (Consult) 1 ea N/A UD PRN PRN Reason: Consult Stop: 02/15/20 15:22 Multivitamins/Minerals (Cerovite Liquid) 15 ml PO QAM [facility] Stop: 02/17/20 12:14 Last Admin: 01/18/20 13:24 Dose: 15 ml Documented by: Naloxone HCl (Narcan) 0.1 mg IV UD PRN PRN Reason: Opioid Overdose Stop: 02/15/20 19:52 Polyethylene Glycol (Miralax Powder Packet) 17 gm PO DAILY [facility] Stop: 02/17/20 16:29 Last Admin: 01/18/20 17:38 Dose: 17 gm Documented by: Potassium Chloride (Patt Ciel Elix) 20 meq PO BID17 [facility] Stop: 02/15/20 16:59 Last Admin: 01/18/20 17:39 Dose: 20 meq Documented by: Senna/Docusate Sodium (Senokot S) 1 tab PO HS [facility] Stop: 02/15/20 20:59 Last Admin: 01/18/20 20:01 Dose: 1 tab Documented by: (1) Dislocation of left hip Encounter type: initial encounter Qualified Code(s): S73.005A - Unspecified dislocation of left hip, initial encounter
[2020-01-19 08:29] LABS: BUN Creatinine Ratio 25.3 (10-20); Calcium 9.1 mg/dl (8.5-10.1); Est GFR (African American) 91.8; Est GFR (Non-African American) 79.2; Magnesium 1.8 mg/dl (1.8-2.4); Phosphorus 1.9 mg/dl (2.5-4.9); Potassium 4.7 mmol/L (3.5-5.1)
[2020-01-19] MEDS: MULTI VIT W/MINERALS LIQUID 15 ML UDP PO SCH (09:18)
[2020-01-19] MEDS: POTASSIUM CHLORIDE 20 MEQ/15 ML UDC PO SCH ×2 (09:19→17:14)
[2020-01-19] MEDS: POLYETHYLENE (MIRALAX) 17 GM PACK PO SCH (09:20)
[2020-01-19] MEDS: FUROSEMIDE 20 MG TAB PO SCH (09:21)
[2020-01-19] MEDS: ENOXAPARIN INJ 30 MG/0.3 ML SYR SQ SCH (09:22)
[2020-01-19] MEDS: METOPROLOL TARTRATE 25 MG TAB PO SCH ×2 (09:22→21:02)
[2020-01-19] MEDS ORDERED: SODIUM PHOSPHATE 3 MMOL/1 ML INFUSION IV STA (11:04)
[2020-01-19] MEDS ORDERED: SODIUM PHOSPHATE 15 MMOL in SODIUM CHLORIDE 0.9% 250 ML IV ONE (11:30)
[2020-01-19] MEDS ORDERED: FUROSEMIDE 20 MG TAB PO ONE (18:33)
[2020-01-19] MEDS: ACETAMINOPHEN 325 MG TAB PO PRN (19:51)
[2020-01-19] MEDS: DOCUSATE SODIUM/SENNA 50/8.6MG TAB PO SCH (21:02)
[2020-01-19] MEDS: TRAMADOL HCL 50 MG TABLET PO PRN (22:08)
[2020-01-20] MEDS: PIPERACILLIN/TAZOBACTAM 3.375 GM in DEXTROSE 5% 100 ML IV SCH ×3 (03:08→20:26)
[2020-01-20 06:23] LABS: Basophils # (auto) 0.01 K/uL (0-0.2); Basophils % (auto) 0.1 %; Eosinophils # (auto) 0.17 K/uL (0-0.5); Eosinophils % (auto) 1.9 %; Hematocrit (blood only) 34.7 % (42-52); Hemoglobin 10.9 g/dL (14.0-18.0); Immature Granulocytes # (auto) 0.07 K/uL (0.00-0.02); Immature Granulocytes % (auto) 0.8 %; Lymphocytes # (auto) 0.95 K/uL (1.2-3.4); Lymphocytes % (auto) 10.7 %; Mean Corpuscular Hemoglobin 30.4 pg (25-34); Mean Corpuscular Hgb Conc 31.4 g/dL (32-36); Mean Corpuscular Volume 96.7 fL (80-100); Mean Platelet Volume 10.6 fL (7.4-10.4); Monocytes # (auto) 0.42 K/uL (0.11-0.59); Monocytes % (auto) 4.7 %; Neutrophils # (auto) 7.29 K/uL (1.4-6.5); Neutrophils % (auto) 81.8 %; Platelet Count 331 K/uL (130-400); RDW Coefficient of Variation 15.7 % (11.5-14.5); RDW Standard Deviation 55.2 fL (36.4-46.3); Red Blood Count 3.59 M/uL (4.7-6.1); White Blood Count 8.91 K/uL (4.8-10.8)
--- NOTE | 2020-01-20 07:22 | Hospitalist Progress Note ---
Date of Service January 20, 2020 Assessment & Plan (1) Dislocation of left hip: -Admitted to [facility] with telemetry -Patient presenting from [facility] for evaluation of left hip dislocation -Recent admission to [facility] 12/27 through 01/04 for left hip fracture, s/p left hip hemiarthroplasty on 12/31 -Seen in ED on 01/15 for left hip dislocation which was able to be reduced in the ED -Orthopedics consulted, patient will need to go to the OR for closed reduction -Likely will be considered high risk due to his very malnourished state and other problems as described below -pt now s/p closed reduction of left hip hemiarthroplasty on 01/16 w/ Dr. Ramírez -pt tolerated procedure well -postoperative x-ray well aligned well fixed prothesis without fracture, dislocation. -Hip abduction brace ordered, and received Recommendations by ortho: - -Weight-bear as tolerates left lower extremity -Strict posterior hip precautions, maintain knee immobilizer at all times, abduction pillow when in bed -Pain control -DC paco -Patient will need to follow up in office with Dr. Ramírez 2 weeks after discharge, This AM (01/19) -Notified by staff that pt unfortunately dislocated his left hip again. Orthopedics aware, and plan for surgery possibly tomorrow. Discussed that pt has been doing well, hemodynamically stable, electrolyte abnormalities mostly resolved, continues to use the same amount of suppl. O2, pt is mostly awake and cooperative on my examinations, and never complains of any shortness of breath, chest pains, fevers, abd. pain, nausea, or vomiting. He did however had pl. effusions on admission, and was started on zosyn for poss. aspiration pneumonitis. Will re-check CXR to see if further management/ optimization needed prior to surgery. Update: CXR shows worsening pl. effusions/ pulmonary congestion, will increase diuresis today and will closely monitor electrolytes, and BP. Repeat CXR tmrw AM, will dicsuss w/ ortho (2) Abnormal EKG: (3) Elevated troponin: -EKG shows new deep T wave inversions laterally - likely d/t mild acute diastolic HF -No cardiopulmonary complaints per patient, however is poor historian -Mildly elevated troponin 0.046 -May have some component of heart failure with bilateral pleural effusions on CXR, check proBNP -pro BNP mildly elevated -Check limited echo to evaluate for new wall motion abnormality and EF Echo - LV cavity small, mild concentric LVH, septal motion is consistent with conduction abnormality, no regional wall motion abnormalities noted, EF 65 to 70%, in comparison to prior study earlier in December 2019, no significant change - diuresis very complicated, have to be very gentle, as pt's oral intake is already limited - needs improved nutritious status/ protein, his low albumin exacerbates his fluid status (4) Bilateral pleural effusion: -Bilateral pleural effusions with bibasilar opacities noted on CXR -WBC 15 K; does not appear septic -Patient is high risk for aspiration given underlying achalasia -will cover empirically with IV Zosyn for now; check procalcitonin - procalcitonin 0.49 - will cont. Abx -work-up for CHF as above, may need gentle diuresis - also need to be careful w/ diuretics given his electrolyte abnormalities Electrolyte abnormalities - secondary to poor nutrition ( 12/23 achalasia/liquid diet) - cont. to monitor K, Mg, and Phos and replace as needed (5) Achalasia: -Maintain liquid diet -S/p EGD on 12/31 with drainage of food and fluid and dilation (6) DVT prophylaxis: -SQ heparin (7) Severe protein-calorie malnutrition: Nutrition consulted, boost ordered - encourage oral intake of more nutritious fluids Admission and Anticipated Discharge Date Admission Date: January 16, 2020 Subjective Notified by staff that pt unfortunately dislocated his left hip again. Orthopedics aware, and plan for surgery possibly tomorrow. Discussed that pt has been doing well, hemodynamically stable, electrolyte abnormalities mostly resolved, continues to use the same amount of suppl. O2, pt is mostly awake and cooperative on my examinations, and never complains of any shortness of breath, chest pains, fevers, abd. pain, nausea, or vomiting. He did however had pl. effusions on admission, and was started on zosyn for poss. aspiration pneumonitis. Will re-check CXR to see if further management/ optimization needed prior to surgery. Update: CXR shows worsening pl. effusions/ pulmonary congestion, will increase diuresis today and will closely monitor electrolytes, and BP. Review of Systems Review of Systems: All systems reviewed & are unremarkable except as noted in HPI & below Constitutional: no fever and no chills Respiratory: no cough and no dyspnea Cardiovascular: no chest pain and no palpitations Gastrointestinal: no abdominal pain, no nausea and no vomiting Physical Exam Physical Exam: Constitutional: elderly, + cachectic and + frail appearing male lying in bed, in NAD Eyes: PERRL, EOMI, conjunctivae normal, anicteric sclerae ENMT: external ear and nose normal, oropharynx normal Respiratory: normal respiratory effort; no respiratory distress Auscultation: + diminished lung sounds,+ mild bibasilar crackles Cardiovascular: Rate/Rhythm: regular rate and regular rhythm Vessels: normal peripheral pulses Extremities: no edema Gastrointestinal (Abdomen): normal bowel sounds, soft, nontender, nondistended Musculoskeletal: Extremities: + leg internally rotated (Left) , +L hip is dislocated, in abduction brace; no cyanosis and no clubbing, left hip - no signi ficant surrounding erythema or drainage noted Skin: no rashes, warm and dry Neurologic: PERRL, EOMI, accommodation nl, no face palsy, no dysarthria Psychiatric: Orientation: alert and oriented; answers most questions appropriately, Insight: + limited insight Results & Data ([place]) Vital Signs (Past 12 Hours) Vital Signs Temp Pulse Pulse Resp BP BP Pulse Ox 01/20/20 03:00 36.5 C 73 18 131/70 95 01/20/20 00:39 80 01/19/20 22:23 36.6 C 80 18 126/66 99 Laboratory Results 01/20/20 01/20/20 Range/Units 07:34 05:48 WBC 8.91 (4.8-10.8) K/uL RBC 3.59 L (4.7-6.1) M/uL Hgb 10.9 L (14.0-18.0) g/dL Hct 34.7 L (42-52) % MCV 96.7 (80-100) fL MCH 30.4 (25-34) pg MCHC 31.4 L (32-36) g/dL RDW Std Deviation 55.2 H (36.4-46.3) fL RDW Coeff of Jacob 15.7 H (11.5-14.5) % Plt Count 331 (130-400) K/uL MPV 10.6 H (7.4-10.4) fL Immature Gran % (Auto) 0.8 % Neut % (Auto) 81.8 % Lymph % (Auto) 10.7 % Forest % (Auto) 4.7 % Eos % (Auto) 1.9 % Baso % (Auto) 0.1 % Immature Gran # (Auto) 0.07 H (0.00-0.02) K/uL Neut # (Auto) 7.29 H (1.4-6.5) K/uL Lymph # (Auto) 0.95 L (1.2-3.4) K/uL Forest # (Auto) 0.42 (0.11-0.59) K/uL Eos # (Auto) 0.17 (0-0.5) K/uL Baso # (Auto) 0.01 (0-0.2) K/uL Sodium 141 (136-145) mmol/L Potassium 3.9 D (3.5-5.1) mmol/L Chloride 104 (98-107) mmol/L Carbon Dioxide 31 (21-32) mmol/L Anion Gap 6.0 (3-11) BUN 15 (7-18) mg/dl Creatinine 0.83 (0.6-1.4) mg/dl Est Cr Clr Drug Dosing 41.9 ml/min Est GFR ( Amer) 90.4 Est GFR (Non-Af Amer) 78.0 BUN/Creatinine Ratio 18.3 (10-20) Glucose 105 H (70-99) mg/dl Calcium 8.9 (8.5-10.1) mg/dl Phosphorus 2.2 L (2.5-4.9) mg/dl Magnesium 1.6 L (1.8-2.4) mg/dl Medications Administered Current Inpatient Medications Acetaminophen (Tylenol) 650 mg PO Q4H PRN PRN Reason: Pain or Fever Stop: 02/15/20 15:22 Last Admin: 01/19/20 19:51 Dose: 650 mg Documented by: Enoxaparin Sodium (Lovenox) [address] [facility] Stop: 02/16/20 08:59 Last Admin: 01/20/20 08:28 Dose: 30 mg Documented by: Furosemide (Lasix) [address] [facility] Stop: 02/18/20 08:59 Last Admin: 01/20/20 08:27 Dose: 20 mg Documented by: Piperacillin Sod/Tazobactam (Sod 3.375 gm/ Dextrose) 115 mls @ 28.75 mls/hr IV Q8H [facility]; Protocol Stop: 01/23/20 19:59 Last Infusion: 01/20/20 07:47 Dose: Infused Documented by: Magnesium Sulfate/Dextrose (Magnesium Sulfate / D5w) 1 gm in 100 mls @ 100 mls/hr IV Q1H [facility] Stop: 01/20/20 09:57 Magnesium Hydroxide (Milk Of Magnesia) 30 ml PO DAILY PRN PRN Reason: Constipation Stop: 02/17/20 16:21 Last Admin: 01/18/20 20:07 Dose: 30 ml Documented by: Metoprolol Tartrate (Lopressor) 12.[address] [facility] Stop: 02/15/20 20:59 Last Admin: 01/20/20 08:29 Dose: 12.5 mg Documented by: Miscellaneous Information (Consult) 1 ea N/A UD PRN PRN Reason: Consult Stop: 02/15/20 15:22 Multivitamins/Minerals (Cerovite Liquid) [address] [facility] Stop: 02/17/20 12:14 Last Admin: 01/20/20 08:27 Dose: 15 ml Documented by: Naloxone HCl (Narcan) 0.1 mg IV UD PRN PRN Reason: Opioid Overdose Stop: 02/15/20 19:52 Polyethylene Glycol (Miralax Powder Packet) [address] [facility] Stop: 02/17/20 16:29 Last Admin: 01/20/20 08:40 Dose: Not Given Documented by: Potassium Chloride (Patt Ciel Elix) [address] [facility] Stop: 02/15/20 16:59 Last Admin: 01/20/20 08:31 Dose: 20 meq Documented by: Potassium Phosphate (Potassium Phosphate Replace) 15 mmol IV NOW STA Stop: 01/20/20 09:01 Senna/Docusate Sodium (Senokot S) 1 tab PO HS [facility] Stop: 02/15/20 20:59 Last Admin: 01/19/20 21:02 Dose: 1 tab Documented by: Tramadol HCl (Ultram) 25 - 50 mg PO Q4H PRN PRN Reason: Pain Stop: 02/18/20 20:36 Last Admin: 01/19/20 22:08 Dose: 50 mg Documented by: (1) Dislocation of left hip Encounter type: initial encounter Qualified Code(s): S73.005A - Unspecified dislocation of left hip, initial encounter
[2020-01-20] MEDS: POLYETHYLENE (MIRALAX) 17 GM PACK PO SCH ×3 (07:47→08:40)
[2020-01-20 08:12] LABS: BUN Creatinine Ratio 18.3 (10-20); Calcium 8.9 mg/dl (8.5-10.1); Creatinine Clr Calc Pharmacy 41.9 ml/min; Est GFR (African American) 90.4; Magnesium 1.6 mg/dl (1.8-2.4); Phosphorus 2.2 mg/dl (2.5-4.9); Potassium 3.9 mmol/L (3.5-5.1)
[2020-01-20] MEDS: MULTI VIT W/MINERALS LIQUID 15 ML UDP PO SCH (08:27)
[2020-01-20] MEDS: FUROSEMIDE 20 MG TAB PO SCH (08:27)
[2020-01-20] MEDS: ENOXAPARIN INJ 30 MG/0.3 ML SYR SQ SCH (08:28)
[2020-01-20] MEDS: METOPROLOL TARTRATE 25 MG TAB PO SCH ×2 (08:29→20:25)
[2020-01-20] MEDS: POTASSIUM CHLORIDE 20 MEQ/15 ML UDC PO SCH ×2 (08:31→16:58)
[2020-01-20] MEDS ORDERED: POTASSIUM PHOS 3 MMOL/1 ML INFUSION IV STA (09:00)
[2020-01-20] MEDS ORDERED: POTASSIUM PHOSPHATE 15 MMOL in SODIUM CHLORIDE 0.9% 250 ML IV ONE (09:45)
[2020-01-20] MEDS: MAGNESIUM SULFATE / D5W 1 GM/100 ML BAG IV SCH ×2 (11:27→12:36)
--- NOTE | 2020-01-20 11:28 | XRay Report ---
XR hip LT 2V w pelvis HISTORY: 89 years-old Male internal rotation and limb appears shorter [total joint arthroplasty COMPARISON: Pelvis and left hip radiographs 01/16/2020 TECHNIQUE: AP view of the pelvis with 2 views of the left hip FINDINGS: Left hip total joint arthroplasty. The acetabular and femoral components are completely displaced sup eriorly and posteriorly in relation to the acetabular cup. Lateral skin paco are noted along with postsurgical soft tissue swelling. Arterial calcifications are noted. Moderate right hip osteoarthrit is. No acute fracture. IMPRESSION: Left hip total joint arthroplasty with acetabular and femoral components displaced superi silvia and posteriorly. No acute fracture. ACT 112: Negative or not required by law. The above report was generated using voice recognition software. It may contain grammatical, syntax o r spelling errors. Electronically signed by: Christophe Hicks M.D. 01/20/2020 11:27 AM
[2020-01-20] MEDS: ACETAMINOPHEN 325 MG TAB PO PRN ×2 (13:40→20:24)
--- NOTE | 2020-01-20 13:57 | Orthopedic Progress Note ---
Date of Service January 20, 2020 Assessment & Plan (1) Dislocation of left hip: Status post closed reduction left hip hemiarthroplasty We were called today as when physical therapy came to work with the patient they noted that the limb was shortened and internally rotated and had increased pain on palpation. We ordered a new x-ray. This x-ray demonstrates that there is a redislocation of the left hip bipolar hemiarthroplasty. Currently the patient is comfortable. I discussed the situation with the patient's son. We discussed that likely the only thing that will help hold the hip in place is conversion to a total hip arthroplasty with a constrained liner. We discussed the risks, b enefits, alternatives to this and they wish to proceed with surgery. I discussed the case with medicine and they feel that he is as optimized as he is going to get for proceeding with surgery and they are okay with us proceeding with the conversion. He will be n.p.o. after midnight and hold his Lovenox for tomorrow plan will be for Dr. Ramírez to convert the bipolar into a total hip arthroplasty with a constrained liner. All questions have been answered. Admission and Anticipated Discharge Date Admission Date: January 16, 2020 Subjective He states the pain in his left hip is tolerable Physical Exam Musculoskeletal: Left lower extremity: The limb is shortened and internally rotated. Light touch sensation and motor function is intact distally. No calf pain. Results & Data ([facility]) Vital Signs (Past 12 Hours) Vital Signs Temp Pulse Pulse Resp BP BP Pulse Ox 01/20/20 10:00 36.2 C L 81 18 115/72 92 01/20/20 08:00 70 01/20/20 07:00 36.8 C 71 16 173/79 H 93 01/20/20 03:00 36.5 C 73 18 131/70 95 (1) Dislocation of left hip Encounter type: initial encounter Qualified Code(s): S73.005A - Unspecified dislocation of left hip, initial encounter
--- NOTE | 2020-01-20 14:10 | XRay Report ---
XR chest 1V portable HISTORY: 89 years-old Male follow up CXR follow-up study in a patient with pulmonary opacities COMPARISON: Chest radiograph 01/16/2020, chest CT 12/30/2019 TECHNIQUE: Portable AP view of the chest FINDINGS: Cardiac silhouette is enlarged. Upper mediastinal retrocardiac lucencies likely correlate with air in the markedly distended distal esophagus/hiatal hernia. Calcified plaque the thoracic aortic arch. Ca lcified plaque of the thoracic aortic arch. No pneumothorax. Progressively worsened pulmonary edema w ith increased size of pleural effusions and bibasilar consolidation. Bones appear grossly intact. Deg enerative changes of the shoulders and spine. IMPRESSION: 1. Cardiomegaly with pulmonary edema. 2. Increased size of the pleural effusions with worsened bibasilar consolidation. 3. Marked gaseous distention of the esophagus redemonstrated. ACT 112: Negative or not required by law. The above report was generated using voice recognition software. It may contain grammatical, syntax o r spelling errors. Electronically signed by: Christophe Hicks M.D. 01/20/2020 2:08 PM
[2020-01-20] MEDS ORDERED: FUROSEMIDE 10 MG in SYRINGE 0 ML IV ONE ×2 (14:40→23:15)
[2020-01-20 20:22] LABS: BUN Creatinine Ratio 16.7 (10-20); Calcium 9.1 mg/dl (8.5-10.1); Creatinine Clr Calc Pharmacy 42.9 ml/min; Est GFR (African American) 91.3; Est GFR (Non-African American) 78.8; Potassium 4.1 mmol/L (3.5-5.1)
[2020-01-20] MEDS: DOCUSATE SODIUM/SENNA 50/8.6MG TAB PO SCH (20:25)
[2020-01-21] MEDS: TRAMADOL HCL 50 MG TABLET PO PRN (03:17)
[2020-01-21] MEDS: PIPERACILLIN/TAZOBACTAM 3.375 GM in DEXTROSE 5% 100 ML IV SCH ×3 (04:13→21:07)
--- NOTE | 2020-01-21 07:27 | XRay Report ---
XR chest 1V portable HISTORY: 89 years-old Male follow up CXR/ pre-op preoperative exam COMPARISON: Chest radiograph 01/20/2020 TECHNIQUE: Portable AP view of the chest FINDINGS: Cardiomegaly with slightly decreased pulmonary edema. Gaseous distention of the esophagus has decreas ed from comparison. Pleural effusions with mildly improved bibasilar consolidation. Calcified plaque of the thoracic aortic arch. Skin folds project over the right midlung. No pneumothorax. Degenerative changes of the shoulders and spine. IMPRESSION: 1. Cardiomegaly with mildly improved pulmonary edema. 2. Pleural effusions with mildly improved bibasilar consolidation. ACT 112: Negative or not required by law. The above report was generated using voice recognition software. It may contain grammatical, syntax o r spelling errors. Electronically signed by: Christophe Hicks M.D. 01/21/2020 7:26 AM
[2020-01-21 07:57] LABS: Basophils # (auto) 0.02 K/uL (0-0.2); Basophils % (auto) 0.2 %; Eosinophils # (auto) 0.18 K/uL (0-0.5); Eosinophils % (auto) 1.6 %; Hematocrit (blood only) 36.1 % (42-52); Hemoglobin 11.6 g/dL (14.0-18.0); Immature Granulocytes # (auto) 0.12 K/uL (0.00-0.02); Lymphocytes # (auto) 0.89 K/uL (1.2-3.4); Lymphocytes % (auto) 7.7 %; Mean Corpuscular Hemoglobin 30.9 pg (25-34); Mean Corpuscular Hgb Conc 32.1 g/dL (32-36); Mean Platelet Volume 10.6 fL (7.4-10.4); Monocytes # (auto) 0.65 K/uL (0.11-0.59); Monocytes % (auto) 5.6 %; Neutrophils # (auto) 9.73 K/uL (1.4-6.5); Neutrophils % (auto) 83.9 %; Platelet Count 390 K/uL (130-400); RDW Coefficient of Variation 15.6 % (11.5-14.5); RDW Standard Deviation 54.4 fL (36.4-46.3); Red Blood Count 3.76 M/uL (4.7-6.1); White Blood Count 11.59 K/uL (4.8-10.8)
[2020-01-21 08:04] LABS: Creatinine Clr Calc Pharmacy 37.4 ml/min; Est GFR (African American) 88.3; Est GFR (Non-African American) 76.2; Magnesium 1.8 mg/dl (1.8-2.4)
[2020-01-21 08:07] LABS: Phosphorus 2.9 mg/dl (2.5-4.9)
[2020-01-21] MEDS ORDERED: FUROSEMIDE 10 MG in SYRINGE 0 ML IV ONE (08:10)
--- NOTE | 2020-01-21 09:52 | Anesthesiology Consultation ---
Date of Service January 21, 2020 Assessment & Plan (1) Encounter for pre-operative examination: Chart Review Chart Review: Acceptable Risk for Surgery and Patient NOT seen in Pre Admission Testing Consults Requested none ASA ASA4 Proposed Anesthesia Risk / Benefits Reviewed With: PT / POA / Parent / Guardian, Accepts Plan and Informed Consent Obtained History Surgery Operation Date: 01/16/20 12:15 Proposed Procedures p Left Hip Closed Reduction - Talon Ramírez DO Operation Date: 01/21/20 13:20 Proposed Procedures p Left Bipolar Hip Conversion to Total Hip Arthroplasty with Constrained Liner - Talon Ramírez DO Height/Weight Height: 5 ft 7 in Weight: 46.5 kg Allergies Allergy/AdvReac Type Severity Reaction Status Date / Time No Known Allergies Allergy Verified 01/16/20 13:21 Medications Home Medications Medication Instructions Recorded Confirmed Last Taken acetaminophen [Tylenol Extra 500 mg PO QID 01/15/20 01/16/20 01/16/20 09:01 Strength] acetaminophen [Tylenol] 650 mg PO Q6 PRN 01/15/20 01/16/20 01/14/20 09:43 enoxaparin [Lovenox] 30 mg SUBCUT DAILY 01/15/20 01/16/20 01/16/20 metoprolol tartrate 12.5 mg PO BID 01/15/20 01/16/20 01/16/20 potassium chloride 20 meq PO BID 01/15/20 01/16/20 01/16/20 menthol-zinc oxide [Calmoseptine] 1 applic TOPICAL TID 01/16/20 01/16/20 01/15/20 sennosides-docusate sodium [Senna 1 tabcap PO HS 01/16/20 01/16/20 01/15/20 Plus] Active Medications Generic Name Dose Route Start Last Admin Trade Name Freq PRN Reason Stop Dose Admin Acetaminophen 650 mg 01/16/20 15:23 01/20/20 20:24 Tylenol PO 02/15/20 15:22 650 mg Q4H PRN Administration Pain or Fever Enoxaparin Sodium 30 mg 01/17/20 09:00 01/20/20 08:28 Lovenox SQ 02/16/20 08:59 30 mg Q24H [facility] Administration Furosemide 20 mg 01/19/20 09:00 01/20/20 08:27 Lasix PO 02/18/20 08:59 20 mg QAM [facility] Administration Piperacillin Sod/Tazobactam 115 mls @ 28.75 mls/hr 01/16/20 20:00 01/21/20 08:13 Sod 3.375 gm/ Dextrose IV 01/23/20 19:59 Infused Q8H [facility] Infusion Protocol Magnesium Hydroxide 30 ml 01/18/20 16:22 01/18/20 20:07 Milk Of Magnesia PO 02/17/20 16:21 30 ml DAILY PRN Administration Constipation Metoprolol Tartrate 12.5 mg 01/16/20 21:00 01/20/20 20:25 Lopressor PO 02/15/20 20:59 12.5 mg BID [facility] Administration Multivitamins/Minerals 15 ml 01/18/20 12:15 01/20/20 08:27 Cerovite Liquid PO 02/17/20 12:14 15 ml QAM [facility] Administration Polyethylene Glycol 17 gm 01/18/20 16:30 01/20/20 08:40 Miralax Powder Packet PO 02/17/20 16:29 Not Given DAILY [facility] Potassium Chloride 20 meq 01/16/20 17:00 01/20/20 16:58 Patt Ciel Elix PO 02/15/20 16:59 20 meq BID17 [facility] Administration Senna/Docusate Sodium 1 tab 01/16/20 21:00 01/20/20 20:25 Senokot S PO 02/15/20 20:59 1 tab HS [facility] Administration Tramadol HCl 25 - 50 mg 01/19/20 20:37 01/21/20 03:17 Ultram PO 02/18/20 20:36 50 mg Q4H PRN Administration Pain NPO Date Last Intake of Fluids: 01/21/20 Time Last Intake of Fluids: 00:00 Date Last Intake of Solids: 01/20/20 Time Last Intake of Solids: 19:00 Past Medical History Medical History Achalasia BPH (benign prostatic hyperplasia) Dislocation, hip (Acute) Elevated troponin Severe protein-calorie malnutrition Past Family History Family History Denies family history of Diabetes Heart disease Past Surgical History Surgical History History of esophagogastroduodenoscopy (EGD) History of tonsillectomy History of tooth extraction all upper and most of lower Hx of left cataract extraction S/P hip replacement Social History Smoking Status: Never smoker Hx Alcohol Use: No Hx Substance Use: No substance use type: does not use Physical Exam Vital Signs Last Vital Signs Temp 36.3 C L 01/21/20 07:08 Pulse 79 01/21/20 07:08 Resp 19 01/21/20 07:08 BP 137/81 01/21/20 07:08 Pulse Ox 96 01/21/20 07:08 Constitutional + cachectic and + altered mental status (chronic dementia) ENMT Mouth: + edentulous Thyromental Distance: > or= 3.5 Finger Breadths Mallampati Class: III Respiratory normal respiratory effort coarse breath sounds bilaterally Cardiovascular Rate/Rhythm: regular rate and regular rhythm Musculoskeletal L leg internally rotated Neurologic moves all extremities Psychiatric Orientation: alert Testing Laboratory Results 01/21/20 07:12 01/21/20 07:12 PT 11.4 Seconds (9.0-12.0) 01/16/20 13:30 INR 1.1 (0.9-1.1) 01/16/20 13:30 APTT 26.2 Seconds (21.0-31.0) 01/16/20 13:30 Electrocardiogram Date: 01/16/20 Sinus rhythm with Premature supraventricular complexes and with occasional Premature ventricular complexes, rate 68 bpm Right bundle branch block T wave abnormality, consider lateral ischemia Abnormal ECG Confirmed by Bill Tinajero ([id number]) on 01/16/2020 3:05:39 PM Chest X-Ray Date: 01/16/20 IMPRESSION: 1. Right paratracheal opacity, consistent with the patient's known dilated esophagus 2. Bilateral pleural effusions with associated basilar opacities. Echocardiogram Date: 01/16/20 This was a limited study performed to assess LV function and wall motion The LV cavity is small Mild concentric LVH Septal motion is consistent with conduction abnormality EF 65-70% In comparison to prior study of 12/27/2019, no significant change
--- NOTE | 2020-01-21 10:01 | Hospitalist Progress Note ---
Date of Service January 21, 2020 Assessment & Plan (1) Dislocation of left hip: -Admitted to [facility] with telemetry -Patient presenting from [facility] for evaluation of left hip dislocation -Recent admission to [facility] 12/27 through 01/04 for left hip fracture, s/p left hip hemiarthroplasty on 12/31 -Seen in ED on 01/15 for left hip dislocation which was able to be reduced in the ED -Orthopedics consulted, patient will need to go to the OR for closed reduction -Likely will be considered high risk due to his very malnourished state and other problems as described below -pt now s/p closed reduction of left hip hemiarthroplasty on 01/16 w/ Dr. Ramírez -pt tolerated procedure well -postoperative x-ray well aligned well fixed prothesis without fracture, dislocation. -Hip abduction brace ordered, and received - on 01/19 pt unfortunately dislocated his left hip again - Orthopedics aware, and plan for surgery tomorrow (01/21) by Dr. Ramírez (2) Abnormal EKG: (3) Elevated troponin: -EKG shows new deep T wave inversions laterally - likely d/t mild acute diastolic HF -No cardiopulmonary complaints per patient, however is poor historian -Mildly elevated troponin 0.046 -May have some component of heart failure with bilateral pleural effusions on CXR, check proBNP -pro BNP mildly elevated -Check limited echo to evaluate for new wall motion abnormality and EF Echo - LV cavity small, mild concentric LVH, septal motion is consistent with conduction abnormality, no regional wall motion abnormalities noted, EF 65 to 70%, in comparison to prior study earlier in December 2019, no significant change - diuresis very complicated, have to be very gentle, as pt's oral intake is already limited - needs improved nutritious status/ protein, his low albumin exacerbates his fluid status (4) Bilateral pleural effusion: -Bilateral pleural effusions with bibasilar opacities noted on CXR -WBC 15 K; does not appear septic -Patient is high risk for aspiration given underlying achalasia -will cover empirically with IV Zosyn for now; check procalcitonin - procalcitonin 0.49 - will cont. Abx -work-up for CHF as above, may need gentle diuresis - diuresis complicated, have to be very gentle, as pt's oral intake is already limited - needs improved nutritious status/ protein, his low albumin exacerbates his fluid status - also need to be careful w/ diuretics given his electrolyte abnormalities Electrolyte abnormalities - secondary to poor nutrition ( 12/23 achalasia/liquid diet) - cont. to monitor K, Mg, and Phos and replace as needed (5) Achalasia: -Maintain liquid diet -S/p EGD on 12/31 with drainage of food and fluid and dilation (6) DVT prophylaxis: -SQ heparin (hold for surgery) (7) Severe protein-calorie malnutrition: Nutrition consulted, boost ordered - encourage oral intake of more nutritious fluids Admission and Anticipated Discharge Date Admission Date: January 16, 2020 Subjective Patient is lying in bed, comfortable, in NAD. Denies any chest pain, shortness of breath, abd. pain, nausea. Review of Systems Review of Systems: All systems reviewed & are unremarkable except as noted in HPI & below Constitutional: no fever and no chills Respiratory: no cough and no dyspnea Cardiovascular: no chest pain and no palpitations Gastrointestinal: no abdominal pain, no nausea and no vomiting Physical Exam Physical Exam: Constitutional: elderly, + cachectic and + frail appearing male lying in bed, in NAD Eyes: PERRL, EOMI, conjunctivae normal, anicteric sclerae ENMT: external ear and nose normal, oropharynx normal Respiratory: normal respiratory effort; no respiratory distress Auscultation: + diminished lung sounds,+ mild bibasilar crackles Cardiovascular: Rate/Rhythm: regular rate and regular rhythm Vessels: normal peripheral pulses Extremities: no edema Gastrointestinal (Abdomen): normal bowel sounds, soft, nontender, nondistended Musculoskeletal: Extremities: + leg internally rotated (Left) , +L hip is dislocated; no cyanosis and no clubbing, left hip - no significant surrounding erythema or drainage noted Skin: no rashes, warm and dry Neurologic: PERRL, EOMI, accommodation nl, no face palsy, no dysarthria Psychiatric: Orientation: alert and oriented; answers most questions appropriately, Insight: + limited insight Results & Data ([place]) Vital Signs (Past 12 Hours) Vital Signs Temp Pulse Pulse Pulse Resp BP Pulse Ox 01/21/20 07:08 36.3 C L 79 19 137/81 96 01/21/20 03:14 36.4 C L 86 19 142/84 H 94 01/21/20 01:59 71 01/20/20 23:52 36.6 C 80 19 148/75 H 99 01/20/20 22:42 77 Laboratory Results 01/21/20 01/21/20 01/20/20 Range/Units 07:12 07:12 19:48 WBC 11.59 H (4.8-10.8) K/uL RBC 3.76 L (4.7-6.1) M/uL Hgb 11.6 L (14.0-18.0) g/dL Hct 36.1 L (42-52) % MCV 96.0 (80-100) fL MCH 30.9 (25-34) pg MCHC 32.1 (32-36) g/dL RDW Std Deviation 54.4 H (36.4-46.3) fL RDW Coeff of Jacob 15.6 H (11.5-14.5) % Plt Count 390 (130-400) K/uL MPV 10.6 H (7.4-10.4) fL Immature Gran % (Auto) 1.0 % Neut % (Auto) 83.9 % Lymph % (Auto) 7.7 % [place] % (Auto) 5.6 % Eos % (Auto) 1.6 % Baso % (Auto) 0.2 % Immature Gran # (Auto) 0.12 H (0.00-0.02) K/uL Neut # (Auto) 9.73 H (1.4-6.5) K/uL Lymph # (Auto) 0.89 L (1.2-3.4) K/uL [place] # (Auto) 0.65 H (0.11-0.59) K/uL Eos # (Auto) 0.18 (0-0.5) K/uL Baso # (Auto) 0.02 (0-0.2) K/uL Sodium 138 139 (136-145) mmol/L Potassium 4.0 4.1 (3.5-5.1) mmol/L Chloride 100 100 (98-107) mmol/L Carbon Dioxide 33 H 33 H (21-32) mmol/L Anion Gap 5.0 5.0 (3-11) BUN 13 14 (7-18) mg/dl Creatinine 0.88 0.81 (0.6-1.4) mg/dl Est Cr Clr Drug Dosing 37.4 42.9 ml/min Est GFR ( Amer) 88.3 91.3 Est GFR (Non-Af Amer) 76.2 78.8 BUN/Creatinine Ratio 15.0 16.7 (10-20) Glucose 123 H 101 H (70-99) mg/dl Calcium 9.0 9.1 (8.5-10.1) mg/dl Phosphorus 2.9 (2.5-4.9) mg/dl Magnesium 1.8 2.0 (1.8-2.4) mg/dl Medications Administered Current Inpatient Medications Acetaminophen (Tylenol) 650 mg PO Q4H PRN PRN Reason: Pain or Fever Stop: 02/15/20 15:22 Last Admin: 01/20/20 20:24 Dose: 650 mg Documented by: Enoxaparin Sodium (Lovenox) 30 mg SQ Q24H [facility] Stop: 02/16/20 08:59 Last Admin: 01/20/20 08:28 Dose: 30 mg Documented by: [facility] ([facility]) [facility] Stop: 02/18/20 08:59 Last Admin: 01/20/20 08:27 Dose: 20 mg Documented by: Piperacillin Sod/Tazobactam (Sod 3.375 gm/ Dextrose) 115 mls @ 28.75 mls/hr IV Q8H [facility]; Protocol Stop: 01/23/20 19:59 Last Infusion: 01/21/20 08:13 Dose: Infused Documented by: Magnesium Hydroxide (Milk Of Magnesia) 30 ml PO DAILY PRN PRN Reason: Constipation Stop: 02/17/20 16:21 Last Admin: 01/18/20 20:07 Dose: 30 ml Documented by: Metoprolol Tartrate (Lopressor) 12.5 mg PO BID [facility] Stop: 02/15/20 20:59 Last Admin: 01/20/20 20:25 Dose: 12.5 mg Documented by: Miscellaneous Information (Consult) 1 ea N/A UD PRN PRN Reason: Consult Stop: 02/15/20 15:22 Multivitamins/Minerals (Cerovite Liquid) [facility] Stop: 02/17/20 12:14 Last Admin: 01/20/20 08:27 Dose: 15 ml Documented by: Naloxone HCl (Narcan) 0.1 mg IV UD PRN PRN Reason: Opioid Overdose Stop: 02/15/20 19:52 Polyethylene Glycol (Miralax Powder Packet) 17 gm PO DAILY [facility] Stop: 02/17/20 16:29 Last Admin: 01/20/20 08:40 Dose: Not Given Documented by: Potassium Chloride (Patt Ciel Elix) 20 meq PO BID17 [facility] Stop: 02/15/20 16:59 Last Admin: 01/20/20 16:58 Dose: 20 meq Documented by: Senna/Docusate Sodium (Senokot S) 1 tab PO HS [facility] Stop: 02/15/20 20:59 Last Admin: 01/20/20 20:25 Dose: 1 tab Documented by: Tramadol HCl (Ultram) 25 - 50 mg PO Q4H PRN PRN Reason: Pain Stop: 02/18/20 20:36 Last Admin: 01/21/20 03:17 Dose: 50 mg Documented by: (1) Dislocation of left hip Encounter type: initial encounter Qualified Code(s): S73.005A - Unspecified dislocation of left hip, initial encounter
[2020-01-21] MEDS ORDERED: MIDAZOLAM HCL 1 MG/ML 2ML VIAL ONE (13:00)
[2020-01-21] MEDS ORDERED: PROPOFOL IV EMULSION 10 MG/ML 20 ML VIAL IV ONE (13:00)
[2020-01-21] MEDS: FUROSEMIDE 20 MG TAB PO SCH (14:08)
[2020-01-21] MEDS: POTASSIUM CHLORIDE 20 MEQ/15 ML UDC PO SCH ×2 (14:20→17:08)
[2020-01-21] MEDS: METOPROLOL TARTRATE 25 MG TAB PO SCH ×2 (14:21→21:08)
[2020-01-21] MEDS: POLYETHYLENE (MIRALAX) 17 GM PACK PO SCH (14:21)
[2020-01-21] MEDS: MULTI VIT W/MINERALS LIQUID 15 ML UDP PO SCH (14:21)
--- NOTE | 2020-01-21 15:10 | Orthopedic Progress Note ---
Date of Service January 21, 2020 Assessment & Plan (1) Dislocation of hip prosthesis: The patient is a 89-year-old male who is 3 weeks status post left hip hemiarthroplasty with recurrent instability/dislocation x3, last closed reduction performed on 12/31/2019, patient fitted with abduction brace unfortunately dislocated while in the brace on 01/20/2020. Due to combination of recurrent instability, failure of bracing and inability to follow posterior hip precautions I have indicated the patient for conversion of left hip hemiarthroplasty to total hip arthroplasty with constrained liner. Plan was to proceed with surgery 01/21/2020 however case had to be delayed secondary to implant availability. We will proceed with surgery on 01/22/2020. I discussed the case with the patient's son, MICHELLE at length. The risks, benefits, complications and alternatives of the procedure were explained to the patient which include however not limited to infection, blood clots, acute blood loss, injury to surrounding nerves, bone, vessels, soft tissue, arthrofibrosis, chronic pain, hip dislocation, failure of the implants, need for additional surgery, loss of limb and loss of life. Alternatives included no surgery which could result in worsening clinical picture recurrent instability. The patient s on wished to proceed with surgery and all questions were answered to satisfaction. N.p.o. after midnight Bedrest Pain control Hold anticoagulation Admission and Anticipated Discharge Date Admission Date: January 16, 2020 Subjective Patient seen resting comfortably in bed, denies pain, no acute issues. Review of Systems Review of Systems: All systems reviewed & are unremarkable except as noted in HPI & below Constitutional: as per Subjective / HPI Physical Exam Physical Exam: LLE NVSI +EHL/FHL/TA/GS SILT grossly, +2 DP pulse, compartments soft NT, short and internally rotated Constitutional: WD/WN, vitals as above Results & Data ([place]) Vital Signs (Past 12 Hours) Vital Signs Temp Pulse Pulse Pulse Resp BP BP 01/21/20 11:18 36.8 C 83 18 128/64 01/21/20 08:00 83 01/21/20 07:08 36.3 C L 79 19 137/81 01/21/20 03:14 36.4 C L 86 19 142/84 H Pulse Ox 01/21/20 11:18 94 01/21/20 08:00 01/21/20 07:08 96 01/21/20 03:14 94
[2020-01-21] MEDS: DOCUSATE SODIUM/SENNA 50/8.6MG TAB PO SCH (21:08)
[2020-01-22] MEDS: PIPERACILLIN/TAZOBACTAM 3.375 GM in DEXTROSE 5% 100 ML IV SCH ×3 (03:45→20:36)
[2020-01-22] MEDS ORDERED: ROPIVACAINE 0.5% HCL/PF 150 MG, BUPIVACAINE 0.5% MPF 30 ML, EPINEPHrine 0.15 MG, Ketoro... INFIL SCH (06:00)
[2020-01-22 08:23] LABS: Hematocrit (blood only) 36.5 % (42-52); Hemoglobin 11.5 g/dL (14.0-18.0); Mean Corpuscular Hemoglobin 29.9 pg (25-34); Mean Corpuscular Hgb Conc 31.5 g/dL (32-36); Mean Corpuscular Volume 94.8 fL (80-100); Mean Platelet Volume 10.4 fL (7.4-10.4); Platelet Count 361 K/uL (130-400); RDW Coefficient of Variation 15.5 % (11.5-14.5); RDW Standard Deviation 53.5 fL (36.4-46.3); Red Blood Count 3.85 M/uL (4.7-6.1); White Blood Count 10.37 K/uL (4.8-10.8)
[2020-01-22 08:53] LABS: BUN Creatinine Ratio 18.1 (10-20); Calcium 9.2 mg/dl (8.5-10.1); Creatinine Clr Calc Pharmacy 37.7 ml/min; Est GFR (Non-African American) 77.6; Magnesium 1.8 mg/dl (1.8-2.4); Potassium 3.7 mmol/L (3.5-5.1)
[2020-01-22] MEDS: MULTI VIT W/MINERALS LIQUID 15 ML UDP PO SCH (09:15)
[2020-01-22] MEDS: POTASSIUM CHLORIDE 20 MEQ/15 ML UDC PO SCH ×2 (09:15→16:20)
[2020-01-22] MEDS: METOPROLOL TARTRATE 25 MG TAB PO SCH ×2 (09:15→21:41)
[2020-01-22] MEDS: POLYETHYLENE (MIRALAX) 17 GM PACK PO SCH (09:15)
[2020-01-22] MEDS: FUROSEMIDE 20 MG TAB PO SCH (09:16)
--- NOTE | 2020-01-22 09:59 | Hospitalist Progress Note ---
Date of Service January 22, 2020 Assessment & Plan (1) Dislocation of left hip: -Admitted to [facility] with telemetry -Patient presenting from [facility] for evaluation of left hip dislocation -Recent admission to [facility] 12/27 through 01/04 for left hip fracture, s/p left hip hemiarthroplasty on 12/31 -Seen in ED on 01/15 for left hip dislocation which was able to be reduced in the ED -Orthopedics consulted, patient will need to go to the OR for closed reduction -Likely will be considered high risk due to his very malnourished state and other problems as described below -pt now s/p closed reduction of left hip hemiarthroplasty on 01/16 w/ Dr. Ramírez -pt tolerated procedure well -postoperative x-ray well aligned well fixed prothesis without fracture, dislocation. -Hip abduction brace ordered, and received - on 01/19 pt unfortunately dislocated his left hip again - Orthopedics aware, and plan for surgery on (01/21) by Dr. Ramírez - now s/p Revision left hip hemiarthroplasty, conversion to total hip arthroplasty, with Dr. Edwards (01/22/2020), pt tolerated procedure well (2) Abnormal EKG: (3) Elevated troponin: -EKG shows new deep T wave inversions laterally - likely d/t mild acute diastolic HF -No cardiopulmonary complaints per patient, however is poor historian -Mildly elevated troponin 0.046 -May have some component of heart failure with bilateral pleural effusions on CXR, check proBNP -pro BNP mildly elevated -Check limited echo to evaluate for new wall motion abnormality and EF Echo - LV cavity small, mild concentric LVH, septal motion is consistent with conduction abnormality, no regional wall motion abnormalities noted, EF 65 to 70%, in comparison to prior study earlier in December 2019, no significant change - diuresis very complicated, have to be very gentle, as pt's oral intake is already limited - needs improved nutritious status/ protein, his low albumin exacerbates his fluid status (4) Bilateral pleural effusion: -Bilateral pleural effusions with bibasilar opacities noted on CXR -WBC 15 K; does not appear septic -Patient is high risk for aspiration given underlying achalasia -will cover empirically with IV Zosyn for now; check procalcitonin - procalcitonin 0.49 - will cont. Abx -work-up for CHF as above, may need gentle diuresis - diuresis complicated, have to be very gentle, as pt's oral intake is already limited - needs improved nutritious status/ protein, his low albumin exacerbates his fluid status - also need to be careful w/ diuretics given his electrolyte abnormalities Electrolyte abnormalities - secondary to poor nutrition ( 12/23 achalasia/liquid diet) - cont. to monitor K, Mg, and Phos and replace as needed (5) Achalasia: -Maintain liquid diet -S/p EGD on 12/31 with drainage of food and fluid and dilation (6) DVT prophylaxis: -SQ heparin (hold for surgery) (7) Severe protein-calorie malnutrition: Nutrition consulted, boost ordered - encourage oral intake of more nutritious fluids Admission and Anticipated Discharge Date Admission Date: January 16, 2020 Subjective Pt is lying in bed, s/p left total hip arthroplasty. He is awake, alert and oriented, comfortable, denies any pain. Also denies any shortness of breath, chest pain, abd. pain, nausea, headache. Review of Systems Review of Systems: All systems reviewed & are unremarkable except as noted in HPI & below Constitutional: no fever and no chills Respiratory: no cough and no dyspnea Cardiovascular: no chest pain and no palpitations Gastrointestinal: no abdominal pain, no nausea and no vomiting Physical Exam Physical Exam: Constitutional: elderly, + cachectic and + frail appearing male lying in bed, in NAD Eyes: PERRL, EOMI, conjunctivae normal, anicteric sclerae ENMT: external ear and nose normal, oropharynx normal Respiratory: normal respiratory effort; no respiratory distress Auscultation: CTAB + somewhat diminished lung sounds,+ mild bibasilar crackles Cardiovascular: Rate/Rhythm: regular rate and regular rhythm Vessels: normal peripheral pulses Extremities: no edema Gastrointestinal (Abdomen): normal bowel sounds, soft, nontender, nondistended Musculoskeletal: Extremities: now s/p L hip arthroplasty, no sensory or motor loss noted, well perfused Skin: no rashes, warm and dry Neurologic: PERRL, EOMI, accommodation nl, no face palsy, no dysarthria Psychiatric: Orientation: alert and oriented; answers most questions appropriately, Insight: + limited insight Results & Data ([facility]) Vital Signs (Past 12 Hours) Vital Signs Temp Pulse Pulse Pulse Resp BP Pulse Ox 01/22/20 07:17 36.4 C L 75 20 127/71 94 01/22/20 03:28 36.6 C 80 17 153/77 H 92 01/22/20 00:23 36.5 C 91 H 19 158/81 H 91 01/21/20 22:20 77 Laboratory Results 01/22/20 01/22/20 01/21/20 Range/Units 07:59 07:59 17:03 WBC 10.37 (4.8-10.8) K/uL RBC 3.85 L (4.7-6.1) M/uL Hgb 11.5 L (14.0-18.0) g/dL Hct 36.5 L (42-52) % MCV 94.8 (80-100) fL MCH 29.9 (25-34) pg MCHC 31.5 L (32-36) g/dL RDW Std Deviation 53.5 H (36.4-46.3) fL RDW Coeff of Jacob 15.5 H (11.5-14.5) % Plt Count 361 (130-400) K/uL MPV 10.4 (7.4-10.4) fL Sodium 138 (136-145) mmol/L Potassium 3.7 (3.5-5.1) mmol/L Chloride 101 (98-107) mmol/L Carbon Dioxide 33 H (21-32) mmol/L Anion Gap 4.0 (3-11) BUN 15 (7-18) mg/dl Creatinine 0.84 (0.6-1.4) mg/dl Est Cr Clr Drug Dosing 37.7 ml/min Est GFR ( Amer) 90.0 Est GFR (Non-Af Amer) 77.6 BUN/Creatinine Ratio 18.1 (10-20) Glucose 105 H (70-99) mg/dl Calcium 9.2 (8.5-10.1) mg/dl Magnesium 1.8 (1.8-2.4) mg/dl Blood Type O Positive Antibody Screen NEGATIVE 01/21/20 Range/Units 15:49 WBC (4.8-10.8) K/uL RBC (4.7-6.1) M/uL Hgb (14.0-18.0) g/dL Hct (42-52) % MCV (80-100) fL MCH (25-34) pg MCHC (32-36) g/dL RDW Std Deviation (36.4-46.3) fL RDW Coeff of Jacob (11.5-14.5) % Plt Count (130-400) K/uL MPV (7.4-10.4) fL Sodium (136-145) mmol/L Potassium (3.5-5.1) mmol/L Chloride (98-107) mmol/L Carbon Dioxide (21-32) mmol/L Anion Gap (3-11) BUN (7-18) mg/dl Creatinine (0.6-1.4) mg/dl Est Cr Clr Drug Dosing ml/min Est GFR ( Amer) Est GFR (Non-Af Amer) BUN/Creatinine Ratio (10-20) Glucose (70-99) mg/dl Calcium (8.5-10.1) mg/dl Magnesium (1.8-2.4) mg/dl Blood Type Cancelled Antibody Screen Cancelled Medications Administered Current Inpatient Medications Acetaminophen (Tylenol) 650 mg PO Q4H PRN PRN Reason: Pain or Fever Stop: 02/15/20 15:22 Last Admin: 01/20/20 20:24 Dose: 650 mg Documented by: Enoxaparin Sodium (Lovenox) 30 mg SQ Q24H [facility] Stop: 02/16/20 08:59 Last Admin: 01/20/20 08:28 Dose: 30 mg Documented by: Furosemide (Lasix) 20 mg PO QAM [facility] Stop: 02/18/20 08:59 Last Admin: 01/22/20 09:16 Dose: Not Given Documented by: Piperacillin Sod/Tazobactam (Sod 3.375 gm/ Dextrose) 115 mls @ 28.75 mls/hr IV Q8H [facility]; Protocol Stop: 01/23/20 19:59 Last Infusion: 01/22/20 07:48 Dose: Infused Documented by: Potassium Chloride (K Bandar / Wtr) 10 meq in 100 mls @ 100 mls/hr IV Q1H [facility] Stop: 01/22/20 10:56 Magnesium Hydroxide (Milk Of Magnesia) 30 ml PO DAILY PRN PRN Reason: Constipation Stop: 02/17/20 16:21 Last Admin: 01/18/20 20:07 Dose: 30 ml Documented by: Metoprolol Tartrate (Lopressor) 12.5 mg PO BID [facility] Stop: 02/15/20 20:59 Last Admin: 01/22/20 09:15 Dose: 12.5 mg Documented by: Miscellaneous Information (Consult) 1 ea N/A UD PRN PRN Reason: Consult Stop: 02/15/20 15:22 Multivitamins/Minerals (Cerovite Liquid) 15 ml PO QAM [facility] Stop: 02/17/20 12:14 Last Admin: 01/22/20 09:15 Dose: 15 ml Documented by: Naloxone HCl (Narcan) 0.1 mg IV UD PRN PRN Reason: Opioid Overdose Stop: 02/15/20 19:52 Polyethylene Glycol (Miralax Powder Packet) 17 gm PO DAILY [facility] Stop: 02/17/20 16:29 Last Admin: 01/22/20 09:15 Dose: 17 gm Documented by: Potassium Chloride (Patt Ciel Elix) 20 meq PO BID17 [facility] Stop: 02/15/20 16:59 Last Admin: 01/22/20 09:15 Dose: 20 meq Documented by: Senna/Docusate Sodium (Senokot S) 1 tab PO HS [facility] Stop: 02/15/20 20:59 Last Admin: 01/21/20 21:08 Dose: 1 tab Documented by: Tramadol HCl (Ultram) 25 - 50 mg PO Q4H PRN PRN Reason: Pain Stop: 02/18/20 20:36 Last Admin: 01/21/20 03:17 Dose: 50 mg Documented by: (1) Dislocation of left hip Encounter type: initial encounter Qualified Code(s): S73.005A - Unspecified dislocation of left hip, initial encounter
[2020-01-22] MEDS: POTASSIUM CHLORIDE / WTR 10 MEQ/100 ML PLCT IV SCH ×3 (10:50→11:51)
[2020-01-22] MEDS: TRAMADOL HCL 50 MG TABLET PO PRN (13:01)
[2020-01-22] MEDS ORDERED: BACITRACIN INJ 50,000 UNIT VIAL ONE (15:24)
[2020-01-22] MEDS ORDERED: ORTHO JOINT ANESTHETIC ONE (15:25)
--- NOTE | 2020-01-22 16:27 | Orthopedic Progress Note ---
Date of Service January 22, 2020 Assessment & Plan (1) Dislocation of hip prosthesis: The patient is a 89-year-old male who is 3 weeks status post left hip hemiarthroplasty with recurrent instability/dislocation x3, last closed reduction performed on 12/31/2019, patient fitted with abduction brace unfortunately dislocated while in the brace on 01/20/2020. Due to combination of recurrent instability, failure of bracing and inability to follow posterior hip precautions I have indicated the patient for conversion of left hip hemiarthroplasty to total hip arthroplasty with constrained liner. Plan was to proceed with surgery 01/21/2020 however case had to be delayed secondary to implant availability. We will proceed with surgery on 01/22/2020. I discussed the case with the patient's son, MICHELLE at length. The risks, benefits, complications and alternatives of the procedure were explained to the patient which include however not limited to infection, blood clots, acute blood loss, injury to surrounding nerves, bone, vessels, soft tissue, arthrofibrosis, chronic pain, hip dislocation, failure of the implants, need for additional surgery, loss of limb and loss of life. Alternatives included no surgery which could result in worsening clinical picture recurrent instability. The patient s on wished to proceed with surgery and informed consent was obtained at this time. Admission and Anticipated Discharge Date Admission Date: January 16, 2020 Subjective Pain patient seen in preoperative holding accompanied by his son, MICHELLE. Pain well controlled, medically optimized for surgery 01/22/2020. Review of Systems Review of Systems: All systems reviewed & are unremarkable except as noted in HPI & below Constitutional: as per Subjective / HPI Physical Exam Physical Exam: Left lower extremity physical exam limited secondary to patient's current cognitive state. +2 dorsalis pedis pulse, compartment soft nontender, incision clean dry and intact. Left lower extremity shortened and internally rotated. Constitutional: WD/WN, vitals as above Results & Data ([facility]) Vital Signs (Past 12 Hours) Vital Signs Temp Pulse Pulse Resp BP Pulse Ox 01/22/20 15:59 37.2 C 86 18 133/64 96 01/22/20 15:23 71 01/22/20 11:18 36.3 C L 81 18 149/76 H 92 01/22/20 08:00 73 01/22/20 07:17 36.4 C L 75 20 127/71 94
--- NOTE | 2020-01-22 16:28 | History & Physical Bridge Note ---
Date of Service January 22, 2020 History & Physical Bridge Note I have examined the patient, reviewed the History & Physical and in the interval since the performance of the History & Physical I have noted the following changes of clinical significance: no changes noted
[2020-01-22] MEDS ORDERED: CEFAZOLIN 250 MG/ML 1 GM VIAL ONE (17:34)
[2020-01-22] MEDS ORDERED: PHENYLEPHRINE 100MCG/ML 5ML SYR ONE (17:34)
[2020-01-22] MEDS ORDERED: PHENYLEPHRINE HCL 10 MG/ML VIAL ONE (17:34)
--- NOTE | 2020-01-22 18:18 | Post Operative Brief Note ---
Immediate Post Op Note v1 Date of Surgery January 22, 2020 Pre & Post Diagnosis Operation Date: 01/16/20 12:15 Pre-Op Diagnosis: Left Hip Dislocation Post-Op Diagnosis: Left Hip Dislocation Operation Date: 01/21/20 13:20 <No data on this case meets the specified criteria> Operation Date: 01/22/20 13:15 Pre-Op Diagnosis: Left Hip hemiarthroplasty Dislocation Post-Op Diagnosis: Left Hip hemiarthroplasty Dislocation I identified the patient and participated in the time-out.: Yes Procedure Operation Date: 01/16/20 12:15 Actual Procedures p Left Hip Closed Reduction(Left) - Talon Ramírez DO Operation Date: 01/21/20 13:20 <No data on this case meets the specified criteria> Operation Date: 01/22/20 13:15 Actual Procedures p Revision Left hip hemiarthrplasty, Conversion to Left Total Hip Arthroplasty with Constrained Liner(Left) - Talon Ramírez DO Surgeon Talon Ramírez DO Power Equipment Mechanics Instructor none Estimated Blood Loss 75 Findings Consistent with Post-Op Diagnosis Fluids 700 cc LR 250 cc albumin Specimens none Drains Flower Catheter (patient arrived to OR with patent, draining flower) Anesthesia Type MAC Complications none Disposition Disposition: Recovery Room Overlapping Procedure I was present for: the critical portions of procedure. I was immediately available: during the entire case. Back up surgeon: was not required during procedure.
[2020-01-22] MEDS ORDERED: PROPOFOL IV EMULSION 10 MG/ML 20 ML VIAL IV ONE (18:19)
--- NOTE | 2020-01-22 18:25 | Operative Report ---
Post Operative Report Pre & Post Diagnosis Operation Date: 01/16/20 12:15 Pre-Op Diagnosis: Left Hip hemiarthroplasty Dislocation Post-Op Diagnosis: Left Hip hemiarthroplasty Dislocation Operation Date: 01/21/20 13:20 <No data on this case meets the specified criteria> Operation Date: 01/22/20 13:15 Pre-Op Diagnosis: Left Hip hemiarthroplasty Dislocation Post-Op Diagnosis: Left Hip hemiarthroplasty Dislocation I identified the patient and participated in the time-out.: Yes Procedure Operation Date: 01/16/20 12:15 Actual Procedures p Left Hip Closed Reduction(Left) - Talon Ramírez DO Operation Date: 01/21/20 13:20 <No data on this case meets the specified criteria> Operation Date: 01/22/20 13:15 Actual Procedures p Revision Left hemiarthroplasty, Conversion to Left Total Hip Arthroplasty with Constrained Liner(Left) - Talon Ramírez DO Surgeon Talon Ramírez DO Assistant Superintendent none Estimated Blood Loss 75 Findings Consistent with Post-Op Diagnosis Specimens none Drains none Anesthesia Type Spinal MAC Complications none Disposition Disposition: Recovery Room Indications The patient is a 89-year-old male who is 3 weeks status post left hip hemiarthroplasty with recurrent instability/dislocation x3, last closed reduction performed on 12/31/2019, patient fitted with abduction brace unfortunately dislocated while in the brace on 01/20/2020. Due to combination of recurrent instability, failure of bracing and inability to follow posterior hip precautions I have indicated the patient for conversion of left hip hemiarthroplasty to total hip arthroplasty with constrained liner. Plan was to proceed with surgery 01/21/2020 however case had to be delayed secondary to implant availability. I discussed the case with the patient's son, MICHELLE at length. The risks, benefits, complications and alternatives of the procedure were explained to the patient which include however not limited to infection, blood clots, acute blood loss, injury to surrounding nerves, bone, vessels, soft tissue, arthrofibrosis, chronic pain, hip dislocation, failure of the implants, need for additional surgery, loss of limb and loss of life. Alternatives included no surgery which could result in worsening clinical picture recurrent instability. The patient son wished to proceed with surgery and informed consent was obtained at this time. Description of Procedure Following induction of adequate spinal anesthesia, the patient was transferred to the OR table and placed in lateral decubitus position with right hip down. The left hip was prepped and draped in the typical sterile fashion and a posterolateral/Lior-Langenbeck incision was made inline with the previous incision. Subcutaneous tissue was sharply dissected. Electrocautery was utilized for hemostasis. The fascia was incised throughout the length of the wound and retracted with the Charnley retractor. Retained suture from previous surgery was removed. The bursa was taken down and the short external rotators and capsule were identified and tagged with two #1 Vicryl sutures. The short external rotators and capsule were disrupted from the posterior aspect of the femur. Both external rotators and posterior capsule were swept posterior and protected, along with protecting the sciatic nerve. Hemiarthroplasty was identified and was found to be dislocated posterior and superiorly. Meticulous removal of intra-articular fibrous tissue and hematoma was performed. The femoral shell and head was removed from the trunion, which was clean and was without signs of wear. The femoral stem stability assessed and found to be stable without signs of loosening. Next, exposure of the acetabulum was obtained, posterior and anterior offset retractor was placed to gain adequate exposure. Acetabular labrum as well as posterior capsule elements were removed using electrocautery and forceps. Fovea centralis was cleared of all soft tissue. Sequential reaming was performed starting at 42mm and carried up to 49 mm and decision was made to proceed with impaction of a 50 mm G7 osteo Ti metal cup. The cup was impacted and held using a single 25 mm bone screw. The trial acetabular liner was placed at this time. A trial reduction was carried out with a +6 mm femoral head. The trial reduction was stable in all degrees of rotation with no [id number] impingement. The hip was dislocated, trial components were removed and access to the acetabulum was re-established. The trial liner was removed and the cup was irrigated to ensure all debris was removed. The final acetabular G7 freedom constrained liner was inserted and properly seated in the cup. Access to the femur was once more gained and the final 36+6 freedom femoral head was impacted in place and the hip was reduced carefully to insure proper seating of the head inside the constrained liner Range of motion was checked once again and found to be stable. A Betadine soak was performed. After 3 minutes, the hip was once more irrigated with copious sterile saline solution with bacitracin. The kamran- incisional soft tissue was injected utilizing [place] ortho mix which includes a combination of Ropivicaine 0.5% 150mg, Bupivicaine 0.5%/Epinephrine 1:200,000 30ml, Toradol 30mg, Dexamethasone 4mg, Ketamine 10mg, Clonidine 100mcg and NSS 30ml Orthomix solution. The piriformis, external rotators and capsule were repaired to the greater trochanter through bone tunnels using #5 FiberWire. The fascia was closed using #1 Vicryl, subcutaneous tissue was closed using 2-0 Vicryl, and skin was closed with paco. Sterile dressings were applied which included Silverlon dressing. The patient tolerated the procedure well and was transported to PACU in stable condition. Due to the complex nature of the procedure, the entire surgery was performed with the operational assistance of Adrian Farfan PA-C. The automobile mechanic assistant, under direct supervision, was involved in the actual performance of all aspects of the surgical procedure including patient positioning, hemostasis, tissue retraction, instrument management and wound closure. The patient tolerated the procedure well and was transported to PACU in stable condition. I attest to the content of the Intraoperative Record and any orders documented therein. Any exceptions are noted below.
[2020-01-22] MEDS ORDERED: CEFAZOLIN 1000MG 1,000 MG/7.5 ML SYR IV ONE (18:39)
--- NOTE | 2020-01-22 19:11 | Orthopedic Progress Note ---
Date of Service January 22, 2020 Assessment & Plan (1) Dislocation of hip prosthesis: s/p Revision left hip hemiarthroplasty, conversion to PEDRO, constrained liner -ancef x 24 -DVT ppx: SCDs, TEDs, Lovenox daily -PWB LLE -PT/OT when medically stable -posterior hip precautions -PO XR demonstrates well aligned well fixed prothesis without fracture/dislocation -am labs Admission and Anticipated Discharge Date Admission Date: January 16, 2020 Subjective Post Operative Progress Note Patient seen PACU, comfortable, denies complaints, pain well controlled, no acute issues. Review of Systems Review of Systems: All systems reviewed & are unremarkable except as noted in HPI & below Constitutional: as per Subjective / HPI Physical Exam Physical Exam: LLE PE limited secondary to spinal anesthesia, +2 DP pulse, compartments soft NT, dressing cdi, abduction pillow in place Constitutional: WD/WN, vitals as above Results & Data ([facility]) Vital Signs (Past 12 Hours) Vital Signs Temp Pulse Pulse Resp BP Pulse Ox 01/22/20 18:55 64 20 99/51 L 97 01/22/20 18:45 69 15 95/47 L 100 01/22/20 18:38 36.1 C L 75 16 133/93 100 01/22/20 15:59 37.2 C 86 18 133/64 96 01/22/20 15:23 71 01/22/20 11:18 36.3 C L 81 18 149/76 H 92 01/22/20 08:00 73 01/22/20 07:17 36.4 C L 75 20 127/71 94
--- NOTE | 2020-01-22 19:22 | XRay Report ---
XR hip LT min 2V CLINICAL HISTORY: Post-Operative implant position COMPARISON: 01/20/2020 DISCUSSION: Anatomic alignment posttotal left hip revision. The acetabulum has been revised and now c ontains a fixating screw at the superior acetabular margin. IMPRESSION: Anatomic alignment posttotal left hip revision. No evidence for dislocation. Alignment is anatomic. ACT 112: Negative or not required by law. The above report was generated using voice recognition software. It may contain grammatical, syntax or spelling errors. Electronically signed by: Ezra Perez M.D. 01/22/2020 7:21 PM
[2020-01-22] MEDS ORDERED: TRAMADOL HCL 50 MG TABLET PO PRN (19:57)
[2020-01-22] MEDS ORDERED: HYDROmorphone INJ 0.5 MG/0.5 ML SYR IV PRN (19:57)
[2020-01-22] MEDS ORDERED: NALOXONE HCL 0.4 MG/1 ML VIAL/CARP IV PRN (19:57)
[2020-01-22] MEDS: SODIUM CHLORIDE 0.9% 1000ML 1,000 ML IV SCH (20:33)
[2020-01-22] MEDS: DOCUSATE SODIUM/SENNA 50/8.6MG TAB PO SCH (21:41)
[2020-01-22] MEDS: SENNA 8.6 MG TAB PO SCH (21:47)
[2020-01-23] MEDS: CEFAZOLIN 1000MG 1,000 MG/7.5 ML SYR IV SCH ×2 (01:14→10:57)
[2020-01-23] MEDS: PIPERACILLIN/TAZOBACTAM 3.375 GM in DEXTROSE 5% 100 ML IV SCH ×2 (03:24→12:50)
[2020-01-23 07:53] LABS: Basophils # (auto) 0.02 K/uL (0-0.2); Basophils % (auto) 0.1 %; Eosinophils # (auto) 0.04 K/uL (0-0.5); Eosinophils % (auto) 0.3 %; Hematocrit (blood only) 32.7 % (42-52); Hemoglobin 10.5 g/dL (14.0-18.0); Immature Granulocytes # (auto) 0.16 K/uL (0.00-0.02); Immature Granulocytes % (auto) 1.1 %; Lymphocytes # (auto) 0.94 K/uL (1.2-3.4); Lymphocytes % (auto) 6.5 %; Mean Corpuscular Hemoglobin 30.7 pg (25-34); Mean Corpuscular Hgb Conc 32.1 g/dL (32-36); Mean Corpuscular Volume 95.6 fL (80-100); Mean Platelet Volume 10.3 fL (7.4-10.4); Monocytes # (auto) 0.69 K/uL (0.11-0.59); Monocytes % (auto) 4.8 %; Neutrophils # (auto) 12.62 K/uL (1.4-6.5); Neutrophils % (auto) 87.2 %; Platelet Count 343 K/uL (130-400); RDW Coefficient of Variation 15.5 % (11.5-14.5); RDW Standard Deviation 53.2 fL (36.4-46.3); Red Blood Count 3.42 M/uL (4.7-6.1); White Blood Count 14.47 K/uL (4.8-10.8)
[2020-01-23 08:22] LABS: BUN Creatinine Ratio 17.2 (10-20); Calcium 8.9 mg/dl (8.5-10.1); Creatinine Clr Calc Pharmacy 37.3 ml/min; Est GFR (African American) 89.5; Est GFR (Non-African American) 77.3
[2020-01-23] MEDS: SODIUM CHLORIDE 0.9% 1000ML 1,000 ML IV SCH ×2 (08:56→19:17)
[2020-01-23] MEDS: MULTI VIT W/MINERALS LIQUID 15 ML UDP PO SCH (08:57)
[2020-01-23] MEDS: FUROSEMIDE 20 MG TAB PO SCH (08:57)
[2020-01-23] MEDS: METOPROLOL TARTRATE 25 MG TAB PO SCH ×2 (08:58→20:09)
[2020-01-23] MEDS: POLYETHYLENE (MIRALAX) 17 GM PACK PO SCH (08:58)
[2020-01-23] MEDS: POTASSIUM CHLORIDE 20 MEQ/15 ML UDC PO SCH ×2 (08:58→16:39)
[2020-01-23] MEDS: ENOXAPARIN INJ 30 MG/0.3 ML SYR SQ SCH ×2 (09:19)
--- NOTE | 2020-01-23 17:47 | Orthopedic Progress Note ---
Date of Service January 23, 2020 Assessment & Plan (1) Dislocation of hip prosthesis: s/p Revision left hip hemiarthroplasty, conversion to PEDRO, constrained liner POD#1 -ancef x 24 -DVT ppx: SCDs, TEDs, Lovenox daily -PWB LLE -PT/OT when medically stable -posterior hip precautions -PO XR demonstrates well aligned well fixed prothesis without fracture/dislocation -am labs - hgb 10.5, see above Admission and Anticipated Discharge Date Admission Date: January 16, 2020 Subjective Patient seen this a.m. Post Operative Progress Note Patient seen resting in bed, comfortable, denies complaints, pain well controlled, no acute issues. Review of Systems Review of Systems: All systems reviewed & are unremarkable except as noted in HPI & below Constitutional: as per Subjective / HPI Physical Exam Physical Exam: LLE NVSI +EHL/FHL SILT grossly, +2 DP pulse, compartments soft NT, dressing cdi. Constitutional: WD/WN, vitals as above Results & Data ([facility]) Vital Signs (Past 12 Hours) Vital Signs Temp Pulse Pulse Resp BP Pulse Ox 01/23/20 15:16 36.4 C L 74 16 107/63 94 01/23/20 07:03 36.4 C L 75 18 135/63 95 Laboratory Results 01/23/20 01/23/20 Range/Units 07:39 07:39 WBC 14.47 H (4.8-10.8) K/uL RBC 3.42 L (4.7-6.1) M/uL Hgb 10.5 L (14.0-18.0) g/dL Hct 32.7 L (42-52) % MCV 95.6 (80-100) fL MCH 30.7 (25-34) pg MCHC 32.1 (32-36) g/dL RDW Std Deviation 53.2 H (36.4-46.3) fL RDW Coeff of Jacob 15.5 H (11.5-14.5) % Plt Count 343 (130-400) K/uL MPV 10.3 (7.4-10.4) fL Immature Gran % (Auto) 1.1 % Neut % (Auto) 87.2 % Lymph % (Auto) 6.5 % [place] % (Auto) 4.8 % Eos % (Auto) 0.3 % Baso % (Auto) 0.1 % Immature Gran # (Auto) 0.16 H (0.00-0.02) K/uL Neut # (Auto) 12.62 H (1.4-6.5) K/uL Lymph # (Auto) 0.94 L (1.2-3.4) K/uL [place] # (Auto) 0.69 H (0.11-0.59) K/uL Eos # (Auto) 0.04 (0-0.5) K/uL Baso # (Auto) 0.02 (0-0.2) K/uL Sodium 137 (136-145) mmol/L Potassium 4.0 (3.5-5.1) mmol/L Chloride 103 (98-107) mmol/L Carbon Dioxide 29 (21-32) mmol/L Anion Gap 5.0 (3-11) BUN 15 (7-18) mg/dl Creatinine 0.85 (0.6-1.4) mg/dl Est Cr Clr Drug Dosing 37.3 ml/min Est GFR ( Amer) 89.5 Est GFR (Non-Af Amer) 77.3 BUN/Creatinine Ratio 17.2 (10-20) Glucose 105 H (70-99) mg/dl Calcium 8.9 (8.5-10.1) mg/dl
--- NOTE | 2020-01-23 18:35 | Hospitalist Progress Note ---
Date of Service January 23, 2020 Assessment & Plan (1) Dislocation of left hip: -Patient presenting from [facility] for evaluation of left hip dislocation -Recent admission to [facility] 12/27 through 01/04 for left hip fracture, s/p left hip hemiarthroplasty on 12/31 -Seen in ED on 01/15 for left hip dislocation which was able to be reduced in the ED -Orthopedics consulted s/p closed reduction of left hip hemiarthroplasty on 01/16 w/ Dr. Ramírez -pt tolerated procedure well -postoperative x-ray well aligned well fixed prothesis without fracture, dislocation. -Hip abduction brace ordered, and received - on 01/19 pt unfortunately dislocated his left hip again - - now s/p Revision left hip hemiarthroplasty, conversion to total hip arthroplasty, with Dr. Edwards (01/22/2020), pt tolerated procedure well (2) Abnormal EKG: (3) Elevated troponin: -EKG shows new deep T wave inversions laterally - likely d/t mild acute diastolic HF -No cardiopulmonary complaints per patient, however is poor historian -Mildly elevated troponin 0.046 -May have some component of heart failure with bilateral pleural effusions on CXR, check proBNP -pro BNP mildly elevated - Echo - LV cavity small, mild concentric LVH, septal motion is consistent with conduction abnormality, no regional wall motion abnormalities noted, EF 65 to 70%, in comparison to prior study earlier in December 2019, no significant change - diuresis very complicated, have to be very gentle, as pt's oral intake is already limited - needs improved nutritious status/ protein, his low albumin exacerbates his fluid status (4) Bilateral pleural effusion: -Bilateral pleural effusions with bibasilar opacities noted on CXR -WBC 15 K; does not appear septic -Patient is high risk for aspiration given underlying achalasia - -work-up for CHF as above, may need gentle diuresis - diuresis complicated, have to be very gentle, as pt's oral intake is already limited - needs improved nutritious status/ protein, his low albumin exacerbates his fluid status - also need to be careful w/ diuretics given his electrolyte abnormalities Electrolyte abnormalities - secondary to poor nutrition ( 12/23 achalasia/liquid diet) - cont. to monitor K, Mg, and Phos and replace as needed (5) Achalasia: -Maintain liquid diet -S/p EGD on 12/31 with drainage of food and fluid and dilation (6) DVT prophylaxis: -SQ heparin (hold for surgery) (7) Severe protein-calorie malnutrition: Nutrition consulted, boost ordered - encourage oral intake of more nutritious fluids Admission and Anticipated Discharge Date Admission Date: January 16, 2020 Subjective Patient has baseline dementia, oriented to person only, sitting up on bed, finished dinner, denies of any discomfort Unable to provide any meaningful information Vitals been stable, no fever or chills Review of Systems Review of Systems: Unobtainable due to cognitive status (Baseline dementia) Physical Exam Constitutional: WD/WN, vitals as above + ill appearing and + thin Eyes: + anicteric sclerae ENMT: external ear and nose normal, oropharynx normal Respiratory: normal respiratory effort, lungs clear to auscultation Cardiovascular: RRR, no murmur, no edema Gastrointestinal (Abdomen): Inspection/Auscultation: normal bowel sounds Percussion/Palpation: abdomen soft; abdomen nontender Skin: no rashes, warm and dry Neurologic: PERRL, EOMI, accommodation nl, no face palsy, no dysarthria Psychiatric: Orientation: alert; + not oriented x 3 (Baseline dementia oriented to person only) Results & Data ([facility]) Vital Signs (Past 12 Hours) Vital Signs Temp Pulse Pulse Resp BP Pulse Ox 01/23/20 15:16 36.4 C L 74 16 107/63 94 01/23/20 07:03 36.4 C L 75 18 135/63 95 (1) Dislocation of left hip Encounter type: initial encounter Qualified Code(s): S73.005A - Unspecified dislocation of left hip, initial encounter
[2020-01-23] MEDS: SENNA 8.6 MG TAB PO SCH (20:01)
[2020-01-23] MEDS: DOCUSATE SODIUM/SENNA 50/8.6MG TAB PO SCH (20:02)
[2020-01-24] MEDS: SODIUM CHLORIDE 0.9% 1000ML 1,000 ML IV SCH ×2 (06:06→20:49)
[2020-01-24] MEDS: METOPROLOL TARTRATE 25 MG TAB PO SCH ×2 (08:06→20:50)
[2020-01-24] MEDS: POTASSIUM CHLORIDE 20 MEQ/15 ML UDC PO SCH ×2 (08:06→16:03)
[2020-01-24] MEDS: FUROSEMIDE 20 MG TAB PO SCH (08:06)
[2020-01-24] MEDS: MULTI VIT W/MINERALS LIQUID 15 ML UDP PO SCH (08:06)
[2020-01-24] MEDS: ENOXAPARIN INJ 30 MG/0.3 ML SYR SQ SCH (08:07)
[2020-01-24] MEDS: POLYETHYLENE (MIRALAX) 17 GM PACK PO SCH (08:13)
[2020-01-24 08:19] LABS: Basophils # (auto) 0.02 K/uL (0-0.2); Basophils % (auto) 0.2 %; Eosinophils # (auto) 0.17 K/uL (0-0.5); Eosinophils % (auto) 1.3 %; Hematocrit (blood only) 31.2 % (42-52); Hemoglobin 9.6 g/dL (14.0-18.0); Immature Granulocytes # (auto) 0.14 K/uL (0.00-0.02); Immature Granulocytes % (auto) 1.1 %; Lymphocytes # (auto) 1.02 K/uL (1.2-3.4); Lymphocytes % (auto) 7.9 %; Mean Corpuscular Hemoglobin 29.9 pg (25-34); Mean Corpuscular Hgb Conc 30.8 g/dL (32-36); Mean Corpuscular Volume 97.2 fL (80-100); Mean Platelet Volume 10.1 fL (7.4-10.4); Monocytes # (auto) 0.72 K/uL (0.11-0.59); Monocytes % (auto) 5.6 %; Neutrophils # (auto) 10.84 K/uL (1.4-6.5); Neutrophils % (auto) 83.9 %; Platelet Count 349 K/uL (130-400); RDW Coefficient of Variation 15.7 % (11.5-14.5); RDW Standard Deviation 54.8 fL (36.4-46.3); Red Blood Count 3.21 M/uL (4.7-6.1); White Blood Count 12.91 K/uL (4.8-10.8)
[2020-01-24 08:49] LABS: BUN Creatinine Ratio 17.3 (10-20); Calcium 8.8 mg/dl (8.5-10.1); Est GFR (African American) 95.9; Est GFR (Non-African American) 82.7; Potassium 3.3 mmol/L (3.5-5.1)
--- NOTE | 2020-01-24 16:19 | Orthopedic Progress Note ---
Date of Service January 24, 2020 Assessment & Plan (1) Dislocation of hip prosthesis: s/p Revision left hip hemiarthroplasty, conversion to PEDRO, constrained liner POD#2 -ancef x 24 -DVT ppx: SCDs, TEDs, Lovenox daily -PWB LLE -PT/OT when medically stable -posterior hip precautions -PO XR demonstrates well aligned well fixed prothesis without fracture/dislocation -am labs - hgb 9.6, see above Admission and Anticipated Discharge Date Admission Date: January 16, 2020 Subjective Post Operative Progress Note Patient seen sitting in chair bedside, comfortable, denies complaints, pain well controlled, no acute issues. Does not offer much more in regards to ROS. Review of Systems Review of Systems: All systems reviewed & are unremarkable except as noted in HPI & below Constitutional: as per Subjective / HPI Physical Exam Physical Exam: LLE NVSI +EHL/FHL SILT grossly, +2 DP pulse, compartments soft NT, dressing cdi. Constitutional: WD/WN, vitals as above Results & Data ([facility]) Vital Signs (Past 12 Hours) Vital Signs Temp Pulse Resp BP Pulse Ox 01/24/20 15:12 36.3 C L 78 16 130/66 94 01/24/20 07:09 36.6 C 76 16 131/68 96 Laboratory Results 01/24/20 01/24/20 Range/Units 08:05 08:05 WBC 12.91 H (4.8-10.8) K/uL RBC 3.21 L (4.7-6.1) M/uL Hgb 9.6 L (14.0-18.0) g/dL Hct 31.2 L (42-52) % MCV 97.2 (80-100) fL MCH 29.9 (25-34) pg MCHC 30.8 L (32-36) g/dL RDW Std Deviation 54.8 H (36.4-46.3) fL RDW Coeff of Jacob 15.7 H (11.5-14.5) % Plt Count 349 (130-400) K/uL MPV 10.1 (7.4-10.4) fL Immature Gran % (Auto) 1.1 % Neut % (Auto) 83.9 % Lymph % (Auto) 7.9 % [place] % (Auto) 5.6 % Eos % (Auto) 1.3 % Baso % (Auto) 0.2 % Immature Gran # (Auto) 0.14 H (0.00-0.02) K/uL Neut # (Auto) 10.84 H (1.4-6.5) K/uL Lymph # (Auto) 1.02 L (1.2-3.4) K/uL [place] # (Auto) 0.72 H (0.11-0.59) K/uL Eos # (Auto) 0.17 (0-0.5) K/uL Baso # (Auto) 0.02 (0-0.2) K/uL Sodium 140 (136-145) mmol/L Potassium 3.3 L D (3.5-5.1) mmol/L Chloride 107 (98-107) mmol/L Carbon Dioxide 27 (21-32) mmol/L Anion Gap 6.0 (3-11) BUN 13 (7-18) mg/dl Creatinine 0.72 (0.6-1.4) mg/dl Est Cr Clr Drug Dosing 44.0 ml/min Est GFR ( Amer) 95.9 Est GFR (Non-Af Amer) 82.7 BUN/Creatinine Ratio 17.3 (10-20) Glucose 95 (70-99) mg/dl Calcium 8.8 (8.5-10.1) mg/dl
--- NOTE | 2020-01-24 17:53 | Hospitalist Progress Note ---
Date of Service January 24, 2020 Assessment & Plan (1) Dislocation of left hip: -Patient presenting from [facility] for evaluation of left hip dislocation -Recent admission to [facility] 12/27 through 01/04 for left hip fracture, s/p left hip hemiarthroplasty on 12/31 -Seen in ED on 01/15 for left hip dislocation which was able to be reduced in the ED -Orthopedics consulted s/p closed reduction of left hip hemiarthroplasty on 01/16 w/ Dr. Ramírez -pt tolerated procedure well -postoperative x-ray well aligned well fixed prothesis without fracture, dislocation. -Hip abduction brace ordered, and received - on 01/19 pt unfortunately dislocated his left hip again - - now s/p Revision left hip hemiarthroplasty, conversion to total hip arthroplasty, with Dr. Edwards (01/22/2020), pt tolerated procedure well appreciate input from Ortho -cont DVT ppx: SCDs, TEDs, Lovenox daily partial wt bearing as tolerated on left lower ext -posterior hip precautions -PO XR demonstrates well aligned well fixed prothesis without fracture/dislocation (2) Abnormal EKG: (3) Elevated troponin: -EKG shows new deep T wave inversions laterally - likely d/t mild acute diastolic HF -No cardiopulmonary complaints per patient, however is poor historian -Mildly elevated troponin 0.046 -pro BNP mildly elevated - Echo - LV cavity small, mild concentric LVH, septal motion is consistent with conduction abnormality, no regional wall motion abnormalities noted, EF 65 to 70%, in comparison to prior study earlier in December 2019, no significant change - pt clinically does not appear vol overloaded cont to monitor (4) Bilateral pleural effusion: -Bilateral pleural effusions with bibasilar opacities noted on CXR -Patient is high risk for aspiration given underlying achalasia; on full liquid diet per GI recommendation in last admission - CHF with diastolic dysfunction ( HFpEF) monitor vol status pt appears to be clinically dry Electrolyte abnormalities - secondary to poor nutrition ( 12/23 achalasia/liquid diet) - cont. to monitor K, Mg, and Phos and replace as needed (5) Achalasia: -Maintain liquid diet -S/p EGD on 12/31 with drainage of food and fluid and dilation URINARY RETENTION : pt was discharged to with flower catheter after ist hip surgery 2/14/20 approx 3 weeks back will to trial of voiding in am ( will dc the flower at 8 am ,check post void urine residual /bladder scan in 4-6 hrs ) if post void urine vol > 150 , will need to be on flower catheter prior to discharge to (6) DVT prophylaxis: -SC Lovenox SCD /TEds (7) Severe protein-calorie malnutrition: Nutrition consulted, boost ordered - encourage oral intake of more nutritious fluids DISPOSITION ; plan is to return back to [facility] in next 1-2 days Admission and Anticipated Discharge Date Admission Date: January 16, 2020 Subjective Patient seen sitting in chair bedside, comfortable, denies complaints, pain well controlled, no acute issues. Physical Exam Constitutional: WD/WN, vitals as above + ill appearing and + thin Eyes: + anicteric sclerae ENMT: external ear and nose normal, oropharynx normal Respiratory: normal respiratory effort, lungs clear to auscultation Cardiovascular: RRR, no murmur, no edema Gastrointestinal (Abdomen): Inspection/Auscultation: normal bowel sounds Percussion/Palpation: abdomen soft; abdomen nontender Skin: no rashes, warm and dry Neurologic: PERRL, EOMI, accommodation nl, no face palsy, no dysarthria Psychiatric: Orientation: alert; + not oriented x 3 (Baseline dementia oriented to person only) Results & Data ([facility]) Vital Signs (Past 12 Hours) Vital Signs Temp Pulse Resp BP Pulse Ox 01/24/20 15:12 36.3 C L 78 16 130/66 94 01/24/20 07:09 36.6 C 76 16 131/68 96 (1) Dislocation of left hip Encounter type: initial encounter Qualified Code(s): S73.005A - Unspecified dislocation of left hip, initial encounter
[2020-01-24] MEDS: SENNA 8.6 MG TAB PO SCH (20:49)
[2020-01-24] MEDS: DOCUSATE SODIUM/SENNA 50/8.6MG TAB PO SCH (20:50)
[2020-01-25] MEDS: SODIUM CHLORIDE 0.9% 1000ML 1,000 ML IV SCH ×2 (05:56→08:59)
[2020-01-25 07:45] LABS: BUN Creatinine Ratio 12.6 (10-20); Calcium 8.4 mg/dl (8.5-10.1); Creatinine Clr Calc Pharmacy 52.8 ml/min; Est GFR (African American) 103.3; Est GFR (Non-African American) 89.1; Potassium 3.2 mmol/L (3.5-5.1)
[2020-01-25 07:48] LABS: Basophils # (auto) 0.01 K/uL (0-0.2); Basophils % (auto) 0.1 %; Eosinophils % (auto) 1.5 %; Hematocrit (blood only) 30.9 % (42-52); Hemoglobin 9.9 g/dL (14.0-18.0); Immature Granulocytes # (auto) 0.12 K/uL (0.00-0.02); Immature Granulocytes % (auto) 0.9 %; Lymphocytes # (auto) 1.08 K/uL (1.2-3.4); Mean Corpuscular Hemoglobin 30.3 pg (25-34); Mean Corpuscular Volume 94.5 fL (80-100); Mean Platelet Volume 9.9 fL (7.4-10.4); Monocytes # (auto) 0.67 K/uL (0.11-0.59); Neutrophils # (auto) 11.35 K/uL (1.4-6.5); Neutrophils % (auto) 84.5 %; Platelet Count 335 K/uL (130-400); RDW Coefficient of Variation 15.6 % (11.5-14.5); RDW Standard Deviation 53.6 fL (36.4-46.3); Red Blood Count 3.27 M/uL (4.7-6.1); White Blood Count 13.43 K/uL (4.8-10.8)
[2020-01-25] MEDS: MULTI VIT W/MINERALS LIQUID 15 ML UDP PO SCH (09:01)
[2020-01-25] MEDS: METOPROLOL TARTRATE 25 MG TAB PO SCH (09:02)
[2020-01-25] MEDS: FUROSEMIDE 20 MG TAB PO SCH (09:02)
[2020-01-25] MEDS: POTASSIUM CHLORIDE 20 MEQ/15 ML UDC PO SCH (09:02)
[2020-01-25] MEDS: ENOXAPARIN INJ 30 MG/0.3 ML SYR SQ SCH (09:03)
--- NOTE | 2020-01-25 09:40 | Orthopedic Progress Note ---
Date of Service January 25, 2020 Assessment & Plan (1) Dislocation of hip prosthesis: s/p Revision left hip hemiarthroplasty, conversion to PEDRO, constrained liner POD#2 -DVT ppx: SCDs, TEDs, Lovenox daily -PWB LLE -PT/OT when medically stable -posterior hip precautions -am labs - hgb 9.9, see above Ortho to sign off at this time. Please call with any questions. Instructions placed in EHR dc. Admission and Anticipated Discharge Date Admission Date: January 16, 2020 Supervising Physician Co-Signing Physician Notes The patient was seen and examined, agree with above assessment and plan. LLE NVSI +EHL/FHL/TA/GS SILT grossly, +2 DP pulse, compartments soft NT, dressing cdi. A/P S/P conversion left hip hemiarthroplasty to total hip arthroplasty -DVT ppx: SCDs, TEDs, Lovenox daily -PWB LLE -Posterior hip precautions -PT/OT -am labs: Hgb 9.9 Subjective Pt lying in bed awake, alert. States he's been coughing off and on. States that he's had the cough for a while. Denies sputum production. Denies fever, chills. Denies SOB,CP. LH. Pain controlled currently. Review of Systems Review of Systems: All systems reviewed & are unremarkable except as noted in HPI & below Constitutional: as per Subjective / HPI Physical Exam Physical Exam: Silverlon dressing intact. Thigh soft, NT. NV appears intact. Toes mobile. Leg lengths appear equal. Results & Data ([facility]) Vital Signs (Past 12 Hours) Vital Signs Temp Pulse Resp BP Pulse Ox 01/25/20 07:15 36.5 C 73 18 169/66 H 95 01/24/20 23:10 36.9 C 74 16 151/75 H 95
[2020-01-25] MEDS: POLYETHYLENE (MIRALAX) 17 GM PACK PO SCH (11:19)
[2020-01-25] MEDS ORDERED: POTASSIUM CHLORIDE 20 MEQ TABCR PO ONE (13:30)
--- NOTE | 2020-01-25 15:11 | Hospitalist Progress Note ---
Date of Service January 25, 2020 Assessment & Plan (1) Dislocation of left hip: -Patient presenting from [facility] for evaluation of left hip dislocation -Recent admission to [facility] 12/27 through 01/04 for left hip fracture, s/p left hip hemiarthroplasty on 12/31 -Seen in ED on 01/15 for left hip dislocation which was able to be reduced in the ED -Orthopedics consulted s/p closed reduction of left hip hemiarthroplasty on 01/16 w/ Dr. Ramírez -pt tolerated procedure well -postoperative x-ray well aligned well fixed prothesis without fracture, dislocation. -Hip abduction brace ordered, and received - on 01/20/20 pt unfortunately dislocated his left hip again - - now s/p Revision left hip hemiarthroplasty, conversion to total hip arthroplasty, with Dr. Edwards (01/22/2020), pt tolerated procedure well appreciate input from Ortho -cont DVT ppx: SCDs, TEDs, Lovenox daily partial wt bearing as tolerated on left lower ext -posterior hip precautions -PO XR demonstrates well aligned well fixed prothesis without fracture/dislocation Patient is stable to return back to [facility] Activity limitations, posterior hip precaution instructions noted in DC paper (2) Abnormal EKG: (3) Elevated troponin: -EKG shows new deep T wave inversions laterally - likely d/t mild acute diastolic HF -No cardiopulmonary complaints per patient, however is poor historian -Mildly elevated troponin 0.046 -pro BNP mildly elevated - Echo - LV cavity small, mild concentric LVH, septal motion is consistent with conduction abnormality, no regional wall motion abnormalities noted, EF 65 to 70%, in comparison to prior study earlier in December 2019, no significant change - (4) Bilateral pleural effusion: -Bilateral pleural effusions with bibasilar opacities noted on CXR -Patient is high risk for aspiration given underlying achalasia; on full liquid diet per GI recommendation in last admission - CHF with diastolic dysfunction ( HFpEF) vol status stable (5) Achalasia: -Maintain liquid diet -S/p EGD on 12/31 with drainage of food and fluid and dilation URINARY RETENTION : possible due to multiple hip surgery , general deconditioning pt was discharged to with moreno catheter after ist hip surgery 01/04/20 approx 3 weeks back trial of voiding in am; Moreno was d/johana this AM ; post void residue noted have > 250 ml with bladder scan Moreno reinserted will be discharged to [facility] with moreno catheter consider voiding trial in 4-6 weeks after pt's functional status improves with rehab ( Physical and occupational therapy ) (6) DVT prophylaxis: -SC Lovenox SCD /TEds (7) Severe protein-calorie malnutrition: Nutrition consulted, boost ordered - encourage oral intake of more nutritious fluids DISPOSITION ; return back to [facility] today Admission and Anticipated Discharge Date Admission Date: January 16, 2020 Subjective Sitting on chair, baseline dementia, reports of some pain on left hip when he moves, Appears to be comfortable, no fever or chills Able to be discharged to [facility] today Review of Systems Review of Systems: All systems reviewed & are unremarkable except as noted in HPI & below Physical Exam Constitutional: WD/WN, vitals as above + ill appearing and + thin Eyes: + anicteric sclerae ENMT: external ear and nose normal, oropharynx normal Respiratory: normal respiratory effort, lungs clear to auscultation Cardiovascular: RRR, no murmur, no edema Gastrointestinal (Abdomen): Inspection/Auscultation: normal bowel sounds Percussion/Palpation: abdomen soft; abdomen nontender Skin: no rashes, warm and dry Neurologic: PERRL, EOMI, accommodation nl, no face palsy, no dysarthria Psychiatric: Orientation: alert; + not oriented x 3 (Baseline dementia oriented to person only) Results & Data ([facility]) Vital Signs (Past 12 Hours) Vital Signs Temp Pulse Resp BP Pulse Ox 01/25/20 14:55 95 01/25/20 07:15 36.5 C 73 18 169/66 H 95 (1) Dislocation of left hip Encounter type: initial encounter Qualified Code(s): S73.005A - Unspecified dislocation of left hip, initial encounter
--- NOTE | 2020-01-26 07:44 | Discharge Summary ---
Date of Service January 26, 2020 Admission HPI Per Admitting Provider 89-year-old male who presents the ED for evaluation of left hip dislocation. Patient recently admitted to [facility] 12/27 through 01/04 for management of left hip fracture. Patient is status post left hip hemiarthroplasty on 12/31. Patient also with history of achalasia and underwent EGD with drainage of fluid and food particles and dilation on 12/31. It was recommended that a patient remain on a liquid diet indefinitely. Patient was discharged to [facility]. He was seen in the ED yesterday for a left hip dislocation. It was able to be reduced in the ED and patient was sent back to [facility]. This morning, after patient was rolled in bed, it was noted that his left leg was internally rotated and had obvious deformity to the left hip. He was sent back to the ED for further evaluation. History is limited from the patient. There have been no reports of chest pain or shortness of breath. No documented fevers. In the ED, patient is found to have a left hip dislocation once again. Labs show WBC 15 K, troponin mildly elevated 0.046, MG +1.6. EKG shows new deep T wave inversions inferiorly. CXR shows bilateral pleural effusions. Patient was given IV morphine, IV Zofran, IVF, IV magnesium replacement. Principal Diagnosis Left hip dislocation Discharge Exam Constitutional WD/WN, vitals as above + ill appearing and + thin Eyes + anicteric sclerae ENMT external ear and nose normal, oropharynx normal Respiratory normal respiratory effort, lungs clear to auscultation Cardiovascular RRR, no murmur, no edema Gastrointestinal (Abdomen) Inspection/Auscultation: normal bowel sounds Percussion/Palpation: abdomen soft; abdomen nontender Skin no rashes, warm and dry Neurologic PERRL, EOMI, accommodation nl, no face palsy, no dysarthria Psychiatric Orientation: alert; + not oriented x 3 (Baseline dementia oriented to person only) Discharge Data Allergies Allergy/AdvReac Type Severity Reaction Status Date / Time No Known Allergies Allergy Verified 01/16/20 13:21 Consultations 01/16/20 13:39 ED Decision to Admit Stat 01/16/20 15:23 Consult Case Management - Discharge Planning Routine Consult Orthopedic Surgery Routine 01/16/20 19:53 Consult Case Management - Discharge Planning Routine 01/22/20 19:57 Consult Case Management - Discharge Planning Routine Procedures Performed Operation Date: 01/16/20 12:15 Actual Procedures p Left Hip Closed Reduction(Left) - Talon Ramírez DO Operation Date: 01/21/20 13:20 <No data on this case meets the specified criteria> Operation Date: 01/22/20 13:15 Actual Procedures p Left Bipolar Hip, Conversion to Left Total Hip Arthroplasty with Constrained Liner(Left) - Talon Ramírez DO Ordered Studies 01/16/20 17:38 FL fluoroscopy <1hr Routine 01/16/20 17:40 FL hip LT 1V Routine Hospital Course (1) Dislocation of left hip: -Patient presenting from [facility] for evaluation of left hip dislocation -Recent admission to [facility] 12/27 through 01/04 for left hip fracture, s/p left hip hemiarthroplasty on 12/31 -Seen in ED on 01/15 for left hip dislocation which was able to be reduced in the ED -Orthopedics consulted s/p closed reduction of left hip hemiarthroplasty on 01/16 w/ Dr. Ramírez -pt tolerated procedure well -postoperative x-ray well aligned well fixed prothesis without fracture, dislocation. -Hip abduction brace ordered, and received - on 01/20/20 pt unfortunately dislocated his left hip again - - now s/p Revision left hip hemiarthroplasty, conversion to total hip arthroplasty, with Dr. Edwards (01/22/2020), pt tolerated procedure well appreciate input from Ortho -cont DVT ppx: SCDs, TEDs, Lovenox daily partial wt bearing as tolerated on left lower ext -posterior hip precautions -PO XR demonstrates well aligned well fixed prothesis without fracture/dislocation Patient is stable to return back to [facility] Activity limitations, posterior hip precaution instructions noted in DC paper (2) Abnormal EKG: (3) Elevated troponin: -EKG shows new deep T wave inversions laterally - likely d/t mild acute diastolic HF -No cardiopulmonary complaints per patient, however is poor historian -Mildly elevated troponin 0.046 -pro BNP mildly elevated - Echo - LV cavity small, mild concentric LVH, septal motion is consistent with conduction abnormality, no regional wall motion abnormalities noted, EF 65 to 70%, in comparison to prior study earlier in December 2019, no significant change - (4) Bilateral pleural effusion: -Bilateral pleural effusions with bibasilar opacities noted on CXR -Patient is high risk for aspiration given underlying achalasia; on full liquid diet per GI recommendation in last admission - CHF with diastolic dysfunction ( HFpEF) vol status stable (5) Achalasia: -Maintain liquid diet -S/p EGD on 12/31 with drainage of food and fluid and dilation URINARY RETENTION : possible due to multiple hip surgery , general deconditioning pt was discharged to with flower catheter after ist hip surgery 01/04/20 approx 3 weeks back trial of voiding in am; Flower was d/johana this AM ; post void residue noted have > 250 ml with bladder scan Flower reinserted will be discharged to [facility] with flower catheter consider voiding trial in 4-6 weeks after pt's functional status improves with rehab ( Physical and occupational therapy ) (6) DVT prophylaxis: -SC Lovenox SCD /TEds (7) Severe protein-calorie malnutrition: Nutrition consulted, boost ordered - encourage oral intake of more nutritious fluids DISPOSITION ; return back to [facility] today Total Time Total Time Spent Total Time Spent (In Minutes): 35 minutes Total Time Includes: Examination of the Patient, Discharge Planning and Medication Reconciliation Discharge Plan Discharge Items Patient Disposition: Transfer [facility] Reason For Visit: LT HIP DISLOCATION Discharge Diagnosis: LEFT HIP DISLOCATION Activity: Per Instructions section Non-emergency contact: Primary Care Provider and Surgeon Call non-emergency contact if: your pain is worsening, your temperature is above 101.5, your wound has increased redness and your wound has increased drainage Follow-up/Referrals: Kaci Blackwell MD [Primary Care Provider] - Diet: Other - See Diet Comment Diet Comment: FULL LIQUID DIET WITH ASPIRATION PRECAUTION Addtl Attending Provider Instructions: Weight-bear as tolerates left lower extremity with brace on. Abduction brace must be on at all times. May loosen for bathing or dressing patient. Must follow posterior hip precautions as noted before Follow up with Dr Ramírez in 2 weeks. Please call for appointment. [phone] Pending Studies at Discharge: No Stand-Alone Forms: My [facility] Skilled Items Patient informed of condition?: Yes DNR: Yes Discharge Level of Care: Skilled Communicable Disease: No Discharge Prognosis: Stable Lines: None Urinary Catheter: Yes Medications and DC Order Prescriptions: Continued Calmoseptine 0.44-20.6 % Ointment 1 applic TOPICAL TID RF: 0 sennosides-docusate sodium [Senna Plus] 8.6-50 mg tablet 1 tabcap PO HS RF: 0 acetaminophen [Tylenol] 325 mg Tablet 650 mg PO Q6 PRN (Reason: pain/fever) RF: 0 acetaminophen [Tylenol Extra Strength] 500 mg Tablet 500 mg PO QID RF: 0 potassium chloride 20 mEq/15 mL Liquid 20 meq PO BID RF: 0 enoxaparin [Lovenox] 30 mg/0.3 mL Syringe 30 mg SUBCUT DAILY RF: 0 metoprolol tartrate 25 mg Tablet 12.5 mg PO BID RF: 0 Discharge Orders: Discharge Order (Routine); Ordered 01/25/20 Ordered By: Stefany Rosales/Other Patient Handouts: Hip Safety Master Daily Tasks, Hip Precautions, Hip Safety Sleep Position, Hip Replace When Call Surgeon, Fx Femur ORIF About, Fx Femur ORIF Tx Admission Data Admit Date/Time: 01/16/20 13:39 Attending Provider: Stefany Aldana Admit Provider: Arlene Allan Primary Care Provider: Kaci Blackwell Other Providers: Anna Ordoñez ; Arlene Allan ; Talon Ramírez Other Interventions: Discharge Summary Assessment (RN) Last Done: 01/25/20 15:36 DC Date/Time DO NOT enter until pt leaves facility: 01/25/20 16:30
== END 2020-01-25 16:30 | DRG 466 ==
LOC: ED 11:39 → SUATTDRO 13:39 → 2W 13:39 → 3N 01-22 18:25